=== PATIENT | female | born 1940 | race Caucasian/White ===

== ENCOUNTER → 2017-07-15 09:55 | Outpatient (CLI) | payer MEDICARE, SELFPAY ==
--- NOTE | 2017-07-15 10:00 | MM_ITS ---
MM Dig screening mamm BI w/CAD CAD Screening ORDERING PHYSICIAN : Tony Alfonso MD PATIENT AGE: 77 years GENDER: Female COMPARISON: No Previous mammograms:. Baseline study INDICATION: 77. No hormones. No new complaints. Routine screening baseline study. Noncontributory family history. TECHNIQUE: Standard CC and MLO images were obtained. R2 CAD reviewed. FINDINGS: Moderate breast density bilaterally with no suspicious dominant mass nor architectural distortion Small clusters of calcification seen bilaterally more likely benign . LEFT BREAST:There are several clustered areas of calcifications at the left breast. These are generally punctate fairly dense more likely benign. But warrant magnification views of this baseline study. Area X this most superior with slightly ill-defined calcifications Area Y contains denser crush stone appearing type calcifications. The areas seen numerous small generally dense & coarse supporting benign nature Area Z:. Cluster of calcifications of variable sizes most likely benign but benign but would benefit from additional views and follow-up as well.. The other similar clearly benign clusters groupings of calcium dictation seen elsewhere bilaterally not of concern. Vascular calcifications bilaterally but RIGHT BREAST on the right there small cluster calcifications labeled A which.. Most likely benign calcifications but would benefit from magnification spot views in when patient returns :Minimal focal density at the superior retroareolar region is most likely asymmetric glandular tissue and dissipates between the 2 MLO views. Follow-up in one year adequate at this latter area IMPRESSION: 1. Left breast 3 clusters of calcifications would benefit from magnification views at patient's convenience.. Indeterminate features but most likely benign particularly in this age patient. 2. Right breast Cluster calcification labeled A is most likely benign but would benefit from magnification views when patient returns as well 3. Would note this is a Baseline study with unfortunately no no previous for comparison in this 77-year-old 4. Not a reasonable alternative would be follow-up study in 6-9 months BI-RADS Category: 0 Need Additional Imaging Evaluation RECOMMENDED FOLLOW-UP: IMM - IMMEDIATE FOLLOW-UP RECOMMENDED (A letter has been sent to the patient regarding results of the study.)
--- NOTE | 2017-07-15 10:02 | XR_ITS ---
DEXA SCAN.-BONE DENSITY STUDY HIPS AND LUMBAR SPINE HISTORY: Postmenopausal female low calcium intake. Postmenopausal female... Takes multivitamin and thyroid medication. TECHNIQUE: DEXA scan hip and lumbar spine The most complete data summary and color graphic presentation of the today's ( and any prior ) DEXA findings are available in PACS. Definition and treatment guidelines included. COMPARISON: November 24, 2015 LUMBAR SPINE: Overall osteopenia Overall mean lumbar L1-L4 T score -2.0 with BMD0.938 g/cm sq . L2 vertebral body demonstrates the lowest T score -2.6 with [id number] g/cm sq 2016 prior DEXA the mean T score -2.5 with BMD was0.878g/cm sq Thus when comparing today's study to the prior exam there's been a 6.8% increasing mean bone density at the lumbar spine less than 2 year interval. HIPS: Osteopenia Averaging all regions yields today's Hip Mean T score -1.7 with BMD0.788 g/cm sq . = Osteopenia However Femoral neck density is best predictor of hip fracture risk Right femoral neck demonstrates the lowest T score -2.6, with BMD00.672 g/cm sq = osteoporosis . Left femoral neck T score -2.5 with BMD 0.691 with borderline osteoporosis. 2016 DEXA hip mean T score -1.7 , 8 with mean BMD0. 795 g/cm sq Thus this reflects a 0.9% % decrease in overall mean bone density at the hips in the interval. IMPRESSION 1. LUMBAR SPINE: Overall Osteopenia with overall T score -2.0. However osteoporosis is encountered at L2 vertebral body with T score is -2.6 Also note increased bone density lumbar spine since prior DEXA study 2015. 2. HIPS: Osteopenia with overall T score -1.7 -But osteoporosis is noted today at both right and left femoral neck. WHO criteria for post-menopausal, Women: Normal: T-score at or above -1 SD Osteopenia: T-score between -1 and -2.5 SD Osteoporosis: T-score at or below -2.5 SD Low calcium
== END ==
PROVIDERS: Family Provider Family Medicine; PCP Family Medicine; Visit Provider Family Medicine
DX: Z12.31 Encounter for screening mammogram for malignant neoplasm of breast (principal); M81.0 Age-related osteoporosis without current pathological fracture; Z78.0 Asymptomatic menopausal state
CPT/HCPCS: 77067; 77080

== ENCOUNTER → 2017-08-09 13:05 | Outpatient (CLI) | payer MEDICARE, SELFPAY ==
--- NOTE | 2017-08-09 13:14 | MM_ITS ---
MM Dig mamm BI DX w/CAD COMPARISON: 07/15/2015 INDICATION: Follow-up abnormal mammogram ORDERING PHYSICIAN: Vanessa Alfonso MD PATIENT AGE: 77 years TECHNIQUE: Problem solving views of both breasts including magnification views FINDINGS: Left breast: There are multiple clusters of calcifications are probably benign.. Benign-appearing nodules present as well. Right breast: Coarse cluster calcification noted in the upper inner aspect of the right breast probably benign. IMPRESSION: Probably benign calcifications bilaterally BI-RADS Category: 3 Benign Finding Short Term Follow-up RECOMMENDED FOLLOW-UP: 6M - 6 MONTH FOLLOW-UP Recommend bilateral 6 month mammographic follow-up with magnification views to confirm stability of the probably benign calcifications (A letter has been sent to the patient regarding results of the study.)
== END ==
PROVIDERS: Family Provider Family Medicine; PCP Family Medicine; Visit Provider Family Medicine
DX: R92.8 Other abnormal and inconclusive findings on diagnostic imaging of breast (principal)
CPT/HCPCS: 77066

== ENCOUNTER → 2018-02-04 13:14 | Outpatient (CLI) | payer MEDICARE, SELFPAY ==
--- NOTE | 2018-02-04 | US_ITS ---
US thyroid HISTORY: ITS.REASON: NECK SWELLING ORDERING PHYSICIAN: Nora Lee MD PATIENT AGE: 77 years Comparison: None FINDINGS: The right lobe of the thyroid gland 6.6 x 2.5 x 4.9 cm. The left lobe is 4.7 x 2.3 x 2.4 cm. The isthmus is diffusely enlarged. A 2.7 x 1.7 cm isoechoic area of nodularity is present within the isthmus. Within this there is a 5 mm mixed echogenic region. It is uncertain where the larger represents a nodule or just diffuse enlargement of the isthmus. The thyroid gland has an overall multinodular appearance. There is a 2.4 x 2 cm isoechoic nodule in the upper pole on the right. The left lobe is heterogeneous in echogenicity and enlarged. Overall, the thyroid has its multinodular appearance. IMPRESSION: 1. Enlarged thyroid gland consistent with goiter with multinodular appearance. 2. The isthmus is enlarged and does appear to contain a 2.7 cm nodule. 3. At least a 2.4 cm isoechoic nodule in the upper pole on the right.
== END ==
PROVIDERS: Family Provider Family Medicine; PCP Family Medicine; Visit Provider Emergency Medicine
DX: R22.1 Localized swelling, mass and lump, neck (principal)
CPT/HCPCS: 76536

== ENCOUNTER → 2018-02-21 08:18 | Outpatient (CLI) | payer MEDICARE, SELFPAY ==
--- NOTE | 2018-02-21 | US_ITS ---
FNA w guidance HISTORY: Thyromegaly with thyroid nodules ITS.REASON: RT THYROID NODULE ORDERING PHYSICIAN: Aaron Devine MD PATIENT AGE: 77 years COMPARISON: 02/04/2018 Prebiopsy ultrasound: Prebiopsy planning performed with ultrasound showing a 3 cm nodule at the isthmus and a 2.4 cm nodule in the right lobe. TECHNIQUE: Following obtaining informed consent, using aseptic technique and local anesthesia with buffered lidocaine, fine-needle aspiration was performed in each of the 2 nodules of interest using sonographic guidance. 3 passes were made into the isthmus nodule and 2 passes into the right lobe nodule with a 25-gauge needle. Specimen was given to cytology. The patient tolerated the procedure well without evidence of immediate complications and left the ultrasound suite in stable condition. CYTOLOGY: Isthmus nodule: Negative for malignancy, consistent with benign follicular nodule Right thyroid nodule: Negative for malignancy, consistent with benign follicular nodule IMPRESSION: Successful sonographic guided fine needle aspiration of 2 nodules of the thyroid gland both showing benign findings.
== END ==
PROVIDERS: Family Provider Family Medicine; PCP Family Medicine; Visit Provider Otolaryngology
DX: E04.1 Nontoxic single thyroid nodule (principal); E03.9 Hypothyroidism, unspecified
CPT/HCPCS: 10022; 76536; 88173; 88305

== ENCOUNTER → 2018-03-03 08:18 | Outpatient (CLI) | payer MEDICARE, SELFPAY ==
[2018-03-03 08:57] LABS: Basophils # 0.1 K/mm3 (0-0.2); Basophils % 0.5 % (0.1-2.0); Eosinophils # 0.2 K/mm3 (0.0-0.4); Eosinophils % 1.8 % (0.1-12.0); Hematocrit 41.1 % (37.0-47.0); Hemoglobin 13.7 g/dL (12.2-16.2); Lymphocytes # 3.3 K/mm3 (0.7-4.5); Lymphocytes % 30.7 K/mm3 (10-50); Mean Corpuscular HGB Conc 33.3 g/dL (31.8-35.4); Mean Corpuscular Hemoglobin 30.8 pg (27.0-31.2); Mean Corpuscular Volume 92.5 fl (81-99); Mean Platelet Volume 7.3 fl (7.4-10.4); Monocytes # 0.6 K/mm3 (0.1-1.0); Monocytes % 5.7 % (1.7-9.3); Neutrophils # 6.6 K/mm3 (1.8-7.8); Neutrophils % 61.3 % (37.0-80.0); Platelet Count 244 K/mm3 (142-424); Red Blood Count 4.45 M/mm3 (4.20-5.40); Red Cell Distribution Width 13.1 % (11.5-17.5); White Blood Count 10.7 K/mm3 (4.8-10.8)
[2018-03-03 10:26] LABS: Alanine Aminotransferase 20 U/L (12-78); Albumin Level 3.8 gm/dL (3.4-5.0); Albumin/Globulin Ratio 1.2 (1.1-1.8); Alkaline Phosphatase 74 U/L (46-116); Anion Gap 13.8 mEq/L (5-15); Aspartate Amino Transferase 9 U/L (15-37); Bilirubin,Total 0.4 mg/dL (0.2-1.0); Blood Urea Nitrogen 12 mg/dL (7-18); Calcium 9.2 mg/dL (8.5-10.1); Carbon Dioxide 26 mmol/L (21.0-32.0); Chloride 109 mmol/L (98-107); Creatinine,Serum 1.12 mg/dL (0.55-1.02); Estimated Glomerular Filt Rate 47 ml/min (>60); GFR (African American) 57 ML/MIN (>60); Globulin 3.1 gm/dl (1.3-3.2); Glucose 127 mg/dL (74-106); Potassium 4.8 mmoL/L (3.5-5.1); Sodium 144 mmol/L (136-145); Total Protein,Serum 6.9 gm/dL (6.4-8.2)
== END ==
PROVIDERS: PCP Family Medicine; Visit Provider Family Medicine
DX: Z01.818 Encounter for other preprocedural examination (principal)
CPT/HCPCS: 36415; 80053; 85025; 93005

== ENCOUNTER 2018-03-13 07:06 | Inpatient (IN) ==
--- NOTE | 2018-03-13 08:21 | Progress Note ---
[facility] Anesthesia Checklist - Structural Data Admitted From: Home Planned Operative Procedure/s: thyroidectomy Consent for Planned Operative Procedure(s) Verified: Yes Verified Documents: Surgical Consent - Airway Assessment C-Spine Mobility Assessed: Yes TMJ Mobility Assessed: Yes Dentition: Dentures-good fit - Neurological Assessment Level of Consciousness: Awake, Alert, Appropriate - Anesthesia Plan Anesthesia Risk discussed: Yes Anesthesia Plan: Verified ASA Class: II Anesthesia Type: General [facility] History I have reviewed the patient's past medical history: Yes Medical History: Reports:: Diabetes Mellitus Type 2, Hyperlipidemia, Hypertension Denies:: Cancer, Diabetes Mellitus Type 1, Internal Pacemaker, MRSA, Seizures Other Medical History: Reports: Hypothyroidism. Denies: Blood Transfusion Reaction Other Surgeries: Yes: No Previous Surgery. No: Pacemaker Amputation: No Fractures: No - *Social History Educational Level: Attended High School Smoking Status: Former smoker Alcohol Intake: never Occupational Status: disabled Housing: house Household Members: none - Psychiatric History Expresses thoughts of harming self/others: None Suicide Plan Description: No Plan *Family Hx:: No significant family history
--- NOTE | 2018-03-13 11:38 | Progress Note ---
[facility] Anesthesia Record Part I Intake, IV Amount: 1,500 Estimated blood loss (mL): 25 Urine output (mL): 0 Blood Pressure: 141/60 SaO2: 95 Pulse Rate: 81 Respiratory Rate: 12 Temperature: 97 F Patient is:: Awake, Stable Stable to PACU at:: 11:35
--- NOTE | 2018-03-13 11:39 | Progress Note ---
[facility] Anesthesia Record Part II Discharge Time: 12:05 Destination: floor PACU nurse assessment reviewed?: Yes Patient Condition:: Good Anesthesia Complications:: None
--- NOTE | 2018-03-13 15:33 | Operative Note ---
Date of procedure: 03/13/18 Pre-op Diagnosis:: 1. Large right cervical substernal thyroid neoplasm 2. Pressure dysphagia with displacement of the esophagus the left 3. 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 Total right thyroid lobectomy including substernal portion cervical approach 2. Autotransplantation of the right inferior parathyroid gland Surgeon:: Aaron Devine MD MACHINE STRAP BUCKLER:: Malachi Lennon Anesthesia: GETA Estimated blood loss (mL): 14 Operative findings:: same Operative note:: With the patient under general anesthesia maintained with a nerve monitoring endotracheal tube having been given 1 g of Ancef and 12 mg of Decadron the neck and upper chest were prepped with Betadine and draped. Because of the size of the lesion and extended thyroid incision was marked out in skin and subcutaneous tissue and platysma were incised. The strap muscles were identified as were the sternomastoid muscles on each side of the neck. The strap muscles were mobilized and divided. They were significantly attenuated by the large thyroid mass. The mass was exposed on the right side and extended deeply into the substernal region. As well as laterally with significant displacement of the common carotid artery on the right and medially with significant displacement of the trachea and esophagus to the left. The tumor extended into the prevertebral area of the neck. Dissection was commenced superiorly the superior vascular pedicle on the right side was mobilized doubly ligated and divided. The right superior parathyroid gland was identified and retained in situ. The middle thyroid vein on the right was doubly ligated and divided. The right thyroid mass was from the common carotid artery. And from the innominate artery. The mass was mobilized and brought up into the anterior neck from the prevertebral space. And then the substernal component could be brought up into the neck and the inferior thyroid veins were identified on the right and doubly ligated and divided. It was then possible to identify the right inferior thyroid artery as well as the right recurrent laryngeal nerve which was adherent to the thyroid mass. The nerve was stimulated in a positive fashion and then the right inferior thyroid artery was doubly ligated and divided. The nerve was carefully from the thyroid mass on the right and followed through to where it entered the larynx through the cricothyroid membrane. Stimulated again in a normal fashion. The right inferior parathyroid gland was found attached to the thyroid mass and accordingly it was harvested, biopsied and confirmed as parathyroid tissue. The bulk of the gland was retained in a Mai dish for later reimplantation. The gland was then from the prevertebral space and from the esophagus as well as from the trachea. The isthmus was carried with the right lobe and Ibarra's ligament was identified and divided. The right thyroid mass measured over 7 cm in diameter. The gland was then clamped on the lateral aspect of the isthmus. And the specimen was from the left lobe and submitted for frozen section analysis. All bleeding was stopped with either ligature or coagulation. The stump of the left lobe was oversewn with 2- 0 Vicryl. Surgicel snow was placed in the right prevertebral space. Surgicel snow was also placed in the superior mediastinum on the right side. The Mass that extended well beyond the sternoclavicular joint. Prior to placing the Surgicel snow the wound was thoroughly irrigated and all bleeding had been stopped. The strap muscles were then repaired using 2-0 Vicryl. The frozen section analysis came back as benign. A pocket was placed in the lower third of the right sternomastoid muscle and retracted with mosquito forceps. The previously harvested right inferior parathyroid gland was divided into 6 2 mm segments and implanted into the lower end of the right sternomastoid muscle. The muscle was repaired with 4-0 Vicryl. A 10 mm Mulugeta-Kang drain was placed in the neck and hooked to suction. The platysma and subcutaneous layers were closed with 2-0 Vicryl. Dermabond was placed on the skin incision and a dressing was applied. The patient tolerated the procedure well and was sent to recovery in good general condition. Condition: stable Disposition: PACU Complications:: none
--- NOTE | 2018-03-14 08:50 | Pharmacy Consult Notes ---
[facility] Pharmacy VTE Monitoring - Patient Demographics Admission date: 03/13/18 Report Date: 03/14/18 Time: 08:49 Allergies/Adverse Reactions: Patient Allergies No Known Allergies Allergy (Verified 03/12/18 08:42) Height: 1.57 m Weight: 68.181 kg - VTE Risk Was VTE Risk Assessment Performed: Yes VTE Score: 2 VTE Risk Level: Low Risk - Prophylaxis VTE Prophylaxis Ordered?: Yes Types of VTE Prophylaxis: IPCS Thigh High Location of Applied Device: Bilateral Lower Extremeties - VTE Diagnosis Confirmed Treatment or plan recommended: Continue Current Treatment
--- NOTE | 2018-03-14 15:14 | Progress Note ---
Internal Medicine - PN: Subj *Date: 03/14/18 *Time: 09:20 Interval history: FAMILY MEDICINE CONSULT: 77 y.o. WF s/p thyroidectomy by Dr. Devine. Patient with longstanding history of massive goiter with recent increase in symptoms, i.e. discomfort and difficulty swallowing. Recent fine needle bx negative for malignancy. The patient is Diabetic and takes Metformin 500mg bid and 4mg glimepiride. Also treated for hypertension with Lisinopril 20mg daily and 20mg of lasix every other day. Takes Simvastatin 40mg hs for hyperlipidemia. Alendronate 35mg weekly for osteoporosis. Exam Vital signs and Labs for Last 24 Hours: Temp Pulse Resp BP Pulse Ox 98.6 F 92 H 18 150/73 96 03/14/18 08:00 03/14/18 08:31 03/14/18 08:00 03/14/18 08:00 03/14/18 08:31 Laboratory Results - last 24 hr 03/14/18 07:18: Calcium 9.4 03/14/18 11:12: POC Glucose 142 H I & O for Last 24 hours: Intake & Output 03/12/18 03/13/18 03/14/18 03/15/18 11:59 11:59 11:59 11:59 Intake Total 1500 / 1500 1990 240 / 240 Output Total 2330 / 2330 300 / 300 Balance 1500 / 1500 -339 / -339 -60 / -60 Weight 155 lb 150 lb 5 oz - Constitutional no acute distress Comments: Sitting up in bed, converant - *Routine HEENT Exam Head: Present: normocephalic Eye: Present: EOMI, PERRL ENT: Present: mucous membranes moist - *Routine Neck Exam Comments: Dressing in place, dry. Bulb drain functioning, scant bloody drainage. - Routine Chest/Breast/Axilla Exam Comments: no tenderness, mild dorsal kyphosis - *Routine Respiratory Exam Present: CTA bilaterally (no wheezes or rhonchi) - *Routine Cardiovascular Exam Present: RRR, S4 Comments: No ectopics - *Routine Abdominal Exam Present: soft Comments: nontender, no masses - *Routine Extremities Exam Comments: No edema - *Routine Neurological Exam No deficits, voice quite clear post-op Assessment and Plan (1) Multinodular goiter (nontoxic) Current visit: Yes Status: Acute Category: Medical Code(s): E04.2 - Nontoxic multinodular goiter (2) Neck pain Current visit: Yes Status: Acute Category: Medical Code(s): M54.2 - Cervicalgia (3) Dysphagia Current visit: Yes Status: Acute Category: Medical Code(s): R13.10 - Dysphagia, unspecified (4) Diabetes mellitus type 2 in nonobese Current visit: Yes Status: Acute Category: Medical Code(s): E11.9 - Type 2 diabetes mellitus without complications (5) Hypothyroidism (acquired) Current visit: Yes Status: Acute Category: Medical Code(s): E03.9 - Hypothyroidism, unspecified (6) Hypertension Current visit: Yes Status: Acute Category: Medical Code(s): I10 - Essential (primary) hypertension - Assessment and plan all Dx Assessment and Plan for all problems:: Home medications are ordered. I did not order the statin (nonformulary). Follow blood sugars. THANK YOU for the consult.
== END 2018-03-14 17:30 | disposition home or self-care (01) ==
LOC: OR 07:06 → OBSVTOIN 09:08 → 2ND 09:08 → INTOOBSV 09:08
PROVIDERS: ADMIT Otolaryngology; ATTEND Otolaryngology

== ENCOUNTER → 2018-07-09 14:32 | Outpatient (CLI) | payer MEDICARE, SELFPAY ==
[2018-07-09 16:33] LABS: Free T4 (Free Thyroxine) 1.13 ng/dl (0.76-1.46); Thyroid Stimulating Hormone 0.73 uIU/ml (0.358-3.740)
== END ==
PROVIDERS: Visit Provider Otolaryngology
DX: D49.7 Neoplasm of unspecified behavior of endocrine glands and other parts of nervous system (principal); E03.9 Hypothyroidism, unspecified
CPT/HCPCS: 36415; 84439; 84443

== ENCOUNTER → 2020-03-29 15:29 | Outpatient (CLI) | payer MEDICARE, SELFPAY ==
--- NOTE | 2020-03-29 15:44 | XR_ITS ---
PROCEDURE: XR FOOT LT MIN 3V CLINICAL INDICATION: SPRAIN OF L FOOT Pain and swelling COMPARISON: No exams were available for comparison FINDINGS: No acute fracture or dislocation is evident. Degenerative changes are present at the tarsal metatarsal junction and 1st metatarsophalangeal junction. Nonspecific soft tissue calcification noted along the dorsal ankle region and at the plantar fascia. IMPRESSION: Degenerative changes, no acute finding Dictated by: Ruben Loving MD 03/29/2020 16:52 Ruben Loving MD in [place] 03/29/2020 16:52
== END ==
PROVIDERS: PCP Family Medicine; Visit Provider Family Medicine
DX: S93.602A Unspecified sprain of left foot, initial encounter (principal)
CPT/HCPCS: 73630

== ENCOUNTER → 2020-04-14 12:55 | Outpatient (CLI) | payer MEDICARE, SELFPAY ==
--- NOTE | 2020-04-14 13:19 | CT_ITS ---
PROCEDURE: CT SOFT TISSUE NECK WO CON CLINICAL HISTORY: trapezias muscle swelling- left LEFT SIDE NECK TREMORS, FROM EAR TO SHOULDER LEFT ANTERIOR NECK SWELLING, MARKED WITH BB NO PRIOR COMPARISON: US US THYROID from 04/14/2020 TECHNIQUE: Oral Contrast: None IV Contrast: None Axial images obtained with sagittal and coronal reformats. All CT scans at the facility use one or more dose reduction, viz: automated exposure control, ma/kV adjustment per patient size (including targeted exams where dose is matched to indication, i.e. head), or iterative reconstruction technique. FINDINGS: The nasopharynx, oropharynx, and hypopharynx have unremarkable unenhanced appearance. Unremarkable appearing epiglottis. The left lobe of the thyroid gland is enlarged measuring 6 cm cephalad caudad and 3.2 cm transverse. There is mild compression upon the left side of the trachea with minimal tracheal deviation toward the right by approximately 6 mm. There has been a prior right thyroidectomy. There are few scattered small nodes in the neck with no dominant adenopathy. The parotid and submandibular glands have an unremarkable appearance. Lung apices are clear. There is mild degenerative change in the cervical spine. Degenerative changes are present at the sternoclavicular joints. IMPRESSION: Enlarged left lobe of the thyroid gland/left thyroid mass with mild deviation of the trachea toward the right Dictated by: Ruben Loving MD 04/15/2020 11:18 Ruben Loving MD in [place] 04/15/2020 11:18
--- NOTE | 2020-04-14 13:22 | US_ITS ---
PROCEDURE: US THYROID CLINICAL INDICATION: hx thyroid sx pt has visable and palpable area left neck; she has history of thyroid surgery, right lobe and isthmus removed---- COMPARISON: US THY US thyroid from 02/04/2018 FINDINGS: There has been prior right thyroidectomy. The left lobe measures 4.7 x 2.9 x 3.5 cm. There is a heterogeneous 3.9 x 2.3 cm left thyroid nodule. The nodule is wider than tall with heterogeneous echogenicity. This is probably unchanged compared to 02/04/2018. IMPRESSION: Enlarged left lobe of the thyroid gland nearly completely occupied by 3.9 cm nodule overall not significantly changed. Interval stability suggests benign process. FNA may confirm if clinically warranted. Dictated by: Ruben Loving MD 04/17/2020 09:34 Ruben Loving MD in [place] 04/17/2020 09:34
[2020-04-14 15:13] LABS: Free T4 (Free Thyroxine) 1.87 ng/dl (0.78-2.19)
[2020-04-14 15:28] LABS: Thyroid Stimulating Hormone 1.02 uIU/mL (0.465-4.68)
== END ==
PROVIDERS: PCP Family Medicine; Visit Provider Otolaryngology
DX: E03.9 Hypothyroidism, unspecified (principal)
CPT/HCPCS: 36415; 70490; 76536; 84439; 84443

== ENCOUNTER → 2020-05-10 09:50 | Outpatient (CLI) | payer MEDICARE, SELFPAY ==
--- NOTE | 2020-05-10 09:50 | US_ITS ---
PROCEDURE: US FNA THYROID CLINICAL INDICATION: Thyroid nodule COMPARISON: US US THYROID from 04/14/2020 TECHNIQUE: Pre biopsy exam confirming the dominant left thyroid nodule.. Time-out procedure performed. Following obtaining informed consent, using aseptic technique and local anesthesia with buffered lidocaine, fine-needle aspiration was performed of the nodule of interest using sonographic guidance. 3 passes were made into the nodule with a 21-gauge needle. Specimen was given to cytology. The patient tolerated the procedure well without evidence of immediate complications and left the ultrasound suite in stable condition. FINDINGS: CYTOLOGY: Negative for malignancy. Consistent with benign follicular nodule IMPRESSION: Uneventful ultrasound-guided FNA of the left thyroid nodule showing benign findings. Dictated by: Ruben Loving MD 05/27/2020 13:28 Ruben Loving MD in [place] 05/27/2020 13:28
== END ==
PROVIDERS: PCP Family Medicine; Visit Provider Otolaryngology
DX: E04.1 Nontoxic single thyroid nodule (principal)
CPT/HCPCS: 10005; 76942; 88173; 88305

== ENCOUNTER → 2020-05-13 13:04 | Outpatient (CLI) | payer MEDICARE, SELFPAY ==
--- NOTE | 2020-05-13 14:16 | ECG_ITS ---
APPROVED REPORT Exam: Resting ECG HR:91 bpm ECG Measurements Heart Rate 91 AXES CA 152 P QRSd 64 QRS 21 QT 340 T 10 QTc 418 Conclusion Sinus rhythm with premature atrial complexes Nonspecific ST and T wave abnormality Abnormal ECG Electronically signed by : Noel Zafar, 05/13/2020 18:13:43
== END ==
PROVIDERS: PCP Family Medicine; Visit Provider Family Medicine
DX: Z01.810 Encounter for preprocedural cardiovascular examination (principal)
CPT/HCPCS: 93005

== ENCOUNTER 2020-07-20 21:34 | Emergency (ER) | payer MEDICARE, SELFPAY ==
--- NOTE | 2020-07-20 21:47 | ECG_ITS ---
APPROVED REPORT Exam: Resting ECG HR:93 bpm ECG Measurements Heart Rate 93 AXES NH 128 P 86 QRSd 68 QRS 66 QT 340 T 74 QTc 422 Conclusion Normal sinus rhythm Normal ECG Electronically signed by : Ammon Melendez, 07/21/2020 19:27:47
[2020-07-20 21:50] VITALS: BP 159/84; PULSE 89; RESP 18; TEMP 37.3; O2SAT 97; BMI 37.4
--- NOTE | 2020-07-20 21:58 | XR_ITS ---
PROCEDURE: XR CHEST PORTABLE CLINICAL HISTORY: soa Shortness of breath COMPARISON: CR XR CHEST 2V from 06/09/2019 FINDINGS: The cardiomediastinal silhouette and pulmonary vascularity are within normal limits. Patchy density is present left lower lobe laterally suggesting an area of infiltrate. There are mild atelectatic changes in the right lung base. There is some increased density in left paratracheal region with tracheal deviation toward the right. IMPRESSION: Left lower lobe infiltrate. Right lower lobe atelectasis. Increased density left paratracheal region suggesting thyroid enlargement or nodule. Dictated by: Ruben Loving MD 07/21/2020 05:07 Ruben Loving MD in [place] 07/21/2020 05:07
[2020-07-20 22:06] VITALS: BP 151/82; PULSE 87; RESP 17; O2SAT 97
[2020-07-20 22:11] LABS: Basophils % 0.4 % (0.1-2.0); Hematocrit 41.4 % (37.0-47.0); Hemoglobin 14.1 g/dL (12.2-16.2); Lymphocytes # 1.4 K/mm3 (0.7-4.5); Lymphocytes % 12.9 % (10-50); Mean Corpuscular HGB Conc 34.2 g/dL (31.8-35.4); Mean Corpuscular Hemoglobin 31.3 pg (27.0-31.2); Mean Corpuscular Volume 91.8 fl (81-99); Mean Platelet Volume 8.1 fl (7.4-10.4); Monocytes # 0.3 K/mm3 (0.1-1.0); Neutrophils % 83.7 % (37.0-80.0); Platelet Count 249 K/mm3 (142-424); Red Blood Count 4.51 M/mm3 (4.20-5.40); Red Cell Distribution Width 13.6 % (11.5-17.5); White Blood Count 10.8 K/mm3 (4.8-10.8)
[2020-07-20 22:18] LABS: Alanine Aminotransferase 23 U/L (12-78); Albumin Level 4.2 g/dl (3.5-5.0); Alkaline Phosphatase 110 U/L (38-126); Anion Gap 17.4 mEq/L (5-15); Aspartate Amino Transferase 26 U/L (14-36); Bilirubin,Direct 0.5 mg/dl (0.0-0.4); Bilirubin,Total 0.5 mg/dl (0.2-1.3); Blood Urea Nitrogen 36 mg/dl (7-17); Calcium 9.3 mg/dl (8.4-10.2); Carbon Dioxide 22 mmol/L (22.0-30.0); Chloride 96 mmol/L (98-107); Creatinine Clearance Estimated 54 mL/min (50-200); Estimated Glomerular Filt Rate 39 ml/min (>60); GFR (African American) 47 ML/MIN (>60); Glucose 304 mg/dl (74-100); Potassium 4.4 mmoL/L (3.5-5.1); Sodium 131 mmol/L (136-145); Total Protein,Serum 7.4 g/dl (6.3-8.2)
[2020-07-20 22:19] LABS: Lactic Acid 1.7 mmol/L (0.7-2.1)
[2020-07-20 22:30] LABS: Coronavirus 19 IgG Antibody Negative (Negative); Coronavirus 19 IgM Antibody Negative (Negative)
[2020-07-20 22:31] LABS: Troponin I < 0.01 ng/ml (0.00-0.034)
[2020-07-20 22:36] VITALS: BP 138/73; PULSE 79; RESP 15; O2SAT 96
--- NOTE | 2020-07-20 22:40 | HMH.EDSOB ---
ED Disposition Clinical Impression: COVID-19, Pneumonia due to COVID-19 virus, Renal insufficiency, Diabetes mellitus type 2 in nonobese, Hypothyroidism (acquired) Disposition: Home, Self-Care Condition on Discharge: Good Instructions: DI for COVID-19 (Suspected or Confirmed ) Additional Instructions: call pcp in am Referrals: Vanessa Alfonso MD [Primary Care Provider] - - Critical Care Critical Care Time: No Attestation: On 07/20/20, the high probability of a clinically significant, sudden or life threatening deterioration of the following system(s) required my full and direct attention, intervention and personal management. The time I documented below is in addition to time spent performing reported procedures but includes the following listed in this critical care notation. Medical Decision Making - Medical Records Medical records reviewed: Yes: I reviewed the patient's medical records. - Anam Inquiry Pt receiving controlled substance: No Vital Signs: 07/20/20 21:50 07/20/20 22:06 07/20/20 22:36 Temperature 99.1 F Temperature Source Oral Pulse Rate [Right Brachial] 89 87 79 Respiratory Rate 18 17 15 Blood Pressure [Right Arm] 159/84 H 151/82 H 138/73 Blood Pressure Mean [Right Arm] 109 105 94 Blood Pressure Source [Right Arm] Automatic Cuff Automatic Cuff Automatic Cuff Blood Pressure Position [Right Arm] Sitting Sitting 02 Sat by Pulse Oximetry 97 97 96 Oxygen Delivery Method Room Air Room Air Room Air 07/20/20 23:06 07/20/20 23:36 Temperature Temperature Source Pulse Rate [Right Brachial] 84 81 Respiratory Rate 16 19 Blood Pressure [Right Arm] 142/75 H 149/70 H Blood Pressure Mean [Right Arm] 97 96 Blood Pressure Source [Right Arm] Automatic Cuff Automatic Cuff Blood Pressure Position [Right Arm] Sitting 02 Sat by Pulse Oximetry 95 98 Oxygen Delivery Method Room Air Room Air - Lab Data Lab results reviewed: Yes: I reviewed the patient's lab results. Lab Results 07/20/20 22:00: WBC 10.8, RBC 4.51, Hgb 14.1, Hct 41.4, MCV 91.8, MCH 31.3 H, MCHC 34.2, RDW 13.6, Plt Count 249, MPV 8.1, Neut % (Auto) 83.7 H, Lymph % (Auto) 12.9, [place] % (Auto) 3.0, Eos % (Auto) 0.0 L, Baso % (Auto) 0.4, Neut # (Auto) 9.0 H, Lymph # (Auto) 1.4, [place] # (Auto) 0.3, Eos # (Auto) 0.0, Baso # (Auto) 0.0 07/20/20 22:00: Sodium 131 L, Potassium 4.4, Chloride 96 L, Carbon Dioxide 22, Anion Gap 17.4 H, BUN 36 H, Creatinine 1.30 H, Estimated Creat Clear 54, Estimated GFR 39 L, Est GFR ( Amer) 47 L, Glucose 304 H, Calcium 9.3, Total Bilirubin 0.5, Direct Bilirubin 0.5 H, Conjugated Bilirubin 0.0, Indirect Bilirubin 0.0, Unconjugated Bilirubin 0.0, AST 26, ALT 23, Alkaline Phosphatase 110, Troponin I < 0.01, Total Protein 7.4, Albumin 4.2, Procalcitonin 0.120 07/20/20 22:00: Lactate 1.7 07/20/20 22:00: SARS-CoV-2 IgG Ab (Rapid) Negative, SARS-CoV-2 IgM Ab (Rapid) Negative Result diagrams: 07/20/20 22:00 07/20/20 22:00 Orders (Tests/Meds): ED MEDICATIONS Generic Name Dose Route Start Last Admin Trade Name Freq PRN Reason Stop Dose Admin Sodium Chloride 1,000 mls @ 999 mls/hr 07/20/20 22:00 07/20/20 22:03 Sod Chlor 0.9% 1000ml Bag IV 07/20/20 23:00 999 mls/hr .Q1H1M [facility]AGO Administration Discontinued Medications Generic Name Dose Route Start Last Admin Trade Name Freq PRN Reason Stop Dose Admin Dexamethasone Sodium Phosphate 10 mg 07/20/20 22:02 07/20/20 22:04 Dexamethasone 4mg/Ml 5ml Mdv IV 07/20/20 22:03 10 mg ONCE ONE Administration ORDERS Category Date Time Status CT chest wo con Stat Cat Scan 07/20/20 23:03 Ordered XR chest portable Stat Exams 07/20/20 21:58 Taken Troponin I Q3H Lab 07/21/20 01:00 Ordered Troponin I Q3H Lab 07/21/20 04:00 Ordered Blood Culture Stat Micro 07/20/20 22:00 Received - Radiology Data #1 Image(s): Chest Image Reviewed: Yes I reviewed the patient's radiology image Preliminary Findings: Abnormal (bilat changes )
--- NOTE | 2020-07-20 23:03 | CT_ITS ---
PROCEDURE: CT CHEST WO CON CLINICAL INDICATION: SOA Shortness of breath, Covid19 COMPARISON: CT CT ABDOMEN PELVIS W CON from 06/09/2019 CR XR CHEST PORTABLE from 07/20/2020 TECHNIQUE: Axial images obtained with sagittal and coronal reformats. All CT scans at the facility use one or more dose reduction, viz: automated exposure control, ma/kV adjustment per patient size (including targeted exams where dose is matched to indication, i.e. head), or iterative reconstruction technique. FINDINGS: There is enlargement of the left lobe of the thyroid gland consistent with goiter. This is causing some impingement upon the trachea and mild tracheal shift to the right by approximately 1 cm. There are few scattered small mediastinal lymph nodes. Normal heart size. Multifocal small patchy areas of ground-glass infiltrate are present in the right upper lobe posteriorly, right lower lobe posteriorly, lingula, left upper lobe and the superior aspect of the left lower lobe consistent with Covid19 pneumonia. No effusions. There are degenerative changes of the thoracic spine. IMPRESSION: Multifocal patchy areas of ground-glass infiltrate consistent with Covid19 pneumonia. Dictated by: Ruben Loving MD 07/21/2020 05:46 Ruben Loving MD in [place] 07/21/2020 05:46
[2020-07-20 23:06] VITALS: BP 142/75; PULSE 84; RESP 16; O2SAT 95
[2020-07-20 23:36] VITALS: BP 149/70; PULSE 81; RESP 19; O2SAT 98
[2020-07-21 00:36] VITALS: BP 145/75; PULSE 85; RESP 16; TEMP 36.8; O2SAT 98
== END 2020-07-21 00:40 | disposition home or self-care (01) ==
PROVIDERS: Emergency Provider Emergency Medicine; PCP Family Medicine
DX: Z20.822 Contact with and (suspected) exposure to COVID-19 (principal); R06.02 Shortness of breath; N28.9 Disorder of kidney and ureter, unspecified; E11.9 Type 2 diabetes mellitus without complications; E03.9 Hypothyroidism, unspecified; E78.5 Hyperlipidemia, unspecified; Z01.84 Encounter for antibody response examination; I10 Essential (primary) hypertension; Z88.0 Allergy status to penicillin; Z79.899 Other long term (current) drug therapy
CPT/HCPCS: 71045; 71250; 80048; 80076; 83605; 84145; 84484; 85025; 86328; 87040; 93005; 96365; 96375; 99284

== ENCOUNTER 2020-07-27 10:14 | Inpatient (IN) | payer MEDICARE, SELFPAY ==
[2020-07-27] VITALS (11 sets, daily range): BP systolic 109–144; BP diastolic 55–91; PULSE 85–103; RESP 19–26; TEMP 36.6–37.4; O2SAT 82–97; BMI 24.7; BMI 25.7
--- NOTE | 2020-07-27 10:47 | HMH.EDGENADL ---
ED Disposition Clinical Impression: Pneumonia due to COVID-19 virus Respiratory failure with hypoxia Qualifiers: Chronicity: acute Qualified Code(s): J96.01 - Acute respiratory failure with hypoxia Disposition: Admitted As Inpatient Condition on Discharge: Serious Referrals: Vanessa Alfonso MD [Primary Care Provider] - - Critical Care Critical Care Time: Yes Attestation: On 07/27/20, the high probability of a clinically significant, sudden or life threatening deterioration of the following system(s) required my full and direct attention, intervention and personal management. The time I documented below is in addition to time spent performing reported procedures but includes the following listed in this critical care notation. Total Critical Care Time: 20 Vital system(s) involved:: Respiratory Failure My critical care processes included: Assessment & monitoring of V/S, Initial and Re-exams, Data Review/Interpretation, Coordinating Care, Medication Orders and management, Documentation Medical Decision Making - Anam Inquiry Pt receiving controlled substance: No Vital Signs: 07/27/20 10:15 07/27/20 10:55 07/27/20 11:36 Temperature 98.4 F Temperature Source Oral Pulse Rate [Right Radial] 99 H 91 H 90 Respiratory Rate 26 H Blood Pressure [Right Arm] 109/62 L 112/62 109/57 L Blood Pressure Mean [Right Arm] 77 78 74 Blood Pressure Source [Right Arm] Automatic Cuff Automatic Cuff Automatic Cuff Blood Pressure Position [Right Arm] Sitting Sitting Sitting 02 Sat by Pulse Oximetry 82 L 93 L 92 L Oxygen Delivery Method Room Air Nasal Cannula Nasal Cannula Oxygen Flow Rate (LPM) 3 3 - Lab Data Lab Results 07/27/20 10:35: WBC 12.5 H, RBC 4.66, Hgb 14.8, Hct 44.1, MCV 94.6, MCH 31.7 H, MCHC 33.5, RDW 13.8, Plt Count 301, MPV 8.4, Neut % (Auto) 86.8 H, Lymph % (Auto) 10.3, [place] % (Auto) 2.0, Eos % (Auto) 0.6, Baso % (Auto) 0.3, Neut # (Auto) 10.9 H, Lymph # (Auto) 1.3, [place] # (Auto) 0.3, Eos # (Auto) 0.1, Baso # (Auto) 0.0 07/27/20 10:35: Sodium 137, Potassium 4.0, Chloride 103, Carbon Dioxide 27, Anion Gap 11.0, BUN 19 H, Creatinine 1.20 H, Estimated Creat Clear 36, Estimated GFR 43 L, Est GFR ( Amer) 52 L, Glucose 224 H, Calcium 8.9, Total Bilirubin 0.5, AST 24, ALT 15, Alkaline Phosphatase 106, Total Protein 6.7, Albumin 3.5, Globulin 3.2, Albumin/Globulin Ratio 1.1 07/27/20 10:35: Lactate 1.4 Result diagrams: 07/27/20 10:35 07/27/20 10:35 Orders (Tests/Meds): ED MEDICATIONS Discontinued Medications Generic Name Dose Route Start Last Admin Trade Name Freq PRN Reason Stop Dose Admin Ceftriaxone Sodium 1 gm/ 50 mls @ 100 mls/hr 07/27/20 12:00 Sodium Chloride IV 08/10/20 11:59 Q24H CHAGO Protocol Azithromycin 500 mg/ Sodium 250 mls @ 250 mls/hr 07/27/20 12:00 Chloride IV 08/10/20 11:59 Q24H CHAGO Protocol ORDERS Category Date Time Status Complete Blood Count Auto Diff Stat Lab 07/27/20 10:35 Results Covid-19 IgG/IgM ([facility]) Stat Lab 07/27/20 10:35 Received Full Resp Panel w/COVID ([facility]) Routine Lab 07/27/20 11:44 Ordered Blood Culture Stat Micro 07/27/20 10:35 Received - Radiology Data #1 Image(s): Chest Image Reviewed: Yes I reviewed the patient's radiology image, Yes I have reviewed radiologist's interpretation PROCEDURE: XR CHEST PORTABLE CLINICAL HISTORY: cough, low SaO2 Covid19 pneumonia with cough COMPARISON: CR XR CHEST 2V from 06/09/[address] CHEST WO CON from 07/20/2020 CR XR CHEST PORTABLE from 07/20/2020 FINDINGS: The cardiomediastinal silhouette and pulmonary vascularity are within normal limits. Patchy ground-glass attenuation in both upper lower lobes consistent with bilateral pneumonia which is worse compared to previous exam. No acute bony abnormalities. IMPRESSION: Bilateral pneumonia which is worse compared to the previous exam Dictated by: Ruben Loving MD 07/27/2020 11:29 Ruben Loving
--- NOTE | 2020-07-27 10:55 | XR_ITS ---
PROCEDURE: XR CHEST PORTABLE CLINICAL HISTORY: cough, low SaO2 Covid19 pneumonia with cough COMPARISON: CR XR CHEST 2V from 06/09/[address] CHEST WO CON from 07/20/2020 CR XR CHEST PORTABLE from 07/20/2020 FINDINGS: The cardiomediastinal silhouette and pulmonary vascularity are within normal limits. Patchy ground-glass attenuation in both upper lower lobes consistent with bilateral pneumonia which is worse compared to previous exam. No acute bony abnormalities. IMPRESSION: Bilateral pneumonia which is worse compared to the previous exam Dictated by: Ruben Loving MD 07/27/2020 11:29 Ruben Loving MD in [place] 07/27/2020 11:29
[2020-07-27 11:03] LABS: Chloride 103 mmol/L (98-107)
[2020-07-27 11:04] LABS: Sodium 137 mmol/L (136-145)
[2020-07-27 11:06] LABS: Alanine Aminotransferase 15 U/L (12-78); Alkaline Phosphatase 106 U/L (38-126); Aspartate Amino Transferase 24 U/L (14-36); Bilirubin,Total 0.5 mg/dl (0.2-1.3); Blood Urea Nitrogen 19 mg/dl (7-17); Creatinine Clearance Estimated 36 mL/min (50-200); Estimated Glomerular Filt Rate 43 ml/min (>60); GFR (African American) 52 ML/MIN (>60)
[2020-07-27 11:07] LABS: Albumin Level 3.5 g/dl (3.5-5.0); Albumin/Globulin Ratio 1.1 (1.1-1.8); Calcium 8.9 mg/dl (8.4-10.2); Carbon Dioxide 27 mmol/L (22.0-30.0); Globulin 3.2 g/dL (1.3-3.2); Glucose 224 mg/dl (74-100); Total Protein,Serum 6.7 g/dl (6.3-8.2)
[2020-07-27 11:08] LABS: Basophils % 0.3 % (0.1-2.0); Eosinophils # 0.1 K/mm3 (0.0-0.4); Eosinophils % 0.6 % (0.1-12.0); Hematocrit 44.1 % (37.0-47.0); Hemoglobin 14.8 g/dL (12.2-16.2); Lymphocytes # 1.3 K/mm3 (0.7-4.5); Lymphocytes % 10.3 % (10-50); Mean Corpuscular HGB Conc 33.5 g/dL (31.8-35.4); Mean Corpuscular Hemoglobin 31.7 pg (27.0-31.2); Mean Corpuscular Volume 94.6 fl (81-99); Mean Platelet Volume 8.4 fl (7.4-10.4); Monocytes # 0.3 K/mm3 (0.1-1.0); Neutrophils # 10.9 K/mm3 (1.8-7.8); Neutrophils % 86.8 % (37.0-80.0); Platelet Count 301 K/mm3 (142-424); Red Blood Count 4.66 M/mm3 (4.20-5.40); Red Cell Distribution Width 13.8 % (11.5-17.5); White Blood Count 12.5 K/mm3 (4.8-10.8)
[2020-07-27 11:12] LABS: MANUAL DIFFERENTIAL MANUAL DIFFERENTIAL (MANUAL DIFF)
[2020-07-27 11:23] LABS: Lactic Acid 1.4 mmol/L (0.7-2.1)
--- NOTE | 2020-07-27 11:41 | PC.NURSE ---
calling for dr acosta at this time.
--- NOTE | 2020-07-27 11:44 | PC.NURSE ---
Dr Uriostegui speaking with Dr Alfonso.
[2020-07-27 11:50] LABS: Adenovirus,PCR Not Detected (NotDetected); Bordetella Pertussis Not Detected (NotDetected); Chlamydophila Pneumoniae, PCR Not Detected (NotDetected); Coronavirus 229E Not Detected (NotDetected); Coronavirus NL63 Not Detected (NotDetected); Coronavirus OC43 Not Detected (NotDetected); Coronovirus HKU1,PCR Not Detected (NotDetected); Human Metapneumovirus Not Detected (NotDetected); Influenza A, PCR Not Detected (NotDetected); Influenza AH1, 2009 Not Detected (NotDetected); Influenza AH1, PCR Not Detected (NotDetected); Influenza AH3,PCR Not Detected (NotDetected); Influenza B, PCR Not Detected (NotDetected); Mycoplasma Pneumoniae, PCR Not Detected (NotDetected); Parainfluenza 1, PCR Not Detected (NotDetected); Parainfluenza 2, PCR Not Detected (NotDetected); Parainfluenza 3, PCR Not Detected (NotDetected); Parainfluenza 4, PCR Not Detected (NotDetected); Respiratory Syncytial Virus Not Detected (NotDetected); Rhinovirus/Enterovirus Not Detected (NotDetected)
[2020-07-27 11:50] LABS: Lymphocytes % 12 % (10-50); Monocytes % 7 % (2-9); Neutrophils % 81 % (42-76); Platelet Estimate Normal; RBC Morphology Normal; Total Cells Counted 100
--- NOTE | 2020-07-27 12:00 | PC.NURSE ---
Med rec completed to best of patient ability to remember at this time. Called [facility] to verify meds and they advised they have not filled nay prescriptions since May. Pt advises she gets her meds delivered to her home from [facility].
[2020-07-27 12:10] LABS: Coronavirus 19 IgG Antibody Positive (Negative); Coronavirus 19 IgM Antibody Positive (Negative)
[2020-07-27 13:23] LABS: Coronavirus 19, PCR Detected (NotDetected)
--- NOTE | 2020-07-27 13:29 | PC.NURSE ---
notified care management of admission
--- NOTE | 2020-07-27 13:50 | PC.NURSE ---
notified second floor pt is ready for admission
--- NOTE | 2020-07-27 14:23 | PC.NURSE ---
report given to SanfordRN
--- NOTE | 2020-07-27 14:40 | PC.NURSE ---
patient arrived to floor by wheelchair
--- NOTE | 2020-07-27 15:26 | HMH.PHAINT ---
MEDICATION RECONCILIATION COMPLETED ON PATIENT USING EXTERNAL FILL HISTORY FROM PHARMACY AND LIST FROM [facility] OFFICE. -TRACI DUMONTD
--- NOTE | 2020-07-27 15:28 | P.CONPHA_ITS ---
[facility] Pharmacy VTE Monitoring - Patient Demographics Admission date: 07/27/20 Report Date: 07/27/20 Time: 15:28 Allergies/Adverse Reactions: Patient Allergies Penicillins Allergy (Unknown, Verified 05/17/20 13:04) Height: 1.6 m Weight: 65.828 kg Patient Problems: Current Active Problems Pneumonia due to COVID-19 virus (Acute) Respiratory failure with hypoxia (Acute) - VTE Risk Labs: VTE Related Lab Results Hgb 14.8 g/dL (12.2-16.2) 07/27/20 10:35 Hct 44.1 % (37.0-47.0) 07/27/20 10:35 Plt Count 301 K/mm3 (142-424) 07/27/20 10:35 BUN 19 mg/dl (7-17) H 07/27/20 10:35 Creatinine 1.20 mg/dl (0.52-1.04) H 07/27/20 10:35 Estimated Creat Clear 36 mL/min (50-200) 07/27/20 10:35 - Prophylaxis VTE Prophylaxis Ordered?: Yes Types of VTE Prophylaxis: TEDS Knee High, Pharmacological Location of Applied Device: Bilateral Lower Extremeties Pharmacologic Type: Enoxaparin
[2020-07-27 16:32] LABS: Chloride 104 mmol/L (98-107); Potassium 4.9 mmoL/L (3.5-5.1); Sodium 135 mmol/L (136-145)
[2020-07-27 16:35] LABS: Alanine Aminotransferase 14 U/L (12-78); Albumin Level 3.4 g/dl (3.5-5.0); Albumin/Globulin Ratio 1.1 (1.1-1.8); Alkaline Phosphatase 73 U/L (38-126); Anion Gap 9.9 mEq/L (5-15); Aspartate Amino Transferase 44 U/L (14-36); Bilirubin,Total 0.7 mg/dl (0.2-1.3); Blood Urea Nitrogen 20 mg/dl (7-17); Carbon Dioxide 26 mmol/L (22.0-30.0); Creatinine Clearance Estimated 45 mL/min (50-200); Estimated Glomerular Filt Rate 53 ml/min (>60); GFR (African American) 64 ML/MIN (>60); Globulin 3.2 g/dL (1.3-3.2); Total Protein,Serum 6.6 g/dl (6.3-8.2)
[2020-07-27 16:36] LABS: Calcium 8.6 mg/dl (8.4-10.2); Glucose 141 mg/dl (74-100)
[2020-07-27 17:00] LABS: POC Glucose,Bedside 132 (70-110)
--- NOTE | 2020-07-27 17:28 | HMH.HP ---
*Admission Date: 07/27/20 *Chief complaint: Frequent cough *History of present illness: Ms. Zafar is an-year-old female with a history of type 2 diabetes mellitus, hypertension, hyperlipidemia, and hypothyroidism who presented to [facility] emergency room with progressive cough. She was noted to have a telehealth visit with [facility] on 07/19/2020 for testing positive for the COVID-19. At that time she was just coughing some and was taking cough syrup with adequate relief. Also had some rhinorrhea and a headache with body aches. Temperature during the visit was 97.6. She was started on dexamethasone and Zithromax as well as benzonatate for her cough and Zofran for nausea and With evaluation in the emergency room patient was noted to be positive with COVID-19 virus infection, symptomatic since 07/13/2020. She stated she was tested on 07/15/2020 and diagnosed with pneumonia due to COVID-19 on 07/20/2020 in this emergency department. She had a chest x-ray and CT scan done at that time. She now presents with worsening cough, dyspnea on exertion. She has clear sputum, says she is coughing up a lot of clear phlegm. Denies fever. She has been treated as an outpatient with dexamethasone. Vital Signs in the emergency room: 07/27/20 10:15 07/27/20 10:55 07/27/20 11:36 Temperature 98.4 F Temperature Source Oral Pulse Rate [Right Radial] 99 H 91 H 90 Respiratory Rate 26 H Blood Pressure [Right Arm] 109/62 L 112/62 109/57 L Blood Pressure Mean [Right Arm] 77 78 74 Blood Pressure Source [Right Arm] Automatic Cuff Automatic Cuff Automatic Cuff Blood Pressure Position [Right Arm] Sitting Sitting Sitting 02 Sat by Pulse Oximetry 82 L 93 L 92 L Oxygen Delivery Method Room Air Nasal Cannula Nasal Cannula Oxygen Flow Rate (LPM) 3 3 - Lab Data Lab Results 07/27/20 10:35: WBC 12.5 H, RBC 4.66, Hgb 14.8, Hct 44.1, MCV 94.6, MCH 31.7 H, MCHC 33.5, RDW 13.8, Plt Count 301, MPV 8.4, Neut % (Auto) 86.8 H, Lymph % (Auto) 10.3, [place] % (Auto) 2.0, Eos % (Auto) 0.6, Baso % (Auto) 0.3, Neut # (Auto) 10.9 H, Lymph # (Auto) 1.3, [place] # (Auto) 0.3, Eos # (Auto) 0.1, Baso # (Auto) 0.0 07/27/20 10:35: Sodium 137, Potassium 4.0, Chloride 103, Carbon Dioxide 27, Anion Gap 11.0, BUN 19 H, Creatinine 1.20 H, Estimated Creat Clear 36, Estimated GFR 43 L, Est GFR ( Amer) 52 L, Glucose 224 H, Calcium 8.9, Total Bilirubin 0.5, AST 24, ALT 15, Alkaline Phosphatase 106, Total Protein 6.7, Albumin 3.5, Globulin 3.2, Albumin/Globulin Ratio 1.1 07/27/20 10:35: Lactate 1.4 CXR IMPRESSION: Bilateral pneumonia which is worse compared to the previous exam. Patient was started on Levaquin in the emergency room. She was then admitted with Covid 19 pneumonia and started on routine Covid protocol. Patient now continues with a frequent nonproductive cough. She currently has no chest pain and denies shortness of breath. Her main concern is the cough and wanting to get cleaned up before Dr. Alfonso comes to see her. She states she has lost her appetite and her sense of smell. She is drinking fluids without difficulty. She voids without problems. She denies nausea at this time. O2 sats are stable on 3 L/min of oxygen. [facility] History Medical History: Reports:: Diabetes Mellitus Type 2, Hyperlipidemia, Hypertension Denies:: Cancer, Diabetes Mellitus Type 1, Internal Pacemaker, MRSA, Seizures *Have you ever received a pneumonia vaccine?: Yes *Have you received a flu vaccine this season?: Yes Other Medical History: Reports: Hypothyroidism, Sinus Problems. Denies: Blood Transfusion Reaction Comment:: Bladder; hypothyroidism with multinodular goiter. Laterality Cases: Bilateral: Other Other Surgeries: Yes: No Previous Surgery, Appendectomy, Thyroidectomy, Other. No: Pacemaker Amputation: No Fractures: No - *Social History Last grade of school completed: 11th or 12th Smoking Status: Former smoker Alcohol Intake: never Alcohol Intake Frequency::
--- NOTE | 2020-07-27 18:57 | CT_ITS ---
PROCEDURE: CT SOFT TISSUE NECK WO CON CLINICAL HISTORY: Fullness left neck with hx surgery for goiter COMPARISON: CT CT SOFT TISSUE NECK WO CON from 04/14/2020 US US THYROID from 04/14/2020 TECHNIQUE: Oral Contrast: None IV Contrast: None Axial images obtained with sagittal and coronal reformats. All CT scans at the facility use one or more dose reduction, viz: automated exposure control, ma/kV adjustment per patient size (including targeted exams where dose is matched to indication, i.e. head), or iterative reconstruction technique. FINDINGS: Prior right thyroidectomy. The left lobe of the thyroid gland is enlarged as before measuring 6.5 cm cephalad caudad and 2.8 cm transverse. There is a 5 by 2.3 cm nodule within the left lobe of the thyroid gland. Not well evaluated without contrast. The there is tracheal shift toward the right by approximately 1 cm.. No adenopathy. Unremarkable nasopharyngeal and oral pharyngeal region. There is some scarring in the lung apices. There is increased density in the upper lobes posteriorly which may be due to developing atelectasis or pneumonia. Chest CT may provide further evaluation. IMPRESSION: Enlarged left lobe of the thyroid gland with tracheal shift toward the right overall not significantly changed. Patchy peripheral atelectasis or infiltrate in the upper lobes bilaterally incompletely evaluated. Dictated by: Ruben Loving MD 07/28/2020 07:13 Ruben Loving MD in [place] 07/28/2020 07:13
[2020-07-27 21:00] LABS: POC Glucose,Bedside 273 (70-110)
--- NOTE | 2020-07-27 22:43 | PC.NURSE ---
[address] PATIENT AWAKE AND VOICED NO NEEDS AT THIS TIME. TRASH EMPTIED AND GLOVES REFILLED.
--- NOTE | 2020-07-27 22:55 | PC.NURSE ---
[address] PATIENT AWAKE. ASSISTED PATIENT TO THE BATHROOM AND BACK TO THE BED . TRASH EMPTIED AND GLOVES REFILLED
[2020-07-28] VITALS (7 sets, daily range): BP systolic 124–140; BP diastolic 63–88; PULSE 79–105; RESP 16–20; TEMP 36.7–36.9; O2SAT 90–95; BMI 25.7
--- NOTE | 2020-07-28 05:08 | PC.NURSE ---
pt alert and oriented. ambulates with standby assist. remains stable on 2LNC. no complaints of SOA. reports cough and a sore throat and prn cough medication was given. iv patent and infusing per order. remains in airborne, contact, droplet isolation. vss. call light in reach. will continue to monitor.
--- NOTE | 2020-07-28 06:58 | PC.NURSE ---
[address] TRASH EMPTIED AND WATER REFILLED
[2020-07-28 07:31] LABS: Alanine Aminotransferase 17 U/L (12-78); Albumin Level 3.2 g/dl (3.5-5.0); Alkaline Phosphatase 90 U/L (38-126); Anion Gap 12.2 mEq/L (5-15); Aspartate Amino Transferase 27 U/L (14-36); Bilirubin,Total 0.3 mg/dl (0.2-1.3); Blood Urea Nitrogen 18 mg/dl (7-17); Calcium 8.5 mg/dl (8.4-10.2); Carbon Dioxide 25 mmol/L (22.0-30.0); Chloride 105 mmol/L (98-107); Creatinine Clearance Estimated 45 mL/min (50-200); Estimated Glomerular Filt Rate 60 ml/min (>60); GFR (African American) 73 ML/MIN (>60); Globulin 3.1 g/dL (1.3-3.2); Glucose 131 mg/dl (74-100); Potassium 4.2 mmoL/L (3.5-5.1); Sodium 138 mmol/L (136-145); Total Protein,Serum 6.3 g/dl (6.3-8.2)
--- NOTE | 2020-07-28 08:26 | HMH.ACPN2 ---
Internal Medicine - PN: Subj *Date: 07/28/20 *Time: 08:26 Interval history: Patient states she feels a little bit better today. She still has a cough with clear sputum. She denies any chest pain and does not feel short of breath while lying in the bed. She was able to eat breakfast this morning and states she finally slept well last night. Exam Vital signs and Labs for Last 24 Hours: Temp Pulse Resp BP Pulse Ox 98.5 F 80 20 127/75 92 L 07/28/20 07:58 07/28/20 07:58 07/28/20 07:58 07/28/20 07:58 07/28/20 07:58 Laboratory Results - last 24 hr 07/27/20 10:35: WBC 12.5 H, RBC 4.66, Hgb 14.8, Hct 44.1, MCV 94.6, MCH 31.7 H, MCHC 33.5, RDW 13.8, Plt Count 301, MPV 8.4, Neut % (Auto) 86.8 H, Lymph % (Auto) 10.3, [place] % (Auto) 2.0, Eos % (Auto) 0.6, Baso % (Auto) 0.3, Neut # (Auto) 10.9 H, Lymph # (Auto) 1.3, [place] # (Auto) 0.3, Eos # (Auto) 0.1, Baso # (Auto) 0.0, Total Counted 100, Neutrophils % (Manual) 81 H, Lymphocytes % (Manual) 12, Monocytes % (Manual) 7, Platelet Estimate Normal, RBC Morphology Normal 07/27/20 10:35: Sodium 137, Potassium 4.0, Chloride 103, Carbon Dioxide 27, Anion Gap 11.0, BUN 19 H, Creatinine 1.20 H, Estimated Creat Clear 36, Estimated GFR 43 L, Est GFR ( Amer) 52 L, Glucose 224 H, Calcium 8.9, Total Bilirubin 0.5, AST 24, ALT 15, Alkaline Phosphatase 106, Total Protein 6.7, Albumin 3.5, Globulin 3.2, Albumin/Globulin Ratio 1.1 07/27/20 10:35: Lactate 1.4 07/27/20 10:35: SARS-CoV-2 IgG Ab (Rapid) Positive A, SARS-CoV-2 IgM Ab (Rapid) Positive A 07/27/20 10:35: Procalcitonin 0.260 07/27/20 11:45: Chlamy pneumoniae PCR Not detected, Adenovirus (PCR) Not detected, B. pertussis DNA (PCR) Not detected, Coronavirus OC43 (PCR) Not detected, Coronavirus HKU1 (PCR) Not detected, Coronavirus 229E (PCR) Not detected, SARS-CoV-2 (PCR) Detected A, Coronavirus NL63 (PCR) Not detected, Human Metapneumovir PCR Not detected, Influenza A (H1) PCR Not detected, Influ A (H1N1/09) PCR Not detected, Influenza A (H3) PCR Not detected, Influenza Type A (PCR) Not detected, Influenza Type B (PCR) Not detected, M. pneumoniae (PCR) Not detected, Parainfluenza 1 (PCR) Not detected, Parainfluenza 2 (PCR) Not detected, Parainfluenza 3 (PCR) Not detected, Parainfluenza 4 (PCR) Not detected, RSV (PCR) Not detected, Entero/Rhino (PCR) Not detected 07/27/20 16:12: Sodium 135 L, Potassium 4.9 D, Chloride 104, Carbon Dioxide 26, Anion Gap 9.9, BUN 20 H, Creatinine 1.00, Estimated Creat Clear 45, Estimated GFR 53 L, Est GFR ( Amer) 64 D, Glucose 141 H D, Calcium 8.6, Total Bilirubin 0.7, AST 44 H D, ALT 14, Alkaline Phosphatase 73, Total Protein 6.6, Albumin 3.4 L, Globulin 3.2, Albumin/Globulin Ratio 1.1 07/27/20 16:53: POC Glucose 132 H 07/27/20 20:44: POC Glucose 273 H 07/28/20 07:00: Sodium 138, Potassium 4.2, Chloride 105, Carbon Dioxide 25, Anion Gap 12.2, BUN 18 H, Creatinine 0.90, Estimated Creat Clear 45, Estimated GFR 60, Est GFR ( Amer) 73, Glucose 131 H, Calcium 8.5, Total Bilirubin 0.3, AST 27 D, ALT 17, Alkaline Phosphatase 90, Total Protein 6.3, Albumin 3.2 L, Globulin 3.1, Albumin/Globulin Ratio 1.0 L I & O for Last 24 hours: Intake & Output 07/25/20 07/26/20 07/27/2007/28/21 11:59 11:59 11:59 11:59 Intake Total 1849 Balance 1849 Weight 140 lb 145 lb 2.014 oz Radiology Reports for the Last 24 Hours: Soft tissue CT of the neck Enlarged left lobe of the thyroid gland with tracheal shift toward the right overall not significantly changed. Patchy peripheral atelectasis or infiltrate in the upper lobes bilaterally incompletely evaluated. - Constitutional no acute distress - *Routine Respiratory Exam Present: rales (bibasilar). Absent: wheezes - *Routine Cardiovascular Exam Present: RRR - *Routine Abdominal Exam Present: soft, normoactive bowel sounds. Absent: tenderness - *Routine Extremities Exam Absent: cyanosis, clubbing, edema - *Routine Skin Exam Present
--- NOTE | 2020-07-28 08:50 | HMH.PULMCON ---
*Admission Date: 07/27/20 *Reason for consult:: COVID-19 pneumonia *History of present illness: Ms. Zafar is a 80-year-old female with history of type 2 diabetes, hypertension, dyslipidemia, hypothyroidism who is having symptoms of worsening respiratory status and cough since 07/13/2020, eventually tested positive for COVID-19 on 07/20/2020, treated as an outpatient erythromycin dexamethasone presented to the ED with worsening respiratory status. Patient on presentation needing nasal cannula supplementation to maintain adequate oxygen saturations and was eventually admitted to isolation unit and pulmonary was called for further management [facility] History Medical History: Reports:: Diabetes Mellitus Type 2, Hyperlipidemia, Hypertension Denies:: Cancer, Diabetes Mellitus Type 1, Internal Pacemaker, MRSA, Seizures *Have you ever received a pneumonia vaccine?: Yes *Have you received a flu vaccine this season?: Yes Other Medical History: Reports: Hypothyroidism, Sinus Problems. Denies: Blood Transfusion Reaction Laterality Cases: Bilateral: Other Other Surgeries: Yes: No Previous Surgery, Appendectomy, Thyroidectomy, Other. No: Pacemaker Amputation: No Fractures: No - *Social History Last grade of school completed: 11th or 12th Smoking Status: Former smoker Alcohol Intake: never Alcohol Intake Frequency:: holidays/special occasions only Substance Use Type: denies use *Occupational Status:: retired Housing: house Household Members: none *Travel in the last 8 weeks: None Family Hx:: Stroke ROS - Cons Reports anorexia - Card Reports shortness of breath, Reports shortness of breath with activity - Resp Respiratory: Reports chest congestion, Reports cough, Reports non-productive cough, Reports dyspnea, Reports dyspnea on exertion - GI Gastrointestingal: Reports: system reviewed and no additional complaints, except as docu - [place] Musculoskeletal: Reports system reviewed and no additional complaints, except as docu Meds Home Medications Medication Instructions Recorded Confirmed Type glimepiride 4 mg tablet 4 mg PO DAILY 02/13/18 07/27/20 History lisinopril 40 mg tablet 20 mg PO DAILY 02/13/18 07/27/20 History metformin 500 mg tablet 500 mg PO BIDWM 02/13/18 07/27/20 History simvastatin 40 mg tablet 40 mg PO HS 02/13/18 07/27/20 History alendronate 35 mg tablet 35 mg PO WEEKLY 02/27/18 07/27/20 History Amlodipine Besylate [Norvasc 5mg 5 mg PO HS 03/13/18 07/27/20 History tablet] Furosemide [Furosemide 40MG tAB*] 20 mg PO Q48H 03/13/18 07/27/20 History levothyroxine 75 mcg tablet 75 mcg PO DAILY #0 tab 06/10/19 07/27/20 History allopurinol 100 mg tablet 100 mg PO DAILY tab 05/17/20 07/27/20 History Benzonatate [Benzonatate 200mg Cap] 200 mg PO TIDP PRN 07/27/20 07/27/20 History Fexofenadine HCl 180 mg PO DAILY 07/27/20 07/27/20 History Fluticasone Propionate [Flonase 1 spray NS DAILY 07/27/20 07/27/20 History Allergy Relief NS] Multivit-Min/FA/Lycopen/Lutein 1 each PO DAILY 07/27/20 07/27/20 History [Centrum Silver Tablet] Allergies Allergy/AdvReac Type Severity Reaction Status Date / Time Penicillins Allergy Unknown Verified 05/17/20 13:04 Exam - Constitutional Constitutional:: no acute distress, comfortable, healthy appearing - HENMT Exam HENMT: normocephalic, atraumatic - Eye Exam Eyes:: eyelids normal, normal conjunctiva - Neck Exam Neck:: normal visual inspection, thyroid normal - Respiratory Exam Respiratory:: able to speak in complete sentences, crackles - Cardiovascular Exam Cardiac:: S1, S2 - Skin Exam Skin: warm, no rash, dry - Neurological Exam Neurological: alert, awake, normal cognition - Extremities Exam Extremities: no cyanosis, no clubbing, no edema - Psychiatric Exam Psychiatric: anxious Internal Medicine - CN: Reslt - Labs CBC & Chem 7: 07/27/20 10:35 07/28/20 07:00 Labs: Short CBC 07/27/20 Range/Units 10:35 WBC 12.5 H (4.8-10.8) K/mm3
--- NOTE | 2020-07-28 11:04 | PC.NURSE ---
pt produced sputum sample and it was labed and sent to lab at his time.
[2020-07-28 11:45] LABS: POC Glucose,Bedside 139 (70-110)
[2020-07-28 11:45] LABS: POC Glucose,Bedside 132 (70-110)
[2020-07-28 12:28] LABS: D-Dimer 2.46 ug/mL (0.0-0.5)
--- NOTE | 2020-07-28 19:55 | PC.NURSE ---
PATIENT SHOWED INTERMITTENT EPISODES OF CONFUSION DURING THIS RN SHIFT. PATIENT AMBULATED TO RESTROOM 3X FOR THIS RN, PATIENT SWAYS WHEN AMBULATING. PATIENT IS ABLE TO ANSWER QUESTIONS OF ORIENTATION, LUNGS ARE DIMINISHED AND PULSES ARE EQUAL. NO OTHER CONCERNS AT THIS TIME.
[2020-07-28 22:19] LABS: POC Glucose,Bedside 309 (70-110)
[2020-07-29] VITALS (8 sets, daily range): BP systolic 118–136; BP diastolic 51–72; PULSE 79–99; RESP 18–20; TEMP 36.6–37.1; O2SAT 86–93; BMI 26.7; BMI 26.5
--- NOTE | 2020-07-29 00:06 | PC.NURSE ---
[address] COURT[address]OUND PT REQUESTED A SNACK. TRASH AND LINENS EMPTIED
[2020-07-29 06:22] LABS: POC Glucose,Bedside 135 (70-110)
--- NOTE | 2020-07-29 06:55 | PC.NURSE ---
Pt required increasing O2 to 3LNC due to desat when ambulating to BR and not recovering well after. O2 sat at 0651 or 92% om 3L. No othr complaints reported to staff. No issues voiding reported. No BM this shift. Pt educated on IS and pt demonstrated understanding, best of 500.
--- NOTE | 2020-07-29 08:23 | HMH.ACPN2 ---
<Renata Mcfarlane - Last Filed: 07/29/20 08:23> Internal Medicine - PN: Subj *Date: 07/29/20 *Time: 08:23 Interval history: Patient states she feels about the same today. She still has a cough, but it is not productive. She denies any shortness of breath or chest pain. She states her chest does feel tight when she coughs. She slept well last night and ate a good breakfast. Exam Vital signs and Labs for Last 24 Hours: Temp Pulse Resp BP Pulse Ox 97.9 F 83 20 126/71 92 L 07/29/20 03:43 07/29/20 03:43 07/29/20 03:43 07/29/20 03:43 07/29/20 06:51 Laboratory Results - last 24 hr 07/28/20 06:44: POC Glucose 132 H 07/28/20 11:19: POC Glucose 139 H 07/28/20 11:21: D-Dimer 2.46 H 07/28/20 21:52: POC Glucose 309 H* 07/29/20 05:58: POC Glucose 135 H I & O for Last 24 hours: Intake & Output 07/26/20 07/27/20 07/28/20 07/29/20 11:59 11:59 11:59 11:59 Intake Total 1850 / 1850 929 / 929 Balance 1850 / 1850 929 / 929 Weight 140 lb 145 lb 2.014 oz 151 lb Microbiology Reports for the Last 24 Hours: Microbiology 07/28/20 10:45 Sputum - Expectorated Sputum Gram Stain - Final 07/28/20 10:45 Sputum - Expectorated Sputum Sputum Culture - Preliminary - Constitutional no acute distress - *Routine Respiratory Exam Present: rales (bilaterally in the bases) - *Routine Cardiovascular Exam Present: RRR - *Routine Abdominal Exam Present: soft, normoactive bowel sounds. Absent: tenderness - *Routine Extremities Exam Absent: cyanosis, clubbing, edema - *Routine Skin Exam Present: warm. Absent: rash - *Routine Neurological Exam Present: alert, oriented X3 Assessment and Plan (1) Pneumonia due to COVID-19 virus Status: Acute Category: Medical Code(s): U07.1 - COVID-19; J12.82 - Pneumonia due to coronavirus disease 2019 (2) Respiratory failure with hypoxia Status: Acute Qualifiers: Chronicity: acute Qualified Code(s): J96.01 - Acute respiratory failure with hypoxia Category: Medical Code(s): J96.91 - Respiratory failure, unspecified with hypoxia (3) Hypothyroidism Status: Chronic Category: Medical Code(s): E03.9 - Hypothyroidism, unspecified (4) COVID-19 Status: Acute Category: Medical Code(s): U07.1 - COVID-19 (5) Dehydration Status: Acute Category: Medical Code(s): E86.0 - Dehydration (6) Diabetes mellitus type 2 in nonobese Status: Chronic Category: Medical Code(s): E11.9 - Type 2 diabetes mellitus without complications (7) Hypertension Status: Chronic Category: Medical Code(s): I10 - Essential (primary) hypertension (8) Renal insufficiency Status: Acute Category: Medical Code(s): N28.9 - Disorder of kidney and ureter, unspecified (9) Enlarged thyroid Status: Acute Category: Medical Code(s): E04.9 - Nontoxic goiter, unspecified - Assessment and plan all Dx Assessment and Plan for all problems:: Will continue covid protocol. <Osman Gonzales - Last Filed: 07/29/20 08:46> Internal Medicine - PN: Subj *Date: 07/29/20 *Time: 08:45 Exam Vital signs and Labs for Last 24 Hours: Temp Pulse Resp BP Pulse Ox 98.3 F 99 H 20 136/71 91 L 07/29/20 08:00 07/29/20 08:00 07/29/20 08:00 07/29/20 08:00 07/29/20 08:00 Laboratory Results - last 24 hr 07/28/20 06:44: POC Glucose 132 H 07/28/20 11:19: POC Glucose 139 H 07/28/20 11:21: D-Dimer 2.46 H 07/28/20 21:52: POC Glucose 309 H* 07/29/20 05:58: POC Glucose 135 H 07/29/20 06:11: Sodium 139, Potassium 4.0, Chloride 108 H, Carbon Dioxide 26, Anion Gap 9.0, BUN 22 H, Creatinine 0.80, Estimated Creat Clear 47, Estimated GFR 69, Est GFR ( Amer) 83, Glucose 125 H, Calcium 8.3 L, Total Bilirubin 0.2, AST 21, ALT 13, Alkaline Phosphatase 75, Total Protein 5.9 L, Albumin 2.9 L, Globulin 3.0, Albumin/Globulin Ratio 1.0 L I & O for Last 24 hours: Intake & Output 07/26/20 07/27/20 07/28/20 07/29/20 23:59 23:59 23:59 23:59
[2020-07-29 08:30] LABS: Alanine Aminotransferase 13 U/L (12-78); Albumin Level 2.9 g/dl (3.5-5.0); Alkaline Phosphatase 75 U/L (38-126); Aspartate Amino Transferase 21 U/L (14-36); Bilirubin,Total 0.2 mg/dl (0.2-1.3); Blood Urea Nitrogen 22 mg/dl (7-17); Calcium 8.3 mg/dl (8.4-10.2); Carbon Dioxide 26 mmol/L (22.0-30.0); Chloride 108 mmol/L (98-107); Creatinine Clearance Estimated 47 mL/min (50-200); Estimated Glomerular Filt Rate 69 ml/min (>60); GFR (African American) 83 ML/MIN (>60); Glucose 125 mg/dl (74-100); Sodium 139 mmol/L (136-145); Total Protein,Serum 5.9 g/dl (6.3-8.2)
--- NOTE | 2020-07-29 09:16 | XR_ITS ---
PROCEDURE: XR CHEST PORTABLE CLINICAL HISTORY: PNM Follow-up pneumonia COMPARISON: CR XR CHEST 2V from 06/09/[address] CHEST WO CON from 07/20/2020 CR XR CHEST PORTABLE from 07/20/2020 CR XR CHEST PORTABLE from 07/27/2020 FINDINGS: The cardiomediastinal silhouette and pulmonary vascularity are within normal limits. Bilateral pneumonia noted in both upper and lower lobes which appears slightly worse in the right upper lobe. No effusions. No pneumothorax. No acute bony abnormalities. IMPRESSION: Bilateral pneumonia slightly worse in the right upper lobe Dictated by: Ruben Loving MD 07/29/2020 10:22 Ruben Loving MD in [facility] 07/29/2020 10:22
[2020-07-29 11:04] LABS: POC Glucose,Bedside 176 (70-110)
--- NOTE | 2020-07-29 13:21 | HMH.PULMPN ---
Internal Medicine - PN: Subj *Date: 07/29/20 *Time: 13:21 Interval history: Patient respiratory status relatively remained stable from yesterday. No acute events overnight. Patient stated she is breathing more heavily than yesterday Exam - Constitutional Constitutional:: Present: no acute distress, comfortable - HENMT Exam HENMT: Present: normocephalic, atraumatic - Eye Exam Eyes:: Present: normal appearance both eyes and related structures - Respiratory Exam Respiratory:: Present: able to speak in complete sentences, no respiratory distress, normal respiratory effort, crackles - Cardiovascular Exam Cardiac:: Present: S1, S2 - GI Exam GI:: Present: soft - Skin Exam Skin: Present: warm, no rash - Neurological Exam Neurological: Present: alert, awake, normal cognition - Extremities Exam Extremities: Present: no cyanosis, no clubbing, no edema Assessment and Plan (1) Pneumonia due to COVID-19 virus Status: Acute Category: Medical Code(s): U07.1 - COVID-19; J12.82 - Pneumonia due to coronavirus disease 2019 (2) Respiratory failure with hypoxia Status: Acute Qualifiers: Chronicity: acute Qualified Code(s): J96.01 - Acute respiratory failure with hypoxia Category: Medical Code(s): J96.91 - Respiratory failure, unspecified with hypoxia (3) Hypothyroidism Status: Chronic Category: Medical Code(s): E03.9 - Hypothyroidism, unspecified (4) COVID-19 Status: Acute Category: Medical Code(s): U07.1 - COVID-19 (5) Dehydration Status: Acute Category: Medical Code(s): E86.0 - Dehydration (6) Diabetes mellitus type 2 in nonobese Status: Chronic Category: Medical Code(s): E11.9 - Type 2 diabetes mellitus without complications (7) Hypertension Status: Chronic Category: Medical Code(s): I10 - Essential (primary) hypertension (8) Renal insufficiency Status: Acute Category: Medical Code(s): N28.9 - Disorder of kidney and ureter, unspecified (9) Enlarged thyroid Status: Acute Category: Medical Code(s): E04.9 - Nontoxic goiter, unspecified - Assessment and plan all Dx Assessment and Plan for all problems:: #COVID-19 pneumonia: #Acute hypoxic respiratory failure: 80-year-old female never smoker, no prior respiratory complaints, medical history of hypertension, diabetes and hypothyroidism recently diagnosed with COVID-19 on 20 July present with worsening respiratory failure. Patient has been treated as an outpatient basis with azithromycin and dexamethasone. CT from 20 July showed very minimal peripheral groundglass opacities. Chest x-ray relatively unchanged from to this admission. She has been afebrile. Hemodynamically stable. Renal function stable creatinine 0.90. D-dimer on this admission elevated at 2.14. Blood cultures pending. Prelim Gram stain moderate gram-positive cocci in chains and pains along with few budding yeast and hyphae. Patient respiratory status slightly worsened from yesterday, she admits more heavy breathing today. Nasal cannula supplementation increased from 2L-3L. We will closely monitor her respiratory status and follow with a CT PE study Plan: - CT-PE study - F/U Nasal MRSA screen - Continue levofloxacin along with remdesivir and dexamethasone (patient allergy to penicillins) - DuoNebs every 6 hours as needed #Thank you for involving pulmonary in this patient care. We will continue to follow.
--- NOTE | 2020-07-29 13:23 | CT_ITS ---
PROCEDURE: CT ANGIO CHEST CLINCIAL INDICATION: Hypoxia shortness of air, Covid19 positive COMPARISON: CT CT CHEST WO SHAQ from 07/20/2020 TECHNIQUE: IV Contrast: 70ML Isovue 370 Axial images obtained with sagittal and coronal reformats. All CT scans at the facility use one or more dose reduction, viz: automated exposure control, ma/kV adjustment per patient size (including targeted exams where dose is matched to indication, i.e. head), or iterative reconstruction technique. FINDINGS: HEART AND MEDIASTINAL STRUCTURES: No evidence of pulmonary embolus, aortic aneurysm, or aortic dissection. There are atheromatous changes of the thoracic aorta with some irregular plaque in the aortic apex of the arch. There is mild mediastinal adenopathy the left vertebral artery originates from aorta has a normal variant. Increased soft tissue density is present in the left paratracheal region consistent with goiter with tracheal shift to the right of approximately 1 cm not significantly changed. LUNGS AND PLEURAL SPACES: There is diffuse multifocal ground-glass infiltrates in the upper lobes with consolidation in the right lower lobe along with fibrotic bands in the lung bases consistent with late stage Covid19 pneumonia. No effusions. No cavitation. The alveolar opacification has worsened compared to the previous exam. Interlobular septal thickening noted. BONY STRUCTURES: No acute bony abnormalities apparent. UPPER ABDOMEN: Small hiatal hernia. Cholelithiasis ADDITIONAL FINDINGS: No other significant abnormalities. IMPRESSION: 1. No evidence of pulmonary embolus. 2. Findings compatible with late stage Covid19 pneumonia which has progressed since the previous exam 3. Cholelithiasis and other nonacute findings as described above Dictated by: Ruben Loving MD 07/29/2020 18:54 Ruben Loving MD in [facility] 07/29/2020 18:54
[2020-07-29 17:05] LABS: POC Glucose,Bedside 257 (70-110)
--- NOTE | 2020-07-29 18:43 | PC.NURSE ---
A&OX4. PT HAS TOLERATED 3L NC WELL THROUGHOUT SHIFT. RESPIRATIONS REGULAR AND UNLABORED. LUNG SOUNDS DIMINISHED THROUGHOUT. OCCASIONAL NONPRODUCTIVE COUGH NOTED. ACTIVE BOWEL SOUNDS HEARD IN ALL 4 QUADRANTS. SOFT AND NONTENDER ABDOMEN. NO BM NOTED THIS SHIFT. PT VOIDS PER BATHROOM W 1 PERSON ASSIST. CLEAR YELLOW URINE NOTED. HAND LUBRICATION SUPERVISOR EQUAL. +2 PULSES NOTED THROUGHOUT. NO EDEMA NOTED. NO REPORTS OF PAIN, SOB, OR NAUSEA THROUGHOUT SHIFT. PT HAS REMAINED AFEBRILE. BED IN LOWEST POSITION. VSS. CALL LIGHT WITHIN REACH. WILL CONTINUE TO MONITOR.
--- NOTE | 2020-07-29 20:18 | PC.NURSE ---
Pt's room air sat at rest = 89%.
[2020-07-29 23:00] LABS: POC Glucose,Bedside 142 (70-110)
[2020-07-30] VITALS (7 sets, daily range): BP systolic 109–145; BP diastolic 55–75; PULSE 64–87; RESP 17–20; TEMP 36.4–37.4; O2SAT 87–95; BMI 25.7
[2020-07-30 06:24] LABS: POC Glucose,Bedside 124 (70-110)
[2020-07-30 06:50] LABS: Alanine Aminotransferase 16 U/L (12-78); Albumin Level 2.9 g/dl (3.5-5.0); Alkaline Phosphatase 77 U/L (38-126); Anion Gap 7.8 mEq/L (5-15); Aspartate Amino Transferase 25 U/L (14-36); Bilirubin,Total 0.3 mg/dl (0.2-1.3); Blood Urea Nitrogen 14 mg/dl (7-17); Calcium 8.3 mg/dl (8.4-10.2); Carbon Dioxide 27 mmol/L (22.0-30.0); Chloride 107 mmol/L (98-107); Creatinine Clearance Estimated 45 mL/min (50-200); Estimated Glomerular Filt Rate 80 ml/min (>60); GFR (African American) 97 ML/MIN (>60); Glucose 108 mg/dl (74-100); Potassium 3.8 mmoL/L (3.5-5.1); Sodium 138 mmol/L (136-145); Total Protein,Serum 5.9 g/dl (6.3-8.2)
--- NOTE | 2020-07-30 06:50 | PC.NURSE ---
No acute changes noted. Pt remains on 3L O2 NC. Pt displays some anxiety about her condition. Pt asks frequently, Am I OK? Am I breathing OK? . Why do I keep coughing? Pt educated and reassured that staff is monitoring her. VSS. Pt has ambulated to BR with assist x1. No other concerns at this time. Medications administered per mar. Will continue to monitor.
--- NOTE | 2020-07-30 08:36 | HMH.ACPN2 ---
Internal Medicine - PN: Subj *Date: 07/30/20 *Time: 08:36 Interval history: Patient with no new complaints today. Exam Vital signs and Labs for Last 24 Hours: Temp Pulse Resp BP Pulse Ox 99.4 F 81 18 135/55 L 93 L 07/30/20 04:00 07/30/20 04:00 07/30/20 04:00 07/30/20 04:00 07/30/20 06:23 Laboratory Results - last 24 hr 07/29/20 10:56: POC Glucose 176 H 07/29/20 16:51: POC Glucose 257 H 07/29/20 20:55: POC Glucose 142 H 07/30/20 06:05: POC Glucose 124 H 07/30/20 06:20: Sodium 138, Potassium 3.8, Chloride 107, Carbon Dioxide 27, Anion Gap 7.8, BUN 14 D, Creatinine 0.70, Estimated Creat Clear 45, Estimated GFR 80, Est GFR ( Amer) 97, Glucose 108 H, Calcium 8.3 L, Total Bilirubin 0.3, AST 25, ALT 16, Alkaline Phosphatase 77, Total Protein 5.9 L, Albumin 2.9 L, Globulin 3.0, Albumin/Globulin Ratio 1.0 L Vital Signs - 24 hr 07/29/20 12:00 07/29/20 20:00 07/29/20 20:19 Temperature 98.3 F 98.8 F Pulse Rate [Apical] 90 Pulse Rate [Right Radial] 85 Respiratory Rate 20 20 Blood Pressure [Right Arm] 118/51 L 123/63 02 Sat by Pulse Oximetry 93 L 93 L 92 L 07/30/20 00:00 07/30/20 04:00 07/30/20 06:23 Temperature 97.5 F L 99.4 F Pulse Rate [Apical] Pulse Rate [Right Radial] 87 81 Respiratory Rate 20 18 Blood Pressure [Right Arm] 140/75 135/55 L 02 Sat by Pulse Oximetry 95 94 L 93 L I & O for Last 24 hours: Intake & Output 07/27/20 07/28/20 07/29/20 07/30/20 23:59 23:59 23:59 23:59 Intake Total 930 / 930 1160 / 1160 1409 / 1409 Balance 930 / 930 1160 / 1160 1409 / 1409 Weight 145 lb 2 oz 145 lb 2.014 oz 149 lb 14.629 oz 145 lb 7 oz Microbiology Reports for the Last 24 Hours: Microbiology 07/28/20 10:45 Sputum - Expectorated Sputum Gram Stain - Final 07/28/20 10:45 Sputum - Expectorated Sputum Sputum Culture - Preliminary 07/27/20 10:35 Blood Blood Culture - Preliminary NO GROWTH AFTER 48 HOURS 07/27/20 10:35 Blood Blood Culture - Preliminary NO GROWTH AFTER 48 HOURS - Constitutional no acute distress - *Routine HEENT Exam Head: Present: normocephalic Eye: Present: EOMI ENT: Present: mucous membranes moist - *Routine Neck Exam Present: supple. Absent: lymphadenopathy - *Routine Respiratory Exam Present: crackles (few bibasilar) - *Routine Cardiovascular Exam Present: RRR - *Routine Abdominal Exam Present: soft, normoactive bowel sounds. Absent: tenderness - *Routine Extremities Exam Absent: cyanosis, clubbing, edema - *Routine Skin Exam Present: warm. Absent: rash - *Routine Neurological Exam Present: alert Assessment and Plan (1) Pneumonia due to COVID-19 virus Status: Acute Category: Medical Code(s): U07.1 - COVID-19; J12.82 - Pneumonia due to coronavirus disease 2019 (2) Respiratory failure with hypoxia Status: Acute Qualifiers: Chronicity: acute Qualified Code(s): J96.01 - Acute respiratory failure with hypoxia Category: Medical Code(s): J96.91 - Respiratory failure, unspecified with hypoxia (3) Hypothyroidism Status: Chronic Category: Medical Code(s): E03.9 - Hypothyroidism, unspecified (4) COVID-19 Status: Acute Category: Medical Code(s): U07.1 - COVID-19 (5) Dehydration Status: Acute Category: Medical Code(s): E86.0 - Dehydration (6) Diabetes mellitus type 2 in nonobese Status: Chronic Category: Medical Code(s): E11.9 - Type 2 diabetes mellitus without complications (7) Hypertension Status: Chronic Category: Medical Code(s): I10 - Essential (primary) hypertension (8) Renal insufficiency Status: Acute Category: Medical Code(s): N28.9 - Disorder of kidney and ureter, unspecified (9) Enlarged thyroid Status: Acute Category: Medical Code(s): E04.9 - Nontoxic goiter, unspecified - Assessment and plan all Dx Assessment and Plan for all problems:: Slowly improving, continue c
[2020-07-30 11:30] LABS: POC Glucose,Bedside 249 (70-110)
[2020-07-30 17:01] LABS: POC Glucose,Bedside 354 (70-110)
--- NOTE | 2020-07-30 18:08 | PC.NURSE ---
Pt has been pleasant and cooperative this shift. A&O X4. Pt is noticeably anxious and requires frequent reassurance that she is going to be okay . No complaints of pain. Pt reports SOA with exertion and has frequent complaints of a dry cough. Pt has received Benzonatate and Robitussin DM with favorable results. Pt's O2 was titrated from 3 LPM to 2 LPM via NC. Saturations have remained >90%. Lung sounds are diminished and room air saturation is 87%. No edema noted. Skin is C/D/I. Pt ambulates with stand-by assistance to/from the bathroom and throughout the room. Pt voids clear, yellow urine without issue. Pt reports 2 episodes of diarrhea this shift. FSBS results have been 249 and 354 this shift, both of which have required insulin coverage per sliding scale. 20 G peripheral IV in the LT forearm is patent and SL. 20 G peripheral IV in the LT AC is patent and infusing NS @ 100 ML/HR. VSS. Call light within reach. Will continue to monitor.
[2020-07-30 20:49] LABS: POC Glucose,Bedside 105 (70-110)
[2020-07-31] VITALS: BP 124/66; PULSE 67; RESP 22; TEMP 36.9; O2SAT 93
--- NOTE | 2020-07-31 02:37 | PC.NURSE ---
No acute changes. Pt is currently on 2L O2 NC. Sats in lower 90s. Crackles noted to bilateral bases. Pt has not c/o any soa thus far. She has ambulated to BR without difficulty. Medication administered per sep. VSS. Will continue to monitor.
[2020-07-31 04:00] VITALS: BP 156/79; PULSE 78; RESP 24; TEMP 36.7; O2SAT 92
[2020-07-31 04:53] VITALS: BMI 26.8
[2020-07-31 05:11] LABS: POC Glucose,Bedside 129 (70-110)
[2020-07-31 06:29] LABS: Chloride 107 mmol/L (98-107); Potassium 3.8 mmoL/L (3.5-5.1); Sodium 137 mmol/L (136-145)
[2020-07-31 06:31] LABS: Blood Urea Nitrogen 13 mg/dl (7-17); Creatinine Clearance Estimated 47 mL/min (50-200); Estimated Glomerular Filt Rate 80 ml/min (>60); GFR (African American) 97 ML/MIN (>60)
[2020-07-31 06:32] LABS: Alanine Aminotransferase 16 U/L (12-78); Albumin Level 2.8 g/dl (3.5-5.0); Alkaline Phosphatase 72 U/L (38-126); Anion Gap 7.8 mEq/L (5-15); Aspartate Amino Transferase 24 U/L (14-36); Bilirubin,Total 0.4 mg/dl (0.2-1.3); Calcium 8.2 mg/dl (8.4-10.2); Carbon Dioxide 26 mmol/L (22.0-30.0); Globulin 2.7 g/dL (1.3-3.2); Glucose 126 mg/dl (74-100); Total Protein,Serum 5.5 g/dl (6.3-8.2)
[2020-07-31 08:00] VITALS: BP 130/81; PULSE 93; RESP 22; TEMP 36.3; O2SAT 90
[2020-07-31 12:00] VITALS: BP 120/61; PULSE 98; RESP 19; TEMP 36.7; O2SAT 95
[2020-07-31 12:36] LABS: POC Glucose,Bedside 228 (70-110)
--- NOTE | 2020-07-31 12:56 | HMH.ACPN2 ---
Internal Medicine - PN: Subj *Date: 07/31/20 *Time: 12:56 Interval history: The patient remains clinically stable. She is currently on 2 L of nasal O2 and is comfortable. She is able to eat. Chest x-rays and CTA reviewed. Pulmonary notes reviewed. Exam Vital signs and Labs for Last 24 Hours: Temp Pulse Resp BP Pulse Ox 97.3 F L 93 H 22 130/81 90 L 07/31/20 08:00 07/31/20 08:00 07/31/20 08:00 07/31/20 08:00 07/31/20 08:00 Laboratory Results - last 24 hr 07/30/20 16:48: POC Glucose 354 H* 07/30/20 20:40: POC Glucose 105 07/31/20 05:02: POC Glucose 129 H 07/31/20 05:20: Sodium 137, Potassium 3.8, Chloride 107, Carbon Dioxide 26, Anion Gap 7.8, BUN 13, Creatinine 0.70, Estimated Creat Clear 47, Estimated GFR 80, Est GFR ( Amer) 97, Glucose 126 H, Calcium 8.2 L, Total Bilirubin 0.4, AST 24, ALT 16, Alkaline Phosphatase 72, Total Protein 5.5 L, Albumin 2.8 L, Globulin 2.7, Albumin/Globulin Ratio 1.0 L 07/31/20 12:05: POC Glucose 228 H I & O for Last 24 hours: Intake & Output 07/29/20 07/30/20 07/31/20 08/01/20 11:59 11:59 11:59 11:59 Intake Total 1169 / 1169 720 / 720 3405 / 3405 Balance 1169 / 1169 720 / 720 3405 / 3405 Weight 149 lb 14.629 oz 145 lb 7 oz 151 lb 3 oz Microbiology Reports for the Last 24 Hours: Microbiology 07/28/20 10:45 Sputum - Expectorated Sputum Gram Stain - Final 07/28/20 10:45 Sputum - Expectorated Sputum Sputum Culture - Preliminary 07/29/20 03:28 Nose - Nasal MRSA Culture - Final Negative - Constitutional no acute distress - *Routine HEENT Exam Head: Present: normocephalic Eye: Present: PERRL ENT: Present: mucous membranes moist - *Routine Respiratory Exam Present: rales (Bibasilar fibrotic rales. Moving air bilaterally.) - *Routine Cardiovascular Exam Present: RRR - *Routine Abdominal Exam Present: soft. Absent: tenderness - *Routine Extremities Exam Absent: edema - *Routine Neurological Exam Present: alert, oriented X3 Assessment and Plan (1) Pneumonia due to COVID-19 virus Status: Acute Category: Medical Code(s): U07.1 - COVID-19; J12.82 - Pneumonia due to coronavirus disease 2019 (2) Respiratory failure with hypoxia Status: Acute Qualifiers: Chronicity: acute Qualified Code(s): J96.01 - Acute respiratory failure with hypoxia Category: Medical Code(s): J96.91 - Respiratory failure, unspecified with hypoxia (3) Hypothyroidism Status: Chronic Category: Medical Code(s): E03.9 - Hypothyroidism, unspecified (4) COVID-19 Status: Acute Category: Medical Code(s): U07.1 - COVID-19 (5) Dehydration Status: Acute Category: Medical Code(s): E86.0 - Dehydration (6) Diabetes mellitus type 2 in nonobese Status: Chronic Category: Medical Code(s): E11.9 - Type 2 diabetes mellitus without complications (7) Hypertension Status: Chronic Category: Medical Code(s): I10 - Essential (primary) hypertension (8) Renal insufficiency Status: Acute Category: Medical Code(s): N28.9 - Disorder of kidney and ureter, unspecified (9) Enlarged thyroid Status: Acute Category: Medical Code(s): E04.9 - Nontoxic goiter, unspecified - Assessment and plan all Dx Assessment and Plan for all problems:: Continue present treatment. Will explore disposition tomorrow with care management.
[2020-07-31 14:27] LABS: Basophils % 0.2 % (0.1-2.0); Eosinophils % 0.1 % (0.1-12.0); Hemoglobin 12.6 g/dL (12.2-16.2); Lymphocytes # 0.8 K/mm3 (0.7-4.5); Lymphocytes % 5.4 % (10-50); Mean Corpuscular HGB Conc 33.2 g/dL (31.8-35.4); Mean Corpuscular Hemoglobin 31.4 pg (27.0-31.2); Mean Corpuscular Volume 94.5 fl (81-99); Mean Platelet Volume 7.8 fl (7.4-10.4); Monocytes # 0.2 K/mm3 (0.1-1.0); Monocytes % 1.4 % (1.7-9.3); Neutrophils # 13.8 K/mm3 (1.8-7.8); Platelet Count 319 K/mm3 (142-424); Red Blood Count 4.02 M/mm3 (4.20-5.40); Red Cell Distribution Width 14.3 % (11.5-17.5); White Blood Count 14.8 K/mm3 (4.8-10.8)
[2020-07-31 14:29] LABS: Chloride 106 mmol/L (98-107); MANUAL DIFFERENTIAL MANUAL DIFFERENTIAL (MANUAL DIFF); Potassium 4.3 mmoL/L (3.5-5.1); Sodium 137 mmol/L (136-145)
[2020-07-31 14:32] LABS: Anion Gap 10.3 mEq/L (5-15); Blood Urea Nitrogen 14 mg/dl (7-17); Calcium 8.4 mg/dl (8.4-10.2); Carbon Dioxide 25 mmol/L (22.0-30.0); Creatinine Clearance Estimated 47 mL/min (50-200); Estimated Glomerular Filt Rate 69 ml/min (>60); GFR (African American) 83 ML/MIN (>60); Glucose 282 mg/dl (74-100)
[2020-07-31 15:11] LABS: Lymphocytes % 6 % (10-50); Monocytes % 2 % (2-9); Neutrophils % 91 % (42-76); Platelet Estimate Normal; RBC Morphology Normal; Total Cells Counted 100
[2020-07-31 16:00] VITALS: BP 125/68; PULSE 96; RESP 16; TEMP 37.1; O2SAT 92
[2020-07-31 16:55] LABS: POC Glucose,Bedside 290 (70-110)
--- NOTE | 2020-07-31 18:08 | PC.NURSE ---
Pt has been pleasant and cooperative this shift. A&O X4. No complaints of pain. Pt reports minor SOA with exertion and requested cough medication once today. Pt received Benzonatate and Robitussin DM X1 with favorable results. Pt's room air saturation at 1600 noted to be 92%. O2 was removed at this time. Saturations have remained >90% since. Lung sounds are diminished with fine crackles. No edema noted. Skin is C/D/I. Pt ambulates with stand-by assistance to/from the bathroom and throughout the room. Pt sat up in the recliner for several hours today. Pt voids clear, yellow urine without issue. 1 small, brown, soft-formed BM this shift. FSBS results have been 228 and 290 this shift, both of which have required insulin coverage per sliding scale. 20 G peripheral IV in the RT forearm is patent and infusing NS @ 100 ML/HR. VSS. Call light within reach. Will continue to monitor.
[2020-07-31 20:00] VITALS: BP 136/80; PULSE 99; RESP 22; TEMP 37; O2SAT 93
[2020-07-31 22:45] LABS: POC Glucose,Bedside 234 (70-110)
[2020-08-01] VITALS: BP 126/85; PULSE 89; RESP 20; TEMP 36.6; O2SAT 92
[2020-08-01 04:00] VITALS: BP 133/73; PULSE 84; RESP 18; TEMP 36.8; O2SAT 92
[2020-08-01 05:00] VITALS: BMI 26.4
--- NOTE | 2020-08-01 06:25 | PC.NURSE ---
pt is AxOx4, remains on room air with sats 92-93%, lung sounds diminished, resp 18-22, has been anxious this shift, came to the hallway one time, new IV started this shift 20 R wrist, no complaints of SOA or chest pain, only complaint is a cough
[2020-08-01 06:49] VITALS: O2SAT 94
--- NOTE | 2020-08-01 07:00 | XR_ITS ---
PROCEDURE: XR CHEST PORTABLE CLINICAL HISTORY: COVID-19 positive test (U07.1, COVID-19) with Ac Covid19 pneumonia COMPARISON: CR XR CHEST PORTABLE from 07/20/2020 CR XR CHEST PORTABLE from 07/27/2020 CR XR CHEST PORTABLE from 07/29/[address] ANGIO CHEST from 07/29/2020 FINDINGS: The cardiomediastinal silhouette and pulmonary vascularity are within normal limits. Bilateral patchy areas of opacification are present in the mid and lower lung zones slightly worse. Lung apices are clear. No acute bony abnormalities. IMPRESSION: Slight worsening bilateral pneumonia Dictated by: Ruben Loving MD 08/01/2020 08:07 Ruben Loving MD in [facility] 08/01/2020 08:07
[2020-08-01 07:04] LABS: POC Glucose,Bedside 118 (70-110)
[2020-08-01 08:00] VITALS: BP 143/71; PULSE 97; RESP 18; TEMP 36.8; O2SAT 90
--- NOTE | 2020-08-01 08:44 | HMH.ACPN2 ---
Internal Medicine - PN: Subj *Date: 08/01/20 *Time: 08:44 Interval history: The patient is anxious to return home. She is stable and in no acute distress on room air when she is not exerting herself. When she uses nasal O2 it is set at 2 to 3 L. Clinically she looks very stable. This despite a chest x-ray read as worsening. The chest x-ray is reviewed. It does appear worse. Exam Vital signs and Labs for Last 24 Hours: Temp Pulse Resp BP Pulse Ox 98.2 F 84 18 133/73 94 L 08/01/20 04:00 08/01/20 04:00 08/01/20 04:00 08/01/20 04:00 08/01/20 06:49 Laboratory Results - last 24 hr 07/31/20 12:05: POC Glucose 228 H 07/31/20 14:00: WBC 14.8 H, RBC 4.02 L, Hgb 12.6, Hct 38.0, MCV 94.5, MCH 31.4 H, MCHC 33.2, RDW 14.3, Plt Count 319, MPV 7.8, Neut % (Auto) 93.0 H, Lymph % (Auto) 5.4 L, Addison % (Auto) 1.4 L, Eos % (Auto) 0.1, Baso % (Auto) 0.2, Neut # (Auto) 13.8 H, Lymph # (Auto) 0.8, Addison # (Auto) 0.2, Eos # (Auto) 0.0, Baso # (Auto) 0.0, Total Counted 100, Neutrophils % (Manual) 91 H, Lymphocytes % (Manual) 6 L, Monocytes % (Manual) 2, Basophils % (Manual) 1.0, Platelet Estimate Normal, RBC Morphology Normal 07/31/20 14:00: Sodium 137, Potassium 4.3, Chloride 106, Carbon Dioxide 25, Anion Gap 10.3, BUN 14, Creatinine 0.80, Estimated Creat Clear 47, Estimated GFR 69, Est GFR ( Amer) 83, Glucose 282 H D, Calcium 8.4 07/31/20 16:32: POC Glucose 290 H 07/31/20 22:03: POC Glucose 234 H 08/01/20 06:49: POC Glucose 118 H I & O for Last 24 hours: Intake & Output 07/29/20 07/30/20 07/31/20 08/01/20 11:59 11:59 11:59 11:59 Intake Total 1169 / 1169 720 / 720 3405 / 3405 1341 / 1341 Balance 1169 / 1169 720 / 720 3405 / 3405 1341 / 1341 Weight 149 lb 14.629 oz 145 lb 7 oz 151 lb 3 oz 149 lb Microbiology Reports for the Last 24 Hours: Microbiology 07/28/20 10:45 Sputum - Expectorated Sputum Gram Stain - Final 07/28/20 10:45 Sputum - Expectorated Sputum Sputum Culture - Preliminary 07/29/20 03:28 Nose - Nasal MRSA Culture - Final Negative - Constitutional no acute distress - *Routine HEENT Exam Head: Present: normocephalic Eye: Present: PERRL ENT: Present: mucous membranes moist - Routine Chest/Breast/Axilla Exam Chest wall: Absent: tenderness - *Routine Respiratory Exam Present: rales (Bibasilar, fibrotic) - *Routine Cardiovascular Exam Present: RRR - *Routine Abdominal Exam Present: soft. Absent: tenderness - *Routine Extremities Exam Absent: edema - *Routine Neurological Exam Present: alert, oriented X3. Absent: altered mental status Assessment and Plan (1) Pneumonia due to COVID-19 virus Status: Acute Category: Medical Code(s): U07.1 - COVID-19; J12.82 - Pneumonia due to coronavirus disease 2019 (2) Respiratory failure with hypoxia Status: Acute Qualifiers: Chronicity: acute Qualified Code(s): J96.01 - Acute respiratory failure with hypoxia Category: Medical Code(s): J96.91 - Respiratory failure, unspecified with hypoxia (3) Hypothyroidism Status: Chronic Category: Medical Code(s): E03.9 - Hypothyroidism, unspecified (4) COVID-19 Status: Acute Category: Medical Code(s): U07.1 - COVID-19 (5) Dehydration Status: Acute Category: Medical Code(s): E86.0 - Dehydration (6) Diabetes mellitus type 2 in nonobese Status: Chronic Category: Medical Code(s): E11.9 - Type 2 diabetes mellitus without complications (7) Hypertension Status: Chronic Category: Medical Code(s): I10 - Essential (primary) hypertension (8) Renal insufficiency Status: Acute Category: Medical Code(s): N28.9 - Disorder of kidney and ureter, unspecified (9) Enlarged thyroid Status: Acute Category: Medical Code(s): E04.9 - Nontoxic goiter, unspecified - Assessment and plan all Dx Assessment and Plan for all problems:: We will discharge. Steroids will be continued. Home health visits will be
--- NOTE | 2020-08-01 09:54 | SW/DCPLANNER ---
This patient will discharge home today. Patient information and order has been faxed to [facility] for home O2 and portable. Misa Weinberg has reviewed patient information and stated that portable will be delivered to patients room today. Patient information and order will also be faxed to [facility] for: fdc/PT/OT. I will follow up with Shirley with [facility] once patient information/order is reviewed. Patient will discharge home later today.
--- NOTE | 2020-08-01 13:07 | HMH.PULMPN ---
Internal Medicine - PN: Subj *Date: 08/01/20 *Time: 13:07 Interval history: No acute respirations over the weekend. Patient respiratory significantly improved, now on room air saturating 96 to 97%. Exam - Constitutional Constitutional:: Present: no acute distress, cooperative - HENMT Exam HENMT: Present: normocephalic, atraumatic - Eye Exam Eyes:: Present: normal appearance both eyes and related structures - Neck Exam Neck:: Present: normal visual inspection - Respiratory Exam Respiratory:: Present: able to speak in complete sentences, lungs clear - Cardiovascular Exam Cardiac:: Present: regular rhythm, S1, S2 - GI Exam GI:: Present: soft - Skin Exam Skin: Present: warm, no rash - Neurological Exam Neurological: Present: alert, awake, normal cognition - Extremities Exam Extremities: Present: no cyanosis, no clubbing, no edema Assessment and Plan (1) Pneumonia due to COVID-19 virus Status: Acute Category: Medical Code(s): U07.1 - COVID-19; J12.82 - Pneumonia due to coronavirus disease 2019 (2) Respiratory failure with hypoxia Status: Acute Qualifiers: Chronicity: acute Qualified Code(s): J96.01 - Acute respiratory failure with hypoxia Category: Medical Code(s): J96.91 - Respiratory failure, unspecified with hypoxia (3) Hypothyroidism Status: Chronic Category: Medical Code(s): E03.9 - Hypothyroidism, unspecified (4) COVID-19 Status: Acute Category: Medical Code(s): U07.1 - COVID-19 (5) Dehydration Status: Acute Category: Medical Code(s): E86.0 - Dehydration (6) Diabetes mellitus type 2 in nonobese Status: Chronic Category: Medical Code(s): E11.9 - Type 2 diabetes mellitus without complications (7) Hypertension Status: Chronic Category: Medical Code(s): I10 - Essential (primary) hypertension (8) Renal insufficiency Status: Acute Category: Medical Code(s): N28.9 - Disorder of kidney and ureter, unspecified (9) Enlarged thyroid Status: Acute Category: Medical Code(s): E04.9 - Nontoxic goiter, unspecified - Assessment and plan all Dx Assessment and Plan for all problems:: #COVID-19 pneumonia: #Acute hypoxic respiratory failure: 80-year-old female never smoker, no prior respiratory complaints, medical history of hypertension, diabetes and hypothyroidism recently diagnosed with COVID-19 on 20 July present with worsening respiratory failure. Patient has been treated as an outpatient basis with azithromycin and dexamethasone. CT from 20 July showed very minimal peripheral groundglass opacities. Chest x-ray relatively unchanged from to this admission. She has been afebrile. Hemodynamically stable. Renal function stable creatinine 0.90. D-dimer on this admission elevated at 2.14, CT PE negative for any pulmonary embolism, showed bilateral diffuse groundglass opacities worsened from prior CT Patient was initiated on levofloxacin along with remdesivir and dexamethasone for COVID-19 pneumonia, respiratory status gradually improved throughout the hospital course, eventually on room air saturating 96 to 97% today. Chest clear to auscultate. Nasal MRSA screen negative. Sputum Gram stain showed normal respiratory jacky. Blood cultures no growth after 5 days. Plan: - Continue levofloxacin to complete a total of 5-day course (patient allergy to penicillins) - Continue remdesivir and dexamethasone until discharge - DuoNebs every 6 hours as needed #Thank you for involving pulmonary in this patient care. We will follow the patient in pulmonary clinic in 4 to 6 weeks with full PFTs and 6-minute walk testing
--- NOTE | 2020-08-02 14:52 | HMH.DCSUM ---
General - General Admission date:: 07/27/20 Discharge date: 08/01/20 HPI HPI: Ms. Zafar is an-year-old female with a history of type 2 diabetes mellitus, hypertension, hyperlipidemia, and hypothyroidism who presented to [facility] emergency room with progressive cough. She was noted to have a telehealth visit with [facility] on 07/19/2020 for testing positive for the COVID-19. At that time she was just coughing some and was taking cough syrup with adequate relief. Also had some rhinorrhea and a headache with body aches. Temperature during the visit was 97.6. She was started on dexamethasone and Zithromax as well as benzonatate for her cough and Zofran for nausea and With evaluation in the emergency room patient was noted to be positive with COVID-19 virus infection, symptomatic since 07/13/2020. She stated she was tested on 07/15/2020 and diagnosed with pneumonia due to COVID-19 on 07/20/2020 in this emergency department. She had a chest x-ray and CT scan done at that time. She now presents with worsening cough, dyspnea on exertion. She has clear sputum, says she is coughing up a lot of clear phlegm. Denies fever. She has been treated as an outpatient with dexamethasone. CXR IMPRESSION: Bilateral pneumonia which is worse compared to the previous exam. Patient was started on Levaquin in the emergency room. She was then admitted with Covid 19 pneumonia and started on routine Covid protocol. Patient now continues with a frequent nonproductive cough. She currently has no chest pain and denies shortness of breath. Her main concern is the cough and wanting to get cleaned up before Dr. Alfonso comes to see her. She states she has lost her appetite and her sense of smell. She is drinking fluids without difficulty. She voids without problems. She denies nausea at this time. O2 sats are stable on 3 L/min of oxygen. Hospital Course Hospital Course: The patient was started on Covid protocol and pulmonology was consulted. CT soft tissue neck was ordered due to fullness of the neck on the left side with a history of goiter and surgery. She was started on IV fluids as well as IV Levaquin for her pneumonia and sliding scale insulin. Duo nebs were also added. The soft tissue neck CT showed an enlarged left lobe of the thyroid with tracheal shift toward the right. The patient appeared quite stable but her sats would drop to the low 80s on room air. She denied any chest pain and was able to eat. She was seen in consultation by pulmonology who recommended continuing her Covid protocol. She did begin feeling better. Cough medication was added. She had a repeat chest x-ray on 07/29/2020 showing bilateral pneumonia slightly worse in the right upper lobe. Her respiratory status did slightly worsen and she began having more heavy breathing. Nasal cannula supplementation had to be increased from 2 L to [address] PE protocol was ordered. It showed no evidence of PE but findings compatible with late stage COVID-19 pneumonia which had progressed since the previous exam. The patient's blood cultures returned showing no growth. She was able to be weaned back down to 2 L of nasal oxygen and was comfortable. She had another chest x-ray on 08/01/2020 showing slightly worsening bilateral pneumonia. The patient was stable and in no distress on room air when she was sitting, however when she used nasal oxygen, it was set at 2 to 3 L/min. The chest x-ray did appear worse but the patient had improved. She was anxious to go home. She was stable to be discharged on continued steroids and home oxygen. Home health visits will be arranged. Her sputum showed normal respiratory jacky and her MRSA culture was negative. Objective Vital signs: Temp Pulse Resp BP Pulse Ox 98.3 F 97 H 18 143/71 H 90 L 08/01/20 08:00 08/01/20 08:00 08/01/20 08:00 08/01/20 08:00 08/01/20 08:00 Narrative: - Constitutional n
== END 2020-08-01 12:30 | disposition home health service (06) | DRG 177 ==
LOC: ER 11:50 → 2ND 14:36
PROVIDERS: Internal Medicine Pulmonary Disease; Admitting Provider Family Medicine; Emergency Provider Emergency Medicine; PCP Family Medicine; Visit Provider Family Medicine
DX: U07.1 COVID-19 (principal); J96.01 Acute respiratory failure with hypoxia; J12.82 Pneumonia due to coronavirus disease 2019; E11.9 Type 2 diabetes mellitus without complications; I10 Essential (primary) hypertension; E03.9 Hypothyroidism, unspecified; E86.0 Dehydration; N28.9 Disorder of kidney and ureter, unspecified; Z88.0 Allergy status to penicillin; Z79.84 Long term (current) use of oral hypoglycemic drugs; Z79.899 Other long term (current) drug therapy
CPT/HCPCS: 70490; 71045; 71275; 80048; 80053; 82962; 83605; 84145; 85007; 85025; 85378; 86328; 87040; 87070; 87081; 87205; 87581; 87633; 87798; 94640; 94761; 96365; 99285; J1956; Q9967; U0003

== ENCOUNTER → 2020-08-15 11:29 | Outpatient (CLI) | payer MEDICARE, SELFPAY ==
[2020-08-15 13:10] VITALS: PULSE 92; PULSE 95
== END ==
PROVIDERS: PCP Family Medicine; Visit Provider Internal Medicine Pulmonary Disease
DX: U07.1 COVID-19 (principal); J12.82 Pneumonia due to coronavirus disease 2019; J96.91 Respiratory failure, unspecified with hypoxia
CPT/HCPCS: 94060; 94618; 94640; 94727; 94729

== ENCOUNTER 2020-08-29 16:54 | Observation (INO) | payer MEDICARE, SELFPAY ==
--- NOTE | 2020-08-29 17:06 | HMH.HP ---
*Admission Date: 08/29/20 *Chief complaint: Leg pain *History of present illness: Ms. Zafar is an 80-year-old female with a history of type 2 diabetes mellitus, hypertension, hyperlipidemia, hypothyroidism, and Covid diagnosed July 2020(see previous admission) who presented to the office of [facility] complaining of left foot pain. She states both her feet are tingling and numb. She has been having some swelling as well. She describes her heart palpating. At this point she denies shortness of breath, dizziness and chest pain. With evaluation in the office her white blood cell count was found to be 14,600 with H&H of 13.9/41. She did have a temperature of 101.5. She did admit to a slight nonproductive cough. Thus she was admitted directly for further evaluation and treatment. [facility] History Medical History: Reports:: Diabetes Mellitus Type 2, Hyperlipidemia, Hypertension Denies:: Cancer, Diabetes Mellitus Type 1, Internal Pacemaker, MRSA, Seizures *Have you ever received a pneumonia vaccine?: No (contraindicated d/t covid) *Have you received a flu vaccine this season?: No (contraindicated d/t covid) Other Medical History: Reports: Hypothyroidism, Sinus Problems. Denies: Blood Transfusion Reaction Laterality Cases: Bilateral: Other Other Surgeries: Yes: No Previous Surgery, Appendectomy, Thyroidectomy, Other. No: Pacemaker Amputation: No Fractures: No - *Social History Smoking Status: Former smoker Alcohol Intake: never Alcohol Intake Frequency:: holidays/special occasions only Substance Use Type: denies use *Occupational Status:: retired Housing: house Household Members: none *Travel in the last 8 weeks: None Family Hx:: Stroke Review of Systems - Constitutional Reports fever(s) - Eyes Reports change in vision (Seems to be not as good.) - ENT Reports post nasal drip, Denies ear pain, Denies sore throat - *Cardiovascular Reports irregular heart rhythm, Reports leg swelling, Denies chest pain, Denies shortness of breath (She watches her O2 sats at home and they have been greater than 90. ) Comments: She wears oxygen as needed - *Respiratory Reports cough (Nonproductive), Reports shortness of breath, Denies chest congestion, Denies coughing up blood - *Gastrointestinal Denies abdominal pain, Denies constipation, Denies heartburn, Denies black, tarry stools, Denies nausea, Denies vomiting - *Genitourinary Denies difficulty urinating - *Musculoskeletal Reports abnormal walking (She has had difficulty with walking today: Had problems going to the bathro), Reports joint pain (Left ankle), Reports muscle weakness - *Neurologic Reports abnormal walking, Reports tingling/numbness/burning sensations (Bilateral lower legs worse on the left) Meds Home Medications Medication Instructions Recorded Confirmed Type glimepiride 4 mg tablet 4 mg PO DAILY 02/13/18 07/27/20 History lisinopril 40 mg tablet 20 mg PO DAILY 02/13/18 07/27/20 History metformin 500 mg tablet 500 mg PO BIDWM 02/13/18 07/27/20 History simvastatin 40 mg tablet 40 mg PO HS 02/13/18 07/27/20 History alendronate 35 mg tablet 35 mg PO WEEKLY 02/27/18 07/27/20 History Amlodipine Besylate [Norvasc 5mg 5 mg PO HS 03/13/18 07/27/20 History tablet] Furosemide [Furosemide 40MG tAB*] 20 mg PO Q48H 03/13/18 07/27/20 History levothyroxine 75 mcg tablet 75 mcg PO DAILY #0 tab 06/10/19 07/27/20 History allopurinol 100 mg tablet 100 mg PO DAILY tab 05/17/20 07/27/20 History Benzonatate [Benzonatate 200mg Cap] 200 mg PO TIDP PRN 07/27/20 07/27/20 History Fexofenadine HCl 180 mg PO DAILY 07/27/20 07/27/20 History Fluticasone Propionate [Flonase 1 spray NS DAILY 07/27/20 07/27/20 History Allergy Relief NS] Multivit-Min/FA/Lycopen/Lutein 1 each PO DAILY 07/27/20 07/27/20 History [Centrum Silver Tablet] Albuterol Sulfate [Proventil-HFA 2 puffs IH QIDRT #1 puff 08/01/20 Rx 90mcg/puff Inh] Aspirin [Aspirin 81mg EC Tab] 81 mg PO RAMESH
--- NOTE | 2020-08-29 17:21 | XR_ITS ---
PROCEDURE: XR CHEST 2V CLINICAL HISTORY: fever Cough and fever and shortness of breath COMPARISON: CR XR CHEST PORTABLE from 07/27/2020 CR XR CHEST PORTABLE from 07/29/[address] ANGIO CHEST from 07/29/2020 CR XR CHEST PORTABLE from 08/01/[address] ANGIO CHEST from 08/29/2020 FINDINGS: Normal heart size. Increased soft tissue density in the left paratracheal region consistent with underlying enlarged thyroid or mass. COPD changes with mild prominence of the interstitial markings. There is mild patchy atelectasis or infiltrate in the right midlung, and left midlung and left lower lobe. These findings have improved since 08/01/2020. No evidence of pneumothorax. No acute bony findings IMPRESSION: Persistent but improving bilateral subsegmental atelectasis and/or infiltrate with COPD Left paratracheal mass/enlarged thyroid Dictated by: Ruben Loving MD 08/30/2020 06:54 Ruben Loving MD in [facility] 08/30/2020 06:54
[2020-08-29 17:27] VITALS: BP 123/76; PULSE 105; RESP 20; TEMP 37.4; O2SAT 94; BMI 23.1
--- NOTE | 2020-08-29 17:54 | PC.NURSE ---
Pt arrived to the floor via wheelchair accompanied by KEVIN Boss. As soon as she came to the floor radiology came to take her for xrays. Pt off floor with Robert from xray.
--- NOTE | 2020-08-29 18:12 | CT_ITS ---
PROCEDURE: CT ANGIO CHEST CLINCIAL INDICATION: Cough, SOA, hx COVID COMPARISON: CT CT ANGIO CHEST from 07/29/2020 TECHNIQUE: IV Contrast: 70ML Isovue 370 Axial images obtained with sagittal and coronal reformats. All CT scans at the facility use one or more dose reduction, viz: automated exposure control, ma/kV adjustment per patient size (including targeted exams where dose is matched to indication, i.e. head), or iterative reconstruction technique. FINDINGS: Thyroid gland is enlarged at 3 x 3 cm causing mild tracheal shift toward the right. There is heterogeneous density of the thyroid gland. Atheromatous changes involve the thoracic aorta with some irregular soft plaque. No evidence of aortic aneurysm or dissection. Acute pulmonary emboli are present within the distal right pulmonary artery extending into the right upper and lower branches with scattered small emboli in the lung bases. There is some flattening of the interventricular septum. The RV/LV ratio is less than 1. COPD changes with scattered areas of scarring. Atelectatic changes are present in the lower lobes with some scattered subsegmental ground-glass infiltrates. The infiltrates have improved since the previous exam. There is mild nonspecific thickening of the distal esophagus and the stomach which could be due to nondistention. Fatty liver IMPRESSION: 1. Acute bilateral pulmonary emboli. There is some flattening of the interventricular septum but the RV/LV ratio is less than 1. 2. Multifocal ground-glass infiltrates with atelectasis consistent with Covid19 pneumonitis which is improved. 3. Enlarged left lobe of the thyroid gland Dictated by: Ruben Loving MD 08/30/2020 08:30 Ruben Loving MD in [facility] 08/30/2020 08:30
--- NOTE | 2020-08-29 18:13 | PC.NURSE ---
Pt back to floor from radiology
[2020-08-29 19:47] VITALS: BP 142/61; PULSE 111; RESP 18; TEMP 36.8; O2SAT 93
[2020-08-29 19:51] VITALS: PULSE 110; PULSE 114; O2SAT 93
[2020-08-29 21:10] LABS: Basophils # 0.1 K/mm3 (0-0.2); Basophils % 0.3 % (0.1-2.0); Eosinophils % 0.2 % (0.1-12.0); Hematocrit 35.7 % (37.0-47.0); Hemoglobin 11.8 g/dL (12.2-16.2); Lymphocytes # 2.7 K/mm3 (0.7-4.5); Lymphocytes % 17.4 % (10-50); Mean Corpuscular Hemoglobin 31.6 pg (27.0-31.2); Mean Corpuscular Volume 95.6 fl (81-99); Monocytes % 6.3 % (1.7-9.3); Neutrophils # 11.7 K/mm3 (1.8-7.8); Neutrophils % 75.8 % (37.0-80.0); Platelet Count 260 K/mm3 (142-424); Red Blood Count 3.73 M/mm3 (4.20-5.40); Red Cell Distribution Width 14.4 % (11.5-17.5); White Blood Count 15.4 K/mm3 (4.8-10.8)
[2020-08-29 21:16] LABS: Chloride 104 mmol/L (98-107); Potassium 3.6 mmoL/L (3.5-5.1); Sodium 136 mmol/L (136-145)
[2020-08-29 21:18] LABS: Alanine Aminotransferase 13 U/L (12-78); Aspartate Amino Transferase 15 U/L (14-36); Blood Urea Nitrogen 18 mg/dl (7-17); Creatinine Clearance Estimated 40 mL/min (50-200); Estimated Glomerular Filt Rate 60 ml/min (>60); GFR (African American) 73 ML/MIN (>60)
[2020-08-29 21:19] LABS: Albumin Level 3.4 g/dl (3.5-5.0); Albumin/Globulin Ratio 1.2 (1.1-1.8); Alkaline Phosphatase 85 U/L (38-126); Anion Gap 6.6 mEq/L (5-15); Bilirubin,Total 0.5 mg/dl (0.2-1.3); Calcium 8.7 mg/dl (8.4-10.2); Carbon Dioxide 29 mmol/L (22.0-30.0); Globulin 2.9 g/dL (1.3-3.2); Glucose 224 mg/dl (74-100); Total Protein,Serum 6.3 g/dl (6.3-8.2)
[2020-08-29 21:24] LABS: MANUAL DIFFERENTIAL MANUAL DIFFERENTIAL (MANUAL DIFF)
[2020-08-29 21:33] LABS: D-Dimer 2.06 ug/mL (0.0-0.5)
[2020-08-29 21:39] LABS: POC Glucose,Bedside 213 (70-110)
[2020-08-29 22:01] LABS: Thyroid Stimulating Hormone 0.55 uIU/mL (0.465-4.68)
[2020-08-29 22:43] LABS: Lymphocytes % 21 % (10-50); Monocytes % 2 % (2-9); Neutrophils % 77 % (42-76); Total Cells Counted 100
[2020-08-29 22:44] LABS: Platelet Estimate Normal; Stomatocytes 1+
[2020-08-30] VITALS (9 sets, daily range): BP systolic 119–143; BP diastolic 54–71; PULSE 68–115; RESP 18–20; TEMP 36.4–38; O2SAT 92–95
[2020-08-30 01:05] LABS: Microscopic, Urine URINE MICROSCOPIC (MICROSCOPIC)
[2020-08-30 01:11] LABS: Appearance,Urine CLEAR (Clear); Bilirubin,Urine Negative (Negative); Blood, Urine Negative (Negative); Color,Urine YELLOW (Yellow); Glucose,Urine (UA) Negative (Negative); Ketones,Urine Negative (Negative); Leukocyte Esterase,Urine Negative (Negative); Nitrate,Urine POSITIVE (Negative); Protein,Urine Negative (Negative)
[2020-08-30 01:27] LABS: Bacteria,Urine 2+ /lpf; Mucus,Urine 1+ /lpf; WBC,Urine 20-50 #/hpf (0-3)
--- NOTE | 2020-08-30 03:02 | PC.NURSE ---
0245 WAS NOTIFIED BY LAB THAT THIS PT IS POSITIVE FOR COVID PER SWAB. LACEY HEIN WAS NOTIFIED OF THIS RESULT
[2020-08-30 06:41] LABS: POC Glucose,Bedside 136 (70-110)
--- NOTE | 2020-08-30 06:55 | PC.NURSE ---
UNABLE TO OBTAIN ACCURATE WEIGHT . PT UNABLE TO STAND WITHOUT HOLDING ON . PT WEIGHED 121.O THIS MORNING BUT WEIGHED 130 AT ADMISSION. REPORTED TO RN AND SHE IS AWARE .
--- NOTE | 2020-08-30 07:34 | PC.NURSE ---
pt was febrile once this shift. pt refused to changed into gown and refused to have blankets removed. prn tylenol given and fever did come down. pt states she will change today at some point. vss. iv patent and infusing per order. call light in reach. pt has had minimal output. will continue to monitor.
--- NOTE | 2020-08-30 08:00 | CA_ITS ---
APPROVED REPORT Left Lower Extremity Venous Study for DVT. Commercial Maintenance Technician: Virginia Mehta RVT Indications Lower Extremity Pain: Lower Extremity Edema: Left left ankle edema, tenderness, Hx COVID Vein Imaging CFV (L): compressive, spontaneous, phasic, augmentation SFJ (L): compressive, spontaneous, phasic, augmentation FEM (L): compressive, spontaneous, phasic, augmentation POP (L): Compressible PTV (L): Thrombus GSV (L): Compressible Peroneals (L):Compressible GAS (L): Compressible Findings Study suggests a thrombus in the left posterior tibial vein, other deep veins of the left lower extremity are normal. No evidence of SVT of the left lower extremity. 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 Conclusion Study suggests a thrombus in the left posterior tibial vein, other deep veins of the left lower extremity are normal. No evidence of SVT of the left lower extremity. 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 Critical Notification Critical Value: Yes Physician Notified Date: 08/30/2020 Time: 08:12 Physician Name: Ghada PERRIN Electronically signed by : Ruben Loving MD 08/30/2020 17:37:07
--- NOTE | 2020-08-30 09:16 | HMH.ACPN2 ---
Internal Medicine - PN: Subj *Date: 08/30/20 *Time: 09:16 Interval history: She is resting fairly comfortably. Reportedly the venous duplex shows a DVT. The CTA shows evidence of pulmonary emboli. As per the following: . Acute bilateral pulmonary emboli. There is some flattening of the interventricular septum but the RV/LV ratio is less than 1. 2. Multifocal ground-glass infiltrates with atelectasis consistent with Covid19 pneumonitis which is improved. 3. Enlarged left lobe of the thyroid gland A Covid PCR was ordered per hospital protocol. It is positive. It is unlikely she is shedding replicative virus at this point in time, however. I will check IgG and IgM to see where she falls with regard to those tests and where she follows with regard to the overall curve of Covid infective course. Exam Vital signs and Labs for Last 24 Hours: Temp Pulse Resp BP Pulse Ox 97.6 F 100 H 18 137/71 95 08/30/20 08:00 08/30/20 08:00 08/30/20 08:00 08/30/20 08:00 08/30/20 08:00 Laboratory Results - last 24 hr 08/29/20 20:54: WBC 15.4 H, RBC 3.73 L, Hgb 11.8 L, Hct 35.7 L, MCV 95.6, MCH 31.6 H, MCHC 33.0, RDW 14.4, Plt Count 260, MPV 8.0, Neut % (Auto) 75.8, Lymph % (Auto) 17.4, [place] % (Auto) 6.3, Eos % (Auto) 0.2, Baso % (Auto) 0.3, Neut # (Auto) 11.7 H, Lymph # (Auto) 2.7, [place] # (Auto) 1.0, Eos # (Auto) 0.0, Baso # (Auto) 0.1, Total Counted 100, Neutrophils % (Manual) 77 H, Lymphocytes % (Manual) 21, Monocytes % (Manual) 2, Platelet Estimate Normal, Stomatocytes 1+ 08/29/20 20:54: Sodium 136, Potassium 3.6, Chloride 104, Carbon Dioxide 29, Anion Gap 6.6, BUN 18 H, Creatinine 0.90, Estimated Creat Clear 40, Estimated GFR 60, Est GFR ( Amer) 73, Glucose 224 H, Calcium 8.7, Total Bilirubin 0.5, AST 15, ALT 13, Alkaline Phosphatase 85, Total Protein 6.3, Albumin 3.4 L, Globulin 2.9, Albumin/Globulin Ratio 1.2, TSH 0.55 08/29/20 20:54: D-Dimer 2.06 H 08/29/20 21:26: POC Glucose 213 H 08/30/20 00:30: Urine Color Yellow, Urine Appearance Clear, Urine pH 6.0, Ur Specific [place] 1.010, Urine Protein Negative, Urine Glucose (UA) Negative, Urine Ketones Negative, Urine Blood Negative, Urine Nitrate Positive, Urine Bilirubin Negative, Urine Urobilinogen 1.0, Ur Leukocyte Esterase Negative, Urine WBC 20-50, Ur Squamous Epith Cells 10-20, Urine Bacteria 2+, Urine Mucus 1+ 08/30/20 06:26: POC Glucose 136 H I & O for Last 24 hours: Intake & Output 08/27/20 08/28/20 08/29/20 08/30/20 11:59 11:59 11:59 11:59 Intake Total 1809 / 1809 Output Total 150 / 150 Balance 1659 / 1659 Weight 130 lb 4 oz Microbiology Reports for the Last 24 Hours: Microbiology 08/29/20 17:20 Nasopharyngeal Coronavirus COVID-19 PCR - Final - Constitutional no acute distress - *Routine HEENT Exam Head: Present: normocephalic Eye: Present: PERRL ENT: Present: mucous membranes moist - *Routine Respiratory Exam Present: CTA bilaterally - *Routine Cardiovascular Exam Present: RRR - *Routine Abdominal Exam Present: soft. Absent: tenderness - *Routine Extremities Exam Absent: cyanosis, edema - *Routine Neurological Exam Present: alert, oriented X3 Assessment and Plan (1) Pulmonary emboli Status: Acute Category: Medical Code(s): I26.99 - Other pulmonary embolism without acute cor pulmonale (2) Deep vein thrombosis (DVT) of left lower extremity Status: Acute Category: Medical Code(s): I82.402 - Acute embolism and thrombosis of unspecified deep veins of left lower extremity (3) History of COVID-19 Status: Acute Category: Medical Code(s): Z86.16 - Personal history of COVID-19 (4) Leukocytosis Status: Acute Category: Medical Code(s): D72.829 - Elevated white blood cell count, unspecified (5) Irregular heart beat Status: Acute Category: Medical Code(s): I49.9 - Cardiac arrhythmia, unspecified (6) Fever Status: Acute Category: Medical Code(s): R50.9 - Fever, unspecified
[2020-08-30 09:59] LABS: Coronavirus 19 IgG Antibody Positive (Negative)
[2020-08-30 10:00] LABS: Coronavirus 19 IgM Antibody Positive (Negative)
[2020-08-30 10:05] LABS: NT Pro Brain Natriuretic Pep. 415 pg/mL (0-450)
--- NOTE | 2020-08-30 10:10 | P.CONPHA_ITS ---
[facility] Pharmacy VTE Monitoring - Patient Demographics Admission date: 08/30/20 Report Date: 08/30/20 Time: 10:11 Allergies/Adverse Reactions: Patient Allergies Penicillins Allergy (Unknown, Verified 05/17/20 13:04) Height: 1.6 m Weight: 59.08 kg Patient Problems: Current Active Problems Hypothyroidism (acquired) (Acute) Dehydration (Acute) Leukocytosis (Acute) Irregular heart beat (Acute) Fever (Acute) Pulmonary emboli (Acute) Deep vein thrombosis (DVT) of left lower extremity (Acute) History of COVID-19 (Acute) Thyromegaly (Acute) - VTE Risk Labs: VTE Related Lab Results Hgb 11.8 g/dL (12.2-16.2) L 08/29/20 20:54 Hct 35.7 % (37.0-47.0) L 08/29/20 20:54 Plt Count 260 K/mm3 (142-424) 08/29/20 20:54 BUN 18 mg/dl (7-17) H 08/29/20 20:54 Creatinine 0.90 mg/dl (0.52-1.04) 08/29/20 20:54 Estimated Creat Clear 40 mL/min (50-200) 08/29/20 20:54 Was VTE Risk Assessment Performed: Yes VTE Score: 4 VTE Risk Level: Low Risk Clinical Trial Participant: No - Prophylaxis VTE Prophylaxis Ordered?: Yes Types of VTE Prophylaxis: TEDS Knee High, Pharmacological Pharmacologic Type: Enoxaparin
[2020-08-30 10:11] LABS: Troponin I < 0.01 ng/ml (0.00-0.034)
--- NOTE | 2020-08-30 10:20 | HMH.PULMCON ---
*Admission Date: 08/30/20 *Reason for consult:: Pulmonary embolism *History of present illness: Ms. Zafar is a 80-year-old female never smoker, no prior respiratory complaints, recently had a diagnosis of COVID-19 pneumonia completed treatment with levofloxacin prednisone dexamethasone and discharged home presented to the hospital again with lower extremity pain and found to have lower extremity DVT and pulmonary embolism and pulmonary was called for further management. [facility] History Medical History: Reports:: Diabetes Mellitus Type 2, Hyperlipidemia, Hypertension Denies:: Cancer, Diabetes Mellitus Type 1, Internal Pacemaker, MRSA, Seizures *Have you ever received a pneumonia vaccine?: Yes *Have you received a flu vaccine this season?: Yes Other Medical History: Reports: Hypothyroidism, Sinus Problems. Denies: Blood Transfusion Reaction Laterality Cases: Bilateral: Other Other Surgeries: Yes: No Previous Surgery, Appendectomy, Thyroidectomy, Other. No: Pacemaker Amputation: No Fractures: No - *Social History Last grade of school completed: 11th or 12th Smoking Status: Former smoker Alcohol Intake: never Alcohol Intake Frequency:: holidays/special occasions only Substance Use Type: denies use *Occupational Status:: retired Housing: house Household Members: none *Travel in the last 8 weeks: None Family Hx:: Stroke ROS - Cons Denies anorexia, Denies body ache(s) - Eyes Reports blurry vision - ENT Denies abnormal hearing, Denies bleeding gums, Denies poor balance - Card Reports shortness of breath with activity - Resp Respiratory: Reports shortness of breath, Reports non-productive cough, Reports pain with cough, Denies cough with sputum production, Denies pain with breathing - GI Gastrointestingal: Denies: abdominal pain, belching, bloating - Psych Reports abnormal sleep pattern Meds Home Medications Medication Instructions Recorded Confirmed Type glimepiride 4 mg tablet 4 mg PO DAILY 02/13/18 08/29/20 History metformin 500 mg tablet 500 mg PO BIDWM 02/13/18 08/29/20 History simvastatin 40 mg tablet 40 mg PO HS 02/13/18 08/29/20 History alendronate 35 mg tablet 35 mg PO WEEKLY 02/27/18 08/29/20 History Amlodipine Besylate [Norvasc 5mg 5 mg PO HS 03/13/18 08/29/20 History tablet] Furosemide [Furosemide 40MG tAB*] 20 mg PO DAILY 03/13/18 08/29/20 History levothyroxine 75 mcg tablet 75 mcg PO DAILY #0 tab 06/10/19 08/29/20 History allopurinol 100 mg tablet 100 mg PO DAILY tab 05/17/20 08/29/20 History Benzonatate [Benzonatate 200mg Cap] 200 mg PO TIDP PRN 07/27/20 08/29/20 History Fluticasone Propionate [Flonase 1 spray NS DAILY 07/27/20 08/29/20 History Allergy Relief NS] Multivit-Min/FA/Lycopen/Lutein 1 each PO DAILY 07/27/20 08/29/20 History [Centrum Silver Tablet] Guaifenesin/Dextromethorphan 5 ml PO Q4HP PRN #250 ml 08/01/20 08/29/20 Rx [Robitussin DM 200mg/20mg 10mL Udc] Albuterol Sulfate [Proventil-HFA 2 puffs IH QIDRT 08/29/20 08/29/20 History 90mcg/puff Inh] Aspirin [Aspirin 81mg EC Tab] 81 mg PO DAILY 08/29/20 08/29/20 History Cholecalciferol (Vitamin D3) 50 mcg PO DAILY 08/29/20 08/29/20 History [Vitamin D3] Sucralfate [Carafate 1gm Tab] 1 gm PO ACHS 08/29/20 08/29/20 History Tiotropium [place] [Spiriva 1 cap IH DAILY 08/29/20 08/29/20 History 18mcg/puff inhaler] Allergies Allergy/AdvReac Type Severity Reaction Status Date / Time Penicillins Allergy Unknown Verified 05/17/20 13:04 Exam - Constitutional Constitutional:: Present: no acute distress, comfortable - HENMT Exam HENMT: Present: normocephalic, atraumatic - Eye Exam Eyes:: Present: eyelids normal, normal conjunctiva - Neck Exam Neck:: Present: normal visual inspection, thyroid normal - Respiratory Exam Respiratory:: Present: able to speak in complete sentences, bibailar crackels heard, no respiratory distress, normal respiratory effort - Cardiovascular Exam Cardiac:: Present:
[2020-08-30 11:11] LABS: POC Glucose,Bedside 241 (70-110)
[2020-08-30 17:04] LABS: POC Glucose,Bedside 113 (70-110)
--- NOTE | 2020-08-30 18:46 | PC.NURSE ---
Pt alert and oriented x4. She is able to verbalize needs. She is utilizing a bedside commode with assist x1. Lungs are clear. Left foot swollen and tender to palpation. Pt unable to put much weight on that foot. No change from morning assessment. Will continue to monitor.
--- NOTE | 2020-08-30 19:24 | PC.NURSE ---
Notified specialty clinic ([facility]) at 0918 of consult on patient. Isak was on the floor and notified me that Dr. Devine would come to the floor to see the patient. 939 Araceli called to say that Dr. Devine would need the pt to come to the office to so he could use his instruments, appt time 1330. at 0943 Araceli called back regarding pts positive COVID results, I let her know that Andreina Mclaughlin RN had just called and removed patient from precations. Araceli stated she would speak with Dr. Devine about how they would consult on patient.. Araceli called back at 1315 phone call transferred to primary RN Ghada.
[2020-08-30 22:32] LABS: POC Glucose,Bedside 152 (70-110)
[2020-08-31] VITALS (10 sets, daily range): BP systolic 111–134; BP diastolic 49–86; PULSE 60–103; RESP 16–20; TEMP 36.8–37.2; O2SAT 89–96; BMI 23.0
[2020-08-31 06:52] LABS: POC Glucose,Bedside 93 (70-110)
[2020-08-31 07:57] LABS: Basophils # 0.1 K/mm3 (0-0.2); Basophils % 0.4 % (0.1-2.0); Eosinophils % 0.4 % (0.1-12.0); Hematocrit 35.1 % (37.0-47.0); Hemoglobin 11.2 g/dL (12.2-16.2); Lymphocytes # 3.3 K/mm3 (0.7-4.5); Lymphocytes % 28.1 % (10-50); Mean Corpuscular HGB Conc 32.1 g/dL (31.8-35.4); Mean Corpuscular Volume 99.8 fl (81-99); Mean Platelet Volume 7.5 fl (7.4-10.4); Monocytes # 0.7 K/mm3 (0.1-1.0); Monocytes % 5.6 % (1.7-9.3); Neutrophils # 7.7 K/mm3 (1.8-7.8); Neutrophils % 65.4 % (37.0-80.0); Platelet Count 225 K/mm3 (142-424); Red Blood Count 3.51 M/mm3 (4.20-5.40); Red Cell Distribution Width 14.6 % (11.5-17.5); White Blood Count 11.7 K/mm3 (4.8-10.8)
[2020-08-31 08:18] LABS: Chloride 110 mmol/L (98-107)
[2020-08-31 08:19] LABS: Potassium 3.5 mmoL/L (3.5-5.1); Sodium 140 mmol/L (136-145)
[2020-08-31 08:21] LABS: Blood Urea Nitrogen 11 mg/dl (7-17); Creatinine Clearance Estimated 40 mL/min (50-200); Estimated Glomerular Filt Rate 80 ml/min (>60); GFR (African American) 97 ML/MIN (>60)
[2020-08-31 08:22] LABS: Anion Gap 4.5 mEq/L (5-15); Calcium 7.9 mg/dl (8.4-10.2); Carbon Dioxide 29 mmol/L (22.0-30.0); Glucose 105 mg/dl (74-100)
--- NOTE | 2020-08-31 08:41 | HMH.ACPN2 ---
Internal Medicine - PN: Subj *Date: 08/31/20 *Time: 08:52 Interval history: Patient states she does not feel very well. Her left leg still hurts. She has been up to the bedside commode. She is eating poorly. She wonders why she has to wear oxygen. She does have some shortness of breath. She does have some periodic discomfort at the left breast. White blood cell count is decreased to 11,700. Blood chemistries show a sodium of 140 potassium of 3.5 with a BUN of 11 and creatinine 0.7. Exam Vital signs and Labs for Last 24 Hours: Temp Pulse Resp BP Pulse Ox 99.0 F 98 H 20 111/49 L 89 L 08/31/20 04:00 08/31/20 06:06 08/31/20 04:00 08/31/20 04:00 08/31/20 06:06 Laboratory Results - last 24 hr 08/30/20 09:20: SARS-CoV-2 IgG Ab (Rapid) Positive A, SARS-CoV-2 IgM Ab (Rapid) Positive A 08/30/20 09:20: Troponin I < 0.01, NT-Pro-B Natriuret Pep 415 08/30/20 10:55: POC Glucose 241 H 08/30/20 16:57: POC Glucose 113 H 08/30/20 22:09: POC Glucose 152 H 08/31/20 06:43: POC Glucose 93 08/31/20 06:54: WBC 11.7 H, RBC 3.51 L, Hgb 11.2 L, Hct 35.1 L, MCV 99.8 H, MCH 32.0 H, MCHC 32.1, RDW 14.6, Plt Count 225, MPV 7.5, Neut % (Auto) 65.4, Lymph % (Auto) 28.1, [place] % (Auto) 5.6, Eos % (Auto) 0.4, Baso % (Auto) 0.4, Neut # (Auto) 7.7, Lymph # (Auto) 3.3, [place] # (Auto) 0.7, Eos # (Auto) 0.0, Baso # (Auto) 0.1 08/31/20 06:54: Sodium 140, Potassium 3.5, Chloride 110 H, Carbon Dioxide 29, Anion Gap 4.5 L, BUN 11 D, Creatinine 0.70 D, Estimated Creat Clear 40, Estimated GFR 80, Est GFR ( Amer) 97 D, Glucose 105 H, Calcium 7.9 L I & O for Last 24 hours: Intake & Output 08/28/20 08/29/20 08/30/20 08/31/20 11:59 11:59 11:59 11:59 Intake Total 1809 / 1809 1503 / 1503 Output Total 150 / 150 450 / 450 Balance 1659 / 1659 1053 / 1053 Weight 130 lb 4 oz Microbiology Reports for the Last 24 Hours: Microbiology 08/30/20 00:30 Urine,Clean Catch Urine Culture - Preliminary NO GROWTH AFTER 24 HOURS - Constitutional no acute distress Comments: Appears comfortable in the bed. - *Routine Respiratory Exam Present: crackles (Bibasilar) - *Routine Cardiovascular Exam Present: RRR - *Routine Abdominal Exam Present: soft, normoactive bowel sounds. Absent: tenderness - *Routine Extremities Exam Present: edema (Left leg is larger than the right. No palpable cords or knots.) - *Routine Neurological Exam Present: alert (Seems oriented) Assessment and Plan (1) Pulmonary emboli Status: Acute Category: Medical Code(s): I26.99 - Other pulmonary embolism without acute cor pulmonale (2) Deep vein thrombosis (DVT) of left lower extremity Status: Acute Category: Medical Code(s): I82.402 - Acute embolism and thrombosis of unspecified deep veins of left lower extremity (3) History of COVID-19 Status: Acute Category: Medical Code(s): Z86.16 - Personal history of COVID-19 (4) Leukocytosis Status: Acute Category: Medical Code(s): D72.829 - Elevated white blood cell count, unspecified (5) Irregular heart beat Status: Acute Category: Medical Code(s): I49.9 - Cardiac arrhythmia, unspecified (6) Fever Status: Acute Category: Medical Code(s): R50.9 - Fever, unspecified (7) Dehydration Status: Acute Category: Medical Code(s): E86.0 - Dehydration (8) Hypothyroidism (acquired) Status: Acute Category: Medical Code(s): E03.9 - Hypothyroidism, unspecified (9) Thyromegaly Status: Acute Category: Medical Code(s): E01.0 - Iodine-deficiency related diffuse (endemic) goiter - Assessment and plan all Dx Assessment and Plan for all problems:: She has an ENT consult. Cardiology is also following. Otherwise we will continue current treatment.
--- NOTE | 2020-08-31 09:43 | HMH.PTEV ---
Physical Therapy Evaluation Rehab PT IP Evaluation Start: 08/31/20 09:07 Freq: ONCE Status: Active Protocol: Document 08/31/20 09:39 PHORNE (Rec: 08/31/20 09:43 PHORNE [id number]) Subjective/History History History 80 yowf adm to [facility] with generalized weakness and L LE pain. She now has verified L LE DVT. She reports she lives alone, but has family with her throughout the day and she is independent with all mobility at baseline. Subjective Subjective Pt c/o pain in L LE 3/10 at this time. Rehab PT IP Eval Objective Appearance Patient Behavior Appropriate Patient Orientation Person,Place,Time Difficulty following instructions none Speech Pattern Clear Ambulation Patient Able to Ambulate Yes Ambulation Observation IP General Gait Pattern Observation Antalgic Gait,Decrease Stride Lngth (R),Decrease Stride Lngth (L) Ambulation Distance (feet) 20 Ambulation Assistive Device Rolling Walker Ambulation Ability Contact Guard/Hand Hold Balance Ability to Arise Able, uses arms to help Sitting Balance Steady, safe Standing Balance Steady, wide stance Dynamic Sitting Balance Ability Good Dynamic Standing Balance Ability Good Transfers Bed Transfer Ability Supervision/Stand by Chair Transfer Ability Contact Guard/Hand Hold Sit to Stand Bed Transfer Ability Contact Guard/Hand Hold Sit to Stand Chair Transfer Ability Contact Guard/Hand Hold ROM All Extremities PT ROM Status WFL MMT All Extremities PT MMT WFL Rehab PT IP prob,goals,plan Problems Date of Evaluation: 08/31/20 PT IP Problems Bed Mobility,Transfers,Gait Rehab Potential Rehab Potential Good Plan PT Intervention Plan Bed Mobility,Transfers,Gait, Therapeutic Exercise PT Plan Frequency BID Duration LOS Discharge Goals Bed Transfer Ability Supervision/Stand by Sit to Stand Chair Transfer Ability Supervision/Stand by Ambulation Assistive Device Rolling Walker Ambulation Distance (feet) 40 Discharge Plan PT Discharge Plan Pt is appropriate to return home once medically stable. recommend Home Health therapy. G -code Required No Eval Complexity Eval Charge Codes 87629 - Moderate Complexity
--- NOTE | 2020-08-31 10:47 | P.PN_ITS ---
Internal Medicine - PN: Subj *Date: 08/31/20 *Time: 10:47 Interval history: No acute respiratory vents overnight. Patient continued remained on room air with no respiratory distress. Exam - Constitutional Constitutional:: Present: no acute distress, comfortable - HENMT Exam HENMT: Present: normocephalic, atraumatic - Eye Exam Eyes:: Present: eyelids normal - Neck Exam Neck:: Present: thyroid normal - Respiratory Exam Respiratory:: Present: able to speak in complete sentences, lungs clear, no respiratory distress, normal respiratory effort - Cardiovascular Exam Cardiac:: Present: S1, S2 - GI Exam GI:: Present: soft, no hepatosplenomegaly - Skin Exam Skin: Present: warm, no rash - Neurological Exam Neurological: Present: alert, normal cognition - Extremities Exam Extremities: Present: no cyanosis, no clubbing, no edema - Psychiatric Exam Psychiatric: Present: normal affect Assessment and Plan (1) Pulmonary emboli Status: Acute Category: Medical Code(s): I26.99 - Other pulmonary embolism without acute cor pulmonale (2) Deep vein thrombosis (DVT) of left lower extremity Status: Acute Category: Medical Code(s): I82.402 - Acute embolism and thrombosis of unspecified deep veins of left lower extremity (3) History of COVID-19 Status: Acute Category: Medical Code(s): Z86.16 - Personal history of COVID- 19 (4) Leukocytosis Status: Acute Category: Medical Code(s): D72.829 - Elevated white blood cell count, unspecified (5) Irregular heart beat Status: Acute Category: Medical Code(s): I49.9 - Cardiac arrhythmia, unspecified (6) Fever Status: Acute Category: Medical Code(s): R50.9 - Fever, unspecified (7) Dehydration Status: Acute Category: Medical Code(s): E86.0 - Dehydration (8) Hypothyroidism (acquired) Status: Acute Category: Medical Code(s): E03.9 - Hypothyroidism, unspecified (9) Thyromegaly Status: Acute Category: Medical Code(s): E01.0 - Iodine-deficiency related diffuse (endemic) goiter - Assessment and plan all Dx Assessment and Plan for all problems:: # History of COVID-19 pneumonia: # Pulmonary embolism: #Left Lower extremity DVT 80-year-old never smoker no prior respiratory complaints recently admitted to the hospital on 07/29/2020 for COVID-19 pneumonia during which her CTA is negative for any pulmonary embolism presented with lower extremity pain and worsening breathing and found to have lower extremity DVT and right-sided pulmonary embolism along with dilated RV. CT showed significant improvement in her bilateral pulmonary infiltrates from prior. DVT in her left proximal tibial wean. Patient does not appear to be any respiratory distress, on room air saturating 95-97%%. Hemodynamically stable. D-dimer 2.06 on this admission, slightly decreased on 2.46 from recent admission. Troponins and D-dimer within normal limits. PE likely submassive given evidence on RV strain found on the CT scan. Patient initiated on Lovenox and then switched to Xarelto today Plan: -Continue full dose anticoagulation with Xeralto, We will continue for at least 3 months and see the patient in the clinic -Fall precautions #Thank you for involving pulmonary in this patient care. Pulmonary will sign off at this point of time. We will follow patient in 4 to 6 weeks in the clinic
--- NOTE | 2020-08-31 13:42 | HMH.PHAINT ---
MEDICATION RECONCILIATION COMPLETED ON PATIENT USING EXTERNAL FILL HISTORY FROM PHARMACY AND LIST FROM [facility] OFFICE. -TRACI DUMONTD
--- NOTE | 2020-08-31 16:27 | PC.NURSE ---
Addendum entered by Citlalli Conner RN 08/31/20 19:12: CARRIE BANDAGE APPLIED TO LEFT ANKLE. ANKLE IS REDDISH IN COLOR, AND WARM. PULSE IS PRESENT. Original Note: PT HAS HAD A GOOD DAY. NO COMPLAINTS VOICED. NEW IV PLACED IN THE RIGHT WRIST. PT PLANS ON RECEIVING A BATH THIS SHIFT. PT IS AN ASSIT X1 TO BSC. PT HAS HAD 2 BM'S THIS SHIFT. VSS. WILL CONT. TO MONITOR.
[2020-08-31 16:54] LABS: POC Glucose,Bedside 196 (70-110)
--- NOTE | 2020-08-31 19:00 | P.PN_ITS ---
Internal Medicine - PN: Subj *Date: 08/31/20 *Time: 19:00 Interval history: Dr. Devine contacted me today. He will see the patient tomorrow morning. Exam Vital signs and Labs for Last 24 Hours: Temp Pulse Resp BP Pulse Ox 98.7 F 99 H 18 134/62 94 L 08/31/20 16:00 08/31/20 16:00 08/31/20 16:00 08/31/20 16:00 08/31/20 16:00 Laboratory Results - last 24 hr 08/30/20 22:09: POC Glucose 152 H 08/31/20 06:43: POC Glucose 93 08/31/20 06:54: WBC 11.7 H, RBC 3.51 L, Hgb 11.2 L, Hct 35.1 L, MCV 99.8 H, MCH 32.0 H, MCHC 32.1, RDW 14.6, Plt Count 225, MPV 7.5, Neut % (Auto) 65.4, Lymph % (Auto) 28.1, [place] % (Auto) 5.6, Eos % (Auto) 0.4, Baso % (Auto) 0.4, Neut # (Auto) 7.7, Lymph # (Auto) 3.3, [place] # (Auto) 0.7, Eos # (Auto) 0.0, Baso # (Auto) 0.1 08/31/20 06:54: Sodium 140, Potassium 3.5, Chloride 110 H, Carbon Dioxide 29, Anion Gap 4.5 L, BUN 11 D, Creatinine 0.70 D, Estimated Creat Clear 40, Estimated GFR 80, Est GFR ( Amer) 97 D, Glucose 105 H, Calcium 7.9 L 08/31/20 16:30: POC Glucose 196 H I & O for Last 24 hours: Intake & Output 08/29/20 08/30/20 08/31/20 09/01/20 11:59 11:59 11:59 11:59 Intake Total 1809 / 1809 1863 / 1863 960 / 960 Output Total 150 / 150 450 / 450 Balance 1659 / 1659 1413 / 1413 960 / 960 Weight 130 lb 4 oz 130 lb 1.164 oz Microbiology Reports for the Last 24 Hours: Microbiology 08/30/20 00:30 Urine,Clean Catch Urine Culture - Preliminary NO GROWTH AFTER 24 HOURS Assessment and Plan (1) Pulmonary emboli Status: Acute Category: Medical Code(s): I26.99 - Other pulmonary embolism without acute cor pulmonale (2) Deep vein thrombosis (DVT) of left lower extremity Status: Acute Category: Medical Code(s): I82.402 - Acute embolism and throm bosis of unspecified deep veins of left lower extremity (3) History of COVID-19 Status: Acute Category: Medical Code(s): Z86.16 - Personal history of COVID- 19 (4) Leukocytosis Status: Acute Category: Medical Code(s): D72.829 - Elevated white blood cell count, unspecified (5) Irregular heart beat Status: Acute Category: Medical Code(s): I49.9 - Cardiac arrhythmia, unspecified (6) Fever Status: Acute Category: Medical Code(s): R50.9 - Fever, unspecified (7) Dehydration Status: Acute Category: Medical Code(s): E86.0 - Dehydration (8) Hypothyroidism (acquired) Status: Acute Category: Medical Code(s): E03.9 - Hypothyroidism, unspecified (9) Thyromegaly Status: Acute Category: Medical Code(s): E01.0 - Iodine-deficiency related diffuse (endemic) goiter
[2020-08-31 20:20] LABS: POC Glucose,Bedside 186 (70-110)
[2020-09-01 03:39] VITALS: BP 127/62; PULSE 87; RESP 18; TEMP 36.8; O2SAT 95
--- NOTE | 2020-09-01 03:54 | PC.NURSE ---
pt has had no acute changes. vss. pt uses bsc independently. pt had c/o of cough and prn med given with relief. no c/o of pain. bm this shift. iv patent and infusing per order. call light in reach. will continue to monitor pt condition
[2020-09-01 05:00] VITALS: BMI 24.3
[2020-09-01 06:20] VITALS: PULSE 92; O2SAT 95
[2020-09-01 06:37] LABS: POC Glucose,Bedside 78 (70-110)
--- NOTE | 2020-09-01 07:21 | PC.NURSE ---
Dr. Devine on the floor at this time for patients consult.
--- NOTE | 2020-09-01 07:26 | CT_ITS ---
PROCEDURE: CT SOFT TISSUE NECK WO CON CLINICAL HISTORY: LUMP Left-sided neck lump COMPARISON: CT CT SOFT TISSUE NECK WO CON from 07/27/2020 TECHNIQUE: Oral Contrast: None IV Contrast: None Axial images obtained with sagittal and coronal reformats. All CT scans at the facility use one or more dose reduction, viz: automated exposure control, ma/kV adjustment per patient size (including targeted exams where dose is matched to indication, i.e. head), or iterative reconstruction technique. FINDINGS: The nasopharynx, oropharynx, hypopharynx, epiglottis, and glottic region have an unremarkable appearance. Mild calcification noted of the carotid arteries. Enlarged left thyroid gland once again noted. The left lobe measures 6 x 3 x 3 cm mostly encompassed by large nodule overall not significantly changed compared to the previous exam. There is mild tracheal shift to the right by approximately 4 mm previously approximately 8 mm. There is some scarring in the lung apices. There are degenerative changes in the cervical spine. IMPRESSION: 1. Enlarged left lobe of the thyroid gland with left thyroid mass. The thyroid gland overall appears slightly smaller compared to the previous exam. The tracheal shift to the right is approximately 4 mm slightly decreased compared to the previous study. 2. Otherwise negative unenhanced CT of the neck Dictated by: Ruben Loving MD 09/01/2020 09:06 Ruben Loving MD in [place] 09/01/2020 09:06
[2020-09-01 08:00] VITALS: BP 133/66; PULSE 109; RESP 18; TEMP 36.9; O2SAT 93
--- NOTE | 2020-09-01 09:00 | P.PN_ITS ---
Internal Medicine - PN: Subj *Date: 09/01/20 *Time: 09:00 Interval history: Patient is sitting up in the chair this morning and states she feels well. She does have a little bit of a cough and some mild shortness of breath. She states Dr. Devine saw her this morning and wanted to order an ultrasound. Her soft tissue neck CT report is still pending. She denies any pain and states she rested well and was able to eat this morning. Exam Vital signs and Labs for Last 24 Hours: Temp Pulse Resp BP Pulse Ox 98.4 F 109 H 18 133/66 93 L 09/01/20 08:00 09/01/20 08:00 09/01/20 08:00 09/01/20 08:00 09/01/20 08:00 Laboratory Results - last 24 hr 08/31/20 16:30: POC Glucose 196 H 08/31/20 20:13: POC Glucose 186 H 09/01/20 06:20: POC Glucose 78 I & O for Last 24 hours: Intake & Output 08/29/20 08/30/20 08/31/20 09/01/20 11:59 11:59 11:59 11:59 Intake Total 1809 / 1809 1863 / 1863 1320 / 1320 Output Total 150 / 150 450 / 450 500 / 500 Balance 1659 / 1659 1413 / 1413 820 / 820 Weight 130 lb 4 oz 137 lb 2 oz Microbiology Reports for the Last 24 Hours: Microbiology 08/30/20 00:30 Urine,Clean Catch Urine Culture - Final NO GROWTH AFTER 48 HOURS 08/29/20 20:54 Blood Blood Culture - Preliminary NO GROWTH AFTER 48 HOURS 08/29/20 20:54 Blood Blood Culture - Preliminary NO GROWTH AFTER 48 HOURS - Constitutional no acute distress - *Routine Respiratory Exam Present: CTA bilaterally - *Routine Cardiovascular Exam Present: RRR - *Routine Abdominal Exam Present: soft, normoactive bowel sounds. Absent: tenderness - *Routine Extremities Exam Absent: cyanosis, clubbing, edema - *Routine Skin Exam Present: warm. Absent: rash - *Routine Neurological Exam Present: alert, oriented X3 Assessment and Plan (1) Pulmonary emboli Status: Acute Category: Medical Code(s): I26.99 - Other pulmonary embolism without acute cor pulmonale (2) Deep vein thrombosis (DVT) of left lower extremity Status: Acute Category: Medical Code(s): I82.402 - Acute embolism and thrombosis of unspecified deep veins of left lower extremity (3) History of COVID-19 Status: Acute Category: Medical Code(s): Z86.16 - Personal history of COVID- 19 (4) Leukocytosis Status: Acute Category: Medical Code(s): D72.829 - Elevated white blood cell count, unspecified (5) Irregular heart beat Status: Acute Category: Medical Code(s): I49.9 - Cardiac arrhythmia, unspecified (6) Fever Status: Acute Category: Medical Code(s): R50.9 - Fever, unspecified (7) Dehydration Status: Acute Category: Medical Code(s): E86.0 - Dehydration (8) Hypothyroidism (acquired) Status: Acute Category: Medical Code(s): E03.9 - Hypothyroidism, unspecified (9) Thyromegaly Status: Acute Category: Medical Code(s): E01.0 - Iodine-deficiency related diffuse (endemic) goiter - Assessment and plan all Dx Assessment and Plan for all problems:: Cardiology, pulmonology, and ENT are following patient. Will discuss further care with Dr. Alfonso and await Dr. Devine's consult note and her soft tissue neck CT.
--- NOTE | 2020-09-01 09:23 | HMH.CONS ---
*Admission Date: 08/30/20 *Reason for consult:: Left neck mass *History of present illness: Ms. Zafar is a 80-year-old female never smoker, no prior respiratory complaints, recently had a diagnosis of COVID-19 pneumonia completed treatment with levofloxacin prednisone dexamethasone and discharged home presented to the hospital again with lower extremity pain and found to have lower extremity DVT and pulmonary embolism and pulmonary was called for further management. [facility] History Medical History: Reports:: Diabetes Mellitus Type 2, Hyperlipidemia, Hypertension Denies:: Cancer, Diabetes Mellitus Type 1, Internal Pacemaker, MRSA, Seizures *Have you ever received a pneumonia vaccine?: Yes *Have you received a flu vaccine this season?: Yes Other Medical History: Reports: Hypothyroidism, Sinus Problems. Denies: Blood Transfusion Reaction Laterality Cases: Bilateral: Other Other Surgeries: Yes: No Previous Surgery, Appendectomy, Thyroidectomy, Other. No: Pacemaker Amputation: No Fractures: No - *Social History Last grade of school completed: 11th or 12th Smoking Status: Former smoker Alcohol Intake: never Alcohol Intake Frequency:: holidays/special occasions only Substance Use Type: denies use *Occupational Status:: retired Housing: house Household Members: none *Travel in the last 8 weeks: None Family Hx:: Stroke Review of Systems - *Neurologic Reports abnormal walking, Reports tingling/numbness/burning sensations (Bilateral lower legs worse on the left), Denies abnormal hearing, Denies unsteadiness Meds Home Medications Medication Instructions Recorded Confirmed Type glimepiride 4 mg tablet 4 mg PO DAILY 02/13/18 08/29/20 History metformin 500 mg tablet 500 mg PO BIDWM 02/13/18 08/29/20 History simvastatin 40 mg tablet 40 mg PO HS 02/13/18 08/29/20 History alendronate 35 mg tablet 35 mg PO WEEKLY 02/27/18 08/29/20 History Amlodipine Besylate [Norvasc 5mg 5 mg PO HS 03/13/18 08/29/20 History tablet] Furosemide [Furosemide 40MG tAB*] 20 mg PO DAILY 03/13/18 08/29/20 History levothyroxine 75 mcg tablet 75 mcg PO DAILYDM #0 tab 06/10/19 08/31/20 History allopurinol 100 mg tablet 100 mg PO DAILY tab 05/17/20 08/29/20 History Benzonatate [Benzonatate 200mg Cap] 200 mg PO TIDP PRN 07/27/20 08/29/20 History Fluticasone Propionate [Flonase 1 spray NS DAILY 07/27/20 08/29/20 History Allergy Relief NS] Multivit-Min/FA/Lycopen/Lutein 1 each PO DAILY 07/27/20 08/29/20 History [Centrum Silver Tablet] Guaifenesin/Dextromethorphan 5 ml PO Q4HP PRN #250 ml 08/01/20 08/29/20 Rx [Robitussin DM 200mg/20mg 10mL Udc] Albuterol Sulfate [Proventil-HFA 2 puffs IH QIDRT 08/29/20 08/29/20 History 90mcg/puff Inh] Aspirin [Aspirin 81mg EC Tab] 81 mg PO DAILY 08/29/20 08/29/20 History Cholecalciferol (Vitamin D3) 50 mcg PO DAILY 08/29/20 08/29/20 History [Vitamin D3] Sucralfate [Carafate 1gm Tab] 1 gm PO ACHS 08/29/20 08/29/20 History Tiotropium [place] [Spiriva 1 cap IH DAILY 08/29/20 08/29/20 History 18mcg/puff inhaler] Allergies Allergy/AdvReac Type Severity Reaction Status Date / Time Penicillins Allergy Unknown Verified 05/17/20 13:04 Exam Vital signs and Labs for Last 24 Hours: Temp Pulse Resp BP Pulse Ox 98.4 F 109 H 18 133/66 93 L 09/01/20 08:00 09/01/20 08:00 09/01/20 08:00 09/01/20 08:00 09/01/20 08:00 Laboratory Results - last 24 hr 08/31/20 16:30: POC Glucose 196 H 08/31/20 20:13: POC Glucose 186 H 09/01/20 06:20: POC Glucose 78 I & O for Last 24 hours: Intake & Output 08/29/20 08/30/20 08/31/20 09/01/20 23:59 23:59 23:59 23:59 Intake Total 60 / 600 3252 / 3252 1320 / 1320 360 / 360 Output Total 300 / 450 350 / 350 450 / 450 Balance 60 / 600 2952 / 2802 970 / 970 -90 / -90 Weight 130 lb 4 oz 130 lb 1.164 oz 137 lb 2 oz Microbiology Reports for the Last 24 Hours: Microbiology 08/30/20 00:30 Urine,Clean Catch Urine Culture - Final
--- NOTE | 2020-09-01 11:24 | P.PN_ITS ---
Internal Medicine - PN: Subj *Date: 09/01/20 *Time: 11:24 Interval history: No acute respiratory vents overnight. Exam - Constitutional Constitutional:: Present: no acute distress, comfortable - HENMT Exam HENMT: Present: atraumatic - Eye Exam Eyes:: Present: eyelids normal - Respiratory Exam Respiratory:: Present: able to speak in complete sentences, normal breath sounds, no respiratory distress, normal respiratory effort - Cardiovascular Exam Cardiac:: Present: S1, S2 - GI Exam GI:: Present: soft, no hepatosplenomegaly - Skin Exam Skin: Present: warm, no rash - Neurological Exam Neurological: Present: alert, awake, normal cognition - Extremities Exam Extremities: Present: no cyanosis, no clubbing Comments: Left lower extremity edema noted Assessment and Plan (1) Pulmonary emboli Status: Acute Category: Medical Code(s): I26.99 - Other pulmonary embolism without acute cor pulmonale (2) Deep vein thrombosis (DVT) of left lower extremity Status: Acute Category: Medical Code(s): I82.402 - Acute embolism and thrombosis of unspecified deep veins of left lower extremity (3) History of COVID-19 Status: Acute Category: Medical Code(s): Z86.16 - Personal history of COVID- 19 (4) Leukocytosis Status: Acute Category: Medical Code(s): D72.829 - Elevated white blood cell count, unspecified (5) Irregular heart beat Status: Acute Category: Medical Code(s): I49.9 - Cardiac arrhythmia, unspecified (6) Fever Status: Acute Category: Medical Code(s): R50.9 - Fever, unspecified (7) Dehydration Status: Acute Category: Medical Code(s): E86.0 - Dehydration (8) Hypothyroidism (acquired) Status: Acute Category: Medical Code(s): E03.9 - Hypothyroidism, unspecified (9) Thyromegaly Status: Acute Category: Medical Code(s): E01.0 - Iodine-deficiency related diffuse (endemic) goiter - Assessment and plan all Dx Assessment and Plan for all problems:: # History of COVID-19 pneumonia: # Pulmonary embolism: #Left Lower extremity DVT 80-year-old never smoker no prior respiratory complaints recently admitted to the hospital on 07/29/2020 for COVID-19 pneumonia during which her CTA is negative for any pulmonary embolism presented with lower extremity pain and worsening breathing and found to have lower extremity DVT and right-sided pulmonary embolism along with dilated RV. CT showed significant improvement in her bilateral pulmonary infiltrates from prior. CT also found to have a thyroid nodule with tracheal deviation followed by ENT DVT in her left proximal tibial wean. Patient does not appear to be any respiratory distress, on room air saturating 95-97%%. Hemodynamically stable. D-dimer 2.06 on this admission, slightly decreased on 2.46 from recent admission. Troponins and D-dimer within normal limits. PE likely submassive given evidence on RV strain found on the CT scan. Patient initiated on Lovenox and then switched to Xarelto today Plan: -Continue full dose anticoagulation with Xeralto, We will continue for at least 3 months and see the patient in the clinic -Complete 5-day course of levofloxacin for possible pneumonia -Fall precautions #Thank you for involving pulmonary in this patient care. We will follow patient in 4 to 6 weeks in the clinic
--- NOTE | 2020-09-02 10:18 | HMH.DCSUM ---
General - General Admission date:: 08/29/20 Discharge date: 09/01/20 HPI HPI: Ms. Zafar is an 80-year-old female with a history of type 2 diabetes mellitus, hypertension, hyperlipidemia, hypothyroidism, and Covid diagnosed July 2020(see previous admission) who presented to the office of [facility] complaining of left foot pain. She states both her feet are tingling and numb. She has been having some swelling as well. She describes her heart palpating. At this point she denies shortness of breath, dizziness and chest pain. With evaluation in the office her white blood cell count was found to be 14,600 with H&H of 13.9/41. She did have a temperature of 101.5. She did admit to a slight nonproductive cough. Thus she was admitted directly for further evaluation and treatment. Hospital Course Hospital Course: The patient was admitted and a chest x-ray and UA were ordered. She was started on IV fluids and Rocephin empirically. Labs were ordered as well. Her chest x-ray showed a persistent but improving bilateral atelectasis versus infiltrate with COPD. There was also a left paratracheal mass/enlarged thyroid. She had a chest CTA showing acute bilateral pulmonary emboli and multifocal groundglass infiltrates consistent with COVID-19 pneumonitis. The left lobe of the thyroid gland was also enlarged. She had venous Dopplers showing a thrombus in the left posterior tibial vein. A covid PCR nasal swab was ordered and was positive. It is unlikely she is shedding replicative virus at this point in time. An IgM and IgG were both checked and were positive as well. Pulmonology was consulted as was ENT. The patient was started on Lovenox. Pulmonology saw the patient and felt her bilateral pulmonary infiltrates had improved significantly. He recommended continuing full dose anticoagulation. The patient did begin feeling better. She complained of some leg pain but was able to get up to the bedside commode and walk around her room. The patient had a soft tissue CT of her neck showing an enlarged left lobe of the thyroid with a left thyroid mass. There was a tracheal shift to the right at approximately 4 mm. The patient was seen in consultation by Dr. Devine he felt she was stable for discharge and could follow-up in his clinic in 2 months time. By 09/01/2020 the patient was feeling well. Her blood and urine cultures showed no growth. She was felt to be stable to discharge home and will follow up with ENT, pulmonology, and Dr. Alfonso. She will be discharged on Xarelto 15 mg twice daily for 3 weeks. Objective Vital signs: Temp Pulse Resp BP Pulse Ox 98.4 F 109 H 18 133/66 93 L 09/01/20 08:00 09/01/20 08:00 09/01/20 08:00 09/01/20 08:00 09/01/20 08:00 Narrative: - Constitutional no acute distress - *Routine HEENT Exam Head: Present: normocephalic, atraumatic Eye: Present: PERRL. Absent: conjunctival icterus, scleral injection ENT: Present: mucous membranes moist, oropharynx clear - *Routine Neck Exam Present: supple. Absent: carotid bruit, lymphadenopathy, thyromegaly - *Routine Respiratory Exam Present: CTA bilaterally (A&P; ), diminished air movement (posteriorly) - *Routine Cardiovascular Exam Present: irregular rhythm - *Routine Abdominal Exam Present: soft, normoactive bowel sounds. Absent: tenderness, distended - *Routine Extremities Exam Present: edema (bilateral lower legs). Absent: calf tenderness Comments: decreased ROM of the left ankle due to pain - *Routine Neurological Exam Present: alert, oriented X3 Results Labs on day of discharge: Preliminary micro results at discharge 08/29/20 20:54 Blood Culture - Preliminary Blood NO GROWTH AFTER 48 HOURS 08/29/20 20:54 Blood Culture - Preliminary Blood NO GROWTH AFTER 48 HOURS DS: Diagnosis - Discharge Diagnosis (1) Pulmonary emboli Status: Acute (2) Deep vein thrombosis (DVT) of le
== END 2020-09-01 12:33 | disposition home or self-care (01) ==
PROVIDERS: Internal Medicine Pulmonary Disease; Nurse Practitioner Family; Admitting Provider Family Medicine; PCP Family Medicine; Visit Provider Family Medicine
DX: I82.442 Acute embolism and thrombosis of left tibial vein; Z86.16 Personal history of COVID-19; E86.0 Dehydration; I26.99 Other pulmonary embolism without acute cor pulmonale; E01.0 Iodine-deficiency related diffuse (endemic) goiter; E11.9 Type 2 diabetes mellitus without complications; Z79.4 Long term (current) use of insulin; Z79.899 Other long term (current) drug therapy; Z88.0 Allergy status to penicillin; R06.9 Unspecified abnormalities of breathing
CPT/HCPCS: G0379; 36415; 70490; 71046; 71275; 80048; 80053; 81001; 82962; 83880; 84443; 84484; 85007; 85025; 85378; 86328; 87040; 87086; 93971; 94640; 94761; 97116; 97162; 97530; G0378; J0456; Q9967; U0003

== ENCOUNTER 2020-09-03 17:09 | Observation (INO) | payer MEDICARE, SELFPAY ==
[2020-09-03 17:23] VITALS: BP 142/83; PULSE 118; RESP 18; TEMP 39.3; O2SAT 94; BMI 25.7
--- NOTE | 2020-09-03 17:32 | XR_ITS ---
PROCEDURE: XR ELBOW RT MIN 3V CLINICAL INDICATION: PAIN SWELLING Pain, swelling and bruising COMPARISON: CT CT ELBOW RT WO CON from 09/03/2020 FINDINGS: Osteoarthritic changes are present. There is prominence of the radial head which may reflect osteoarthritic change. No definite acute fracture There is fragmentation of the lateral epicondyle which appears chronic. There is displacement of the anterior and posterior fat pad consistent with joint effusion. Other findings:None. IMPRESSION: Chronic degenerative changes with elbow joint effusion or hemarthrosis. Dictated by: Ruben Loving MD 09/04/2020 07:23 Ruben Loving MD in [facility] 09/04/2020 07:23
--- NOTE | 2020-09-03 17:33 | XR_ITS ---
PROCEDURE: XR HAND RT MIN 3V CLINICAL INDICATION: PAIN COMPARISON: No exams were available for comparison FINDINGS: No fracture or dislocation. No lytic or blastic change. There is normal mineralization. Mild generalized osteoarthritic changes. Chondrocalcinosis is present at the wrist involving the triangular fibrocartilage and at the 3rd metacarpophalangeal joint. There is some soft tissue calcification also noted in the 1st metacarpal interspace and along the lateral aspect of the proximal phalanx of the thumb Other findings:None. IMPRESSION: Osteoarthritis with chondrocalcinosis, no acute fracture Dictated by: Ruben Loving MD 09/04/2020 07:18 Ruben Loving MD in [facility] 09/04/2020 07:18
[2020-09-03 17:48] LABS: Basophils # 0.1 K/mm3 (0-0.2); Basophils % 0.3 % (0.1-2.0); Eosinophils % 0.2 % (0.1-12.0); Hematocrit 31.5 % (37.0-47.0); Hemoglobin 10.4 g/dL (12.2-16.2); Lymphocytes # 2.3 K/mm3 (0.7-4.5); Lymphocytes % 15.8 % (10-50); Mean Corpuscular HGB Conc 32.9 g/dL (31.8-35.4); Mean Corpuscular Hemoglobin 31.3 pg (27.0-31.2); Monocytes # 0.7 K/mm3 (0.1-1.0); Monocytes % 4.7 % (1.7-9.3); Neutrophils # 11.7 K/mm3 (1.8-7.8); Platelet Count 349 K/mm3 (142-424); Red Blood Count 3.31 M/mm3 (4.20-5.40); Red Cell Distribution Width 14.2 % (11.5-17.5); White Blood Count 14.8 K/mm3 (4.8-10.8)
[2020-09-03 17:52] LABS: Alanine Aminotransferase 27 U/L (12-78); Albumin Level 3.2 g/dl (3.5-5.0); Alkaline Phosphatase 97 U/L (38-126); Aspartate Amino Transferase 35 U/L (14-36); Bilirubin,Total 0.5 mg/dl (0.2-1.3); Blood Urea Nitrogen 14 mg/dl (7-17); Calcium 8.2 mg/dl (8.4-10.2); Carbon Dioxide 32 mmol/L (22.0-30.0); Chloride 99 mmol/L (98-107); Creatinine Clearance Estimated 47 mL/min (50-200); Estimated Glomerular Filt Rate 80 ml/min (>60); GFR (African American) 97 ML/MIN (>60); Globulin 3.3 g/dL (1.3-3.2); Glucose 161 mg/dl (74-100); Potassium 3.3 mmoL/L (3.5-5.1); Total Protein,Serum 6.5 g/dl (6.3-8.2)
[2020-09-03 17:53] LABS: Lactic Acid 1.5 mmol/L (0.7-2.1)
[2020-09-03 17:57] LABS: C-Reactive Protein 242.6 mg/L (0-4)
--- NOTE | 2020-09-03 18:02 | HMH.EDFEV ---
ED Disposition Clinical Impression: Acute febrile illness, Acute arthritis, History of COVID-19, Diabetes mellitus type 2 in nonobese Pulmonary emboli Qualifiers: Pulmonary embolism type: unspecified Chronicity: acute Acute cor pulmonale presence: without acute cor pulmonale Qualified Code(s): I26.99 - Other pulmonary embolism without acute cor pulmonale DVT (deep venous thrombosis) Qualifiers: DVT location: lower extremity Affected thrombotic vein of extremity: unspecified vein of extremity Chronicity: acute Laterality: left Qualified Code(s): I82.402 - Acute embolism and thrombosis of unspecified deep veins of left lower extremity Snowden's cyst of knee Qualifiers: Laterality: left Qualified Code(s): M71.22 - Synovial cyst of popliteal space [Snowden], left knee Hypothyroidism Qualifiers: Hypothyroidism type: acquired Qualified Code(s): E03.9 - Hypothyroidism, unspecified Hypertension Qualifiers: Hypertension type: essential hypertension Qualified Code(s): I10 - Essential (primary) hypertension Disposition: Admitted as Observation Condition on Discharge: Good Referrals: Vanessa Alfonso MD [Primary Care Provider] - - Critical Care Critical Care Time: No Attestation: On 09/03/20, the high probability of a clinically significant, sudden or life threatening deterioration of the following system(s) required my full and direct attention, intervention and personal management. The time I documented below is in addition to time spent performing reported procedures but includes the following listed in this critical care notation. Medical Decision Making - Medical Records Medical records reviewed: Yes: I reviewed the patient's medical records. - Anam Inquiry Pt receiving controlled substance: No Vital Signs: 09/03/20 17:23 09/03/20 18:40 Temperature 102.8 F H 99.3 F Temperature Source Oral Oral Pulse Rate [Radial] 118 H 100 H Respiratory Rate 18 18 Blood Pressure [Right Arm] 142/83 H 117/66 Blood Pressure Mean [Right Arm] 102 83 Blood Pressure Position [Right Arm] Sitting 02 Sat by Pulse Oximetry 94 L 96 Oxygen Delivery Method Room Air Room Air - Lab Data Lab results reviewed: Yes: I reviewed the patient's lab results. Lab Results 09/03/20 17:30: WBC 14.8 H, RBC 3.31 L, Hgb 10.4 L, Hct 31.5 L, MCV 95.0, MCH 31.3 H, MCHC 32.9, RDW 14.2, Plt Count 349 D, MPV 8.0, Neut % (Auto) 79.0, Lymph % (Auto) 15.8, Simpson % (Auto) 4.7, Eos % (Auto) 0.2, Baso % (Auto) 0.3, Neut # (Auto) 11.7 H, Lymph # (Auto) 2.3, Simpson # (Auto) 0.7, Eos # (Auto) 0.0, Baso # (Auto) 0.1 09/03/20 17:30: Sodium 136, Potassium 3.3 L, Chloride 99, Carbon Dioxide 32 H, Anion Gap 8.3, BUN 14, Creatinine 0.70, Estimated Creat Clear 47, Estimated GFR 80, Est GFR ( Amer) 97, Glucose 161 H, Calcium 8.2 L, Total Bilirubin 0.5, AST 35, ALT 27, Alkaline Phosphatase 97, Total Protein 6.5, Albumin 3.2 L, Globulin 3.3 H, Albumin/Globulin Ratio 1.0 L 09/03/20 17:30: Lactate 1.5 09/03/20 17:30: C-Reactive Protein 242.6 H, Procalcitonin 0.566 09/03/20 17:30: ESR 115 H Result diagrams: 09/03/20 17:30 09/03/20 17:30 Orders (Tests/Meds): ED MEDICATIONS Discontinued Medications Generic Name Dose Route Start Last Admin Trade Name Freq PRN Reason Stop Dose Admin Acetaminophen 650 mg 09/03/20 17:33 09/03/20 17:37 Acetaminophen 325mg Tab PO 09/03/20 17:34 650 mg ONCE ONE Administration Ketorolac Tromethamine 15 mg 09/03/20 18:05 09/03/20 18:09 Ketorolac 30mg/Ml Vial IV 09/03/20 18:06 15 mg ONCE ONE Administration Methylprednisolone Sodium Succinate 125 mg 09/03/20 18:05 09/03/20 18:09 Methylprednisolone Sod Succ 125mg Vial IV 09/03/20 18:06 125 mg ONCE ONE Administration ORDERS Category Date Time Status CT elbow RT wo con Stat Cat Scan 09/03/20 18:09 Taken Elbow XR right minimum 3 views [XR elbow RT min 3V] Exams 09/03/20 17:32 Taken Stat Hand XR right minimum 3 views [XR hand RT min 3V] S
--- NOTE | 2020-09-03 18:09 | CT_ITS ---
PROCEDURE: CT ELBOW RT WO CON CLINICAL HISTORY: SWOLLEN ELBOW W/FEVER NO INJURY COMPARISON: No exams were available for comparison TECHNIQUE: Axial images obtained with sagittal and coronal reformats. All CT scans at the facility use one or more dose reduction, viz: automated exposure control, ma/kV adjustment per patient size (including targeted exams where dose is matched to indication, i.e. head), or iterative reconstruction technique. FINDINGS: No fracture or dislocation. No lytic or blastic change. Osteoarthritic changes are present. There is fragmentation of the lateral epicondyle. Most of these fragments are well corticated of the several smaller fragments appear amorphous and linear. Hypertrophic changes with osteophytes are present at the radial head. There is a elbow joint effusion and there is mild skin thickening involving the olecranon region. There is insertional calcification of the bicipital tendon on the radial neck. IMPRESSION: 1. Osteoarthritic change 2. Fragmentation of the lateral epicondyle. Most of these appear well corticated consistent with old fractures and or soft tissue mineralization. some are linear and amorphous which could be due to acute avulsion. Please correlate with clinical findings. 3. Moderate-sized joint effusion with soft tissue thickening at the olecranon region suggesting olecranon bursitis. 4. Insertional calcific tendinopathy of the distal biceps tendon Dictated by: Ruben Loving MD 09/04/2020 08:58 Ruben Loving MD in [facility] 09/04/2020 08:58
[2020-09-03 18:10] LABS: Procalcitonin 0.566 ng/mL (0.0-2.0)
[2020-09-03 18:17] LABS: Anion Gap 8.3 mEq/L (5-15); Sodium 136 mmol/L (136-145)
[2020-09-03 18:19] LABS: Erythrocyte Sedimentation Rate 115 mm/hr (0-30)
[2020-09-03 18:40] VITALS: BP 117/66; PULSE 100; RESP 18; TEMP 37.4; O2SAT 96
[2020-09-03 19:32] LABS: Uric Acid 5.1 mg/dl (2.5-6.2)
[2020-09-03 19:43] LABS: Microscopic, Urine URINE MICROSCOPIC (MICROSCOPIC)
[2020-09-03 19:49] LABS: Erythrocyte Sedimentation Rate 110 mm/hr (0-30)
[2020-09-03 19:50] LABS: Procalcitonin 0.563 ng/mL (0.0-2.0)
[2020-09-03 20:08] LABS: Appearance,Urine CLOUDY (Clear); Blood, Urine Negative (Negative); Color,Urine YELLOW (Yellow); Glucose,Urine (UA) Negative (Negative); Ketones,Urine TRACE (Negative); Leukocyte Esterase,Urine Negative (Negative); Nitrate,Urine Negative (Negative); Protein,Urine 1+ (Negative); Specific Gravity, Urine 1.025 (1.005-1.030); Urobilinogen,Urine 0.2 EU/dl (0.2)
[2020-09-03 20:15] LABS: Bilirubin,Urine Negative (Negative)
[2020-09-03 20:38] VITALS: BP 122/66; PULSE 75; RESP 16; TEMP 36.8; O2SAT 98
[2020-09-03 20:42] VITALS: BP 149/59; PULSE 95; RESP 16; TEMP 36.8; O2SAT 97; BMI 23.4
--- NOTE | 2020-09-03 20:45 | PC.NURSE ---
PT ARRIVED TO THE FLOOR VIA WW/C FROM ED W/STAFF @ 2041
[2020-09-03 21:13] LABS: POC Glucose,Bedside 219 (70-110)
--- NOTE | 2020-09-04 02:29 | PC.NURSE ---
Pt A&O x4 and has slept well though the night. no c/o pain or discomfort. pt reports having chills on and off and having general malaise. Pt has been afebrile but diaphoretic at times. IV patent, NS @ 75. Able to use the BSC independently. able to make needs known to staff. NPO since midnight. On RA, lungs diminished but clear. R elbow slightly swollen and tender to touch. VSS, call light in reach, no concerns at this time.
[2020-09-04 04:00] VITALS: BP 107/59; PULSE 85; RESP 16; TEMP 36.4; O2SAT 96
[2020-09-04 05:00] VITALS: BMI 23.4
[2020-09-04 06:22] LABS: POC Glucose,Bedside 317 (70-110)
--- NOTE | 2020-09-04 07:08 | XR_ITS ---
PROCEDURE: XR CHEST 2V CLINICAL HISTORY: Fever, Hx COVID COMPARISON: CR XR CHEST PORTABLE from 07/29/2020 CR XR CHEST PORTABLE from 08/01/[address] ANGIO CHEST from 08/29/2020 CR XR CHEST 2V from 08/29/2020 FINDINGS: Mild cardiomegaly without failure. Chronic changes with patchy area of infiltrate/atelectasis in the right upper lobe and left midlung and left lower lobe overall not significantly changed. There is increased density in the left paratracheal region consistent with enlarged thyroid gland with mild tracheal deviation to the right unchanged No acute bony abnormalities. IMPRESSION: Cardiomegaly with patchy infiltrates or atelectatic change bilaterally which appear stable Dictated by: Ruben Loving MD 09/04/2020 08:31 Ruben Loving MD in [facility] 09/04/2020 08:31
[2020-09-04 07:45] LABS: Basophils % 0.2 % (0.1-2.0); Eosinophils # 0.2 K/mm3 (0.0-0.4); Eosinophils % 1.4 % (0.1-12.0); Hematocrit 30.9 % (37.0-47.0); Hemoglobin 10.2 g/dL (12.2-16.2); Lymphocytes # 0.9 K/mm3 (0.7-4.5); Lymphocytes % 7.7 % (10-50); Mean Corpuscular HGB Conc 32.9 g/dL (31.8-35.4); Mean Corpuscular Hemoglobin 31.4 pg (27.0-31.2); Mean Corpuscular Volume 95.4 fl (81-99); Mean Platelet Volume 8.5 fl (7.4-10.4); Monocytes # 0.3 K/mm3 (0.1-1.0); Monocytes % 2.4 % (1.7-9.3); Neutrophils # 10.2 K/mm3 (1.8-7.8); Neutrophils % 88.3 % (37.0-80.0); Platelet Count 343 K/mm3 (142-424); Red Blood Count 3.24 M/mm3 (4.20-5.40); Red Cell Distribution Width 14.2 % (11.5-17.5); White Blood Count 11.5 K/mm3 (4.8-10.8)
[2020-09-04 07:51] LABS: MANUAL DIFFERENTIAL MANUAL DIFFERENTIAL (MANUAL DIFF)
[2020-09-04 07:54] LABS: Chloride 103 mmol/L (98-107); Sodium 139 mmol/L (136-145)
[2020-09-04 07:57] LABS: Anion Gap 7.9 mEq/L (5-15); Blood Urea Nitrogen 18 mg/dl (7-17); Calcium 8.3 mg/dl (8.4-10.2); Carbon Dioxide 31 mmol/L (22.0-30.0); Creatinine Clearance Estimated 41 mL/min (50-200); Estimated Glomerular Filt Rate 96 ml/min (>60); GFR (African American) 116 ML/MIN (>60); Glucose 296 mg/dl (74-100); Magnesium 1.6 mg/dl (1.6-2.3)
[2020-09-04 07:59] LABS: Potassium 2.9 mmoL/L (3.5-5.1)
[2020-09-04 08:00] VITALS: BP 118/59; PULSE 86; RESP 18; TEMP 36.7; O2SAT 96
[2020-09-04 08:41] LABS: Lymphocytes % 5 % (10-50); Monocytes % 1 % (2-9); Neutrophils % 94 % (42-76); Platelet Estimate Normal; RBC Morphology Normal; Total Cells Counted 100
--- NOTE | 2020-09-04 08:41 | HMH.PHACONS ---
- Pharmacy Consult Date: 09/04/20 Time: 08:41 Referring provider: DR. HURD Reason for Consult:: VANCOMYCIN DOSING Allergies and ADEs:: Allergies Allergy/AdvReac Type Severity Reaction Status Date / Time Penicillins Allergy Unknown Verified 05/17/20 13:04 Home Medications:: Home Medications Medication Instructions Recorded Confirmed Type glimepiride 4 mg tablet 4 mg PO DAILY 02/13/18 09/03/20 History metformin 500 mg tablet 500 mg PO BIDWM 02/13/18 09/03/20 History simvastatin 40 mg tablet 40 mg PO HS 02/13/18 09/03/20 History alendronate 35 mg tablet 35 mg PO WEEKLY 02/27/18 09/03/20 History Amlodipine Besylate [Norvasc 5mg 5 mg PO HS 03/13/18 09/03/20 History tablet] Furosemide [Furosemide 40MG tAB*] 20 mg PO DAILY 03/13/18 09/03/20 History levothyroxine 75 mcg tablet 75 mcg PO DAILYDM #0 tab 06/10/19 09/03/20 History allopurinol 100 mg tablet 100 mg PO DAILY tab 05/17/20 09/03/20 History Benzonatate [Benzonatate 200mg Cap] 200 mg PO TIDP PRN 07/27/20 09/03/20 History Fluticasone Propionate [Flonase 1 spray NS DAILY 07/27/20 09/03/20 History Allergy Relief NS] Multivit-Min/FA/Lycopen/Lutein 1 each PO DAILY 07/27/20 09/03/20 History [Centrum Silver Tablet] Guaifenesin/Dextromethorphan 5 ml PO Q4HP PRN #250 ml 08/01/20 09/03/20 Rx [Robitussin DM 200mg/20mg 10mL Udc] Albuterol Sulfate [Proventil-HFA 2 puffs IH QIDRT 08/29/20 09/03/20 History 90mcg/puff Inh] Aspirin [Aspirin 81mg EC Tab] 81 mg PO DAILY 08/29/20 09/03/20 History Cholecalciferol (Vitamin D3) 50 mcg PO DAILY 08/29/20 09/03/20 History [Vitamin D3] Sucralfate [Carafate 1gm Tab] 1 gm PO ACHS 08/29/20 09/03/20 History Tiotropium [place] [Spiriva 1 cap IH DAILY 08/29/20 09/03/20 History 18mcg/puff inhaler] Rivaroxaban [Xarelto 15mg tablet] 15 mg PO BIDWM #40 tab 09/01/20 09/03/20 Rx Height: 1.6 m Weight: 59.988 kg Laboratory Results:: Laboratory Results - last 24 hr 09/03/20 17:30: WBC 14.8 H, RBC 3.31 L, Hgb 10.4 L, Hct 31.5 L, MCV 95.0, MCH 31.3 H, MCHC 32.9, RDW 14.2, Plt Count 349 D, MPV 8.0, Neut % (Auto) 79.0, Lymph % (Auto) 15.8, [place] % (Auto) 4.7, Eos % (Auto) 0.2, Baso % (Auto) 0.3, Neut # (Auto) 11.7 H, Lymph # (Auto) 2.3, [place] # (Auto) 0.7, Eos # (Auto) 0.0, Baso # (Auto) 0.1 09/03/20 17:30: Sodium 136, Potassium 3.3 L, Chloride 99, Carbon Dioxide 32 H, Anion Gap 8.3, BUN 14, Creatinine 0.70, Estimated Creat Clear 47, Estimated GFR 80, Est GFR ( Amer) 97, Glucose 161 H, Calcium 8.2 L, Total Bilirubin 0.5, AST 35, ALT 27, Alkaline Phosphatase 97, Total Protein 6.5, Albumin 3.2 L, Globulin 3.3 H, Albumin/Globulin Ratio 1.0 L 09/03/20 17:30: Lactate 1.5 09/03/20 17:30: C-Reactive Protein 242.6 H, Procalcitonin 0.566 09/03/20 17:30: ESR 115 H 09/03/20 17:30: ESR 110 H 09/03/20 17:30: Procalcitonin 0.563 09/03/20 17:30: Uric Acid 5.1 09/03/20 19:40: Urine Color Yellow, Urine Appearance Cloudy, Urine pH 6.0, Ur Specific [place] 1.025, Urine Protein 1+, Urine Glucose (UA) Negative, Urine Ketones Trace, Urine Blood Negative, Urine Nitrate Negative, Urine Bilirubin Negative, Urine Urobilinogen 0.2, Ur Leukocyte Esterase Negative, Urine WBC 3-5, Ur Squamous Epith Cells 10-20 09/03/20 21:00: POC Glucose 219 H 09/04/20 05:54: POC Glucose 317 H* 09/04/20 06:27: Sodium 139, Potassium 2.9 L*, Chloride 103, Carbon Dioxide 31 H, Anion Gap 7.9, BUN 18 H D, Creatinine 0.60, Estimated Creat Clear 41, Estimated GFR 96, Est GFR ( Amer) 116, Glucose 296 H D, Calcium 8.3 L, Magnesium 1.6 09/04/20 07:40: WBC 11.5 H, RBC 3.24 L, Hgb 10.2 L, Hct 30.9 L, MCV 95.4, MCH 31.4 H, MCHC 32.9, RDW 14.2, Plt Count 343, MPV 8.5, Neut % (Auto) 88.3 H, Lymph % (Auto) 7.7 L, [place] % (Auto) 2.4, Eos % (Auto) 1.4, Baso % (Auto) 0.2, Neut # (Auto) 10.2 H, Lymph # (Auto) 0.9, [place] # (Auto) 0.3, Eos # (Auto) 0.2, Baso # (Auto) 0.0 Medical History: Reports:: Diabetes Mellitus Type 2, Hyperlipidemia, Hypertension Denies:: Cancer, Diabetes Mellitus
--- NOTE | 2020-09-04 09:17 | PC.NURSE ---
DR HURD AWARE OF POTASSIUM LEVEL 0814 THIS MORNING. 20 MEQ OF POTASSIUM CHL TID
[2020-09-04 11:45] LABS: POC Glucose,Bedside 194 (70-110)
--- NOTE | 2020-09-04 12:16 | HMH.HP ---
*Admission Date: 09/03/20 *Chief complaint: Fever, swollen elbow, history COVID-19 *History of present illness: This 80-year-old white female was readmitted last evening. She was brought to the emergency room with a fever of 103. She complained of some right elbow pain. Her history is that she had COVID-19 with symptoms starting July 13, 2020. She tested positive at that point. She was hospitalized and eventually discharged home but on August 29 she was readmitted with fever elevated white count shortness of breath and pain in the left lower leg. CTA at that point showed bilateral pulmonary emboli as well as a DVT which was detected in the left lower extremity by venous duplex. She was treated and started on Xarelto 15 mg p.o. twice daily. Here is a summary of her course at that hospitalization: the patient was admitted and a chest x-ray and UA were ordered. She was started on IV fluids and Rocephin empirically. Labs were ordered as well. Her chest x-ray showed a persistent but improving bilateral atelectasis versus infiltrate with COPD. There was also a left paratracheal mass/enlarged thyroid. She had a chest CTA showing acute bilateral pulmonary emboli and multifocal groundglass infiltrates consistent with COVID-19 pneumonitis. The left lobe of the thyroid gland was also enlarged. She had venous Dopplers showing a thrombus in the left posterior tibial vein. A covid PCR nasal swab was ordered and was positive. It is unlikely she is shedding replicative virus at this point in time. An IgM and IgG were both checked and were positive as well. Pulmonology was consulted as was ENT. The patient was started on Lovenox. Pulmonology saw the patient and felt her bilateral pulmonary infiltrates had improved significantly. He recommended continuing full dose anticoagulation. The patient did begin feeling better. She complained of some leg pain but was able to get up to the bedside commode and walk around her room. The patient had a soft tissue CT of her neck showing an enlarged left lobe of the thyroid with a left thyroid mass. There was a tracheal shift to the right at approximately 4 mm. The patient was seen in consultation by Dr. Devine he felt she was stable for discharge and could follow-up in his clinic in 2 months time. By 09/01/2020 the patient was feeling well. Her blood and urine cultures showed no growth. She was felt to be stable to discharge home and will follow up with ENT, pulmonology, and Dr. Alfonso. She will be discharged on Xarelto 15 mg twice daily for 3 weeks. On the day prior to this admission some bruising at the right elbow was reported. Subsequently the fever developed and she was directed to the emergency room. She has white count elevation in the fever and the swollen right elbow but is in no acute distress. [facility] History Medical History: Reports:: Diabetes Mellitus Type 2, Hyperlipidemia, Hypertension Denies:: Cancer, Diabetes Mellitus Type 1, Internal Pacemaker, MRSA, Seizures *Have you ever received a pneumonia vaccine?: No *Have you received a flu vaccine this season?: No Other Medical History: Reports: Hypothyroidism, Sinus Problems, Thyroid Disease (one side removed). Denies: Blood Transfusion Reaction Laterality Cases: Bilateral: Other Other Surgeries: Yes: No Previous Surgery, Appendectomy, Thyroidectomy (one side), Other. No: Pacemaker Amputation: No Fractures: No - *Social History Last grade of school completed: High school graduate Smoking Status: Former smoker Alcohol Intake: current Alcohol Intake Frequency:: a few times a week Substance Use Type: denies use *Occupational Status:: retired Housing: house Household Members: family *Travel in the last 8 weeks: None Family Hx:: Stroke Review of Systems - Constitutional Denies body ache(s), Denies chills - Eyes Denies change in vision - ENT Denies bleeding gums, Denies dizziness - *Cardiovascular Denies chest pain - *Respiratory Denie
--- NOTE | 2020-09-04 14:42 | P.CONPHA_ITS ---
[facility] Pharmacy VTE Monitoring - Patient Demographics Admission date: 09/04/20 Report Date: 09/04/20 Time: 14:43 Allergies/Adverse Reactions: Patient Allergies Penicillins Allergy (Unknown, Verified 05/17/20 13:04) Height: 1.6 m Weight: 59.988 kg Patient Problems: Current Active Problems Multinodular goiter (nontoxic) (Acute) Diabetes mellitus type 2 in nonobese (Chronic) Hypertension (Chronic) Hypothyroidism (Chronic) Leukocytosis (Acute) Pulmonary emboli (Acute) History of COVID-19 (Acute) Acute febrile illness (Acute) Acute arthritis (Acute) DVT (deep venous thrombosis) (Acute) Snowden's cyst of knee (Acute) Arthropathy of right elbow (Acute) - VTE Risk Labs: VTE Related Lab Results Hgb 10.2 g/dL (12.2-16.2) L 09/04/20 07:40 Hct 30.9 % (37.0-47.0) L 09/04/20 07:40 Plt Count 343 K/mm3 (142-424) 09/04/20 07:40 BUN 18 mg/dl (7-17) H D 09/04/20 06:27 Creatinine 0.60 mg/dl (0.52-1.04) 09/04/20 06:27 Estimated Creat Clear 41 mL/min (50-200) 09/04/20 06:27 VTE Risk Level: Low Risk - Prophylaxis Types of VTE Prophylaxis: Pharmacological (XARELTO REORDERED) Location of Applied Device: Not Applicable
[2020-09-04 16:00] VITALS: BP 123/66; PULSE 93; RESP 18; TEMP 36.7; O2SAT 95
--- NOTE | 2020-09-04 16:10 | PC.NURSE ---
ORTHO [facility] [employer] PAGED R/T ORTHO CONSULT
--- NOTE | 2020-09-04 16:30 | PC.NURSE ---
SHE IS AOX4, ABLE TO MAKE NEEDS KNOWN TO STAFF, NO O2 SUPPORT AT THIS TIME, VSS, DENIES N/V/D, NO PAIN. WILL CONTINUE TO MONITOR.
--- NOTE | 2020-09-04 17:23 | PC.NURSE ---
Dr. Hernandez was paged and returned call with Bill Santacruz rn
--- NOTE | 2020-09-04 17:41 | HMH.ORTHOCON ---
*Admission Date: 09/04/20 *History of present illness: 80-year-old female admitted last night with a fever of 103. At the time she had reported some right elbow pain and a new bruise over the medial aspect of the elbow. She denies any known history of trauma. She was recently admitted for COVID-19 and subsequently found to have bilateral pulmonary emboli as well as left lower extremity DVT. She was started on Xarelto at that time. Currently she reports no pain in the right elbow or hand. She reports possibly having strained it pulling herself out of a bedside commode chair or in her new bed. She does not recall any particular event that led to the bruise. No redness, swelling or warmth around the right elbow. No previous history of infection. No recent penetrating injuries, lacerations, abrasions, or puncture wounds around the right elbow or forearm. She does report urinary frequency/urgency but no dysuria. She received a dose of vancomycin in the ER on admission. [facility] History I have reviewed the patient's past medical history: Yes Medical History: Reports:: Diabetes Mellitus Type 2, Hyperlipidemia, Hypertension Denies:: Cancer, Diabetes Mellitus Type 1, Internal Pacemaker, MRSA, Seizures *Have you ever received a pneumonia vaccine?: No *Have you received a flu vaccine this season?: No Other Medical History: Reports: Hypothyroidism, Sinus Problems, Thyroid Disease (one side removed). Denies: Blood Transfusion Reaction Laterality Cases: Bilateral: Other Other Surgeries: Yes: No Previous Surgery, Appendectomy, Thyroidectomy (one side), Other. No: Pacemaker Amputation: No Fractures: No - *Social History Last grade of school completed: High school graduate Smoking Status: Former smoker Alcohol Intake: current Alcohol Intake Frequency:: a few times a week Substance Use Type: denies use *Occupational Status:: retired Housing: house Household Members: family *Travel in the last 8 weeks: None Family Hx:: Stroke Review of Systems - Review of Systems Review of systems:: pertinent systems reviewed and negative unless documented below - *Neurologic Denies abnormal walking, Denies abnormal speech, Denies seizure-like activity, Denies dizziness Meds Home Medications Medication Instructions Recorded Confirmed Type glimepiride 4 mg tablet 4 mg PO DAILY 02/13/18 09/03/20 History metformin 500 mg tablet 500 mg PO BIDWM 02/13/18 09/03/20 History simvastatin 40 mg tablet 40 mg PO HS 02/13/18 09/03/20 History alendronate 35 mg tablet 35 mg PO WEEKLY 02/27/18 09/03/20 History Amlodipine Besylate [Norvasc 5mg 5 mg PO HS 03/13/18 09/03/20 History tablet] Furosemide [Furosemide 40MG tAB*] 20 mg PO DAILY 03/13/18 09/03/20 History levothyroxine 75 mcg tablet 75 mcg PO DAILYDM #0 tab 06/10/19 09/03/20 History allopurinol 100 mg tablet 100 mg PO DAILY tab 05/17/20 09/03/20 History Multivit-Min/FA/Lycopen/Lutein 1 each PO DAILY 07/27/20 09/03/20 History [Centrum Silver Tablet] Guaifenesin/Dextromethorphan 5 ml PO Q4HP PRN #250 ml 08/01/20 09/03/20 Rx [Robitussin DM 200mg/20mg 10mL Udc] Albuterol Sulfate [Proventil-HFA 2 puffs IH QIDRT 08/29/20 09/03/20 History 90mcg/puff Inh] Aspirin [Aspirin 81mg EC Tab] 81 mg PO DAILY 08/29/20 09/03/20 History Cholecalciferol (Vitamin D3) 50 mcg PO DAILY 08/29/20 09/03/20 History [Vitamin D3] Sucralfate [Carafate 1gm Tab] 1 gm PO ACHS 08/29/20 09/03/20 History Tiotropium [place] [Spiriva 1 cap IH DAILY 08/29/20 09/03/20 History 18mcg/puff inhaler] Rivaroxaban [Xarelto 15mg tablet] 15 mg PO BIDWM #40 tab 09/01/20 09/03/20 Rx Allergies Allergy/AdvReac Type Severity Reaction Status Date / Time Penicillins Allergy Unknown Verified 05/17/20 13:04 Exam Vital signs and Labs for Last 24 Hours: Temp Pulse Resp BP Pulse Ox 98.1 F 93 H 18 123/66 95 09/04/20 16:00 09/04/20 16:00 09/04/20 16:00 09/04/20 16:00 09/04/20 16:00 Laboratory Results - last 24 hr
--- NOTE | 2020-09-04 18:57 | PC.NURSE ---
MS LOZANO HAS REQUESTED TO BE PLACED ON 2LNC THAT IS WHAT SHE WEARS AT HOME.
[2020-09-04 20:00] VITALS: BP 144/70; PULSE 90; RESP 16; TEMP 36.7; O2SAT 93
[2020-09-04 20:51] LABS: POC Glucose,Bedside 221 (70-110)
[2020-09-04 20:57] LABS: POC Glucose,Bedside 222 (70-110)
[2020-09-05 03:49] VITALS: BP 117/56; PULSE 88; RESP 18; TEMP 36.7; O2SAT 98
--- NOTE | 2020-09-05 03:49 | PC.NURSE ---
Pt. has not c/o n/v/d, pain or dizziness; afebrile. Pt. requested o2 as she wears 2l nc at home. Ambulates to bsc independently, tolerates well.
[2020-09-05 08:00] VITALS: BP 108/61; PULSE 81; RESP 18; TEMP 36.4; O2SAT 96
--- NOTE | 2020-09-05 08:53 | HMH.ACPN2 ---
Internal Medicine - PN: Subj *Date: 09/05/20 *Time: 08:53 Interval history: Patient requests to go home today. She states her breathing is doing well. She slept at intervals. She ate what she wanted for breakfast. She denies chest pain. She states her right arm discomfort is minimal. She feels she has better range of motion. She denies pain in her left leg. Patient was seen by Dr. Fisher to help with the followinyo F admitted with fevers, recent h/o COVID-19 as well as bilateral PE and LLE DVT -- very low suspicion for septic arthritis of R elbow at this time -- continue to monitor R elbow. Clinical signs of septic arthritis would be: significant pain, decreased ROM. Possibly erythema, warmth, effusion. -- no evidence of acute injury/trauma to R elbow/forearm/hand -- no ROM/activity restrictions for the RUE from ortho standpoint -- follow-up as an outpatient as needed Documented By: Shauna Fisher MD Exam Vital signs and Labs for Last 24 Hours: Temp Pulse Resp BP Pulse Ox 98.0 F 88 18 117/56 L 98 09/05/20 03:49 09/05/20 03:49 09/05/20 03:49 09/05/20 03:49 09/05/20 03:49 Laboratory Results - last 24 hr 09/04/20 11:32: POC Glucose 194 H 09/04/20 17:09: POC Glucose 221 H 09/04/20 20:43: POC Glucose 222 H I & O for Last 24 hours: Intake & Output 09/02/20 09/03/20 09/04/20 09/05/20 11:59 11:59 11:59 11:59 Intake Total 300 / 300 1274 / 1274 Output Total 100 / 100 Balance 300 / 300 1174 / 1174 Weight 132 lb 4.014 oz - Constitutional no acute distress - *Routine Respiratory Exam Present: CTA bilaterally (Anteriorly and posteriorly) - *Routine Cardiovascular Exam Present: RRR - *Routine Abdominal Exam Present: soft, normoactive bowel sounds. Absent: tenderness - *Routine Extremities Exam Present: edema Comments: Left leg continues to be a little larger than the right. Right arm without edema. Has full range of motion. - *Routine Neurological Exam Present: alert, oriented X3 Assessment and Plan (1) Acute febrile illness Status: Acute Category: Medical Code(s): R50.9 - Fever, unspecified (2) Leukocytosis Status: Acute Category: Medical Code(s): D72.829 - Elevated white blood cell count, unspecified (3) Pulmonary emboli Status: Acute Qualifiers: Pulmonary embolism type: unspecified Chronicity: acute Acute cor pulmonale presence: without acute cor pulmonale Qualified Code(s): I26.99 - Other pulmonary embolism without acute cor pulmonale Category: Medical Code(s): I26.99 - Other pulmonary embolism without acute cor pulmonale (4) Arthropathy of right elbow Status: Acute Category: Medical Code(s): M19.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mbotic vein of extremity: unspecified vein of extremity Chronicity: acute Laterality: left Qualified Code(s): I82.402 - Acute embolism and thrombosis of unspecified deep veins of left lower extremity Category: Medical Code(s): I82.409 - Acute embolism and thrombosis of unspecified deep veins of unspecified lower extremity (6) History of COVID-19 Status: Acute Category: Medical Code(s): Z86.16 - Personal history of COVID-19 (7) Multinodular goiter (nontoxic) Status: Acute Category: Medical Code(s): E04.2 - Nontoxic multinodular goiter (8) Hypokalemia Status: Acute Category: Medical Code(s): E87.6 - Hypokalemia - Assessment and plan all Dx Assessment and Plan for all problems:: Will repeat labs this a.m.. We will continue with vancomycin.
[2020-09-05 11:01] LABS: Basophils % 0.2 % (0.1-2.0); Eosinophils % 0.3 % (0.1-12.0); Hematocrit 30.3 % (37.0-47.0); Lymphocytes # 1.9 K/mm3 (0.7-4.5); Lymphocytes % 15.3 % (10-50); Mean Corpuscular Hemoglobin 31.5 pg (27.0-31.2); Mean Corpuscular Volume 95.7 fl (81-99); Mean Platelet Volume 7.9 fl (7.4-10.4); Monocytes # 0.5 K/mm3 (0.1-1.0); Monocytes % 4.4 % (1.7-9.3); Neutrophils # 9.8 K/mm3 (1.8-7.8); Neutrophils % 79.8 % (37.0-80.0); Platelet Count 461 K/mm3 (142-424); Red Blood Count 3.17 M/mm3 (4.20-5.40); Red Cell Distribution Width 14.5 % (11.5-17.5); White Blood Count 12.3 K/mm3 (4.8-10.8)
[2020-09-05 11:21] LABS: Chloride 109 mmol/L (98-107)
[2020-09-05 11:22] LABS: Potassium 3.9 mmoL/L (3.5-5.1); Sodium 142 mmol/L (136-145)
[2020-09-05 11:24] LABS: Blood Urea Nitrogen 20 mg/dl (7-17); Creatinine Clearance Estimated 41 mL/min (50-200); Estimated Glomerular Filt Rate 96 ml/min (>60); GFR (African American) 116 ML/MIN (>60)
[2020-09-05 11:25] LABS: Anion Gap 9.9 mEq/L (5-15); Calcium 8.4 mg/dl (8.4-10.2); Carbon Dioxide 27 mmol/L (22.0-30.0); Glucose 197 mg/dl (74-100)
[2020-09-05 11:38] LABS: POC Glucose,Bedside 190 (70-110)
[2020-09-05 12:17] LABS: POC Glucose,Bedside 117 (70-110)
[2020-09-05 15:00] VITALS: BMI 23.4
[2020-09-05 16:00] VITALS: BP 132/70; PULSE 87; RESP 16; TEMP 36.7; O2SAT 95
[2020-09-05 16:55] LABS: POC Glucose,Bedside 147 (70-110)
--- NOTE | 2020-09-05 17:54 | PC.NURSE ---
Pt has been pleasant, but extremely anxious this entire shift. Inspiratory wheezing heard bilaterally t/o per auscultation. Pt has tolerated RA appropriately this shift, with o2 sats >95%. No cough noted. No edema noted. New PIV placed in rt wrist this shift. PIV remains patent and continues to infuse NS @ 75 ml/hr. No other acute changes or complaints at this time.
[2020-09-05 20:00] VITALS: BP 114/63; PULSE 79; RESP 17; TEMP 37; O2SAT 90
[2020-09-05 20:30] LABS: POC Glucose,Bedside 213 (70-110)
[2020-09-05 22:11] LABS: Vancomycin,Trough 6.7 ug/mL (5.0-10.0)
[2020-09-06 03:48] VITALS: BP 131/58; PULSE 80; RESP 16; TEMP 36.8; O2SAT 92
--- NOTE | 2020-09-06 04:21 | PC.NURSE ---
Pt. has not c/o n/v/d, dizziness, soa or pain. Pt. noted to have intermittent nonproductive cough. Resting in bed with eyes closed at this time.
[2020-09-06 05:03] VITALS: BMI 23.4
[2020-09-06 06:49] LABS: POC Glucose,Bedside 129 (70-110)
[2020-09-06 07:21] LABS: Basophils # 0.1 K/mm3 (0-0.2); Basophils % 0.5 % (0.1-2.0); Eosinophils # 0.1 K/mm3 (0.0-0.4); Eosinophils % 1.1 % (0.1-12.0); Hematocrit 31.1 % (37.0-47.0); Lymphocytes # 2.3 K/mm3 (0.7-4.5); Lymphocytes % 25.9 % (10-50); Mean Corpuscular HGB Conc 32.3 g/dL (31.8-35.4); Mean Corpuscular Hemoglobin 31.2 pg (27.0-31.2); Mean Corpuscular Volume 96.5 fl (81-99); Mean Platelet Volume 7.6 fl (7.4-10.4); Monocytes # 0.4 K/mm3 (0.1-1.0); Monocytes % 4.5 % (1.7-9.3); Neutrophils # 6.1 K/mm3 (1.8-7.8); Platelet Count 470 K/mm3 (142-424); Red Blood Count 3.22 M/mm3 (4.20-5.40); Red Cell Distribution Width 14.4 % (11.5-17.5)
[2020-09-06 07:35] LABS: Anion Gap 6.3 mEq/L (5-15); Blood Urea Nitrogen 12 mg/dl (7-17); Calcium 8.6 mg/dl (8.4-10.2); Carbon Dioxide 28 mmol/L (22.0-30.0); Chloride 111 mmol/L (98-107); Creatinine Clearance Estimated 41 mL/min (50-200); Estimated Glomerular Filt Rate 96 ml/min (>60); GFR (African American) 116 ML/MIN (>60); Glucose 134 mg/dl (74-100); Potassium 4.3 mmoL/L (3.5-5.1); Sodium 141 mmol/L (136-145)
[2020-09-06 08:00] VITALS: BP 119/67; PULSE 97; RESP 18; TEMP 36.6; O2SAT 98
--- NOTE | 2020-09-06 08:33 | HMH.ACPN2 ---
Internal Medicine - PN: Subj *Date: 09/06/20 *Time: 08:33 Interval history: Patient really wants to go home today. She states she feels fine. She is breathing easily. She denies chest pain. Her right arm hurts at site of new IV. Left leg does not hurt. She has been out of bed without difficulty. CBC with normal white blood cell count today at 9000. Hemoglobin is 10 with a hematocrit of 31.1. Blood chemistries are satisfactory and renal function is normal. Blood cultures continue to be negative at 48 hours Exam Vital signs and Labs for Last 24 Hours: Temp Pulse Resp BP Pulse Ox 98.2 F 80 16 131/58 L 92 L 09/06/20 03:48 09/06/20 03:48 09/06/20 03:48 09/06/20 03:48 09/06/20 03:48 Laboratory Results - last 24 hr 09/05/20 06:28: POC Glucose 117 H 09/05/20 10:50: WBC 12.3 H, RBC 3.17 L, Hgb 10.0 L, Hct 30.3 L, MCV 95.7, MCH 31.5 H, MCHC 33.0, RDW 14.5, Plt Count 461 H D, MPV 7.9, Neut % (Auto) 79.8, Lymph % (Auto) 15.3, [place] % (Auto) 4.4, Eos % (Auto) 0.3, Baso % (Auto) 0.2, Neut # (Auto) 9.8 H, Lymph # (Auto) 1.9, [place] # (Auto) 0.5, Eos # (Auto) 0.0, Baso # (Auto) 0.0 09/05/20 10:50: Sodium 142, Potassium 3.9 D, Chloride 109 H, Carbon Dioxide 27, Anion Gap 9.9, BUN 20 H, Creatinine 0.60, Estimated Creat Clear 41, Estimated GFR 96, Est GFR ( Amer) 116, Glucose 197 H, Calcium 8.4 09/05/20 11:15: POC Glucose 190 H 09/05/20 16:48: POC Glucose 147 H 09/05/20 20:14: POC Glucose 213 H 09/05/20 20:50: Vancomycin Trough 6.7 09/06/20 06:40: POC Glucose 129 H 09/06/20 07:04: WBC 9.0 D, RBC 3.22 L, Hgb 10.0 L, Hct 31.1 L, MCV 96.5, MCH 31.2, MCHC 32.3, RDW 14.4, Plt Count 470 H, MPV 7.6, Neut % (Auto) 68.0, Lymph % (Auto) 25.9, [place] % (Auto) 4.5, Eos % (Auto) 1.1, Baso % (Auto) 0.5, Neut # (Auto) 6.1, Lymph # (Auto) 2.3, [place] # (Auto) 0.4, Eos # (Auto) 0.1, Baso # (Auto) 0.1 09/06/20 07:04: Sodium 141, Potassium 4.3, Chloride 111 H, Carbon Dioxide 28, Anion Gap 6.3, BUN 12 D, Creatinine 0.60, Estimated Creat Clear 41, Estimated GFR 96, Est GFR ( Amer) 116, Glucose 134 H D, Calcium 8.6 I & O for Last 24 hours: Intake & Output 09/03/20 09/04/20 09/05/20 09/06/20 11:59 11:59 11:59 11:59 Intake Total 300 / 300 1514 / 1514 3243 / 3243 Output Total 100 / 100 850 / 850 Balance 300 / 300 1414 / 1414 2393 / 2393 Weight 132 lb 4.014 oz 132 lb 4 oz Microbiology Reports for the Last 24 Hours: Microbiology 09/03/20 17:30 Blood Blood Culture - Preliminary NO GROWTH AFTER 48 HOURS 09/03/20 17:30 Blood Blood Culture - Preliminary NO GROWTH AFTER 48 HOURS - Constitutional no acute distress - *Routine Respiratory Exam Present: crackles (Bilateral basilar crackles greater on the left) - *Routine Cardiovascular Exam Present: RRR - *Routine Abdominal Exam Present: soft, normoactive bowel sounds. Absent: tenderness - *Routine Extremities Exam Present: calf tenderness (Minimal in left calf). Absent: edema Comments: Full range of motion of right elbow - *Routine Neurological Exam Present: alert, oriented X3 Assessment and Plan (1) Acute febrile illness Status: Acute Category: Medical Code(s): R50.9 - Fever, unspecified (2) Leukocytosis Status: Acute Category: Medical Code(s): D72.829 - Elevated white blood cell count, unspecified (3) Pulmonary emboli Status: Acute Qualifiers: Pulmonary embolism type: unspecified Chronicity: acute Acute cor pulmonale presence: without acute cor pulmonale Qualified Code(s): I26.99 - Other pulmonary embolism without acute cor pulmonale Category: Medical Code(s): I26.99 - Other pulmonary embolism without acute cor pulmonale (4) Arthropathy of right elbow Status: Acute Category: Medical Code(s): M19.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
[2020-09-06 08:46] LABS: POC Glucose,Bedside 218 (70-110)
--- NOTE | 2020-09-06 14:13 | HMH.DCSUM ---
General - General Admission date:: 09/03/20 Discharge date: 09/06/20 HPI HPI: This 80-year-old white female was readmitted last evening. She was brought to the emergency room with a fever of 103. She complained of some right elbow pain. Her history is that she had COVID-19 with symptoms starting July 13, 2020. She tested positive at that point. She was hospitalized and eventually discharged home but on August 29 she was readmitted with fever elevated white count shortness of breath and pain in the left lower leg. CTA at that point showed bilateral pulmonary emboli as well as a DVT which was detected in the left lower extremity by venous duplex. She was treated and started on Xarelto 15 mg p.o. twice daily. Here is a summary of her course at that hospitalization: the patient was admitted and a chest x-ray and UA were ordered. She was started on IV fluids and Rocephin empirically. Labs were ordered as well. Her chest x-ray showed a persistent but improving bilateral atelectasis versus infiltrate with COPD. There was also a left paratracheal mass/enlarged thyroid. She had a chest CTA showing acute bilateral pulmonary emboli and multifocal groundglass infiltrates consistent with COVID-19 pneumonitis. The left lobe of the thyroid gland was also enlarged. She had venous Dopplers showing a thrombus in the left posterior tibial vein. A covid PCR nasal swab was ordered and was positive. It is unlikely she is shedding replicative virus at this point in time. An IgM and IgG were both checked and were positive as well. Pulmonology was consulted as was ENT. The patient was started on Lovenox. Pulmonology saw the patient and felt her bilateral pulmonary infiltrates had improved significantly. He recommended continuing full dose anticoagulation. The patient did begin feeling better. She complained of some leg pain but was able to get up to the bedside commode and walk around her room. The patient had a soft tissue CT of her neck showing an enlarged left lobe of the thyroid with a left thyroid mass. There was a tracheal shift to the right at approximately 4 mm. The patient was seen in consultation by Dr. Devine he felt she was stable for discharge and could follow-up in his clinic in 2 months time. By 09/01/2020 the patient was feeling well. Her blood and urine cultures showed no growth. She was felt to be stable to discharge home and will follow up with ENT, pulmonology, and Dr. Alfonso. She will be discharged on Xarelto 15 mg twice daily for 3 weeks. On the day prior to this admission some bruising at the right elbow was reported. Subsequently the fever developed and she was directed to the emergency room. She has white count elevation in the fever and the swollen right elbow but is in no acute distress. Hospital Course Hospital Course: The patient's elbow x-ray showed elbow joint effusion versus hemarthrosis. She also had a hand x-ray showing arthritis but no acute fracture. She had an elbow CT showing osteoarthritis and fragmentation of the lateral epicondyle consistent with old fractures and soft tissue mineralization. There was a moderate-sized joint effusion with soft tissue thickening at the olecranon consistent with olecranon bursitis. The patient had a chest x-ray showing cardiomegaly with patchy infiltrates versus atelectatic change bilaterally which appeared stable. She was admitted and her Xarelto was resumed. Orthopedics was consulted. She was seen by Dr. Fisher who had a very low suspicion for septic arthritis. She recommended to continue to monitor the right elbow. By 09/05/2020, she was feeling better. She was continued on vancomycin. By 09/06/2020, she really wanted to go home. She stated she felt fine and had been up and out of bed without difficulty. Her white blood cell count had normalized and her blood chemistries were satisfactory. Her blood cultures were negative. She was stable to be discharged eloina
== END 2020-09-06 11:20 | disposition home or self-care (01) ==
LOC: ER 17:16 → 2ND 19:55
PROVIDERS: Nurse Practitioner Family; Admitting Provider Family Medicine; Emergency Provider Emergency Medicine; PCP Family Medicine; Visit Provider Family Medicine
DX: M19.021 Primary osteoarthritis, right elbow (principal); I26.99 Other pulmonary embolism without acute cor pulmonale; I82.442 Acute embolism and thrombosis of left tibial vein; E01.0 Iodine-deficiency related diffuse (endemic) goiter; Z79.01 Long term (current) use of anticoagulants; E11.9 Type 2 diabetes mellitus without complications; Z79.84 Long term (current) use of oral hypoglycemic drugs; Z79.899 Other long term (current) drug therapy; Z88.0 Allergy status to penicillin; Z86.16 Personal history of COVID-19
CPT/HCPCS: 36415; 71046; 73080; 73130; 73200; 80048; 80053; 80202; 81001; 82962; 83605; 83735; 84145; 84550; 85007; 85025; 85651; 86140; 87040; 96365; 96375; 99284; G0378; J3370

== ENCOUNTER → 2020-10-12 11:08 | Outpatient (CLI) | payer MEDICARE, SELFPAY ==
--- NOTE | 2020-10-12 11:08 | US_ITS ---
PROCEDURE: US THYROID CLINICAL INDICATION: left nodule COMPARISON: US US THYROID from 04/14/2020 US US [facility]NA THYROID from 05/10/2020 FINDINGS: There has been a prior right-sided thyroidectomy. The left lobe is enlarged at 4.6 x 2.7 cm mostly occupied a heterogeneous nodule with both solid and small cystic components measuring approximately 4 cm. Not significantly changed. IMPRESSION: No changed left thyroid nodule. Prior right thyroidectomy Dictated by: Ruben Loving MD 10/12/2020 17:53 Ruben Loving MD in [place] 10/12/2020 17:53
[2020-10-12 13:09] LABS: Free T4 (Free Thyroxine) 1.75 ng/dl (0.78-2.19)
[2020-10-12 13:23] LABS: Thyroid Stimulating Hormone 0.48 uIU/mL (0.465-4.68)
== END ==
PROVIDERS: PCP Family Medicine; Visit Provider Otolaryngology
DX: E04.1 Nontoxic single thyroid nodule (principal)
CPT/HCPCS: 36415; 76536; 84439; 84443

== ENCOUNTER → 2020-10-12 11:54 | Outpatient (CLI) | payer MEDICARE, SELFPAY | PROVIDERS: Visit Provider Otolaryngology | DX: E04.1 Nontoxic single thyroid nodule (principal) | CPT/HCPCS: 36415; 84439; 84443 ==

== ENCOUNTER 2020-10-26 09:41 | Emergency (ER) | payer MEDICARE, SELFPAY ==
[2020-10-26 09:42] VITALS: BP 170/67; PULSE 88; RESP 18; TEMP 36.6; O2SAT 97; BMI 26.2
--- NOTE | 2020-10-26 09:46 | HMH.EDGENADL ---
ED Disposition Clinical Impression: Gallstones, Cystitis Disposition: Home, Self-Care Condition on Discharge: Good Additional Instructions: Follow a bland diet and avoid fatty foods. Drink plenty of clear fluids. Use Tylenol for pain. Follow-up with general surgery. Referral has been placed. Please have your [id number] call the office tomorrow to make an appointment for soon as possible. If any jaundice (yellowing of the skin), nausea/vomiting, fever/chills, worsening pain, or other new symptoms please immediately report back to our emergency department. Take antibiotics as prescribed for UTI. Prescriptions: Nitrofurantoin Monohyd/M-Cryst [Macrobid 100 mg Capsule] 100 mg PO BID #14 cap Transmission Status: Pending to [facility] #[id number] Referrals: Vanessa Alfonso MD [Primary Care Provider] - - Critical Care Critical Care Time: No Attestation: On , the high probability of a clinically significant, sudden or life threatening deterioration of the following system(s) required my full and direct attention, intervention and personal management. The time I documented below is in addition to time spent performing reported procedures but includes the following listed in this critical care notation. Medical Decision Making - Medical Records Medical records reviewed: Yes: I reviewed the patient's medical records. - Anam Inquiry Pt receiving controlled substance: No Vital Signs: 10/26/20 09:42 10/26/20 10:31 10/26/20 11:00 Temperature 97.8 F Temperature Source Oral Pulse Rate 94 H 91 H Pulse Rate [Right] 88 Respiratory Rate 18 Blood Pressure 159/87 H 150/73 H Blood Pressure [Right Arm] 170/67 H Blood Pressure Mean 107 98 Blood Pressure Mean [Right Arm] 101 02 Sat by Pulse Oximetry 97 97 94 L Oxygen Delivery Method Room Air 10/26/20 11:39 Temperature Temperature Source Pulse Rate 94 H Pulse Rate [Right] Respiratory Rate Blood Pressure 151/82 H Blood Pressure [Right Arm] Blood Pressure Mean Blood Pressure Mean [Right Arm] 02 Sat by Pulse Oximetry 99 Oxygen Delivery Method Room Air - Lab Data Lab Results 10/26/20 09:56: WBC 9.6, RBC 4.21, Hgb 12.9, Hct 39.8, MCV 94.7, MCH 30.6, MCHC 32.3, RDW 14.1, Plt Count 335, MPV 8.0, Neut % (Auto) 72.2, Lymph % (Auto) 22.7, [place] % (Auto) 3.4, Eos % (Auto) 1.0, Baso % (Auto) 0.7, Neut # (Auto) 6.9, Lymph # (Auto) 2.2, [place] # (Auto) 0.3, Eos # (Auto) 0.1, Baso # (Auto) 0.1 10/26/20 09:56: Sodium 141, Potassium 3.8, Chloride 103, Carbon Dioxide 30, Anion Gap 11.8, BUN 13, Creatinine 0.70, Estimated Creat Clear 42, Estimated GFR 80, Est GFR ( Amer) 97, Glucose 233 H, Calcium 10.2, Total Bilirubin 0.3, AST 26, ALT 17, Alkaline Phosphatase 119, Troponin I < 0.01, Total Protein 7.5, Albumin 4.4, Globulin 3.1, Albumin/Globulin Ratio 1.4, Lipase 422 H 10/26/20 11:39: Urine Color Yellow, Urine Appearance Cloudy, Urine pH 7.5, Ur Specific Cobb 1.020, Urine Protein Negative, Urine Glucose (UA) Trace, Urine Ketones Trace, Urine Blood Trace-i, Urine Nitrate Negative, Urine Bilirubin Negative, Urine Urobilinogen 0.2, Ur Leukocyte Esterase 1+ A, Urine RBC 3-5, Urine WBC 5-10, Ur Squamous Epith Cells Occasional, Urine Bacteria 1+ Result diagrams: 10/26/20 09:56 10/26/20 09:56 Orders (Tests/Meds): ED MEDICATIONS Discontinued Medications Generic Name Dose Route Start Last Admin Trade Name Jennifer PRN Reason Stop Dose Admin Hydrocodone Bitart/Acetaminophen 1 tab 10/26/20 14:23 10/26/20 14:25 Hydrocodone/Apap 5/325 Mg Tablet PO 10/26/20 14:24 1 tab ONCE ONE Administration Lactated Ringer's 1,000 mls @ 999 mls/hr 10/26/20 10:15 10/26/20 10:15 Lactated Ringer's 1000 Ml Bag IV 10/26/20 11:15 999 mls/hr .Q1H1M CHAGO Administration Iopamidol 70 ml 10/26/20 11:24 10/26/20 11:24 Iopamidol-370 (76%);100ml Bottle IV 10/26/20 11:25 70 ml ONCE ONE Administration Ondansetron HCl 4 mg 10/26/20 10:02
--- NOTE | 2020-10-26 10:02 | CT_ITS ---
PROCEDURE: CT ABDOMEN PELVIS W CON CLINICAL INDICATION: RUQ PAIN COMPARISON: CT CT ABDOMEN PELVIS W CON from 06/09/[address] ANGIO CHEST from 10/26/2020 TECHNIQUE: IV Contrast: 75ML Isovue 370 Oral Contrast None Axial images obtained with sagittal and coronal reformats. All CT scans at the facility use one or more dose reduction, viz: automated exposure control, ma/kV adjustment per patient size (including targeted exams where dose is matched to indication, i.e. head), or iterative reconstruction technique. FINDINGS: LOWER THORAX: Fibrotic changes are present in the lung bases. ABDOMEN & PELVIS: The liver, spleen, adrenal glands, pancreas, and kidneys show no acute finding. There is generalized motion artifact which does obscure fine detail. There is some scarring of the left kidney both superiorly and inferiorly. No renal or ureteral calculi. No hydronephrosis. There are multiple gallstones noted with no obvious gallbladder wall thickening. No intestinal obstruction or free air. The appendix is not clearly delineated. No evidence of appendicitis. There is colonic diverticulosis. No convincing evidence of diverticulitis. Pericolic stranding evaluation is somewhat limited secondary to motion artifact. There is a mildly thickened appearance of the colon and may be due to nondistention. Coarse calcification noted in the body of the uterus consistent with fibroid involvement. No acute bony findings. There is some mild sclerosis of the right SI joint. There is a small umbilical hernia containing fat IMPRESSION: 1. Cholelithiasis. 2. Left renal scarring. 3. Colonic diverticulosis. No evidence of diverticulitis. 4. Mild nonspecific thickened appearance of colon which could be due to nondistention. Mild colitis is included in the differential diagnosis. Dictated by: Ruben Loving MD 10/26/2020 12:01 Ruben Loving MD in [facility] 10/26/2020 12:01
--- NOTE | 2020-10-26 10:06 | CT_ITS ---
PROCEDURE: CT ANGIO CHEST CLINCIAL INDICATION: pleuritic R sided chest pain recent COVID infxn COMPARISON: CT CT ABDOMEN PELVIS W CON from 06/09/[address] ANGIO CHEST from 08/29/2020 TECHNIQUE: IV Contrast: 70ML Isovue 370 Axial images obtained with sagittal and coronal reformats. All CT scans at the facility use one or more dose reduction, viz: automated exposure control, ma/kV adjustment per patient size (including targeted exams where dose is matched to indication, i.e. head), or iterative reconstruction technique. FINDINGS: HEART AND MEDIASTINAL STRUCTURES: There is enlarged left lobe of the thyroid gland incompletely imaged measuring 4 cm transverse 3 cm AP and greater than 3.6 cm cephalad caudad. There is mild deviation of the trachea toward the right by approximately 10 mm. There are mild atheromatous changes of the aorta with fibrocalcific plaque. No evidence of aortic dissection. No evidence of pulmonary embolus. No mediastinal or hilar mass LUNGS AND PLEURAL SPACES: COPD with scattered areas of scarring. Atelectatic/fibrotic changes are present in the lower lobes posteriorly. Previously described areas of ground-glass opacities have improved. No pleural effusions. No areas of consolidation. BONY STRUCTURES: No acute bony abnormalities apparent. UPPER ABDOMEN: Cholelithiasis ADDITIONAL FINDINGS: No other significant abnormalities. IMPRESSION: 1. No evidence of pulmonary embolus. 2. 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 These changes are slightly greater on the right side. 3. Enlarged left lobe of the thyroid gland with tracheal deviation toward the right Dictated by: Ruben Loving MD 10/26/2020 11:53 Ruben Loving MD in [facility] 10/26/2020 11:53
--- NOTE | 2020-10-26 10:08 | ECG_ITS ---
APPROVED REPORT Exam: Resting ECG HR:85 bpm ECG Measurements Heart Rate 85 AXES IL 136 P 66 QRSd 70 QRS 26 QT 378 T 12 QTc 449 Conclusion Normal sinus rhythm Normal ECG Electronically signed by : Ammon Melendez, 10/26/2020 17:34:22
[2020-10-26 10:12] LABS: Basophils # 0.1 K/mm3 (0-0.2); Basophils % 0.7 % (0.1-2.0); Eosinophils # 0.1 K/mm3 (0.0-0.4); Hematocrit 39.8 % (37.0-47.0); Hemoglobin 12.9 g/dL (12.2-16.2); Lymphocytes # 2.2 K/mm3 (0.7-4.5); Lymphocytes % 22.7 % (10-50); Mean Corpuscular HGB Conc 32.3 g/dL (31.8-35.4); Mean Corpuscular Hemoglobin 30.6 pg (27.0-31.2); Mean Corpuscular Volume 94.7 fl (81-99); Monocytes # 0.3 K/mm3 (0.1-1.0); Monocytes % 3.4 % (1.7-9.3); Neutrophils # 6.9 K/mm3 (1.8-7.8); Neutrophils % 72.2 % (37.0-80.0); Platelet Count 335 K/mm3 (142-424); Red Blood Count 4.21 M/mm3 (4.20-5.40); Red Cell Distribution Width 14.1 % (11.5-17.5); White Blood Count 9.6 K/mm3 (4.8-10.8)
[2020-10-26 10:23] LABS: Alanine Aminotransferase 17 U/L (12-78); Albumin Level 4.4 g/dl (3.5-5.0); Albumin/Globulin Ratio 1.4 (1.1-1.8); Alkaline Phosphatase 119 U/L (38-126); Anion Gap 11.8 mEq/L (5-15); Aspartate Amino Transferase 26 U/L (14-36); Bilirubin,Total 0.3 mg/dl (0.2-1.3); Blood Urea Nitrogen 13 mg/dl (7-17); Calcium 10.2 mg/dl (8.4-10.2); Carbon Dioxide 30 mmol/L (22.0-30.0); Chloride 103 mmol/L (98-107); Creatinine Clearance Estimated 42 mL/min (50-200); Estimated Glomerular Filt Rate 80 ml/min (>60); GFR (African American) 97 ML/MIN (>60); Globulin 3.1 g/dL (1.3-3.2); Glucose 233 mg/dl (74-100); Lipase 422 U/L (23-300); Potassium 3.8 mmoL/L (3.5-5.1); Sodium 141 mmol/L (136-145); Total Protein,Serum 7.5 g/dl (6.3-8.2)
[2020-10-26 10:31] VITALS: BP 159/87; PULSE 94; O2SAT 97
[2020-10-26 10:36] LABS: Troponin I < 0.01 ng/ml (0.00-0.034)
[2020-10-26 11:00] VITALS: BP 150/73; PULSE 91; O2SAT 94
--- NOTE | 2020-10-26 11:04 | PC.NURSE ---
pt going to rad
--- NOTE | 2020-10-26 11:04 | PC.NURSE ---
to ct per wheelchair
--- NOTE | 2020-10-26 11:33 | PC.NURSE ---
Pt returned from rad.
[2020-10-26 11:39] VITALS: BP 151/82; PULSE 94; O2SAT 99
[2020-10-26 11:42] LABS: Microscopic, Urine URINE MICROSCOPIC (MICROSCOPIC)
[2020-10-26 11:44] LABS: Appearance,Urine CLOUDY (Clear); Bilirubin,Urine Negative (Negative); Blood, Urine TRACE-I (Negative); Color,Urine YELLOW (Yellow); Glucose,Urine (UA) TRACE (Negative); Ketones,Urine TRACE (Negative); Leukocyte Esterase,Urine 1+ (Negative); Nitrate,Urine Negative (Negative); PH,Urine 7.5 (5.0-8.5); Protein,Urine Negative (Negative); Urobilinogen,Urine 0.2 EU/dl (0.2)
--- NOTE | 2020-10-26 12:17 | US_ITS ---
PROCEDURE: US ABDOMEN LIMITED CLINICAL INDICATION: gallstones elevated lipase COMPARISON: CT CT ABDOMEN PELVIS W CON from 10/26/2020 FINDINGS: PANCREAS: Diffuse increased echogenicity of the liver with poor through transmission of sound consistent with hepatic steatosis. No focal liver lesion demonstrated. There is appropriate direction of blood flow within non dilated portal vein. LIVER: No focal liver lesions demonstrated. Homogeneous echogenicity. No intrahepatic biliary ductal dilatation evident. There is appropriate direction of blood flow within a non dilated portal vein RIGHT KIDNEY: Unremarkable. Normal size and echogenicity. No hydronephrosis GALLBLADDER: There are multiple gallstones present. No gallbladder wall thickening, pericholecystic fluid, or biliary dilatation. Common bile duct is 3 mm. IMPRESSION: Multiple gallstones. Dictated by: Ruben Loving MD 10/26/2020 14:06 Ruben Loving MD in [place] 10/26/2020 14:06
--- NOTE | 2020-10-26 12:18 | PC.NURSE ---
md at bedside updating on plan of care
[2020-10-26 12:43] LABS: Bacteria,Urine 1+ /lpf; Squamous Epithelial Cell,Urine Occasional #/hpf (0-5)
--- NOTE | 2020-10-26 12:51 | PC.NURSE ---
pt returning from ultrasound
--- NOTE | 2020-10-26 14:43 | PC.NURSE ---
MD at bedside updating pt and senior caregiver on plan of care.
[2020-10-26 15:32] VITALS: BP 145/98; PULSE 87; RESP 18; TEMP 36.8; O2SAT 97
== END 2020-10-26 15:28 | disposition home or self-care (01) ==
PROVIDERS: Emergency Provider Emergency Medicine; PCP Family Medicine
DX: K80.20 Calculus of gallbladder without cholecystitis without obstruction (principal); N30.00 Acute cystitis without hematuria; E11.65 Type 2 diabetes mellitus with hyperglycemia; E03.9 Hypothyroidism, unspecified; I10 Essential (primary) hypertension; Z88.0 Allergy status to penicillin; Z79.899 Other long term (current) drug therapy
CPT/HCPCS: 71275; 74177; 76705; 80053; 81001; 83690; 84484; 85025; 87086; 87088; 87186; 93005; 99282; J2405; Q9967

== ENCOUNTER 2020-11-26 22:09 | Emergency (ER) | payer MEDICARE, SELFPAY ==
[2020-11-26 22:10] VITALS: BP 158/84; PULSE 92; RESP 20; TEMP 36.8; O2SAT 99; BMI 24.4
--- NOTE | 2020-11-26 22:32 | XR_ITS ---
PROCEDURE INFORMATION: Exam: XR Chest Exam date and time: 11/26/2020 10:32 PM Age: 80 years old Clinical indication: Injury or trauma; Fall; Blunt trauma (contusions or hematomas) TECHNIQUE: Imaging protocol: XR of the chest. Views: 1 view. Total images: 1 COMPARISON: CR XR CHEST 2V 09/04/2020 8:07 AM FINDINGS: Lungs: Normal pulmonary expansion. Pulmonary vasculature grossly normal. Mild pulmonary hyperlucency suspicious for COPD. No gross pulmonary infiltrates. No gross pulmonary contusion. Pleural spaces: No pleural effusion. No pneumothorax. Heart/Mediastinum: Heart size within normal limits for portable AP technique. No tracheal/mediastinal shift. Bones/joints: Angulated fracture of the right proximal humeral diaphysis again noted with about 45 degrees apex superior angulation currently. Diffuse osteopenia. IMPRESSION: 1. No acute cardiopulmonary process is evident. 2. Suspect COPD. 3. Osteopenia and displaced/angulated proximal right humeral diaphyseal fracture.
--- NOTE | 2020-11-26 22:32 | XR_ITS ---
PROCEDURE INFORMATION: Exam: XR Pelvis Exam date and time: 11/26/2020 10:32 PM Age: 80 years old Clinical indication: Injury or trauma; Blunt trauma (contusions or hematomas); Does not apply; Pelvic region; Patient HX: Fall, no pelvic complaints, only right humerus TECHNIQUE: Imaging protocol: XR pelvis. Views: 1 or 2 view. Total images: 1 COMPARISON: CT ABDOMEN PELVIS W CON 10/26/2020 11:12 AM FINDINGS: Bones/joints: Osteopenia. No fractures. Degenerative sclerosis in the SI joints and pubic symphysis. Soft tissues: Unremarkable. Organs: 14 mm calcified fibroid in the central pelvis. IMPRESSION: 1. No fractures are identified. 2. Osteopenia and degenerative changes in the SI joints and pubic symphysis. 3. Calcified uterine fibroid again noted.
--- NOTE | 2020-11-26 22:32 | XR_ITS ---
PROCEDURE INFORMATION: Exam: XR Right Humerus Exam date and time: 11/26/2020 10:32 PM Age: 80 years old Clinical indication: Injury or trauma; Blunt trauma (contusions or hematomas); Arm, upper; Right; Patient HX: Fall, best images, TECHNIQUE: Imaging protocol: XR Right humerus. Views: 2 or more views. Total images: 2 COMPARISON: CT ELBOW RT WO CON 09/03/2020 6:23 PM FINDINGS: Bones/joints: Osteopenia. Oblique mildly comminuted fracture of the proximal diaphysis of the right humerus about 10 mm posteromedial displacement of the distal fragment and about 20 degrees apex lateral angulation. Visualized adjacent ribs are intact. Glenohumeral alignment normal. Elbow joint alignment is grossly normal. AC joint alignment is normal. Lungs: Visualized right lung is clear. Soft tissues: Soft tissue swelling in the right upper arm. IMPRESSION: 1. Acute mildly comminuted fracture of the proximal right humeral diaphysis with mild angulation and displacement. 2. Osteopenia.
[2020-11-26 22:43] LABS: Basophils # 0.1 K/mm3 (0-0.2); Basophils % 0.6 % (0.1-2.0); Eosinophils # 0.1 K/mm3 (0.0-0.4); Eosinophils % 1.1 % (0.1-12.0); Hematocrit 39.3 % (37.0-47.0); Lymphocytes # 4.3 K/mm3 (0.7-4.5); Lymphocytes % 36.5 % (10-50); Mean Corpuscular HGB Conc 33.1 g/dL (31.8-35.4); Mean Corpuscular Hemoglobin 30.1 pg (27.0-31.2); Mean Corpuscular Volume 90.8 fl (81-99); Mean Platelet Volume 7.8 fl (7.4-10.4); Monocytes # 0.7 K/mm3 (0.1-1.0); Monocytes % 5.6 % (1.7-9.3); Neutrophils # 6.7 K/mm3 (1.8-7.8); Neutrophils % 56.2 % (37.0-80.0); Platelet Count 301 K/mm3 (142-424); Red Blood Count 4.33 M/mm3 (4.20-5.40); Red Cell Distribution Width 14.1 % (11.5-17.5); White Blood Count 11.9 K/mm3 (4.8-10.8)
[2020-11-26 22:46] VITALS: BP 142/76; PULSE 81; O2SAT 100
[2020-11-26 22:53] LABS: Alanine Aminotransferase 21 U/L (12-78); Albumin Level 4.3 g/dl (3.5-5.0); Albumin/Globulin Ratio 1.6 (1.1-1.8); Alkaline Phosphatase 94 U/L (38-126); Anion Gap 11.7 mEq/L (5-15); Aspartate Amino Transferase 29 U/L (14-36); Bilirubin,Total 0.4 mg/dl (0.2-1.3); Blood Urea Nitrogen 17 mg/dl (7-17); Carbon Dioxide 26 mmol/L (22.0-30.0); Chloride 103 mmol/L (98-107); Creatinine Clearance Estimated 43 mL/min (50-200); Estimated Glomerular Filt Rate 60 ml/min (>60); GFR (African American) 73 ML/MIN (>60); Globulin 2.7 g/dL (1.3-3.2); Glucose 213 mg/dl (74-100); Potassium 3.7 mmoL/L (3.5-5.1); Sodium 137 mmol/L (136-145)
[2020-11-26 23:01] VITALS: BP 160/82; PULSE 89; O2SAT 97
--- NOTE | 2020-11-26 23:19 | HMH.EDUPEXT ---
ED Disposition Clinical Impression: Fracture of humerus Qualifiers: Encounter type: initial encounter Humerus Location: transcondylar fracture Fracture type: closed Fracture alignment: displaced Laterality: right Qualified Code(s): S42.471A - Displaced transcondylar fracture of right humerus, initial encounter for closed fracture Disposition: Home, Self-Care Condition on Discharge: Good Instructions: DI for Arm Pain Additional Instructions: ice and wear splint and see ortho for follo wup Referrals: Vanessa Alfonso MD [Primary Care Provider] - Shauna Fisher MD [Physician] - - Critical Care Critical Care Time: No Attestation: On 11/26/20, the high probability of a clinically significant, sudden or life threatening deterioration of the following system(s) required my full and direct attention, intervention and personal management. The time I documented below is in addition to time spent performing reported procedures but includes the following listed in this critical care notation. Medical Decision Making - Medical Records Medical records reviewed: Yes: I reviewed the patient's medical records. - Anam Inquiry Pt receiving controlled substance: No Vital Signs: 11/26/20 22:10 11/26/20 22:46 11/26/20 23:01 Temperature 98.2 F Temperature Source Oral Pulse Rate 81 89 Pulse Rate [Left Radial] 92 H Respiratory Rate 20 Blood Pressure 142/76 H 160/82 H Blood Pressure [Left Arm] 158/84 H Blood Pressure Mean 108 Blood Pressure Mean [Left Arm] 108 Blood Pressure Source [Left Arm] Automatic Cuff Blood Pressure Position [Left Arm] Sitting 02 Sat by Pulse Oximetry 99 100 97 Oxygen Delivery Method Room Air 11/26/20 23:30 Temperature Temperature Source Pulse Rate 102 H Pulse Rate [Left Radial] Respiratory Rate Blood Pressure 139/73 Blood Pressure [Left Arm] Blood Pressure Mean Blood Pressure Mean [Left Arm] Blood Pressure Source [Left Arm] Blood Pressure Position [Left Arm] 02 Sat by Pulse Oximetry 99 Oxygen Delivery Method - Lab Data Lab results reviewed: Yes: I reviewed the patient's lab results. Lab Results 11/26/20 22:30: WBC 11.9 H, RBC 4.33, Hgb 13.0, Hct 39.3, MCV 90.8, MCH 30.1, MCHC 33.1, RDW 14.1, Plt Count 301, MPV 7.8, Neut % (Auto) 56.2, Lymph % (Auto) 36.5, [place] % (Auto) 5.6, Eos % (Auto) 1.1, Baso % (Auto) 0.6, Neut # (Auto) 6.7, Lymph # (Auto) 4.3, [place] # (Auto) 0.7, Eos # (Auto) 0.1, Baso # (Auto) 0.1 11/26/20 22:30: Sodium 137, Potassium 3.7, Chloride 103, Carbon Dioxide 26, Anion Gap 11.7, BUN 17, Creatinine 0.90, Estimated Creat Clear 43, Estimated GFR 60, Est GFR ( Amer) 73, Glucose 213 H, Calcium 9.0, Total Bilirubin 0.4, AST 29, ALT 21, Alkaline Phosphatase 94, Total Protein 7.0, Albumin 4.3, Globulin 2.7, Albumin/Globulin Ratio 1.6 Result diagrams: 11/26/20 22:30 11/26/20 22:30 Orders (Tests/Meds): ED MEDICATIONS Generic Name Dose Route Start Last Admin Trade Name Freq PRN Reason Stop Dose Admin Sodium Chloride 1,000 mls @ 999 mls/hr 11/26/20 22:45 11/26/20 22:48 Sod Chlor 0.9% 1000ml Bag IV 11/26/20 23:45 999 mls/hr .Q1H1M CHAGO Administration Discontinued Medications Generic Name Dose Route Start Last Admin Trade Name Freq PRN Reason Stop Dose Admin Acetaminophen/Codeine Phosphate 1 channing 11/27/20 00:26 Acetaminophen 300mg W/Codeine 30mg Take Home Pack (6) PO 11/27/20 00:27 ONCE ONE Morphine Sulfate 4 mg 11/26/20 22:35 11/26/20 22:48 Morphine 4mg/Ml Syringe IV 11/26/20 22:36 4 mg ONCE ONE Administration Morphine Sulfate 2 mg 11/26/20 23:29 11/26/20 23:37 Morphine 2mg/Ml Syringe IV 11/26/20 23:30 2 mg ONCE ONE Administration Ondansetron HCl 4 mg 11/26/20 22:35 11/26/20 22:48 Ondansetron 4mg/2ml Vial IV 11/26/20 22:36 4 mg ONCE ONE Administration - Radiology Data #1 Image(s): Chest, Humerus, Pelvis Image Reviewed: Yes I reviewed the patient's radiolo
[2020-11-26 23:30] VITALS: BP 139/73; PULSE 102; O2SAT 99
[2020-11-27 00:43] VITALS: BP 132/88; PULSE 80; RESP 18; TEMP 36.8; O2SAT 98
== END 2020-11-27 00:56 | disposition home or self-care (01) ==
PROVIDERS: Emergency Provider Emergency Medicine; PCP Family Medicine
DX: S42.471A Displaced transcondylar fracture of right humerus, initial encounter for closed fracture (principal); W01.0XXA Fall on same level from slipping, tripping and stumbling without subsequent striking against object, initial encounter; Y92.018 Other place in single-family (private) house as the place of occurrence of the external cause; E78.5 Hyperlipidemia, unspecified; E11.65 Type 2 diabetes mellitus with hyperglycemia; I10 Essential (primary) hypertension; E03.9 Hypothyroidism, unspecified
CPT/HCPCS: 29105; 71045; 72170; 73060; 80053; 85025; 99282; J2405

== ENCOUNTER → 2020-11-28 11:59 | Outpatient (CLI) | payer MEDICARE, SELFPAY ==
[2020-11-28 13:06] LABS: D-Dimer 0.95 ug/mL (0.0-0.5)
== END ==
PROVIDERS: Visit Provider Internal Medicine Pulmonary Disease
DX: R06.02 Shortness of breath (principal)
CPT/HCPCS: 36415; 85378

== ENCOUNTER → 2020-12-01 10:43 | Outpatient (CLI) | payer MEDICARE, SELFPAY ==
--- NOTE | 2020-12-01 10:54 | XR_ITS ---
PROCEDURE: XR HUMERUS RT CLINICAL INDICATION: RT humerus fracture COMPARISON: CR XR HUMERUS RT from 11/26/2020 FINDINGS: There is a displaced comminuted fracture involving the proximal mid aspect of the humerus. There is 2.2 cm medial displacement of the distal fracture fragment with no bony apposition. A small butterfly fragment is present proximally. Compared to the previous exam there is greater medial displacement of the distal fracture fragment. IMPRESSION: Comminuted displaced proximal to mid right humerus fracture as described above. Dictated by: Ruben Loving MD 12/01/2020 14:42 Ruben Loving MD in [facility] 12/01/2020 14:42
== END ==
PROVIDERS: PCP Family Medicine; Visit Provider Orthopaedic Surgery
DX: S42.301A Unspecified fracture of shaft of humerus, right arm, initial encounter for closed fracture (principal)
CPT/HCPCS: 73060

== ENCOUNTER → 2020-12-06 10:31 | Outpatient (CLI) | payer MEDICARE, SELFPAY ==
--- NOTE | 2020-12-06 10:33 | CA_ITS ---
APPROVED REPORT Bilateral Lower Extremity Venous Study for DVT. Machine Packer: Virginia Mehta RVT Indications DVT of Lower Extremity: Left DVT IN LLE 08/29/20 Past History DVT : Left Medications Aspirin Vein Imaging CFV (R): compressive, spontaneous, phasic, augmentation FEM (R): compressive, spontaneous, phasic, augmentation POP (R): compressive, spontaneous, phasic, augmentation PTV (R): Compressible GSV (R): Compressible Peroneals (R):Compressible GAS (R): Compressible CFV (L): compressive, spontaneous, phasic, augmentation FEM (L): compressive, spontaneous, phasic, augmentation POP (L): compressive, spontaneous, phasic, augmentation PTV (L): Compressible GSV (L): Compressible Peroneals (L):Compressible GAS (L): Compressible Findings Study suggests no evidence of DVT of the bilateral lower extremites. Study suggests no evidence of SVT of the bilateral lower extremites. Conclusion Study suggests no evidence of DVT of the bilateral lower extremites. Study suggests no evidence of SVT of the bilateral lower extremites. Electronically signed by : Ruben Loving MD 12/06/2020 17:34:55
== END ==
PROVIDERS: PCP Family Medicine; Visit Provider Internal Medicine Pulmonary Disease
DX: Z86.718 Personal history of other venous thrombosis and embolism (principal)
CPT/HCPCS: 93970

== ENCOUNTER → 2020-12-09 08:46 | Outpatient (CLI) | payer MEDICARE, SELFPAY ==
--- NOTE | 2020-12-09 08:54 | XR_ITS ---
PROCEDURE: XR HUMERUS RT CLINICAL INDICATION: RT humerus fx Follow-up fracture COMPARISON: CR XR HUMERUS RT from 11/26/2020 CR XR HUMERUS RT from 12/01/2020 FINDINGS: There is a displaced comminuted fracture involving the proximal the midshaft of the humerus as before. The distal portion of the humerus is displaced medially and anteriorly with mild overlap of the fracture fragments with 0 percent apposition. The proximal fragment is angulated laterally. No callus formation apparent. The upper aspect of the cast does not cover the fracture in is only at the inferior aspect of the proximal fracture fragment. IMPRESSION: Displaced humeral fracture as described above Dictated by: Ruben Loving MD 12/09/2020 09:41 Ruben Loving MD in [facility] 12/09/2020 09:41
== END ==
PROVIDERS: PCP Family Medicine; Visit Provider Orthopaedic Surgery
DX: S42.309A Unspecified fracture of shaft of humerus, unspecified arm, initial encounter for closed fracture (principal)
CPT/HCPCS: 73060

== ENCOUNTER → 2020-12-12 12:11 | Outpatient (CLI) | payer MEDICARE, SELFPAY ==
--- NOTE | 2020-12-12 12:19 | XR_ITS ---
PROCEDURE: XR CHEST 2V CLINICAL HISTORY: HTN, COMPARISON: CR XR CHEST 2V from 08/29/2020 CR XR CHEST 2V from 09/04/[address] ANGIO CHEST from 10/26/2020 CR XR CHEST PORTABLE from 11/26/2020 FINDINGS: The cardiomediastinal silhouette and pulmonary vascularity are within normal limits. The lungs are clear without infiltrates, suspicious nodules, or pleural effusions. Trachea is shifted toward the right consistent with enlargement of the left thyroid gland as seen on previous chest CT. There is a comminuted and displaced fracture of the proximal to mid shaft of the right humerus. IMPRESSION: No acute finding of the chest. Enlarged left lobe of the thyroid gland with tracheal deviation toward the right Displaced and comminuted right humeral fracture Dictated by: Ruben Loving MD 12/12/2020 12:40 Ruben Loving MD in [facility] 12/12/2020 12:40
--- NOTE | 2020-12-12 12:41 | ECG_ITS ---
APPROVED REPORT Exam: Resting ECG HR:84 bpm ECG Measurements Heart Rate 84 AXES OR 126 P 76 QRSd 60 QRS 56 QT 360 T 41 QTc 425 Conclusion Sinus rhythm with premature supraventricular complexes Low voltage QRS Borderline ECG Electronically signed by : Ammon Melendez, 12/13/2020 22:02:03
== END ==
PROVIDERS: PCP Family Medicine; Visit Provider Family Medicine
DX: Z01.818 Encounter for other preprocedural examination (principal)
CPT/HCPCS: 71046; 93005

== ENCOUNTER → 2020-12-13 12:13 | Outpatient (CLI) | payer MEDICARE, SELFPAY ==
--- NOTE | 2020-12-13 12:19 | XR_ITS ---
PROCEDURE: XR HUMERUS RT CLINICAL INDICATION: RT humerus fracture COMPARISON: CR XR HUMERUS RT from 11/26/2020 CR XR HUMERUS RT from 12/01/2020 CR XR HUMERUS RT from 12/09/2020 FINDINGS: Comminuted displaced fracture of the right humerus once again noted. The cast has been removed with a new supporting device present. There is medial displacement of the distal fracture fragment by approximately 2.5 cm there has been improvement in the lateral angulation the proximal fracture fragment. No callus formation apparent. IMPRESSION: Comminuted displaced fracture proximal humerus. Dictated by: Ruben Loving MD 12/13/2020 13:58 Ruben Loving MD in [place] 12/13/2020 13:58
== END ==
PROVIDERS: PCP Family Medicine; Visit Provider Orthopaedic Surgery
DX: S42.301A Unspecified fracture of shaft of humerus, right arm, initial encounter for closed fracture (principal)
CPT/HCPCS: 73060

== ENCOUNTER → 2020-12-27 13:12 | Outpatient (CLI) | payer MEDICARE, SELFPAY ==
--- NOTE | 2020-12-27 13:16 | XR_ITS ---
PROCEDURE: XR HUMERUS RT CLINICAL INDICATION: right humerus fx. in splint Follow-up fracture COMPARISON: CR XR HUMERUS RT from 11/26/2020 CR XR HUMERUS RT from 12/01/2020 CR XR HUMERUS RT from 12/09/2020 CR XR HUMERUS RT from 12/13/2020 FINDINGS: Comminuted displaced midshaft humeral fracture is once again noted. There remains twos 0.5 cm medial displacement of the distal fracture fragment. Callus formation however is developing at the fracture site. A butterfly fragment is displaced medially along the superior aspect of the fracture. Other findings:None. IMPRESSION: Healing comminuted displaced midshaft humeral fracture Dictated by: Ruben Loving MD 12/27/2020 13:30 Ruben Loving MD in [place] 12/27/2020 13:30
== END ==
PROVIDERS: PCP Family Medicine; Visit Provider Orthopaedic Surgery
DX: S42.309A Unspecified fracture of shaft of humerus, unspecified arm, initial encounter for closed fracture (principal)
CPT/HCPCS: 73060

== ENCOUNTER → 2021-01-11 12:23 | Outpatient (CLI) | payer MEDICARE, SELFPAY ==
--- NOTE | 2021-01-11 12:30 | XR_ITS ---
PROCEDURE: XR HUMERUS RT CLINICAL INDICATION: RT humerus fx Follow-up fracture COMPARISON: CR XR HUMERUS RT from 12/01/2020 CR XR HUMERUS RT from 12/09/2020 CR XR HUMERUS RT from 12/13/2020 CR XR HUMERUS RT from 12/27/2020 FINDINGS: Healing displaced fracture present involving the proximal shaft of the humerus with persistent medial angulation and medial displacement of the distal fracture fragment. Increasing callus formation is noted. The medial displacement is somewhat improved. IMPRESSION: Healing fracture proximal humerus with some improvement in the medial displacement Dictated by: Ruben Loving MD 01/11/2021 13:10 Ruben Loving MD in [place] 01/11/2021 13:10
== END ==
PROVIDERS: PCP Family Medicine; Visit Provider Orthopaedic Surgery
DX: S42.301A Unspecified fracture of shaft of humerus, right arm, initial encounter for closed fracture (principal)
CPT/HCPCS: 73060

== ENCOUNTER → 2021-02-22 13:33 | Outpatient (CLI) | payer MEDICARE, SELFPAY ==
--- NOTE | 2021-02-22 13:42 | XR_ITS ---
PROCEDURE: XR HUMERUS RT CLINICAL INDICATION: right humerus fx COMPARISON: CR XR HUMERUS RT from 12/09/2020 CR XR HUMERUS RT from 12/13/2020 CR XR HUMERUS RT from 12/27/2020 CR XR HUMERUS RT from 01/11/2021 FINDINGS: Healing comminuted fracture involves the mid to proximal shaft of the right humerus with developing callus formation. No change in the medial displacement and angulation of the distal fracture fragment. Callus formation is slightly increased. IMPRESSION: Healing comminuted mid to proximal right humeral shaft fracture with medial angulation and medial displacement of the distal fracture Dictated by: Ruben Loving MD 02/22/2021 15:39 Ruben Loving MD in [place] 02/22/2021 15:39
== END ==
PROVIDERS: PCP Family Medicine; Visit Provider Orthopaedic Surgery
DX: S42.301A Unspecified fracture of shaft of humerus, right arm, initial encounter for closed fracture (principal)
CPT/HCPCS: 73060

== ENCOUNTER → 2021-04-21 13:18 | Outpatient (CLI) | payer MEDICARE, SELFPAY | PROVIDERS: PCP Family Medicine; Visit Provider Family Medicine | DX: R42 Dizziness and giddiness (principal); I49.1 Atrial premature depolarization; I10 Essential (primary) hypertension; E11.9 Type 2 diabetes mellitus without complications; E03.9 Hypothyroidism, unspecified | CPT/HCPCS: 93225; 93226 ==

== ENCOUNTER → 2021-04-25 13:16 | Outpatient (CLI) | payer MEDICARE, SELFPAY ==
--- NOTE | 2021-04-25 13:16 | US_ITS ---
PROCEDURE: US THYROID CLINICAL INDICATION: thyroid nodule Yes some with knee COMPARISON: US US THYROID from 10/12/2020 FINDINGS: Right lobe: Status post right thyroidectomy Left lobe: 5 x 2.5 x 3.6 cm. There is diffuse heterogeneous echogenicity. There remains a heterogeneous nodule with both solid and cystic components occupying most of the left lobe. The nodule measures 4.3 by 2.2 by 2.8 cm not significantly changed. Isthmus: Thickened at 5 mm with heterogeneous echogenicity Additional findings: IMPRESSION: Status post right thyroidectomy. No change 4.3 cm left heterogeneous thyroid nodule with both cystic and solid components Dictated by: Ruben Loving MD 04/26/2021 10:18 Ruben Loving MD in [place] 04/26/2021 10:18
== END ==
PROVIDERS: PCP Family Medicine; Visit Provider Otolaryngology
DX: E04.1 Nontoxic single thyroid nodule (principal)
CPT/HCPCS: 76536

== ENCOUNTER → 2021-05-24 12:15 | Outpatient (CLI) | payer MEDICARE, SELFPAY ==
--- NOTE | 2021-05-24 12:19 | XR_ITS ---
PROCEDURE: XR HUMERUS RT CLINICAL INDICATION: right humerus fracture COMPARISON: CR XR HUMERUS RT from 12/13/2020 CR XR HUMERUS RT from 12/27/2020 CR XR HUMERUS RT from 01/11/2021 CR XR HUMERUS RT from 02/22/2021 FINDINGS: There is a healing displaced fracture involving the proximal to mid shaft the right humerus with medial angulation and displacement of the distal fracture fragment. Developing callus formation which has somewhat increased. Fracture line is still visible. IMPRESSION: Healing proximal to midshaft right humeral fracture Dictated by: Ruben Loving MD 05/24/2021 18:47 Ruben Loving MD in [place] 05/24/2021 18:47
== END ==
PROVIDERS: PCP Family Medicine; Visit Provider Orthopaedic Surgery
DX: S42.309A Unspecified fracture of shaft of humerus, unspecified arm, initial encounter for closed fracture (principal)
CPT/HCPCS: 73060

== ENCOUNTER → 2021-05-30 12:23 | Outpatient (CLI) | payer MEDICARE, SELFPAY ==
[2021-05-30 12:49] LABS: Basophils # 0.1 K/mm3 (0-0.2); Basophils % 0.4 % (0.1-2.0); Eosinophils # 0.1 K/mm3 (0.0-0.4); Eosinophils % 0.7 % (0.1-12.0); Hematocrit 43.6 % (37.0-47.0); Hemoglobin 14.4 g/dL (12.2-16.2); Lymphocytes # 2.8 K/mm3 (0.7-4.5); Lymphocytes % 23.3 % (10-50); Mean Corpuscular HGB Conc 33.1 g/dL (31.8-35.4); Mean Corpuscular Hemoglobin 31.8 pg (27.0-31.2); Mean Corpuscular Volume 96.1 fl (81-99); Mean Platelet Volume 8.4 fl (7.4-10.4); Monocytes # 0.5 K/mm3 (0.1-1.0); Monocytes % 3.9 % (1.7-9.3); Neutrophils # 8.6 K/mm3 (1.8-7.8); Neutrophils % 71.6 % (37.0-80.0); Platelet Count 316 K/mm3 (142-424); Red Blood Count 4.53 M/mm3 (4.20-5.40); Red Cell Distribution Width 14.5 % (11.5-17.5)
[2021-05-30 13:15] LABS: Chloride 105 mmol/L (98-107); Potassium 4.5 mmoL/L (3.5-5.1); Sodium 143 mmol/L (136-145)
[2021-05-30 13:18] LABS: Anion Gap 11.5 mEq/L (5-15); Blood Urea Nitrogen 19 mg/dl (7-17); Carbon Dioxide 31 mmol/L (22.0-30.0); Estimated Glomerular Filt Rate 53 ml/min (>60); GFR (African American) 64 ML/MIN (>60)
[2021-05-30 13:19] LABS: Calcium 9.6 mg/dl (8.4-10.2); Glucose 163 mg/dl (74-100)
== END ==
PROVIDERS: Visit Provider Internal Medicine
DX: Z01.812 Encounter for preprocedural laboratory examination (principal); Z11.52 Encounter for screening for COVID-19; R06.02 Shortness of breath
CPT/HCPCS: 36415; 80048; 85025; C9803; U0003; U0005

== ENCOUNTER 2021-05-31 09:29 | Day surgery (SDC) | payer MEDICARE, SELFPAY ==
[2021-05-31] VITALS (11 sets, daily range): BP systolic 106–177; BP diastolic 56–85; PULSE 65–87; RESP 17–18; O2SAT 90–100; BMI 25.4
--- NOTE | 2021-05-31 | IR_ITS ---
APPROVED REPORT Patient Location: Outpatient Incising Machine Operator: JL Meadows RT (R) PROCEDURES Left heart catheterization Left ventriculogram Selective coronary angiogram INDICATION Worsening angina pectoris Informed consent was obtained prior to the procedure. COMPLICATIONS NONE Estimated Blood Loss: LESS THAN 10 ML TECHNIQUE One percent lidocaine used to anesthetize the right anterior aspect of the wrist. The right radial artery was accessed via the Seldinger technique. A 6 Slovenian sheath was placed in the right radial artery. 2.5 mg of verapamil, 800 mcg of nitroglycerin, 1mg Lidocaine and 5000 U Heparin were given through the arterial sheath. The Poppa catheter was also used to perform left heart catheterization, left ventriculogram and selective coronary angiogram. At the end of the procedure the sheath was removed good hemostasis was achieved using Traclet band, patient was transferred to the postop holding area in stable condition. ANGIOGRAPHIC RESULTS The left main artery Normal The left anterior descending artery Has a smooth proximal 10% stenosis with mild less than 10% luminal irregularities in the midsegment The circumflex artery Large dominant normal The right coronary artery Vestigial normal The PAVON ventriculogram reveals Normal 65% The left ventricular end-diastolic pressure Slightly elevated 20 mmHg IMPRESSION Minimal luminal irregularities in the LAD Normal ejection fraction Slightly elevated LVEDP PLAN 1. Evaluation of noncardiac symptoms Electronically signed by : Bossman Ruff MD 05/31/2021 12:05:16
== END 2021-05-31 14:59 | disposition home or self-care (01) ==
LOC: CATHLAB 09:30
PROVIDERS: PCP Family Medicine; Visit Provider Internal Medicine
DX: R06.02 Shortness of breath (principal); I25.118 Atherosclerotic heart disease of native coronary artery with other forms of angina pectoris; E11.9 Type 2 diabetes mellitus without complications; Z79.84 Long term (current) use of oral hypoglycemic drugs; Z86.16 Personal history of COVID-19; I49.8 Other specified cardiac arrhythmias; E03.9 Hypothyroidism, unspecified; Z79.899 Other long term (current) drug therapy
CPT/HCPCS: 93306; 93458; 99152; C1725; C1769; J1644; Q9967

== ENCOUNTER → 2021-07-26 08:58 | Outpatient (CLI) | payer MEDICARE, SELFPAY ==
--- NOTE | 2021-07-26 09:15 | XR_ITS ---
FINAL REPORT TECHNIQUE: Bone mineral density was calculated of the lumbar spine and hip. CLINICAL HISTORY: . evaluate for osteoporosis FINDINGS: Using L1-4, the bone mineral density of the spine is 0.784 g/cm2, corresponding to T-score of -2.4. Using the left hip, the bone mineral density of the femoral neck is 0.577 g/cm2, corresponding to a T-score of -2.5. 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 FRAX data listing fracture risk was not provided. Reviewed, Interpreted and Dictated by Flip Brown III, MD Transcribed by Jax Glez Authenticated by Flip Brown III, MD on 07/26/2021 11:05:34 AM [facility]
[2021-07-26 16:07] LABS: Anion Gap 12.8 mEq/L (5-15); Blood Urea Nitrogen 23 mg/dl (7-17); Calcium 9.4 mg/dl (8.4-10.2); Carbon Dioxide 30 mmol/L (22.0-30.0); Chloride 99 mmol/L (98-107); Estimated Glomerular Filt Rate 53 ml/min (>60); GFR (African American) 64 ML/MIN (>60); Glucose 149 mg/dl (74-100); Potassium 3.8 mmoL/L (3.5-5.1); Sodium 138 mmol/L (136-145)
== END ==
PROVIDERS: Urology; PCP Family Medicine; Visit Provider Orthopaedic Surgery
DX: M81.0 Age-related osteoporosis without current pathological fracture (principal); R06.00 Dyspnea, unspecified
CPT/HCPCS: 36415; 77080; 80048; 93270

== ENCOUNTER 2021-08-06 13:43 | Emergency (ER) | payer MEDICARE, SELFPAY ==
[2021-08-06] VITALS (10 sets, daily range): BP systolic 131–159; BP diastolic 56–86; PULSE 85–102; RESP 15–18; TEMP 36.8; O2SAT 95–100; BMI 26.2
--- NOTE | 2021-08-06 14:40 | XR_ITS ---
PROCEDURE INFORMATION: Exam: XR Left Femur Exam date and time: 08/06/2021 2:40 PM Age: 81 years old Clinical indication: Pain; Thigh; Left; Additional info: Pain left lle, no known injury TECHNIQUE: Imaging protocol: XR Left femur. Views: 2 views. COMPARISON: CA VENOUS DOPPLER LE BI 12/06/2020 10:46 AM FINDINGS: Bones/joints: There is no evidence of acute fracture.There is no evidence of malalignment or dislocation. Soft tissues: Unremarkable. IMPRESSION: There is no evidence of acute fracture.There is no evidence of malalignment or dislocation.
--- NOTE | 2021-08-06 14:40 | XR_ITS ---
PROCEDURE INFORMATION: Exam: XR Left Hip Exam date and time: 08/06/2021 2:40 PM Age: 81 years old Clinical indication: Hip pain; Left hip; Additional info: Pain left lle, no known injury TECHNIQUE: Imaging protocol: XR Left hip. Views: 2 or 3 views hip with pelvis when performed. COMPARISON: CR XR PELVIS 1-2V 11/26/2020 10:57 PM FINDINGS: Bones/joints: There is no evidence of acute fracture.There is no evidence of malalignment or dislocation. Soft tissues: Unremarkable. Organs: Stable calcific density in the pelvis may represent calcified fibroid IMPRESSION: There is no evidence of acute fracture.There is no evidence of malalignment or dislocation.
--- NOTE | 2021-08-06 14:41 | XR_ITS ---
PROCEDURE INFORMATION: Exam: XR Left Knee Exam date and time: 08/06/2021 2:41 PM Age: 81 years old Clinical indication: Pain; Knee; Left; Additional info: Pain left lle, no known injury TECHNIQUE: Imaging protocol: XR Left knee. Views: 3 views. COMPARISON: CA VENOUS DOPPLER LE BI 12/06/2020 10:46 AM FINDINGS: Bones/joints: Tricompartmental joint space narrowing and osteophyte formation consistent with degenerative changes. There is no evidence of acute fracture.There is no evidence of malalignment or dislocation. Unhealed ossific fragment along the medial aspect of the medial compartment may represent avulsion fracture of unknown age. Chondrocalcinosis in the lateral compartment. Soft tissues: Normal. Other findings: Mild suprapatellar joint effusion IMPRESSION: 1. Tricompartmental joint space narrowing and osteophyte formation consistent with degenerative changes. 2. There is no evidence of acute fracture.There is no evidence of malalignment or dislocation. 3. Unhealed ossific fragment along the medial aspect of the medial compartment may represent avulsion fracture of unknown age.
--- NOTE | 2021-08-06 15:00 | PC.NURSE ---
radiology is bedside
--- NOTE | 2021-08-06 15:38 | HMH.EDGENADL ---
ED Disposition Clinical Impression: Left leg pain Disposition: Home, Self-Care Condition on Discharge: Good Additional Instructions: At this time, your x-rays do not show a fracture or dislocation. Your DVT study does not show a blood clot in your lower extremity. Please continue taking Tylenol and elevate your extremity. If your condition worsens or any other concerns arise, please return to the emergency department. Otherwise, please follow-up with your primary care physician. Referrals: Vanessa Alfonso MD [Primary Care Provider] - - Critical Care Critical Care Time: No Attestation: On 08/06/21, the high probability of a clinically significant, sudden or life threatening deterioration of the following system(s) required my full and direct attention, intervention and personal management. The time I documented below is in addition to time spent performing reported procedures but includes the following listed in this critical care notation. Medical Decision Making - Medical Records Medical records reviewed: Yes: I reviewed the patient's medical records. - Anma Inquiry Pt receiving controlled substance: No Vital Signs: 08/06/21 14:16 08/06/21 14:21 08/06/21 14:30 Pulse Rate 95 H 90 Pulse Rate [Left] 97 H Respiratory Rate 15 18 16 Blood Pressure 152/70 H 159/81 H Blood Pressure [Right Arm] 143/75 H Blood Pressure Mean 76 107 Blood Pressure Mean [Right Arm] 97 02 Sat by Pulse Oximetry 96 97 96 08/06/21 14:53 08/06/21 15:01 08/06/21 15:30 Pulse Rate 99 H 95 H 93 H Pulse Rate [Left] Respiratory Rate 16 Blood Pressure 139/63 131/56 L 153/75 H Blood Pressure [Right Arm] Blood Pressure Mean 95 Blood Pressure Mean [Right Arm] 02 Sat by Pulse Oximetry 95 100 100 08/06/21 16:00 08/06/21 16:31 08/06/21 17:01 Pulse Rate 96 H 85 102 H Pulse Rate [Left] Respiratory Rate Blood Pressure 140/79 146/74 H 155/86 H Blood Pressure [Right Arm] Blood Pressure Mean Blood Pressure Mean [Right Arm] 02 Sat by Pulse Oximetry 100 100 99 - Lab Data Lab results reviewed: Yes: I reviewed the patient's lab results. Orders (Tests/Meds): ED MEDICATIONS Discontinued Medications Generic Name Dose Route Start Last Admin Trade Name Freq PRN Reason Stop Dose Admin Acetaminophen 500 mg 08/06/21 14:41 08/06/21 14:57 Acetaminophen 500mg Tab PO 08/06/21 14:42 500 mg ONCE ONE Administration Medical Decision Narrative: Patient is an 81-year-old female presenting for chief complaint of worsening left lower extremity pain for 3 days. Differential diagnosis includes, but is not limited to, fracture, dislocation, DVT, sprain versus muscular strain, other. On initial exam, patient is hemodynamically stable nontoxic-appearing. Patient has full strength in both lower extremities and remainder of neurologic exam is nonfocal. She is able to bear weight but with some pain. No erythema, edema or warmth over her knee joints to suggest septic arthritis. Patient was evaluated with x-ray of her left hip, femur and knee which were negative for acute fractures or dislocations. DVT study was negative for DVT but showed a left-sided Snowden's cyst in the popliteal fossa. At this time, patient feels well and would like to be discharged. She was counseled to continue supportive care at home including elevation, Tylenol and to monitor for worsening of symptoms. She was advised to see her primary care physician on an outpatient basis. She was agreeable with plan. General Adult HPI - General Chief complaint: PAIN Stated complaint: weakness in lt leg Time Seen by Provider: 08/06/21 14:20 Mode of Arrival: Ambulatory Limitations: No Limitations Description of Symptoms (Recalled from ER Triage Doc. by RN): pt c/o R leg pain, swelling and warmth from her upper thigh down through her diana. pt states she has been having pain in this leg since she was started on xarelto on Jul 26. at this
--- NOTE | 2021-08-06 15:39 | CA_ITS ---
FINAL REPORT TECHNIQUE: Ultrasound images of the deep venous system were obtained from the left groin to the calf veins. CLINICAL HISTORY: Patient reports LLE swelling, pain FINDINGS: The deep venous system of the left lower extremity is normally compressible. Normal flow is identified. Incidental note is made of a small Snowden cyst. IMPRESSION: No evidence of left lower extremity DVT. Reviewed, Interpreted and Dictated by Flip Brown III, MD Transcribed by Judy Champagne Authenticated by Flip Brown III, MD on 08/07/2021 08:57:46 AM [facility]
== END 2021-08-06 17:34 | disposition home or self-care (01) ==
PROVIDERS: Emergency Provider Emergency Medicine; PCP Family Medicine
DX: M79.605 Pain in left leg (principal); E11.9 Type 2 diabetes mellitus without complications; E78.5 Hyperlipidemia, unspecified; I10 Essential (primary) hypertension
CPT/HCPCS: 73502; 73552; 73562; 93971; 99282

== ENCOUNTER → 2021-08-29 13:25 | Outpatient (CLI) | payer MEDICARE, SELFPAY ==
--- NOTE | 2021-08-29 13:33 | XR_ITS ---
FINAL REPORT CLINICAL HISTORY: right humerus fracture 1 month [facility] COMPARISON: May 24, 2021 FINDINGS: 2 views of the right humerus were obtained. There is a healing displaced fracture of the mid humerus. There is full shaft with medial displacement of the distal fracture fragment. There is over riding of the fracture fragments. There is progressive callus formation. IMPRESSION: Healing mid humerus fracture. Reviewed, Interpreted and Dictated by Guillermo Chau MD Transcribed by Jax Glez Authenticated by Guillermo Chau MD on 08/29/2021 03:26:20 PM [facility]
== END ==
PROVIDERS: PCP Family Medicine; Visit Provider Orthopaedic Surgery
DX: S42.301A Unspecified fracture of shaft of humerus, right arm, initial encounter for closed fracture (principal)
CPT/HCPCS: 73060

== ENCOUNTER → 2021-09-29 13:06 | Outpatient (CLI) | payer MEDICARE, SELFPAY ==
[2021-09-29 13:13] LABS: Microscopic, Urine URINE MICROSCOPIC (MICROSCOPIC)
[2021-09-29 18:31] LABS: Appearance,Urine CLOUDY (Clear); Bilirubin,Urine Negative (Negative); Blood, Urine 3+ (Negative); Color,Urine YELLOW (Yellow); Glucose,Urine (UA) Negative (Negative); Ketones,Urine Negative (Negative); Leukocyte Esterase,Urine Negative (Negative); Nitrate,Urine Negative (Negative); PH,Urine 6.5 (5.0-8.5); Protein,Urine Negative (Negative); Urobilinogen,Urine 0.2 EU/dl (0.2)
[2021-09-29 18:41] LABS: Bacteria,Urine 4+ /lpf; Squamous Epithelial Cell,Urine Occasional #/hpf (0-5)
== END ==
PROVIDERS: Visit Provider Nurse Practitioner
DX: N30.01 Acute cystitis with hematuria (principal); B96.1 Klebsiella pneumoniae [K. pneumoniae] as the cause of diseases classified elsewhere
CPT/HCPCS: 81001; 87086; 87088; 87186

== ENCOUNTER 2021-12-03 20:27 | Emergency (ER) | payer MEDICARE, SELFPAY ==
[2021-12-03 20:29] VITALS: BP 148/66; PULSE 76; RESP 16; TEMP 36.7; O2SAT 99; BMI 26.2
--- NOTE | 2021-12-03 20:46 | XR_ITS ---
PROCEDURE INFORMATION: Exam: XR Right Wrist Exam date and time: 12/03/2021 9:02 PM Age: 81 years old Clinical indication: Injury or trauma; Fall; Blunt trauma (contusions or hematomas); Wrist; Right; Additional info: Fall pain in wrist TECHNIQUE: Imaging protocol: XR Right wrist. Views: 3 or more views. COMPARISON: CR XR HAND RT MIN 3V 09/03/2020 5:41 PM FINDINGS: Bones/joints: Mildly displaced distal radial metaphyseal fracture with an intra-articular component in the radiocarpal joint. Nondisplaced ulnar styloid process fracture. Soft tissues: Cartilage calcifications. IMPRESSION: 1. Mildly displaced distal radial metaphyseal fracture with an intra-articular component in the radiocarpal joint. 2. Nondisplaced ulnar styloid process fracture.
--- NOTE | 2021-12-03 20:52 | HMH.EDUPEXT ---
ED Disposition Clinical Impression: Fracture of wrist Qualifiers: Encounter type: initial encounter Fracture type: closed Laterality: right Qualified Code(s): S62.101A - Fracture of unspecified carpal bone, right wrist, initial encounter for closed fracture Disposition: Home, Self-Care Condition on Discharge: Good Instructions: DI for Wrist Fracture Additional Instructions: wear splint and see pcp and ortho for follow up Referrals: Vanessa Alfonso MD [Primary Care Provider] - Lionel Bland JR, MD [Physician] - - Critical Care Critical Care Time: No Attestation: On 12/03/21, the high probability of a clinically significant, sudden or life threatening deterioration of the following system(s) required my full and direct attention, intervention and personal management. The time I documented below is in addition to time spent performing reported procedures but includes the following listed in this critical care notation. Medical Decision Making - Medical Records Medical records reviewed: Yes: I reviewed the patient's medical records. - Anam Inquiry Pt receiving controlled substance: No Vital Signs: 12/03/21 20:29 Temperature 98.1 F Temperature Source Oral Pulse Rate [Right] 76 Respiratory Rate 16 Blood Pressure [Right Arm] 148/66 H Blood Pressure Mean [Right Arm] 93 02 Sat by Pulse Oximetry 99 - Radiology Data #1 Image(s): Wrist Image Reviewed: Yes I have reviewed radiologist's interpretation Preliminary Findings: Abnormal (positive fx ) Medical Decision Narrative: tyenol and wear splint and see pcp and ortho for follow up Upper Extremity HPI - General Chief Complaint: Extremity Injury, Upper Stated Complaint: Right wrist pain; AO 1830 Fell Time Seen by Provider: 12/03/21 20:40 Mode of Arrival: Ambulatory Source of Information: Patient, Medical Record Limitations: No Limitations Description of Symptoms (Recalled from ER Triage Doc. by RN): pt states she tripped in a hole and landed on rt wirst . pt denies loc . pt c/o rt wrist pain - History of Present Illness HPI narrative: tripped and fell with injury to rt wrist and lt knee - no loc or other c/o MD complaint: injury to: right, wrist Onset (ago): hour(s) Other Extremity Injury: Right: wrist Other injuries: LLE Handedness: right Place: home Severity: moderate Context: fall Associated symptoms: denies other symptoms - Related Data Home Medications Medication Instructions Recorded Confirmed glimepiride 4 mg tablet 4 mg PO DAILY 02/13/18 10/03/21 metformin 500 mg tablet 500 mg PO BIDWM 02/13/18 10/03/21 alendronate 35 mg tablet 35 mg PO WEEKLY 02/27/18 10/03/21 Furosemide [Furosemide 40MG tAB*] 20 mg PO DAILY 03/13/18 10/03/21 levothyroxine 75 mcg tablet 75 mcg PO DAILYDM #0 tab 06/10/19 10/03/21 allopurinol 100 mg tablet 100 mg PO DAILY tab 05/17/20 10/03/21 Multivit-Min/FA/Lycopen/Lutein 1 each PO DAILY 07/27/20 10/03/21 [Centrum Silver Tablet] Cholecalciferol (Vitamin D3) 50 mcg PO DAILY 08/29/20 10/03/21 [Vitamin D3] Nitrofurantoin Monohyd/M-Cryst 100 mg PO BID 11/26/20 10/03/21 [Macrobid 100 mg Capsule] aspirin 81 mg tablet,delayed 81 mg PO DAILY 05/24/21 10/03/21 release simvastatin 40 mg tablet 40 mg PO HS tab 05/24/21 10/03/21 sulfamethoxazole 800 1 tab PO Q12H tab 10/03/21 10/03/21 mg-trimethoprim 160 mg tablet Previous Rx's Medication Instructions Recorded acetaminophen 300 mg-codeine 30 mg 1 tab PO Q8H PRN #30 tab 12/13/20 tablet loratadine 10 mg tablet See Rx Instructions .ROUTE 08/10/21 .COMPLEX #30 tab metoprolol succinate 100 mg 100 mg PO BID #180 tab 08/30/21 tablet,extended release 24 hr rivaroxaban 20 mg tablet See Rx Instructions .ROUTE 10/30/21 .COMPLEX #90 tab Allergies Allergy/AdvReac Type Severity Reaction Status Date / Time Penicillins Allergy Unknown NA Verified 10/03/21 14:14 [facility] History - Hepatitis A Screen Attestation statement:: This pa
--- NOTE | 2021-12-03 21:11 | PC.NURSE ---
pt to XRay
--- NOTE | 2021-12-03 22:01 | XR_ITS ---
PROCEDURE INFORMATION: Exam: XR Left Knee Exam date and time: 12/03/2021 10:07 PM Age: 81 years old Clinical indication: Injury or trauma; Fall; Blunt trauma; Knee; Left TECHNIQUE: Imaging protocol: XR Left knee. Views: 3 views. COMPARISON: CR XR KNEE LT 3V 08/06/2021 2:57 PM FINDINGS: Bones/joints: Mild tricompartmental osteoarthrosis. No acute fracture or dislocation. Small superior pole patellar enthesophyte. Meniscal calcifications. Calcifications of the medial collateral ligament suggest prior injury. Soft tissues: Marked anterior soft tissue edema. Vasculature: Vascular calcifications. IMPRESSION: 1. No acute fracture or dislocation. 2. Marked anterior soft tissue edema.
[2021-12-03 23:06] VITALS: BP 145/78; PULSE 80; RESP 20; TEMP 36.7; O2SAT 98
== END 2021-12-03 23:10 | disposition home or self-care (01) ==
PROVIDERS: Emergency Provider Emergency Medicine; PCP Family Medicine
DX: S52.501A Unspecified fracture of the lower end of right radius, initial encounter for closed fracture (principal); S52.614A Nondisplaced fracture of right ulna styloid process, initial encounter for closed fracture; W17.2XXA Fall into hole, initial encounter; Y92.019 Unspecified place in single-family (private) house as the place of occurrence of the external cause; E11.9 Type 2 diabetes mellitus without complications; I10 Essential (primary) hypertension; E78.5 Hyperlipidemia, unspecified; Z88.0 Allergy status to penicillin; Z79.899 Other long term (current) drug therapy
CPT/HCPCS: 73110; 73562; 99283

== ENCOUNTER → 2021-12-29 12:53 | Outpatient (CLI) | payer MEDICARE, SELFPAY ==
--- NOTE | 2021-12-29 12:59 | XR_ITS ---
FINAL REPORT CLINICAL HISTORY: wrist fracture - f/u COMPARISON: December 03, 2021 FINDINGS: RIGHT WRIST Three views demonstrates an impacted distal radial fracture. The fracture fragments appear more impacted than on the prior exam. The fracture line extends to the radiocarpal joint. There is also a fracture of the ulnar styloid process. The bones are osteopenic. There are mild and moderate degenerative changes. There are soft tissue calcifications. IMPRESSION: Impacted distal radial fracture. Ulnar styloid process fracture. Mild and moderate degenerative changes. Reviewed, Interpreted and Dictated by Flip Brown III, MD Transcribed by Xenia Banks Authenticated and [facility]
== END ==
PROVIDERS: PCP Family Medicine; Visit Provider Orthopaedic Surgery
DX: S62.101A Fracture of unspecified carpal bone, right wrist, initial encounter for closed fracture (principal)
CPT/HCPCS: 73110

== ENCOUNTER → 2022-02-02 11:16 | Outpatient (CLI) | payer MEDICARE, SELFPAY ==
--- NOTE | 2022-02-02 11:22 | XR_ITS ---
FINAL REPORT CLINICAL HISTORY: wrist pain COMPARISON: 12/29/2021 FINDINGS: AP, oblique, and lateral views of the right wrist were obtained. There has been interval healing of the previously seen intra-articular distal radial fracture. Alignment is unchanged. The ulnar styloid fracture is unchanged. There is degenerative joint disease and osteopenia with chondrocalcinosis. There has been slight improvement in the soft tissue edema. IMPRESSION: Interval healing of previously seen intra-articular distal radial fracture. Ulnar styloid fracture is unchanged. Degenerative joint disease and osteopenia with chondrocalcinosis. Reviewed, Interpreted and Dictated by Jami Petty MD Transcribed by Sydnie aJcques Authenticated and [facility]
== END ==
PROVIDERS: PCP Family Medicine; Visit Provider Orthopaedic Surgery
DX: S62.101A Fracture of unspecified carpal bone, right wrist, initial encounter for closed fracture (principal)
CPT/HCPCS: 73110

== ENCOUNTER → 2022-07-26 13:50 | Outpatient (CLI) | payer MEDICARE, SELFPAY ==
--- NOTE | 2022-07-26 14:01 | US_ITS ---
FINAL REPORT TECHNIQUE: Sonographic images of the thyroid gland were obtained in the longitudinal and transverse planes. CLINICAL HISTORY: history of thyroidectomy right side COMPARISON: 04/25/2021 and 10/12/2020 FINDINGS: The right lobe is absent. The left lobe measures 2.9 x 5.4 x 2.8 cm. The left lobe is diffusely heterogeneous. There is a large, isoechoic nodule encompassing most of the left lobe which is wider than tall measuring 4.8 cm, previously measured 4.3 cm. Difference in size could be technical and related to large size of nodule. The isthmus measures 4 mm. This is normal. IMPRESSION: Stable left thyroid nodule. Reviewed, Interpreted and Dictated by Jami Petty MD Transcribed by Citlalli Prieto Authenticated and [facility]
[2022-07-26 16:03] LABS: Free T4 (Free Thyroxine) 1.55 ng/dl (0.78-2.19)
[2022-07-26 16:04] LABS: T4 (Thyroxine) 11.3 ug/dl (5.53-11.0)
[2022-07-26 16:18] LABS: Thyroid Stimulating Hormone 0.32 uIU/mL (0.465-4.68)
== END ==
PROVIDERS: PCP Family Medicine; Visit Provider Otolaryngology
DX: E04.1 Nontoxic single thyroid nodule (principal); E04.2 Nontoxic multinodular goiter
CPT/HCPCS: 36415; 76536; 84436; 84439; 84443

== ENCOUNTER 2023-01-14 08:42 | Emergency (ER) | payer MEDICARE, SELFPAY ==
[2023-01-14] VITALS (8 sets, daily range): BP systolic 112–141; BP diastolic 55–87; PULSE 69–80; RESP 18; TEMP 36.7; O2SAT 91–94; BMI 25.9
--- NOTE | 2023-01-14 08:50 | XR_ITS ---
FINAL REPORT CLINICAL HISTORY: soa COMPARISON: 12/12/2020 FINDINGS: SINGLE VIEW CHEST The heart size is normal. The mediastinum is normal. The lungs are clear. There is no pneumothorax. IMPRESSION: No acute cardiopulmonary process. Reviewed, Interpreted and Dictated by Flip Brown III, MD Transcribed by Deborah Hartmann Authenticated and [facility]
--- NOTE | 2023-01-14 08:52 | CT_ITS ---
FINAL REPORT CLINICAL HISTORY: RLQ pain COMPARISON: 10/26/2020 FINDINGS: CT OF THE ABDOMEN AND PELVIS WITH CONTRAST Axial CT images of the abdomen and pelvis were obtained after the administration of oral and iv contrast. Coronal reformatted images were also obtained and reviewed.This study was performed with techniques to keep radiation doses as low as reasonably achievable (ALARA). Individualized dose reduction techniques using automated exposure control or adjustment of mA and/or kV according to the patient's size were employed. Abdomen: There is mild bibasilar atelectasis or scarring. The heart is normal in size. The liver has an unremarkable appearance, without evidence of mass or biliary ductal dilatation. Gallstones are noted in the gallbladder. No evidence of biliary ductal dilatation. The spleen is unremarkable. No adrenal mass is present. The pancreas has an unremarkable appearance. Left renal scarring is noted. The aorta is normal in caliber. There is no free fluid or adenopathy. No mass or abnormal fluid collection is seen. Diverticulum is noted in the region of the fourth portion of the duodenum extending superiorly. Pelvis: The appendix is not visualized. There are no localized inflammatory changes seen in the right lower quadrant. The urinary bladder is unremarkable. There is no evidence of mass or adenopathy. There is no evidence of bowel obstruction. Severe descending and sigmoid diverticulosis. There is an umbilical hernia containing fat. Uterine calcifications are present consistent with fibroids. IMPRESSION: Cholelithiasis without evidence of biliary ductal dilatation. Severe descending and sigmoid diverticulosis. No localized inflammatory changes seen in the right lower quadrant. Reviewed, Interpreted and Dictated by Flip Brown III, MD Transcribed by Shirley Humphrey Authenticated and . [facility]
--- NOTE | 2023-01-14 08:57 | PC.NURSE ---
assisted pt to bathroom, unable to urinate for specimen at this time.
--- NOTE | 2023-01-14 09:16 | HMH.EDGENADL ---
Discharge Plan Disposition Patient Disposition: Home, Self-Care Prescriptions Prescriptions: New levofloxacin 750 mg tablet 750 mg PO DAILY 7 Days Qty: 7 0RF metronidazole 500 mg tablet 500 mg PO Q8H 7 Days Qty: 21 0RF No Action metformin 500 mg tablet 500 mg PO BIDWM glimepiride 4 mg tablet 4 mg PO DAILY allopurinol 100 mg tablet 100 mg PO DAILY aspirin 81 mg tablet,delayed release (DR/EC) 81 mg PO DAILY famotidine 40 mg tablet 40 mg PO DAILY fluticasone propionate 50 mcg/actuation spray,suspension NS amlodipine 5 mg tablet 5 mg PO DAILY nystatin 100,000 unit/gram cream TP furosemide 40 mg tablet 40 mg PO simvastatin 40 mg tablet 40 mg PO alendronate 35 mg tablet 35 mg PO WEEKLY acetaminophen-codeine 300-30 mg tablet 1 tab PO Q8H PRN (Reason: humerus fracture) Qty: 30 0RF loratadine 10 mg tablet See Rx Instructions .ROUTE .COMPLEX Qty: 30 5RF Dose Instruction: TAKE 1 TABLET BY MOUTH ONCE DAILY Rx Instructions: TAKE 1 TABLET BY MOUTH ONCE DAILY metoprolol tartrate 100 mg tablet 100 mg PO BID Qty: 180 3RF levothyroxine 50 mcg capsule 50 mcg PO DAILY Qty: 90 3RF Xarelto 20 mg tablet 20 mg PO DAILY Qty: 90 1RF vxqaqurv-pjg-RK-lycopen-lutein 1 EACH tablet 1 each PO DAILY cholecalciferol (vitamin D3) 50 MCG capsule 50 mcg PO DAILY nitrofurantoin monohyd/m-cryst 100 MG capsule 100 mg PO BID Referrals Follow up/Referrals: Vanessa Alfonso MD [Primary Care Provider] - See instructions Activity Restrictions/Add. Instructions Additional Instructions/Restrictions: Follow-up with Dr. Alfonso as scheduled on . Otherwise return to the emergency department for worsening pain vomiting fever or any other concerns within the next 8 hours Clinical Impressions Clinical Impression: Diverticulitis Discharge ED Provider: Robert Oliveira General Adult HPI General Chief complaint: Weakness Stated complaint: fever, weakness Time Seen by Provider: 01/14/23 08:45 Mode of Arrival: Wheelchair Source of Information: Patient and Relative Limitations: No Limitations Description of Symptoms (Recalled from ER Triage Doc. by RN): Pt reports burning with urination x2 days, daughter in law reports pt began running fever lastnight and had some confusion. Pt clammy in nature upon arrival to ED. Pt alert and oriented upon arrival to ED, generalized weakness noted. History of Present Illness HPI narrative: 82-year-old female with history of CHF coronary disease diabetes A-fib presents with 2 days of burning urination and fever. Fever to 101. She is having intermittent confusion with episodes of fever as well. She also says that she has right lower quadrant abdominal pain dull nonradiating intermittent. No cough chest pain difficulty breathing headaches or neck stiffness. She has generalized weakness as well. Related Data Home Medications Medication Instructions Recorded Confirmed glimepiride 4 mg tablet 4 mg PO DAILY Diabetes 02/13/18 08/30/22 metformin 500 mg tablet 500 mg PO BIDWM Diabetes 02/13/18 08/30/22 alendronate 35 mg tablet 35 mg PO WEEKLY Osteoporosis 02/27/18 08/30/22 allopurinol 100 mg tablet 100 mg PO DAILY gout 05/17/20 08/30/22 amgyuivh-xnm-aeksc acid 0.4 1 each PO DAILY Supplement 07/27/20 08/30/22 mg-lycopene 300 mcg-lutein 250 mcg tablet cholecalciferol (vitamin D3) 50 50 mcg PO DAILY Supplement 08/29/20 08/30/22 mcg (2,000 unit) capsule nitrofurantoin 100 mg PO BID Supplement 11/26/20 08/30/22 monohydrate/macrocrystals 100 mg capsule aspirin 81 mg tablet,delayed 81 mg PO DAILY Heart disease 05/24/21 08/30/22 release amlodipine 5 mg tablet 5 mg PO DAILY 02/02/22 08/30/22 famotidine 40 mg tablet 40 mg PO DAILY 02/02/22 08/30/22 fluticasone propionate 50 intranasal 02/02/22 08/30/22 mcg/actuation nasal spray,suspension nystatin 1
[2023-01-14 09:25] LABS: Basophils % 0.3 % (0.1-2.0); Eosinophils # 0.1 K/mm3 (0.0-0.4); Hematocrit 45.9 % (37.0-47.0); Hemoglobin 14.6 g/dL (12.2-16.2); Mean Corpuscular HGB Conc 31.8 g/dL (31.8-35.4); Mean Corpuscular Hemoglobin 30.6 pg (27.0-31.2); Mean Corpuscular Volume 96.2 fl (81-99); Mean Platelet Volume 8.4 fl (7.4-10.4); Monocytes # 0.4 K/mm3 (0.1-1.0); Monocytes % 4.6 % (1.7-9.3); Neutrophils # 7.2 K/mm3 (1.8-7.8); Platelet Count 203 K/mm3 (142-424); Red Blood Count 4.77 M/mm3 (4.20-5.40); Red Cell Distribution Width 13.4 % (11.5-17.5); White Blood Count 8.6 K/mm3 (4.8-10.8)
[2023-01-14 09:27] LABS: Microscopic, Urine URINE MICROSCOPIC (MICROSCOPIC)
[2023-01-14 09:29] LABS: Alanine Aminotransferase 54 U/L (12-78); Albumin Level 4.2 g/dl (3.5-5.0); Albumin/Globulin Ratio 1.2 (1.1-1.8); Alkaline Phosphatase 146 U/L (38-126); Anion Gap 13.3 mEq/L (5-15); Aspartate Amino Transferase 90 U/L (14-36); Bilirubin,Total 0.7 mg/dl (0.2-1.3); Blood Urea Nitrogen 16 mg/dl (7-17); Calcium 8.9 mg/dl (8.4-10.2); Carbon Dioxide 26 mmol/L (22.0-30.0); Chloride 100 mmol/L (98-107); Creatinine Clearance Estimated 44 mL/min (50-200); Estimated Glomerular Filt Rate 53 ml/min (>60); GFR (African American) 64 ML/MIN (>60); Globulin 3.5 g/dL (1.3-3.2); Glucose 234 mg/dl (74-100); Lipase 185 U/L (23-300); Potassium 4.3 mmoL/L (3.5-5.1); Sodium 135 mmol/L (136-145); Total Protein,Serum 7.7 g/dl (6.3-8.2)
[2023-01-14 09:46] LABS: Appearance,Urine CLEAR (Clear); Blood, Urine Negative (Negative); Color,Urine YELLOW (Yellow); Glucose,Urine (UA) Negative (Negative); Ketones,Urine TRACE (Negative); Leukocyte Esterase,Urine Negative (Negative); Nitrate,Urine Negative (Negative); PH,Urine 5.5 (5.0-8.5); Protein,Urine 1+ (Negative); Specific Gravity, Urine 1.025 (1.005-1.030)
[2023-01-14 10:03] LABS: Bilirubin,Urine Negative (Negative)
--- NOTE | 2023-01-14 10:14 | PC.NURSE ---
rounded on pt, family at BS, call rodriguez in reach, updated pt we are waiting on CT scan results. Pt states no needs at this time.
[2023-01-14 11:27] LABS: Coronavirus 19, PCR Not Detected (NotDetected); Influenza A, PCR Not Detected (NotDetected); Influenza B, PCR Not Detected (NotDetected)
[2023-01-14 15:29] LABS: Bacteria,Urine Trace /lpf; Squamous Epithelial Cell,Urine Occasional #/hpf (0-5)
== END 2023-01-14 11:53 | disposition home or self-care (01) ==
PROVIDERS: Emergency Provider Emergency Medicine; PCP Family Medicine
DX: K57.32 Diverticulitis of large intestine without perforation or abscess without bleeding (principal); R53.1 Weakness; I25.10 Atherosclerotic heart disease of native coronary artery without angina pectoris; I48.91 Unspecified atrial fibrillation; I50.9 Heart failure, unspecified; E11.9 Type 2 diabetes mellitus without complications
CPT/HCPCS: 71045; 74177; 80053; 81001; 83690; 85025; 87040; 87077; 87186; 87636; 96374; 99285; Q9967

== ENCOUNTER 2023-01-16 13:56 | Emergency (ER) | payer MEDICARE, SELFPAY ==
[2023-01-16 14:21] VITALS: BP 109/63; PULSE 87; RESP 20; TEMP 36.4; O2SAT 100; BMI 26.5
[2023-01-16 14:38] LABS: Microscopic, Urine URINE MICROSCOPIC (MICROSCOPIC)
[2023-01-16 14:48] LABS: Appearance,Urine CLEAR (Clear); Bilirubin,Urine Negative (Negative); Blood, Urine Negative (Negative); Color,Urine YELLOW (Yellow); Glucose,Urine (UA) Negative (Negative); Ketones,Urine Negative (Negative); Leukocyte Esterase,Urine 1+ (Negative); Nitrate,Urine Negative (Negative); PH,Urine 5.5 (5.0-8.5); Protein,Urine Negative (Negative); Specific Gravity, Urine 1.015 (1.005-1.030); Urobilinogen,Urine 0.2 EU/dl (0.2)
[2023-01-16 14:51] LABS: Basophils % 0.5 % (0.1-2.0); Eosinophils # 0.1 K/mm3 (0.0-0.4); Eosinophils % 0.8 % (0.1-12.0); Hematocrit 46.2 % (37.0-47.0); Hemoglobin 14.9 g/dL (12.2-16.2); Lymphocytes # 2.7 K/mm3 (0.7-4.5); Lymphocytes % 29.3 % (10-50); Mean Corpuscular HGB Conc 32.3 g/dL (31.8-35.4); Mean Corpuscular Hemoglobin 30.5 pg (27.0-31.2); Mean Corpuscular Volume 94.5 fl (81-99); Mean Platelet Volume 8.9 fl (7.4-10.4); Monocytes # 0.5 K/mm3 (0.1-1.0); Monocytes % 5.8 % (1.7-9.3); Neutrophils # 5.9 K/mm3 (1.8-7.8); Neutrophils % 63.7 % (37.0-80.0); Platelet Count 240 K/mm3 (142-424); Red Blood Count 4.89 M/mm3 (4.20-5.40); Red Cell Distribution Width 13.2 % (11.5-17.5); White Blood Count 9.3 K/mm3 (4.8-10.8)
[2023-01-16 14:55] LABS: Chloride 99 mmol/L (98-107); Sodium 137 mmol/L (136-145)
[2023-01-16 14:56] LABS: Potassium 4.5 mmoL/L (3.5-5.1)
[2023-01-16 14:58] LABS: Alanine Aminotransferase 52 U/L (12-78); Albumin Level 3.9 g/dl (3.5-5.0); Albumin/Globulin Ratio 1.1 (1.1-1.8); Alkaline Phosphatase 148 U/L (38-126); Anion Gap 16.5 mEq/L (5-15); Aspartate Amino Transferase 46 U/L (14-36); Bilirubin,Total 0.4 mg/dl (0.2-1.3); Blood Urea Nitrogen 16 mg/dl (7-17); Carbon Dioxide 26 mmol/L (22.0-30.0); Creatinine Clearance Estimated 41 mL/min (50-200); Estimated Glomerular Filt Rate 47 ml/min (>60); GFR (African American) 57 ML/MIN (>60); Globulin 3.6 g/dL (1.3-3.2); Total Protein,Serum 7.5 g/dl (6.3-8.2)
[2023-01-16 14:59] LABS: Calcium 9.1 mg/dl (8.4-10.2); Glucose 188 mg/dl (74-100)
[2023-01-16 15:21] LABS: Bacteria,Urine Trace /lpf
--- NOTE | 2023-01-16 15:58 | HMH.EDGENADL ---
Discharge Plan Disposition Patient Disposition: Home, Self-Care Condition: Good Prescriptions Prescriptions: No Action furosemide 40 mg tablet 40 mg PO QODHS metformin 500 mg tablet 500 mg PO BID metoprolol tartrate 100 mg tablet 100 mg PO BID famotidine 40 mg tablet 40 mg PO DAILY allopurinol 100 mg tablet 100 mg PO DAILY simvastatin 40 mg tablet 40 mg PO DAILY levothyroxine 75 mcg tablet 75 mcg PO AM alendronate 35 mg tablet 35 mg PO DIRECTED levothyroxine 50 mcg tablet 50 mcg PO AM Patient Comments: TAKE 1 TABLET BY MOUTH ONCE DAILY glimepiride 4 mg tablet 4 mg PO DAILY Xarelto 20 mg tablet 20 mg PO DAILY Referrals Follow up/Referrals: Vanessa Alfonso MD [Primary Care Provider] - See instructions Activity Restrictions/Add. Instructions Additional Instructions/Restrictions: Continue antibiotics as directed. Follow-up PCP in 1 to 2 days. Return to the ER for fever, pain, confusion Clinical Impressions Clinical Impression: Diverticulitis Discharge ED Provider: Jose Alberto Sotelo General Adult HPI General Chief complaint: Weakness Stated complaint: Phys ref, poss bacterial inf in blood Time Seen by Provider: 01/16/23 14:56 Mode of Arrival: Wheelchair Source of Information: Patient and Relative Limitations: No Limitations Description of Symptoms (Recalled from ER Triage Doc. by RN): pt to ed c/o weakness and dizziness. pt reports being seen at her pcp office who sent her to ed for eval for possible blood infection. pt states she was seen on saturday in the ed and d/c home with oral abx. History of Present Illness HPI narrative: 82yo F presents to the ER as directed by her PCP office with concern for possible blood infection. Patient recently evaluated in the emergency department and diagnosed with diverticulitis. Taking antibiotics as directed. Denies fever, nausea/vomiting/diarrhea. Reports her symptoms have significantly improved Related Data Home Medications Medication Instructions Recorded Confirmed alendronate 35 mg tablet 35 mg PO DIRECTED Supplement 01/16/23 01/16/23 allopurinol 100 mg tablet 100 mg PO DAILY Gout 01/16/23 01/16/23 famotidine 40 mg tablet 40 mg PO DAILY Acid Reflux 01/16/23 01/16/23 furosemide 40 mg tablet 40 mg PO QODHS Fluid 01/16/23 01/16/23 glimepiride 4 mg tablet 4 mg PO DAILY Diabetes 01/16/23 01/16/23 levothyroxine 50 mcg tablet 50 mcg PO AM Thyroid 01/16/23 01/16/23 levothyroxine 75 mcg tablet 75 mcg PO AM Thyroid 01/16/23 01/16/23 metformin 500 mg tablet 500 mg PO BID Diabetes 01/16/23 01/16/23 metoprolol tartrate 100 mg tablet 100 mg PO BID Heart Rhythm 01/16/23 01/16/23 rivaroxaban 20 mg tablet (Xarelto) 20 mg PO DAILY Blood Thinner 01/16/23 01/16/23 simvastatin 40 mg tablet 40 mg PO DAILY High Cholesterol 01/16/23 01/16/23 Allergies Allergy/AdvReac Type Severity Reaction Status Date / Time Penicillins Allergy Unknown NA Verified 08/30/22 13:51 [facility] Disclaimer: The information contained in this section may have been updated after the patient was seen, as this information can be updated by other users. Medical History Abnormal Holter exam Atrial bigeminy Bigeminy Coronary artery disease Diastolic dysfunction Dyspnea PAC (premature atrial contraction) PVC (premature ventricular contraction) Thyroid nodule Ventricular bigeminy seen on telemetry monitor Social History Smoking Status: Never smoker second hand exposure: No alcohol intake: current substance use type: denies use current occupational status: retired Travel in the last 8 weeks: Inside the [place] household members: family housing: house current occupational exposures/hazards: No caffeine: Yes ROS Obtained: Yes Systems reviewed as appropriate & no additional complaints excep
[2023-01-16 16:20] VITALS: BP 157/61; PULSE 70; RESP 18; TEMP 36.5; O2SAT 100
== END 2023-01-16 16:20 | disposition home or self-care (01) ==
PROVIDERS: Emergency Provider Family Medicine; PCP Family Medicine
DX: K57.92 Diverticulitis of intestine, part unspecified, without perforation or abscess without bleeding (principal); I25.10 Atherosclerotic heart disease of native coronary artery without angina pectoris; I49.1 Atrial premature depolarization; I49.3 Ventricular premature depolarization; E04.1 Nontoxic single thyroid nodule
CPT/HCPCS: 80053; 81001; 85025; 87086; 99285

== ENCOUNTER → 2023-02-12 14:14 | Outpatient (CLI) | payer MEDICARE, SELFPAY ==
[2023-02-12 16:44] LABS: Thyroid Stimulating Hormone 0.02 uIU/mL (0.465-4.68)
== END ==
PROVIDERS: PCP Family Medicine; Visit Provider Otolaryngology
DX: E03.9 Hypothyroidism, unspecified (principal)
CPT/HCPCS: 36415; 84443

== ENCOUNTER 2023-04-29 19:14 | Emergency (ER) | payer MEDICARE, SELFPAY ==
[2023-04-29 19:30] VITALS: BP 145/96; PULSE 85; RESP 18; TEMP 36.6; O2SAT 98; BMI 25.7
--- NOTE | 2023-04-29 19:43 | EXP.UTC ---
Discharge Plan Disposition Patient Disposition: Home, Self-Care Condition: Good Prescriptions Prescriptions: No Action levothyroxine 25 mcg tablet 25 mcg PO DAILY Qty: 90 3RF nystatin-triamcinolone 100,000-0.1 unit/g-% cream topical Patient Comments: APPLY TOPICALLY TO THE AFFECTED AREA TWICE DAILY furosemide 20 mg tablet 10 mg PO Q OTHER DAY Rx Instructions: 1/2 tablet every other day (5mg) metoprolol tartrate 100 mg tablet 100 mg PO BID allopurinol 100 mg tablet 100 mg PO DAILY simvastatin 40 mg tablet 40 mg PO DAILY alendronate 35 mg tablet 35 mg PO DIRECTED glimepiride 4 mg tablet 4 mg PO DAILY Xarelto 20 mg tablet 20 mg PO DAILY metformin 500 mg tablet 500 mg PO BID Rx Instructions: 500mg in am 250mg in pm famotidine 40 mg tablet 40 mg PO DAILY PRN (Reason: Acid Reflux) Referrals Follow up/Referrals: Vanessa Alfonso MD [Primary Care Provider] - See instructions Verenice Cannon APRN [Nurse Practitioner] - See instructions Activity Restrictions/Add. Instructions Additional Instructions/Restrictions: Follow up with ENT tomorrow as scheduled DO not stick anything in your ear Return if needed Straight to ER if any life threatening symptoms Clinical Impressions Clinical Impression: Ear problem Qualifiers: Laterality: right Qualified Code(s): H93.91 - Unspecified disorder of right ear Instructions Patient Instructions: DI for Ear Pain-Adult Discharge ED Provider: Luda Chaidez [facility] General Stated complaint: right ear pain Mode of Arrival: Ambulatory Source of Information: Patient Limitations: No Limitations Time Seen by Provider: 04/29/23 19:43 Description of Symptoms (Recalled from Triage Doc. by RN): Pt was sticking toilet paper in her right ear and feels like she got a piece stuck in there HEENT Symptoms (Recalled from RN notes): Yes Resp Symptoms (Recalled from RN notes): No Skin Symptoms (Recalled from RN notes): No MS Symptoms (Recalled from RN notes): No Functional Status (Recalled from RN notes): n/a History of Present Illness Provider Complaint: Patient states she has been having chirping sound in her right ear states that she stuck a piece of tissue in there earlier trying to see if she may have had something in there and it broke off and she thinks she may have a piece stuck in there so she came in to get it checked Related Data Home Medications Medication Instructions Recorded Confirmed alendronate 35 mg tablet 35 mg PO DIRECTED Supplement 01/16/23 04/29/23 allopurinol 100 mg tablet 100 mg PO DAILY Gout 01/16/23 04/29/23 glimepiride 4 mg tablet 4 mg PO DAILY Diabetes 01/16/23 04/29/23 metoprolol tartrate 100 mg tablet 100 mg PO BID Heart Rhythm 01/16/23 04/29/23 rivaroxaban 20 mg tablet (Xarelto) 20 mg PO DAILY Blood Thinner 01/16/23 04/29/23 simvastatin 40 mg tablet 40 mg PO DAILY High Cholesterol 01/16/23 04/29/23 furosemide 20 mg tablet 10 mg PO Q OTHER DAY 02/27/23 04/29/23 metformin 500 mg tablet 500 mg PO BID Diabetes 02/27/23 04/29/23 nystatin-triamcinolone 100,000 applic topical 02/27/23 02/28/23 unit/g-0.1 % topical cream famotidine 40 mg tablet 40 mg PO DAILY PRN Acid Reflux 02/28/23 04/29/23 Previous Rx's Medication Instructions Recorded levothyroxine 25 mcg tablet 25 mcg PO DAILY #90 tabs 02/27/23 Allergies Allergy/AdvReac Type Severity Reaction Status Date / Time Penicillins Allergy Unknown NA Verified 04/29/23 19:43 Worker's Comp Is this a Worker's Comp case?: No [facility] Disclaimer: The information contained in this section may have been updated after the patient was seen, as this information can be updated by other users. Medical History (Updated 04/29/23 @ 19:58 by Luda Chaidez APRN) Abnormal Holter exam Atrial bigeminy Bigeminy Coronary artery disease Diastolic dysfunction Dyspnea Hyperlipidemia PAC (premature atrial con
[2023-04-29 20:06] VITALS: BP 145/96; PULSE 85; RESP 18; TEMP 36.6; O2SAT 98
== END 2023-04-29 20:06 | disposition home or self-care (01) ==
PROVIDERS: Emergency Provider Nurse Practitioner; PCP Family Medicine
DX: H93.91 Unspecified disorder of right ear (principal); I49.8 Other specified cardiac arrhythmias; I25.10 Atherosclerotic heart disease of native coronary artery without angina pectoris; E78.5 Hyperlipidemia, unspecified; E11.9 Type 2 diabetes mellitus without complications; Z79.84 Long term (current) use of oral hypoglycemic drugs
CPT/HCPCS: 99203; 99212; G0463

== ENCOUNTER → 2023-04-30 12:19 | Outpatient (CLI) | payer MEDICARE, SELFPAY ==
[2023-04-30 13:45] LABS: Free T4 (Free Thyroxine) 1.66 ng/dl (0.78-2.19)
[2023-04-30 13:58] LABS: Thyroid Stimulating Hormone 2.32 uIU/mL (0.465-4.68)
== END ==
PROVIDERS: PCP Family Medicine; Visit Provider Nurse Practitioner
DX: E04.2 Nontoxic multinodular goiter (principal)
CPT/HCPCS: 36415; 84439; 84443

== ENCOUNTER → 2023-05-14 12:10 | Outpatient (POV) | payer MEDICARE, SELFPAY | PROVIDERS: Visit Provider Specialist/Technologist | DX: Z00.00 Encounter for general adult medical examination without abnormal findings (principal) ==

== ENCOUNTER 2023-08-29 12:11 | Outpatient (CLI) | payer MEDICARE, SELFPAY ==
[2023-08-29 12:48] LABS: Basophils # 0.1 K/mm3 (0-0.2); Basophils % 0.5 % (0.1-2.0); Eosinophils % 0.4 % (0.1-12.0); Hematocrit 47.7 % (37.0-47.0); Hemoglobin 15.6 g/dL (12.2-16.2); Lymphocytes # 2.9 K/mm3 (0.7-4.5); Lymphocytes % 28.5 % (10-50); Mean Corpuscular HGB Conc 32.7 g/dL (31.8-35.4); Mean Corpuscular Hemoglobin 33.3 pg (27.0-31.2); Mean Corpuscular Volume 101.8 fl (81-99); Mean Platelet Volume 8.5 fl (7.4-10.4); Monocytes # 0.5 K/mm3 (0.1-1.0); Monocytes % 4.7 % (1.7-9.3); Neutrophils # 6.6 K/mm3 (1.8-7.8); Neutrophils % 65.9 % (37.0-80.0); Platelet Count 261 K/mm3 (142-424); Red Blood Count 4.68 M/mm3 (4.20-5.40); Red Cell Distribution Width 13.7 % (11.5-17.5)
[2023-08-29 13:25] LABS: Chloride 104 mmol/L (98-107); Potassium 4.1 mmoL/L (3.5-5.1); Sodium 144 mmol/L (136-145)
[2023-08-29 13:28] LABS: Alanine Aminotransferase 21 U/L (12-78); Albumin Level 4.4 g/dl (3.5-5.0); Alkaline Phosphatase 108 U/L (38-126); Anion Gap 11.1 mEq/L (5-15); Aspartate Amino Transferase 33 U/L (14-36); Bilirubin,Direct 0.2 mg/dl (0.0-0.4); Bilirubin,Indirect 0.3 mg/dL (0.0-0.9); Bilirubin,Total 0.5 mg/dl (0.2-1.3); Bilirubin,Unconjugated 0.3 mg/dL (0.0-1.1); Blood Urea Nitrogen 22 mg/dl (7-17); Calcium 9.7 mg/dl (8.4-10.2); Carbon Dioxide 33 mmol/L (22.0-30.0); Cholesterol 203 mg/dl (140-200); Estimated Glomerular Filt Rate 47 ml/min (>60); GFR (African American) 57 ML/MIN (>60); Glucose 168 mg/dl (74-100); Total Protein,Serum 7.3 g/dl (6.3-8.2); Triglycerides 258 mg/dl (30-150); VLDL Cholesterol 52 mg/dL (0-40)
[2023-08-29 13:29] LABS: HDL Cholesterol 41 mg/dl (40-60)
[2023-08-29 13:39] LABS: Direct LDL Cholesterol 99.09 mg/dL (100-129)
[2023-08-29 13:48] LABS: Free T4 (Free Thyroxine) 1.31 ng/dl (0.78-2.19)
[2023-08-29 13:59] LABS: Thyroid Stimulating Hormone 0.77 uIU/mL (0.465-4.68)
== END 2023-08-29 23:59 ==
LOC: LAB 12:13
PROVIDERS: PCP Family Medicine; Visit Provider Nurse Practitioner Family
DX: E78.5 Hyperlipidemia, unspecified (principal); I11.9 Hypertensive heart disease without heart failure; I48.0 Paroxysmal atrial fibrillation; R06.00 Dyspnea, unspecified; E11.9 Type 2 diabetes mellitus without complications; K21.9 Gastro-esophageal reflux disease without esophagitis; Z79.84 Long term (current) use of oral hypoglycemic drugs
CPT/HCPCS: 36415; 80048; 80061; 80076; 84439; 84443; 85025

== ENCOUNTER 2023-11-15 13:18 | Outpatient (CLI) | payer MEDICARE, SELFPAY ==
--- NOTE | 2023-11-15 13:19 | US_ITS ---
FINAL REPORT CLINICAL HISTORY: 6 month repeat COMPARISON: 07/26/2022 FINDINGS: Sonographic images of the thyroid gland were obtained. The left thyroid lobe measures 5.8 cm. in length. The right thyroid lobe is surgically absent. The thyroid isthmus measures 0.5 cm. Again noted is a heterogeneous mass in the left thyroid lobe measuring 4.7 cm in length, was 4.8 cm, stable. Mass is mostly solid and isoechoic, TR 3. IMPRESSION: Stable left thyroid mass. Reviewed, Interpreted and Dictated by Flip Brown III, MD Transcribed by Shirley Humphrey Authenticated and [facility]
[2023-11-15 15:30] LABS: Free T4 (Free Thyroxine) 1.12 ng/dl (0.78-2.19)
[2023-11-15 15:44] LABS: Thyroid Stimulating Hormone 0.85 uIU/mL (0.465-4.68)
== END 2023-11-15 23:59 | disposition home or self-care (01) ==
LOC: RAD 13:19
PROVIDERS: PCP Family Medicine; Visit Provider Nurse Practitioner
DX: E04.1 Nontoxic single thyroid nodule (principal); E03.9 Hypothyroidism, unspecified; E04.2 Nontoxic multinodular goiter
CPT/HCPCS: 36415; 76536; 84439; 84443

== ENCOUNTER 2024-02-27 14:10 | Outpatient (CLI) | payer MEDICARE, SELFPAY ==
[2024-02-27 14:42] LABS: Basophils # 0.1 K/mm3 (0-0.2); Basophils % 0.8 % (0.1-2.0); Eosinophils # 0.1 K/mm3 (0.0-0.4); Eosinophils % 0.4 % (0.1-12.0); Hematocrit 43.2 % (37.0-47.0); Lymphocytes # 3.5 K/mm3 (0.7-4.5); Lymphocytes % 32.8 % (10-50); Mean Corpuscular HGB Conc 32.4 g/dL (31.8-35.4); Mean Corpuscular Hemoglobin 32.2 pg (27.0-31.2); Mean Corpuscular Volume 99.4 fl (81-99); Mean Platelet Volume 8.4 fl (7.4-10.4); Monocytes # 0.5 K/mm3 (0.1-1.0); Monocytes % 5.1 % (1.7-9.3); Neutrophils # 6.4 K/mm3 (1.8-7.8); Neutrophils % 60.8 % (37.0-80.0); Platelet Count 298 K/mm3 (142-424); Red Blood Count 4.35 M/mm3 (4.20-5.40); Red Cell Distribution Width 13.8 % (11.5-17.5); White Blood Count 10.5 K/mm3 (4.8-10.8)
[2024-02-27 15:07] LABS: Alanine Aminotransferase 21 U/L (12-78); Albumin Level 3.7 g/dl (3.5-5.0); Alkaline Phosphatase 121 U/L (38-126); Anion Gap 14.1 mEq/L (5-15); Aspartate Amino Transferase 26 U/L (14-36); Bilirubin,Indirect 0.3 mg/dL (0.0-0.9); Bilirubin,Total 0.3 mg/dl (0.2-1.3); Bilirubin,Unconjugated 0.4 mg/dL (0.0-1.1); Blood Urea Nitrogen 14 mg/dl (7-17); Calcium 8.8 mg/dl (8.4-10.2); Carbon Dioxide 25 mmol/L (22.0-30.0); Chloride 105 mmol/L (98-107); Chol/HDL Ratio 3.9 (1-3.5); Cholesterol 157 mg/dl (140-200); Estimated Glomerular Filt Rate 60 ml/min (>60); GFR (African American) 72 ML/MIN (>60); Glucose 262 mg/dl (74-100); HDL Cholesterol 40 mg/dl (40-60); Potassium 4.1 mmoL/L (3.5-5.1); Total Protein,Serum 6.6 g/dl (6.3-8.2); Triglycerides 265 mg/dl (30-150); VLDL Cholesterol 53 mg/dL (0-40)
[2024-02-27 15:18] LABS: Direct LDL Cholesterol 76.94 mg/dL (100-129)
[2024-02-27 15:37] LABS: Thyroid Stimulating Hormone 0.86 uIU/mL (0.465-4.68)
[2024-02-27 15:42] LABS: Free T4 (Free Thyroxine) 1.27 ng/dl (0.78-2.19)
[2024-02-27 15:43] LABS: Sodium 140 mmol/L (136-145)
== END 2024-02-27 23:59 | disposition home or self-care (01) ==
LOC: LAB 14:13
PROVIDERS: PCP Family Medicine; Visit Provider Nurse Practitioner
DX: R00.0 Tachycardia, unspecified (principal); E78.2 Mixed hyperlipidemia; I48.91 Unspecified atrial fibrillation; I10 Essential (primary) hypertension
CPT/HCPCS: 36415; 80048; 80061; 80076; 84439; 84443; 85025

== ENCOUNTER 2024-03-11 13:08 | Outpatient (CLI) | payer MEDICARE, SELFPAY ==
--- NOTE | 2024-03-11 13:14 | CA_ITS ---
APPROVED REPORT EXAM: Comprehensive 2D, Doppler, and color-flow Echocardiogram Hvac Engineer: Yi Vila RT(R) Ht: 5 ft 3 in Wt: 139lbs BSA: 1.66 BP: 145/78 mmHg Indications: SOA, CAD, Abn EKG, AFIB, DD, dizziness, hypothyroidism, DM, HTN 2D Dimensions LVEF (Saleem's) 59.70 % F: 54 - 74 LV Volume 55.90 mL F: 46 - 106 LV Volume Index 33.7 mL/m2 F: 29 - 61 LA Volume 28.30 mL LA Volume Index 17.05 mL/m2 (M/F) 16-34 EF AP4 63.10 % EF AP2 54.3 % EF BP 59.7 % GL Strain -21.7 % M-Mode Dimensions RVDd 2.66 cm (0.9-2.6) LA Diam 3.63 cm (1.9-4.0) LVDd 3.78 cm (3.5-5.7) LVDs 2.82 cm (3.5-5.7) IVSd 1.33 cm (0.6-1.1) PWd 0.97 cm (0.6-1.1) EF (Teich) 50.80% FS 25.40% EDV (Teich) 61.20 mL ESV (Teich) 30.10 mL LV Diastology E Decel Time 200 (160-240 msec) E/A Ratio 0.7 Mitral Valve MV E Max Storm. 72.0 (40-130 cm/s) MV A Velocity 107.0 (40-130 cm/s) E/A Ratio 0.67 MV PHT 59.0 ms Tricuspid Valve TR P. Velocity 283.00 cm/s RAP Estimate 10.00 mmHg RVSP 42.10 mmHg Left Ventricle The left ventricle is normal size. The left ventricular systolic function is normal. The left ventricular ejection fraction is within the normal range. There is increased LV wall thickness. There is normal LV segmental wall motion. The left ventricular diastolic function is normal. LVEF is 55%. Right Ventricle Right ventricle is mildly dilated. The right ventricular systolic function is normal. Atria Left atrium is moderately dilated. Right atrium is moderately dilated. There is no Doppler evidence of interatrial shunt. Aortic Valve The aortic valve opens well. The aortic valve is trileaflet. There is no aortic valvular stenosis. No aortic regurgitation is present. Mitral Valve The mitral valve leaflets are mildly thickened. No evidence of mitral valve stenosis. Mild mitral regurgitation. Tricuspid Valve The tricuspid valve leaflets are thin and pliable. Moderate tricuspid regurgitation. RVSP is 30-35 mmHg. Pulmonic Valve The pulmonary valve is normal in structure. Trace pulmonic regurgitation. Great Vessels The aortic root is normal in size. IVC is normal in size and collapses >50% with inspiration. Pericardium There is no pericardial effusion. Other Information Study Quality: Fair Conclusion Normal biventricular systolic function. Mild RV dilation. Biatrial dilation. Moderate TR. Mild MR. RVSP 30-35 mmHg. Electronically signed by : Ayanna Perla MD 03/16/2024 11:50:20
== END 2024-03-11 23:59 | disposition home or self-care (01) ==
LOC: RT 13:11
PROVIDERS: PCP Family Medicine; Visit Provider Nurse Practitioner
DX: R06.09 Other forms of dyspnea (principal); I51.7 Cardiomegaly
CPT/HCPCS: 93306

== ENCOUNTER 2024-05-13 09:47 | Outpatient (CLI) | payer MEDICARE, SELFPAY ==
--- NOTE | 2024-05-13 09:53 | US_ITS ---
FINAL REPORT CLINICAL HISTORY: 6 MONTH F/U COMPARISON: 11/15/2023 FINDINGS: Sonographic images of the thyroid gland were obtained. The right thyroid lobe measures 58 mm. in length. The left thyroid lobe has been surgically resected. The thyroid isthmus measures 4 mm. There is a large mostly solid and isoechoic mass present in the right lobe of the thyroid gland, which measures 44 x 27 x 35 mm in size, visually stable when compared to the prior exam of November of this year. No new nodules or masses are identified. IMPRESSION: Prior left thyroidectomy. Stable nodule present in the right lobe of the thyroid gland, 44 mm in length, mostly solid, isoechoic, a TI-RADS category 3 nodule. No new nodules or masses are identified. Reviewed, Interpreted and Dictated by Flip Brown III, MD Transcribed by Ariane Victoria Authenticated and [facility]
[2024-05-13 11:40] LABS: Thyroid Stimulating Hormone 1.81 uIU/mL (0.465-4.68)
[2024-05-13 11:49] LABS: Free T4 (Free Thyroxine) 1.23 ng/dl (0.78-2.19)
== END 2024-05-13 23:59 | disposition home or self-care (01) ==
PROVIDERS: PCP Family Medicine; Visit Provider Nurse Practitioner
DX: E04.1 Nontoxic single thyroid nodule (principal)
CPT/HCPCS: 36415; 76536; 84439; 84443

== ENCOUNTER 2024-06-19 19:03 | Emergency (ER) | payer MEDICARE, SELFPAY ==
[2024-06-19 19:13] VITALS: BP 145/76; PULSE 83; RESP 18; TEMP 36.6; O2SAT 97; BMI 24.7
--- NOTE | 2024-06-19 19:37 | CT_ITS ---
PROCEDURE INFORMATION: Exam: CT Maxillofacial Without Contrast Exam date and time: 06/19/2024 7:50 PM Age: 83 years old Clinical indication: Injury or trauma; Blunt trauma (contusions or hematomas); Other: Fall injury, on xarelto TECHNIQUE: Imaging protocol: Computed tomography of the face without contrast. Radiation optimization: All CT scans at this facility use at least one of these dose optimization techniques: automated exposure control; mA and/or kV adjustment per patient size (includes targeted exams where dose is matched to clinical indication); or iterative reconstruction. COMPARISON: CT HEAD/BRAIN WO CON 06/19/2024 7:48 PM FINDINGS: Paranasal sinuses: Severe motion artifact through the maxillary sinus and orbits and upper portion of the mandible region which significantly limited this study. Fluid level noted in the right maxillary sinus. Associated small to moderate amounts of air noted in the soft tissues adjacent to the right maxillary sinus. Small amounts of air also noted within the anterior inferior right orbit. These findings may be related to a nondisplaced/nondepressed fracture of the right orbital floor adjacent to the lateral aspect of the infraorbital foramen. No other definite fracture of the right maxillary sinus or orbit seen. The above described potential fracture is best seen on the CT brain which includes this area as this area is somewhat obscured by motion on this CT. Orbital cavities: No evident proptosis. Bones: See Paranasal sinuses finding. Soft tissues: See Paranasal sinuses finding. IMPRESSION: 1. Possible nondisplaced blowout type fracture of the right orbital floor adjacent to the infraorbital foramen. Associated small to moderate amounts of soft tissue air around the maxillary sinus and in the anterior inferior right orbit. Small fluid level in the maxillary sinus also noted. 2. Sensitivity of this study for facial fracture significantly limited due to severe motion artifact.
--- NOTE | 2024-06-19 19:37 | CT_ITS ---
PROCEDURE INFORMATION: Exam: CT Head Without Contrast Exam date and time: 06/19/2024 7:48 PM Age: 83 years old Clinical indication: Injury or trauma; Fall; Blunt trauma (contusions or hematomas); Additional info: Fall injury, on xarelto TECHNIQUE: Imaging protocol: Computed tomography of the head without contrast. Radiation optimization: All CT scans at this facility use at least one of these dose optimization techniques: automated exposure control; mA and/or kV adjustment per patient size (includes targeted exams where dose is matched to clinical indication); or iterative reconstruction. COMPARISON: CT HEAD/BRAIN WO CON 06/09/2019 9:11 AM FINDINGS: Brain: No intracranial hemorrhage. Generalized atrophic changes of the ventricles and subarachnoid spaces. Chronic small-vessel ischemic changes noted. No mass, mass effect or midline shift. Intracranial atherosclerotic changes are noted. Cerebral ventricles: See Brain finding. Paranasal sinuses: Visualized sinuses are unremarkable. No fluid levels. Mastoid air cells: Visualized mastoid air cells are well aerated. Bones: Unremarkable. No acute fracture. Soft tissues: Unremarkable. IMPRESSION: 1. Chronic intracranial changes with some interval progression. No acute intracranial abnormality. 2. Evidence for possible right orbital floor blow-out fracture. Please refer to CT of the maxillofacial for detail.
--- NOTE | 2024-06-19 19:37 | CT_ITS ---
PROCEDURE INFORMATION: Exam: CT Cervical Spine Without Contrast Exam date and time: 06/19/2024 7:52 PM Age: 83 years old Clinical indication: Injury or trauma; Fall; Blunt trauma; Additional info: Fall injury, on xarelto TECHNIQUE: Imaging protocol: Computed tomography of the cervical spine without contrast. Radiation optimization: All CT scans at this facility use at least one of these dose optimization techniques: automated exposure control; mA and/or kV adjustment per patient size (includes targeted exams where dose is matched to clinical indication); or iterative reconstruction. COMPARISON: CT SOFT TISSUE NECK WO CON 09/01/2020 8:44 AM FINDINGS: Bones: Degenerative changes of the C-spine most pronounced at C5-C6 and C6-C7. Multilevel degenerative related [id number] and moderate central canal narrowing most pronounced at the C6-C7 level. Otherwise unremarkable CT of the C-spine with no fracture evident. Alignment and vertebral body heights are intact. Lungs: Lung apices are normal. Thyroid: Enlarged left lobe of the thyroid redemonstrated. Right thyroid resection again noted. Soft tissues: Unremarkable. IMPRESSION: Degenerative changes. No acute abnormality.
--- NOTE | 2024-06-19 19:45 | HMH.EDGENADL ---
Discharge Plan Disposition Patient Disposition: Home, Self-Care Prescriptions Prescriptions: New hydrocodone-acetaminophen 5-325 mg tablet 1 tab PO Q6H PRN (Reason: pain) 3 Days Qty: 12 0RF No Action cefdinir 300 mg capsule 300 mg PO BID Patient Comments: TAKE 1 CAPSULE BY MOUTH TWICE DAILY FOR 7 DAYS (DME) lancets [TRUEplus Lancets] 28 gauge misc See Rx Instructions .ROUTE .MEDSUPPLY Qty: 100 Rx Instructions: As directed furosemide 40 mg tablet 20 mg PO Q OTHER DAY levothyroxine 25 mcg tablet 25 mcg PO DAILY Qty: 90 3RF nystatin-triamcinolone 100,000-0.1 unit/g-% cream topical Patient Comments: APPLY TOPICALLY TO THE AFFECTED AREA TWICE DAILY Xarelto 20 mg tablet See Rx Instructions .ROUTE .COMPLEX Qty: 90 3RF Dose Instruction: TAKE 1 TABLET EVERY DAY Rx Instructions: TAKE 1 TABLET EVERY DAY metoprolol tartrate 100 mg tablet See Rx Instructions .ROUTE .COMPLEX Qty: 180 3RF Dose Instruction: TAKE 1 TABLET TWICE DAILY Rx Instructions: TAKE 1 TABLET TWICE DAILY allopurinol 100 mg tablet 100 mg PO DAILY simvastatin 40 mg tablet 40 mg PO DAILY alendronate 35 mg tablet 35 mg PO DIRECTED glimepiride 4 mg tablet 4 mg PO DAILY metformin 500 mg tablet 500 mg PO BID Rx Instructions: 500mg in am 250mg in pm famotidine 40 mg tablet 40 mg PO DAILY PRN (Reason: Acid Reflux) Referrals Follow up/Referrals: Antony Fagan MD [Physician] - See instructions Vanessa Alfonso MD [Primary Care Provider] - See instructions Activity Restrictions/Add. Instructions Additional Instructions/Restrictions: You have a minor closed fracture of the floor of your right orbit which is also the roof of your right maxillary sinus with some blood in your maxillary sinus that is communicating with your nasal cavities which is why you are experiencing some blood coming out of your nose. No indication for stopping your Xarelto at the moment. Given the fact that you still have some dizziness I do believe that you have had a mild concussion the symptoms may persist for a few weeks please be very careful with ambulation and falling until those symptoms resolved. If you continue to have falling episodes I recommend he have a risk and benefit discussion with your primary care doctor regarding whether or not you need to remain on your anticoagulation. As discussed please take [id number] decongestions/Sudafed. Additionally please maintain sinus precautions as discussed which includes being careful with blowing your nose and bearing down/having a Valsalva maneuver. I also recommend you follow-up with a facial surgeon to ensure resolution of your symptoms this could be a plastic surgeon and oral maxillofacial surgeon or an ear nose and throat doctor. We have referred you to our ENT doctor here. There is no evidence of any bleeding in your brain please return with any changes in mental status or other concerns. Clinical Impressions Clinical Impression: Fall, Epistaxis due to trauma, Contusion of face, Closed blow-out fracture of right orbit Print Language Print Language: Romanian Discharge ED Provider: Antony Conner General Adult HPI General Chief complaint: Fall Stated complaint: ao 06/19, facial bruising Time Seen by Provider: 06/19/24 19:24 Mode of Arrival: Ambulatory Limitations: No Limitations Description of Symptoms (Recalled from ER Triage Doc. by RN): pt fell on concret hit rigt side of face on blood thinner no LOC History of Present Illness HPI narrative: Patient is an 83-year-old chronically anticoagulated on Xarelto from atrial fibrillation who presents today with a facial injury/head injury after a mechanical fall. She was in a parking lot when she tripped and fell landing directly onto a concrete pilon that was parking spots striking directly onto her right zygomatic region. No loss of consciousness no persistent nausea vomiting she has had some blood that has been coming through her nose. No significant nasal pain no significant changes in her vision. No significant neck pain chest pain or abdominal pelvis pain. Related Data Home Medications ?Medication ?Instructions ?Recorded ?Confirmed alendronate 35 mg tablet 35 mg PO DIRECTED Supplement 01/16/23 05/25/24 allopurinol 100 mg tablet 100 mg PO DAILY Gout 01/16/23 05/25/24 glimepiride 4 mg tablet 4 mg PO DAILY Diabetes 01/16/23 05/25/24 simvastatin 40 mg tablet 40 mg PO DAILY High Cholesterol 01/16/23 05/25/24 metformin 500 mg tablet 500 mg PO BID Diabetes 02/27/23 05/25/24 nystatin-triamcinolone 100,000 applic topical 02/27/23 05/25/24 unit/g-0.1 % topical cream famotidine 40 mg tablet 40 mg PO DAILY PRN Acid Reflux 02/28/23 05/25/24 cefdinir 300 mg capsule 300 mg PO BID 05/25/24 05/25/24 furosemide 40 mg tablet 20 mg PO Q OTHER DAY 05/25/24 05/25/24 lancets 28 gauge (TRUEplus Lancets) #100 ea 05/25/24 05/25/24 Previous Rx's ?Medication ?Instructions ?Recorded levothyroxine 25 mcg tablet 25 mcg PO DAILY #90 tabs 02/27/23 rivaroxaban 20 mg tablet (Xarelto) See Rx Instructions .Route 03/24/24 .COMPLEX #90 tabs metoprolol tartrate 100 mg tablet See Rx Instructions .Route 05/21/24 .COMPLEX #180 tabs hydrocodone 5 mg-acetaminophen 325 1 tab PO Q6H PRN pain 3 days #12 06/19/24 mg tablet tabs Allergies Allergy/AdvReac Type Severity Reaction Status Date / Time Penicillins Allergy Unknown NA Verified 05/25/24 11:27 [facility] Disclaimer: The information contained in this section may have been updated after the patient was seen, as this information can be updated by other users. Medical History (Updated 06/19/24 @ 21:28 by Antony Conner MD) Dizziness Tinnitus, bilateral Foreign body in right ear Hyperlipidemia Diastolic dysfunction Coronary artery disease Thyroid nodule PVC (premature ventricular contraction) PAC (premature atrial contraction) Ventricular bigeminy seen on potline monitor Atrial bigeminy Bigeminy Abnormal Holter exam Dyspnea Surgical History (Updated 05/25/24 @ 11:35 by KEVIN Villela) History of partial hysterectomy History of thyroidectomy Social History Smoking Status: Former smoker second hand exposure: No alcohol intake: current alcohol intake frequency: a few times a week substance use type: denies use current occupational status: retired Travel in the last 8 weeks: Inside the [place] household members: family housing: house current occupational exposures/hazards: No caffeine: Yes Have you lived/traveled outside US in past 30 days?: No Contact w/someone who lives/traveled outside US past 30 days?: No Exposure to someone with infectious disease in past 14 days?: No Do you have a fever (greater than 100.4 F or 38 C)?: No Have you tested positive for COVID-19: No Exposed to someone with COVID-19 in past 14 days?: No Do you have a sore throat?: No Do you have a cough?: No Do you have any weakness?: No Do you have any diarrhea?: No Are you experiencing any unusual bleeding?: No Do you have any muscle aches/pain?: No Do you have any abdominal pain?: No Are you experiencing loss of taste or smell?: No Other Medical History Have you received the Flu Vaccine for this season: No Have you received the Pneumonia Vaccine: No ROS Obtained: Yes All systems reviewed & no additional complaints except as documented Physical Exam General General appearance: alert and in no apparent distress Head Head exam: other (There is right zygomatic tenderness palpation no significant step-offs there is superficial skin abrasions and ecchymosis periorbitally she also has bleeding in bilateral naris no evidence of any significant nasal bone deformity or Garcia sign or septal hematoma) Neck Neck exam: Absent tenderness (No midline tenderness) Respiratory Respiratory exam: Present normal lung sounds bilaterally Cardiovascular Cardiovascular exam: Present regular rate Neurological Exam Neurological exam: Present alert and oriented X3 Medical Decision Making Medical Records Screening: Per USPSTF and CDC recommendations, given the prevalence of disease in our region, it is our hospital?s policy to screen for HIV and viral Hepatitis for all patients aged 18 and over and those with ongoing risk factors. Anam Inquiry Pt receiving controlled substance: No Vital Signs: 06/19/24 19:13 06/19/24 21:23 Temperature 97.8 F 98 F Temperature Source Oral Pulse Rate 66 Pulse Rate [Right Radial] 83 Respiratory Rate 18 18 Blood Pressure 149/66 H Blood Pressure [Right Arm] 145/76 H Blood Pressure Mean [Right Arm] 99 02 Sat by Pulse Oximetry 97 Oxygen Delivery Method Room Air Orders (Tests/Meds): ED MEDICATIONS Discontinued Medications Generic Name Dose Route Start Last Admin Trade Name Freq PRN Reason Stop Dose Admin Acetaminophen 1,000 mg 06/19/24 19:37 06/19/24 19:53 Acetaminophen 500mg Tab PO 06/19/24 19:38 1,000 mg ONCE ONE Administration ORDERS Category Date Time Status CT cervical spine wo con Stat Cat Scan 06/19/24 19:[address] facial bones wo con Stat Cat Scan 06/19/24 19:[address] head/brain wo con Stat Cat Scan 06/19/24 19:37 Completed Medical Decision Narrative: 83-year-old female presents with above history and physical. Being anticoagulated on Xarelto she is high risk for intracranial hemorrhage we will get a CT scan of her head face cervical spine for further evaluation management. The blood in her nares without an obvious nasal bone fracture makes me concerned about a minor maxillary sinus injury. Will reassess after her initial scans are complete Tylenol has been administered. Reassessment 933 patient serial neurologic exams remain normal. No excessive bleeding. CT scans performed which I personally interpreted no evidence of any intracranial hemorrhage cervical spine is unremarkable from a fracture standpoint. Radiology reads are consistent with this. Regarding her right face there is an air-fluid level and blood in her right maxillary sinus with what appears to be an inferior blowout fracture/orbital floor/maxillary roof fracture. Clinically she has no evidence of any entrapment. She was moving significantly during the CT scan and there is some limitation in what we were able to see but no definitive midface or other fracture was noted. No antibiotic prophylaxis is needed she has been told to take decongestions was given pain medicine and placed on sinus precautions and advised to follow-up with an ENT doctor. No indication for seeing an stretching machine tender frame at the moment. This is almost certainly nonoperative. She also states she was slightly dizzy after this head injury likely has had a mild concussion she has been advised to be very careful with being on Xarelto her daughter will stay with her overnight she will return with any worsening symptoms. She has been given a referral to her ENT doctor and she is also been told that she can follow-up with plastics or OMFS if she would prefer. She was discharged in improved and stable condition. Critical Care Critical Care Time Critical Care Time: No
[2024-06-19] MEDS: ACETAMINOPHEN 500MG TAB 1000 MG PO (19:53)
[2024-06-19 21:23] VITALS: BP 149/66; PULSE 66; RESP 18; TEMP 36.6; O2SAT 98
== END 2024-06-19 21:40 | disposition home or self-care (01) ==
PROVIDERS: Emergency Provider Student in an Organized Health Care Education/Training Program; PCP Family Medicine
DX: S02.31XA Fracture of orbital floor, right side, initial encounter for closed fracture (principal); S00.83XA Contusion of other part of head, initial encounter; R04.0 Epistaxis; R42 Dizziness and giddiness; W01.198A Fall on same level from slipping, tripping and stumbling with subsequent striking against other object, initial encounter; Y93.89 Activity, other specified; Y92.481 Parking lot as the place of occurrence of the external cause
CPT/HCPCS: 70450; 70486; 72125; 99284

== ENCOUNTER 2024-06-22 15:58 | Outpatient (CLI) | payer MEDICARE, SELFPAY ==
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
== END 2024-06-22 23:59 | disposition home or self-care (01) ==
LOC: RAD 15:59
PROVIDERS: PCP Family Medicine; Visit Provider Family Medicine
DX: R07.81 Pleurodynia (principal)
CPT/HCPCS: 71046; 71100

== ENCOUNTER 2024-07-21 09:54 | Outpatient (CLI) | payer MEDICARE, SELFPAY ==
[2024-07-21 10:19] LABS: Basophils % 0.4 % (0.1-2.0); Eosinophils # 0.1 K/mm3 (0.0-0.4); Eosinophils % 0.9 % (0.1-12.0); Hemoglobin 12.8 g/dL (12.2-16.2); Lymphocytes # 2.4 K/mm3 (0.7-4.5); Lymphocytes % 27.1 % (10-50); Mean Corpuscular HGB Conc 33.7 g/dL (31.8-35.4); Mean Corpuscular Hemoglobin 33.2 pg (27.0-31.2); Mean Corpuscular Volume 98.7 fl (81-99); Mean Platelet Volume 10.4 fl (7.4-10.4); Monocytes # 0.6 K/mm3 (0.1-1.0); Monocytes % 6.3 % (1.7-9.3); Neutrophils # 5.9 K/mm3 (1.8-7.8); Platelet Count 217 K/mm3 (142-424); Red Blood Count 3.85 M/mm3 (4.20-5.40); Red Cell Distribution Width 13.4 % (11.5-17.5)
[2024-07-21 11:47] LABS: Free T4 (Free Thyroxine) 1.41 ng/dl (0.78-2.19)
[2024-07-21 12:57] LABS: Albumin Level 3.7 g/dl (3.5-5.0); Chloride 108 mmol/L (98-107); Sodium 140 mmol/L (136-145)
[2024-07-21 12:58] LABS: Potassium 4.2 mmoL/L (3.5-5.1)
[2024-07-21 13:00] LABS: Alanine Aminotransferase 22 U/L (12-78); Alkaline Phosphatase 89 U/L (38-126); Anion Gap 9.2 mEq/L (5-15); Aspartate Amino Transferase 27 U/L (14-36); Bilirubin,Direct 0.3 mg/dl (0.0-0.4); Bilirubin,Indirect 0.1 mg/dL (0.0-0.9); Bilirubin,Total 0.4 mg/dl (0.2-1.3); Bilirubin,Unconjugated 0.1 mg/dL (0.0-1.1); Blood Urea Nitrogen 19 mg/dl (7-17); Carbon Dioxide 27 mmol/L (22.0-30.0); Cholesterol 117 mg/dl (140-200); Estimated Glomerular Filt Rate 53 ml/min (>60); GFR (African American) 64 ML/MIN (>60); Triglycerides 201 mg/dl (30-150); VLDL Cholesterol 40 mg/dL (0-40)
[2024-07-21 13:01] LABS: Chol/HDL Ratio 3.3 (1-3.5); Glucose 154 mg/dl (74-100); HDL Cholesterol 36 mg/dl (40-60); Magnesium 1.8 mg/dl (1.6-2.3)
[2024-07-21 13:18] LABS: Direct LDL Cholesterol 49.35 mg/dL (100-129)
[2024-07-21 14:21] LABS: NT Pro Brain Natriuretic Pep. 1530 pg/mL (0-450)
[2024-07-21 14:43] LABS: Thyroid Stimulating Hormone 1.48 uIU/mL (0.465-4.68)
== END 2024-07-21 23:59 | disposition home or self-care (01) ==
PROVIDERS: PCP Family Medicine; Visit Provider Physician Assistant
DX: K30 Functional dyspepsia (principal); I48.91 Unspecified atrial fibrillation; E78.2 Mixed hyperlipidemia; E11.9 Type 2 diabetes mellitus without complications; I10 Essential (primary) hypertension; E03.9 Hypothyroidism, unspecified; R06.00 Dyspnea, unspecified; I25.110 Atherosclerotic heart disease of native coronary artery with unstable angina pectoris
CPT/HCPCS: 36415; 80048; 80061; 80076; 83735; 83880; 84439; 84443; 85025

== ENCOUNTER 2024-07-24 09:06 | Outpatient (CLI) | payer MEDICARE, SELFPAY ==
[2024-07-24 09:24] VITALS: BMI 25.6
[2024-07-24 09:34] VITALS: BP 129/59; PULSE 71; RESP 16; TEMP 36.6; O2SAT 98
[2024-07-24] MEDS: METOPROLOL TARTRATE 50MG TABLET PO (09:40)
[2024-07-24 09:44] LABS: POC Glucose,Bedside 153 (70-110)
[2024-07-24 10:30] VITALS: BP 121/62; PULSE 61; RESP 16; O2SAT 94
[2024-07-24] MEDS: 0.9 % SODIUM CHLORIDE 50 ML VIAL IV (10:30)
[2024-07-24] MEDS: NITROGLYCERIN 0.4MG SL TABLET SL (10:30)
[2024-07-24] MEDS: IOPAMIDOL-370 (76%);100ML BOTTLE 80 ML IV (10:30)
[2024-07-24 10:33] VITALS: BP 95/44; PULSE 65; RESP 16; O2SAT 96
[2024-07-24 10:36] VITALS: BP 100/55; PULSE 69; RESP 16; O2SAT 99
[2024-07-24 10:39] VITALS: BP 98/56; PULSE 69; RESP 16; O2SAT 99
[2024-07-24 10:50] VITALS: BP 124/62; PULSE 74; RESP 16; O2SAT 99
== END 2024-07-24 23:59 | disposition home or self-care (01) ==
PROVIDERS: PCP Family Medicine; Visit Provider Physician Assistant
DX: I25.110 Atherosclerotic heart disease of native coronary artery with unstable angina pectoris (principal); R06.00 Dyspnea, unspecified; K30 Functional dyspepsia
CPT/HCPCS: 75574; 82962; Q9967

== ENCOUNTER 2024-07-27 15:09 | Outpatient (CLI) | payer MEDICARE, SELFPAY ==
[2024-07-27 15:52] LABS: Chloride 106 mmol/L (98-107); Potassium 4.2 mmoL/L (3.5-5.1); Sodium 140 mmol/L (136-145)
[2024-07-27 15:55] LABS: Anion Gap 11.2 mEq/L (5-15); Blood Urea Nitrogen 17 mg/dl (7-17); Calcium 9.1 mg/dl (8.4-10.2); Carbon Dioxide 27 mmol/L (22.0-30.0); Estimated Glomerular Filt Rate 53 ml/min (>60); GFR (African American) 64 ML/MIN (>60); Glucose 123 mg/dl (74-100)
[2024-07-27 16:08] LABS: NT Pro Brain Natriuretic Pep. 1740 pg/mL (0-450)
== END 2024-07-27 23:59 | disposition home or self-care (01) ==
LOC: LAB 15:11
PROVIDERS: PCP Family Medicine; Visit Provider Physician Assistant
DX: R06.00 Dyspnea, unspecified (principal)
CPT/HCPCS: 36415; 80048; 83880

== ENCOUNTER 2024-08-11 14:15 | Outpatient (CLI) | payer MEDICARE, SELFPAY ==
[2024-08-11 15:19] LABS: Anion Gap 15.2 mEq/L (5-15); Blood Urea Nitrogen 19 mg/dl (7-17); Calcium 9.6 mg/dl (8.4-10.2); Carbon Dioxide 30 mmol/L (22.0-30.0); Chloride 103 mmol/L (98-107); Estimated Glomerular Filt Rate 47 ml/min (>60); GFR (African American) 57 ML/MIN (>60); Glucose 153 mg/dl (74-100); Potassium 4.2 mmoL/L (3.5-5.1); Sodium 144 mmol/L (136-145)
[2024-08-11 15:27] LABS: NT Pro Brain Natriuretic Pep. 1580 pg/mL (0-450)
== END 2024-08-11 23:59 | disposition home or self-care (01) ==
LOC: LAB 14:16
PROVIDERS: PCP Family Medicine; Visit Provider Physician Assistant
DX: R06.00 Dyspnea, unspecified (principal)
CPT/HCPCS: 36415; 80048; 83880

== ENCOUNTER 2024-08-14 20:22 | Emergency (ER) | payer MEDICARE, SELFPAY ==
[2024-08-14 20:37] VITALS: BP 141/65; PULSE 93; RESP 18; TEMP 36.7; O2SAT 92; BMI 21.9
--- NOTE | 2024-08-14 21:36 | HMH.EDGENADL ---
Discharge Plan Disposition Patient Disposition: Home, Self-Care Condition: Good Chief Complaint: Wound/Laceration Prescriptions Prescriptions: No Action cefdinir 300 mg capsule 300 mg PO BID Patient Comments: TAKE 1 CAPSULE BY MOUTH TWICE DAILY FOR 7 DAYS (DME) lancets [TRUEplus Lancets] 28 gauge misc See Rx Instructions .ROUTE .MEDSUPPLY Qty: 100 Rx Instructions: As directed furosemide 40 mg tablet 20 mg PO Q OTHER DAY spironolactone 25 mg tablet 25 mg PO DAILY Qty: 90 3RF levothyroxine 25 mcg tablet 25 mcg PO DAILY Qty: 90 3RF nystatin-triamcinolone 100,000-0.1 unit/g-% cream 0.1 applic topical DAILY Patient Comments: APPLY TOPICALLY TO THE AFFECTED AREA TWICE DAILY isosorbide dinitrate 30 mg tablet 30 mg PO ONCE Rx Instructions: allow nitrate-free interval of 12-14 hrs per 24-hr period lansoprazole 15 mg tablet,disintegrat, delay rel 15 mg PO DAILY (DME) True Metrix Glucose Test Strip Strip See Rx Instructions .ROUTE .MEDSUPPLY Qty: 10 Rx Instructions: As directed Xarelto 20 mg tablet See Rx Instructions .ROUTE .COMPLEX Qty: 90 3RF Dose Instruction: TAKE 1 TABLET EVERY DAY Rx Instructions: TAKE 1 TABLET EVERY DAY metoprolol tartrate 100 mg tablet See Rx Instructions .ROUTE .COMPLEX Qty: 180 3RF Dose Instruction: TAKE 1 TABLET TWICE DAILY Rx Instructions: TAKE 1 TABLET TWICE DAILY allopurinol 100 mg tablet 100 mg PO DAILY simvastatin 40 mg tablet 40 mg PO DAILY alendronate 35 mg tablet 35 mg PO DIRECTED glimepiride 4 mg tablet 4 mg PO DAILY metformin 500 mg tablet 500 mg PO BID Rx Instructions: 500mg in am 250mg in pm famotidine 40 mg tablet 40 mg PO DAILY PRN (Reason: Acid Reflux) Referrals Follow up/Referrals: Vanessa Alfonso MD [Primary Care Provider] - See instructions Activity Restrictions/Add. Instructions Additional Instructions/Restrictions: You were evaluated in the emergency department today. Please keep your wound clean and dry. Do not submerge in any water. Do not pick at the glue. Let it fall off on its own. You were given a Tdap booster today. Follow-up closely with your primary care provider. Return to the emergency department for new or worsening symptoms. Clinical Impressions Clinical Impression: Laceration of finger Instructions Patient Instructions: DI for Laceration Repair Print Language Print Language: Vietnamese Discharge ED Provider: Kely Nazario General Adult HPI General Chief complaint: Wound/Laceration Stated complaint: RT pinky lac @1400 Time Seen by Provider: 08/14/24 21:23 Mode of Arrival: Ambulatory Source of Information: Patient Limitations: No Limitations Description of Symptoms (Recalled from ER Triage Doc. by RN): Patient reports a laceration that she sustained today at 1400. States she was going through the trash can attempting find something, and sustained the laceration, but is unsure on what. Unknown if her tetnus vaccination is up to date. Band-aid in place. Patient states everytime she removes the bandage, the wound bleeds again. Patient endorses anticoagulant usage. Assessment delayed in triage until provider evaluation. History of Present Illness HPI narrative: This patient is an 84-year-old female with a history of paroxysmal atrial fibrillation on Xarelto presenting to the emergency department for evaluation with concern for laceration to her right pinky. She states that she was going to the trash can to find something when she cut it, she is not sure on what. This happened around 2:00 PM. She is unsure when her last tetanus shot was. She notes that her primary concern is that she has continued bleeding from the wound intermittently and is not able to get it under control. No other concerns noted at this time. Related Data Home Medications ?Medication ?Instructions ?Recorded ?Confirmed alendronate 35 mg tablet 35 mg PO DIRECTED Supplement 01/16/23 08/11/24 allopurinol 100 mg tablet 100 mg PO DAILY Gout 01/16/23 08/11/24 glimepiride 4 mg tablet 4 mg PO DAILY Diabetes 01/16/23 08/11/24 simvastatin 40 mg tablet 40 mg PO DAILY High Cholesterol 01/16/23 08/11/24 metformin 500 mg tablet 500 mg PO BID Diabetes 02/27/23 08/11/24 nystatin-triamcinolone 100,000 0.1 applic topical DAILY 02/27/23 08/11/24 unit/g-0.1 % topical cream famotidine 40 mg tablet 40 mg PO DAILY PRN Acid Reflux 02/28/23 08/11/24 cefdinir 300 mg capsule 300 mg PO BID 05/25/24 08/11/24 furosemide 40 mg tablet 20 mg PO Q OTHER DAY 05/25/24 08/11/24 lancets 28 gauge (TRUEplus Lancets) #100 ea 05/25/24 08/11/24 blood sugar diagnostic (True #10 ea 06/24/24 08/11/24 Metrix Glucose Test Strip) isosorbide dinitrate 30 mg tablet 30 mg PO ONCE 07/21/24 08/11/24 lansoprazole 15 mg delayed 15 mg PO DAILY 07/21/24 08/11/24 release,disintegrating tablet Previous Rx's ?Medication ?Instructions ?Recorded levothyroxine 25 mcg tablet 25 mcg PO DAILY #90 tabs 02/27/23 rivaroxaban 20 mg tablet (Xarelto) See Rx Instructions .Route 03/24/24 .COMPLEX #90 tabs metoprolol tartrate 100 mg tablet See Rx Instructions .Route 05/21/24 .COMPLEX #180 tabs spironolactone 25 mg tablet 25 mg PO DAILY #90 tabs 08/11/24 Allergies Allergy/AdvReac Type Severity Reaction Status Date / Time Penicillins Allergy Unknown NA Verified 08/11/24 13:47 [facility] Disclaimer: The information contained in this section may have been updated after the patient was seen, as this information can be updated by other users. Medical History Elevated brain natriuretic peptide (BNP) level Diabetes Hypothyroidism Indigestion Worsening angina Dizziness Tinnitus, bilateral Foreign body in right ear Hyperlipidemia Diastolic dysfunction Coronary artery disease Thyroid nodule PVC (premature ventricular contraction) PAC (premature atrial contraction) Ventricular bigeminy seen on ekg monitor tech Atrial bigeminy Bigeminy Abnormal Holter exam Dyspnea Surgical History History of partial hysterectomy History of thyroidectomy Social History Smoking Status: Never smoker second hand exposure: No alcohol intake: current alcohol intake frequency: a few times a week substance use type: denies use current occupational status: retired Travel in the last 8 weeks: Inside the [place] household members: family housing: house current occupational exposures/hazards: No caffeine: Yes Have you lived/traveled outside US in past 30 days?: No Contact w/someone who lives/traveled outside US past 30 days?: No Exposure to someone with infectious disease in past 14 days?: No Do you have a fever (greater than 100.4 F or 38 C)?: No Have you tested positive for COVID-19: No Exposed to someone with COVID-19 in past 14 days?: No Do you have a sore throat?: No Do you have a cough?: No Do you have any weakness?: No Do you have any diarrhea?: No Are you experiencing any unusual bleeding?: No Do you have any muscle aches/pain?: No Do you have any abdominal pain?: No Are you experiencing loss of taste or smell?: No Other Medical History Have you received the Flu Vaccine for this season: No Have you received the Pneumonia Vaccine: No ROS Obtained: Yes All systems reviewed & no additional complaints except as documented Physical Exam General General appearance: alert and in no apparent distress Head Head exam: atraumatic and normocephalic Eye Eye exam: Present normal appearance, PERRL and EOMI ENT ENT exam: Present normal exam, normal oropharynx, mucous membranes moist and normal external ear exam Neck Neck exam: Present normal inspection, full ROM and trachea midline; Absent tenderness Chest Chest inspection: Present normal inspection and symmetric chest wall rise; Absent tenderness Respiratory Respiratory exam: Present normal lung sounds bilaterally; Absent respiratory distress, wheezes, stridor or accessory muscle use Cardiovascular Cardiovascular exam: Present regular rate and normal rhythm Abdominal Exam Abdominal exam: Present soft; Absent distention, tenderness or guarding Extremities Exam Extremities exam: Present full ROM and normal capillary refill; Absent tenderness or edema Expanded Upper Extremity Exam Right: Hand L/R back image: 1. Superficial subcentimeter lacerations currently hemostatic. Neurovascularly intact distally Back Exam Back exam: Present normal inspection and full ROM; Absent tenderness Neurological Exam Neurological exam: Present alert, oriented X3, CN II-XII intact and normal gait; Absent motor sensory deficit Psychiatric Psychiatric exam: Present normal affect and normal mood Skin Skin exam: Present warm and dry Medical Decision Making Medical Records Medical records reviewed: Yes I reviewed the patient's medical records. Screening: Per USPSTF and CDC recommendations, given the prevalence of disease in our region, it is our hospital?s policy to screen for HIV and viral Hepatitis for all patients aged 18 and over and those with ongoing risk factors. Anam Inquiry Pt receiving controlled substance: No Vital Signs: 08/14/24 20:37 Temperature 98.1 F Temperature Source Oral Pulse Rate [Radial] 93 H Respiratory Rate 18 Blood Pressure [Left Arm] 141/65 H Blood Pressure Mean [Left Arm] 90 Blood Pressure Source [Left Arm] Automatic Cuff 02 Sat by Pulse Oximetry 92 L Oxygen Delivery Method Room Air Lab Data Lab results reviewed: Yes I reviewed the patient's lab results. Orders (Tests/Meds): ED MEDICATIONS Discontinued Medications Generic Name Dose Route Start Last Admin Trade Name Jennifer PRN Reason Stop Dose Admin Tetanus/Reduced Diphtheria/Acell Pertussis 0.5 ml 08/14/24 21:30 Tet/Diphth/Pert-Adult 0.5ml Syringe IM 08/14/24 21:31 .ONCE ONE Medical Decision Narrative: In summary, this patient is a 84-year-old female presenting to the Emergency Department for evaluation of laceration to the right pinky. Differential diagnoses considered include but are not limited to laceration, abrasion, neurovascular injury. Ruling out the most morbid conditions drove assessment. It should be noted patient's history includes atrial fibrillation on Xarelto which may or may not be at goal therapy. This complicates all aspects of care by increasing patient's risk for morbidity. On exam, the patient is very well-appearing. She has a very superficial subcentimeter laceration to the right pinky that is currently hemostatic. Wound was copiously irrigated, Tdap booster was administered, and the wound was glued. Patient tolerated this well with no acute complication. At this time, exam is reassuring and I feel she is appropriate for discharge home with instructions for supportive management and wound care. Strict return precautions were given and she was discharged after all questions were answered. Procedures Risk/Benefits of Procedure(s) Were Explained: Yes Laceration Laceration 1: Site: finger Side (If applicable): right Size (cm): 0.5 Description: linear Depth: simple, single layer Pre-repair: wound explored, irrigated extensively and deep structures intact Skin layer closed with: Dermabond Critical Care Critical Care Time Critical Care Time: No
[2024-08-14] MEDS: TET/DIPHTH/PERT-ADULT 0.5ML SYRINGE 0.5 ML IM (21:39)
[2024-08-14 21:52] VITALS: BP 118/72; PULSE 74; RESP 16; TEMP 36.6; O2SAT 98
== END 2024-08-14 21:52 | disposition home or self-care (01) ==
PROVIDERS: Emergency Provider Emergency Medicine; PCP Family Medicine
DX: S61.216A Laceration without foreign body of right little finger without damage to nail, initial encounter (principal); Z23 Encounter for immunization; Z79.01 Long term (current) use of anticoagulants; W26.9XXA Contact with unspecified sharp object(s), initial encounter; Y93.89 Activity, other specified; Y92.9 Unspecified place or not applicable
CPT/HCPCS: 12001; 90471; 90715; 99283

== ENCOUNTER 2024-11-11 14:35 | Outpatient (CLI) | payer MEDICARE, SELFPAY ==
--- NOTE | 2024-11-11 14:30 | US_ITS ---
FINAL REPORT TECHNIQUE: Sonographic images of the thyroid gland were obtained in the longitudinal and transverse planes. CLINICAL HISTORY: history of thyroidectomy COMPARISON: 05/13/2024 FINDINGS: The right lobe is absent. The left lobe measures 6.1 x 3.0 x 3.3 cm. There is a mixed cystic and solid 4.7 cm nodule which previously measured 4.4 cm. The difference may be related to technique. No new nodules in the left lobe. The isthmus measures 3 mm. This is normal. IMPRESSION: Stable large TR 3 left thyroid nodule. If not previously biopsied, biopsy recommended per TI-RADS criteria. Reviewed, Interpreted and Dictated by Jami Petty MD Transcribed by hSirley Humphrey Authenticated and [facility]
[2024-11-11 16:07] LABS: Chloride 105 mmol/L (98-107); Potassium 4.3 mmoL/L (3.5-5.1); Sodium 140 mmol/L (136-145)
[2024-11-11 16:10] LABS: Anion Gap 13.3 mEq/L (5-15); Blood Urea Nitrogen 16 mg/dl (7-17); Calcium 9.1 mg/dl (8.4-10.2); Carbon Dioxide 26 mmol/L (22.0-30.0); Estimated Glomerular Filt Rate 47 ml/min (>60); GFR (African American) 57 ML/MIN (>60); Glucose 265 mg/dl (74-100)
[2024-11-11 16:19] LABS: NT Pro Brain Natriuretic Pep. 317 pg/mL (0-450)
[2024-11-11 16:45] LABS: Thyroid Stimulating Hormone 1.07 uIU/mL (0.465-4.68)
== END 2024-11-11 23:59 | disposition home or self-care (01) ==
PROVIDERS: Physician Assistant; PCP Family Medicine; Visit Provider Nurse Practitioner
DX: E03.9 Hypothyroidism, unspecified (principal); R79.89 Other specified abnormal findings of blood chemistry; N28.9 Disorder of kidney and ureter, unspecified
CPT/HCPCS: 36415; 76536; 80048; 83880; 84439; 84443

== ENCOUNTER 2024-11-24 07:46 | Outpatient (CLI) | payer MEDICARE, SELFPAY ==
--- NOTE | 2024-11-24 08:00 | US_ITS ---
FINAL REPORT CLINICAL HISTORY: LT THYROID NODULE -- LT THYROID FNA -- TRELL GERMAIN FINDINGS: ULTRASOUND GUIDED THYROID BIOPSY HISTORY: Left thyroid nodule/mass. TECHNIQUE: Informed consent was obtained from the patient. A time-out was performed. Limited sonographic evaluation of thyroid gland was performed to localize lesion of interest. The neck was prepped in a routine sterile fashion and locally anesthetized with 1% lidocaine. FNA was performed with 25-gauge needle under direct sonographic visualization. 4 passes of the large left thyroid nodule were made. Cytology is pending. Procedure was well tolerated. CONCLUSION: Technically successful thyroid fine needle aspiration of a left thyroid nodule/mass. Reviewed, Interpreted and Dictated by Vanessa Gonzalez MD Transcribed by Riddhi Lam PA-C Authenticated and [facility]
== END 2024-11-24 23:59 | disposition home or self-care (01) ==
PROVIDERS: PCP Family Medicine; Visit Provider Nurse Practitioner
DX: E04.1 Nontoxic single thyroid nodule (principal)
CPT/HCPCS: 10005; 88173; 88305

== ENCOUNTER 2024-12-21 13:36 | Outpatient (CLI) | payer MEDICARE, SELFPAY ==
--- OUTSIDE RECORDS SUMMARY | 2024-11-19 09:45 | XMS_ITS ---
Author Organization [facility] Address [address] [facility] [address] [id number] Care Team Providers Care Learning Technologies Specialist Name Role Phone Antony Alfonso Primary Care Provider Renata Mcfarlane Unavailable [phone] Allergies Allergen (clinical drug ingredient) Drug/Non Drug Allergy documented on EMR Reaction Allergy Type Onset Date Status Penicillin rash Drug Allergy Active REASON FOR VISIT nerve pain in hand Medications Medication SIG (Take, Route, Frequency, Duration) Notes Start Date End Date Status Furosemide 40 MG 1 tablet orally Once a day for 90 days Active Alendronate Sodium 35 MG TAKE 1 TABLET O NE TIME WEEKLY for 84 Active Cipro 500 MG 1 tablet Orally Two times a day for 3 days 10/29/2024 Active Clotrimazole-Betamethasone 1-0.05 % 1 application Externally Twice a day 10/29/2024 Active Glimepiride 4 MG TAKE 1 TABLET EVERY DAY for 90 Active Xarelto 20 MG 1 tab(s) orally once a day (in the evening) for 30 days Active Nystatin-Triamcinolone 235506-0.1 UNIT/GM 1 application Externally Twice a day 01/31/2023 Active Levothyroxine Sodium 25 MCG 1 tab(s) Ora lly once a day for 90 days Active Famotidine 40 MG TAKE 1 TABLET EVERY DAY for 90 days Active Calcium 500 MG 1 TAB ORALLY ONCE DAILY 07/19/2016 Active Loratadine 10 MG 1 tab(s) orally once a day Active Centrum Silver - 1 tab(s) orally once a day for 30 day(s) Active Metoprolol Tartrate 100 MG 1 tab(s) orally bid Active Aspirin 81 MG 1 tab(s) orally once a day Active Vitamin D3 1000 IU 2 P.O. Q DAY 07/19/2016 Active Voltaren 1 % as directed External ly four times a day as needed 11/19/2024 Active Spironolactone 25 MG 1 tablet Orally Active metFORMIN HCl 500 MG TAKE 1 TABLET TWICE DAILY for 90 Active Simvastatin 40 MG TAKE 1 TABLET AT BED TIME for 90 Active Allopurinol 100 MG TAKE 1 TABLET EVERY DAY for 90 Active Isosorbide Dinitrate 30 MG TAKE 1 TABLET ONE TIME DAILY for 90 Active Vital Signs Blood pressure systolic 116 mm Hg 11/20/19 25 Blood pressure diastolic 70 mm Hg 025 Heart Rate 77 /min 11/19/2024 Height 62 in 11/19/2024 Weight 131.2 lbs 11/19/2024 BMI 23.99 kg/m2 11/19/2024 Encounters Encounter Location Date Provider Diagnosis [facility] [address] [facility] [address] [facility] [address] [place] [id number] 11/19/2024 Renata Mcfarlane De Quervain's tenosynovitis M65.4 Assessments Encounter Date Diagnosis (ICD Code) Assessment Notes Treatment Notes Treatment Clinical Notes Section Notes 11/19/2024 De Quervain's tenosynovitis (ICD-10 - M65.4) Will get a thumb spika. Plan Of Treatment Medication Medication Name Sig Start Date Stop Date Notes Voltaren 1 % as directed External ly four times a day as needed 11/19/2024 Treatment Notes Assessment Notes De Quervain's tenosynovitis Will get a t humb spika. Next Appt Details Follow Up: prn, Reason: Provider Name:Antony mcfarland, 12/21/2024 04:15:00 PM, [address] [facility] [address] [facility], [address], [place], [id number], Provider Name:Antony mcfarland, 01/25/2025 10:45:00 AM, [address] [facility] [address] [facility], [address], [place], [id number], Progress Notes * Ian ZAFAR:1940 (84 yo F)Acc No.[id number]:11/19/2024 Progress Notes Patient: Geetha JOHN Provider: MARCELLUS Garcia :1940 A ge:84 Y S ex:Female Date:11/19/2024 Address:[facility] [place] MONTIEL, Samina FISCHER [id number] Pcp:Antony Alfonso Subjective: * Chief Complaints: * 1 . Nerve pain in hand. * HPI: W rist/Hand: 84 year old female presents with c/o pain P t is here with c/o having nerves pain in her left hand. Pt sts her hand is better, but sts that the pain was very bad. Pt sts she was not able to move her finger and that it kept her awake. Pt sts the pain started 4 days ago and sts when she woke up this morning it was better. Pt has been taking Tylenol and soaking her hand in warm Epsom Salt water. Pt sts her hand was swollen around her thumb as well. * ROS: D ERMATOLOGY: no R anni. n o H kamila. G ASTROENTEROLOGY: no N ausea. n o V omiting. n o D iarrhea.? U ROLOGY: no D ifficulty urinating. n o B lood in urine. * Medical History: H ypertension, Hyperlipidemia, Prolapsed Bladder, Hypothyroidism, Multinodular goiter, Covid, Type 2 Diabetes, Fx rt arm 12/05/2020. * Surgical History: A ppendectomy, as a child , tubal ligation 1970, Thyroidectomy - [facility] 03/13/2018, Ovary Dermoid Cyst Removal- , Dr. Hernadez 07/11/2019. * Hospitalization/Major Diagno stic Procedure: D iarrhea at [facility] 01/2015, Overnight at [facility] 03/13/2018, Fever 09/03/2020, [facility] ER- for a fall and hurt her right wrist . * Family History: F ather: 84 yrs. M other: 89 yrs. 2 sister(s) . 1 son(s) , 3 daughter(s) . . 1 brother , 1 sister . * Social History: C URRENT TOBACCO USE S moking Status: P atient does NOT smoke. C affeine: yes, frequency:coffee, qd. Home smoke detector use: yes. Marital Status: . Past smoking status: did smoke in the past. Alcohol: Yes, Type: , Frequency: ,Years: , Determination:twice weekly. * Medications: T aking Spironolactone 25 MG Tablet 1 tablet Orally , Taking metFORMIN HCl 500 MG Tablet TAKE 1 TABLET TWICE DAILY , Taking Simvastatin 40 MG Tablet TAKE 1 TABLET AT BEDTIME , Taking Allopurinol 100 MG Tablet TAKE 1 TABLET EVERY DAY , Taking Loratadine 10 MG Tablet 1 tab(s) orally once a day , Taking Centrum Silver - Tablet 1 tab(s) orally once a day , Taking Metoprolol Tartrate 100 MG Tablet 1 tab(s) orally bid , Taking Aspirin 81 MG Tablet Delayed Release 1 tab(s) orally once a day , Taking Vitamin D3 1000 IU 2 P.O. Q DAY , Taking Calcium 500 MG 1 TAB ORALLY ONCE DAILY , Taking Xarelto 20 MG Tablet 1 tab(s) orally once a day (in the evening) , Taking Nystatin-Triamcinolone 920037-2.1 UNIT/GM Cream 1 application Externally Twice a day , Taking Levothyroxine Sodium 25 MCG Tablet 1 tab(s) Orally once a day , Taking Famotidine 40 MG Tablet TAKE 1 TABLET EVERY DAY , Taking Furosemide 40 MG Tablet 1 tablet orally Once a day , Taking Alendronate Sodium 35 MG Tablet TAKE 1 TABLET ONE TIME WEEKLY , Taking Cipro 500 MG Tablet 1 tablet Orally Two times a day , Taking Clotrimazole-Betamethasone 1-0.05 % Cream 1 application Externally Twice a day , Taking Glimepiride 4 MG Tablet TAKE 1 TABLET EVERY DAY , Taking Isosorbide Dinitrate 30 MG Tablet TAKE 1 TABLET ONE TIME DAILY , Medication List reviewed and reconciled with the patient * Allergies: P enicillin: rash - Allergy. Objective: * Vitals: W t: 131.2, Temp: 98.2, BP: 116/70, HR: 77, Nurse: mmtommy, Ht: 62, BMI:23.99. * Examination: W rist / Hand: Wrist/Hand: l eft. Inspection: n o swelling, redness or ecchymosis. Range of motion: p ain with opposition of the left thumb, positive Rudy Test. Palpation: t tp at the base of the thumb. 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 Assessment: * Assessment: 1. D e Quervain's tenosynovitis - M65.4 (Primary) S pecify :thumb Plan: * Treatment: * Procedure Codes: G 2211 Complex e/m visit add on * Follow Up: p rn * Billing Information: * Visit Code: 81713 Office Visit, Est Pt., Level 3. * Procedure Codes: G2211 Complex e/m visit add on. * Electronic signature of MARCELLUS Brooks on 12/21/2024 at 01:43 PM EDT Sign off status: Pending * Provider: MARCELLUS Garcia Date: 0 11/19/2024 Generated for Pavani gonzalo/Fadebig/eTransmitting on: 0 12/21/2024 01:43 PM EDT History and Physical Notes * HPI (History of Present Illness) Category Sub-Category Detail Notes Category Not es Wrist/Hand pain Pt is here with c/o having nerves pain in her left hand. Pt sts her hand is better, but sts that the pain was very bad. Pt sts she was not able to move her finger and that it kept her awake. Pt sts the pain started 4 days ago and sts when she woke up this morning it was better. Pt has been taking Tylenol and soaking her hand in warm Epsom Salt water. 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
--- OUTSIDE RECORDS SUMMARY | 2024-12-17 12:00 | XMS_ITS ---
Author Organization [facility] Address [address] [facility] [address] [place] [id number] Care Team Providers Care Observer Helper Name Role Phone Antony Alfonso Primary Care Provider Allergies Allergen (clinical drug ingredient) Drug/Non Drug Allergy documented on EMR Reaction Allergy Type Onset Date Status Penicillin rash Drug Allergy Active Results Component Value Reference Range Notes P-Basic Metabolic Panel (BMP ) (Not yet reviewed by provider) Interpretation: Performing Lab: Notes/Report: Test performed by [facility] [address] [place] [address] , [address], [place] [address] Saúl Araiza MD, Lab Asst CLIA: [id number] Sodium 140 135-145 mmol/L Potassium 4.5 3.5-5.3 mmol/L Chloride 102 97-108 mmol/L CO2 24 22-32 mmol/L Glucose 103 65-99 mg/dL BUN 19 8-23 mg/dL Creatinine 1.30 0.50-1.00 mg/dL Calcium 9.9 8.6-10.4 mg/dL eGFR by Creatinine 40 >59 mL/min/1.73m2 CBC Venipuncture (in house) Reviewed date:12/17/2024 05:27:47 PM Interpretation: Performing Lab: Notes/Report: wbc 10.6 3.5 - 10 lymph 33.9% 15 - 50 mid 6.6% 2 - 15 gran 59.5% 35 - 80 rbc 4.27 3.5 - 5.5 hgb 13.3 11.5 - 16.5 hct 40.3 35 - 55 mcv 94.4 75 - 100 mch 31.3 25 - 35 mchc 33.1 31 - 38 platlet 305 100 - 400 REASON FOR VISIT SOA Medications Medication SIG (Take, Route, Frequency, Duration) Notes Start Date End Date Status Allopurinol 100 MG TAKE 1 TABLET EVERY DAY for 90 Active Spironolactone 25 MG 1 tablet Orally Active metFORMIN HCl 500 MG TAKE 1 TABLET TWICE DAILY for 90 Active Simvastatin 40 MG TAKE 1 TABLET AT BED TIME for 90 Active Medrol 4 MG as directed Orally f or 6 days 12/17/2024 Active Clotrimazole-Betamethasone 1-0.05 % 1 application Externally Twice a day 10/29/2024 Active Glimepiride 4 MG TAKE 1 TABLET EVERY DAY for 90 Active Isosorbide Dinitrate 30 MG TAKE 1 TABLET ONE TIME DAILY for 90 Active Voltaren 1 % as directed External ly four times a day as needed 11/19/2024 Active Furosemide 40 MG 1 tablet orally Once a day for 90 days Active Alendronate Sodium 35 MG TAKE 1 TABLET O NE TIME WEEKLY for 84 Active Levothyroxine Sodium 25 MCG 1 tab(s) Ora lly once a day for 90 days Active Famotidine 40 MG TAKE 1 TABLET EVERY DAY for 90 days Active Nystatin-Triamcinolone 556370-4.1 UNIT/GM 1 application Externally Twice a day 01/31/2023 Active Metoprolol Tartrate 100 MG 1 tab(s) orally bid Active Calcium 500 MG 1 TAB ORALLY ONCE DAILY 07/19/2016 Active Xarelto 20 MG 1 tab(s) orally once a day (in the evening) for 30 days Active Aspirin 81 MG 1 tab(s) orally once a day Active Vitamin D3 1000 IU 2 P.O. Q DAY 07/19/2016 Active Centrum Silver - 1 tab(s) orally once a day for 30 day(s) Active Loratadine 10 MG 1 tab(s) orally once a day Active Vital Signs Blood pressure systolic 120 mm Hg 12/18/19 25 Blood pressure diastolic 62 mm Hg 025 Heart Rate 62 /min 12/17/2024 Height 62 in 12/17/2024 Weight 129.4 lbs 12/17/2024 BMI 23.66 kg/m2 12/17/2024 Encounters Encounter Location Date Provider Diagnosis [facility] [address] [place], [place] [id number] 12/17/2024 Antony Alfonso Shortness of breath R06.02 ; Leg pain, left M79.605 and History of DVT (deep vein thrombosis) Z86.718 Assessments Encounter Date Diagnosis (ICD Code) Assessment Notes Treatment Notes Treatment Clinical Notes Section Notes 12/17/2024 Shortness of breath (ICD-10 - R06.02) 12/17/2024 Leg pain, left (ICD-10 - M79.605) 12/17/2024 History of DVT (deep vein thrombosis) (ICD-10 - Z86.718) Plan Of Treatment Medication Medication Name Sig Start Date Stop Date Notes Medrol 4 MG as directed Orally for 6 days 12/17/2024 Pending Test Test Name Order Date venous doppler ultrasound leg, lower lef t 12/17/2024 CT scan : Chest with PE Protocol 025 P-Basic Metabolic Panel (BMP) 12/17/2024 Next Appt Details Follow Up: Saturday, Reason: Provider Name:Antony Jimenez [facility], 12/21/2024 04:15:00 PM, [address] [place] [address] [address] [facility], [facility] [address], [place], [place], [phone], Provider Name:Antony Jimenez [facility], 01/25/2025 10:45:00 AM, [address] [place] [address] [address] [facility], [address], [place], [place], [phone], Progress Notes * BLAKE ZoraaDOB:1940 (84 yo F)Acc No.[id number]:12/17/2024 Progress Notes Patient: Geetha JOHN Provider: Antony Alfonso M.D. :1940 A ge:84 Y S ex:Female Date:12/17/2024 Address:[address] [place] [address], [place] [id number] Subjective: * Chief Complaints: * 1 . SOA. * HPI: C ardiology: The pt is here today with c/o shortness of breath and cough. Pt states she is eating a lot of cough drops. Pt's daughter states the pt called her last night and stated she cough not get a good breath. Pt called back after she coughed up some phlem and stated she can breath better. Pt states she states it is worse in the evenings. Pt's daughter states she c/o SOB all the time. 84 year old female presents with c/o Short of Breath. Denies : Chest Pain. D enies : Dizziness. * ROS: D ERMATOLOGY: no R anni. [...] child , tubal ligation 1970, Thyroidectomy - [facility] 03/13/2018, Ovary Dermoid Cyst Removal- , Dr. Hernadez 07/11/2019. * Hospitalization/Major Diagno stic Procedure: D iarrhea at [facility] 01/2015, Overnight at [facility] 03/13/2018, Fever 09/03/2020, [facility] ER- for a fall and hurt [...] day (in the evening) , Taking Nystatin-Triamcinolone 768612-8.1 UNIT/GM Cream 1 application Externally Twice a day , Taking Levothyroxine Sodium 25 MCG Tablet 1 tab(s) Orally once a day , Taking Famotidine 40 MG Tablet TAKE 1 TABLET EVERY DAY , Taking Furosemide 40 MG Tablet 1 tablet orally Once a day , Taking Alendronate Sodium 35 MG Tablet TAKE 1 TABLET ONE TIME WEEKLY , Taking Clotrimazole-Betamethasone 1-0.05 % Cream 1 application Externally Twice a day , Taking Glimepiride 4 MG Tablet TAKE 1 TABLET EVERY DAY , Taking Isosorbide Dinitrate 30 MG Tablet TAKE 1 TABLET ONE TIME DAILY , Taking Voltaren 1 % Gel as directed Externally four times a day as needed , Discontinued Cipro 500 MG Tablet 1 tablet Orally Two times a day , Medication List reviewed and reconciled with the patient * Allergies: P enicillin: rash - Allergy. Objective: * Vitals: W t: 129.4, Temp: 97.9, BP: 120/62, HR: 62, O2 Sat: 98% on RA, Nurse: JAVIER, Ht: 62, BMI:23.66. * Examination: G eneral Examination: General Appearance: N AD, weight noted. HEENT: S clera and conjunctiva clear, PERRLA, periorbital area WNL. Oral cavity: n o lesions, mucosa moist and WNL, no erythema. Neck: s upple, no lymphadenopathy. Chest: n ormal shape and expansion. Heart: R SR, no ectopics, aortic murmur. Lungs: c lear to auscultation. Neurologic Exam: I ntact, gait normal. Skin: n ormal, no rash. Peripheral pulses: n ormal . Back: mild dorsal kyphosis. Extremities: n o leg edema, some fullness of the left calf.? Assessment: * Assessment: 1. S hortness of breath - R06.02 (Primary) 2 . L eg pain, left - M79.605? 3. H istory of DVT (deep vein thrombosis) - Z86.718 Plan: * Treatment: Value Reference Range B UN 19 8-23 - mg/dL * C alcium 9.9 8.6-10.4 - mg/dL * C hloride 102 97-108 - mmol/L * C O2 24 22-32 - mmol/L * C reatinine 1.30 H 0.50-1.00 - mg/dL * G lucose 103 H 65-99 - mg/dL * P otassium 4.5 3.5-5.3 - mmol/L * S odium 140 135-145 - mmol/L * e GFR by Creatinine 40 L >59 - mL/min/1.73m2 ?LAB: CBC Venipuncture (in house) (Collection Date & Time - 12/17/2024)* Value Reference Range w bc 10.6 3.5 - 10 * l ymph 33.9% 15 - 50 * m id 6.6% 2 - 15 * g ran 59.5% 35 - 80 * r bc 4.27 3.5 - 5.5 * h gb 13.3 11.5 - 16.5 * h ct 40.3 35 - 55 * m cv 94.4 75 - 100 * m ch 31.3 25 - 35 * m chc 33.1 31 - 38 * p latlet 305 100 - 400 * Radha Benjamin 12/17/2024 05 :10:33 PM EDT > Provider reviewed results while patient in office. ?Imaging: CT scan : Chest with PE Protocol* Maria Lennon 12/18/2024 08:5 3:06 AM EDT > pending clinical review in insurance 2.?Leg pain, left?Imaging: venous doppler ultrasound leg, lower left* Maria Lennon 12/18/2024 08:5 1:23 AM EDT > no auth required; CPT code 45146; faxed to [facility] Scheduling 3.?History of DVT (deep vein thrombosis)?Imaging: venous doppler ultrasound leg, lower left* Maria Lennon 12/18/2024 08:5 1:23 AM EDT > no auth required; CPT code 52792; faxed to [facility] Scheduling ?Imaging: CT scan : Chest with PE Protocol* Maria Lennon 12/18/2024 08:5 3:06 AM EDT > pending clinical review in insurance * Procedure Codes: 8 5025 CBC WITH AUTO DIFF, 63781 VENIPUNCT, ROUTINE* * Follow Up: M on * Billing Information: * Visit Code: 20879 Office Visit, Est Pt., Level 4. * Procedure Codes: 05312 CBC WITH AUTO DIFF. 44141 VENIPUNCT, ROUTINE*. * Electronic signature of Antony Alfonso MD on 12/21/2024 at 01:42 PM EDT Sign off status: Pending * Provider: Antony Alfonso M.D. Date: 0 12/17/2024 Generated for Pavani gonzalo/Chris/eTransmitting on: 0 12/21/2024 01:42 PM EDT History and Physical Notes * HPI (History of Present Illness) Category Sub-Category Detail Notes Category Not es Cardiology Short of Breath Chest Pain Dizziness Examination Category Sub-Category Detail Notes Category Not es General Examination HEENT: Sclera and c onjunctiva clear, PERRLA, periorbital area WNL Heart: RSR, no ectopics, ao rtic murmur Lungs: clear to auscultatio n Extremities: no leg edema, some f ullness of the left calf General Appearance: NAD, weight noted Skin: normal, no rash Neurologic Exam: Intact, gait normal Neck: supple, no lymphaden opathy Oral cavity: no lesions, mucosa m oist and WNL, no erythema Peripheral pulses: normal Back: mild dorsal kyphosis Chest: normal shape and exp ansion
--- NOTE | 2024-12-21 | CA_ITS ---
FINAL REPORT TECHNIQUE: Multiple transverse and longitudinal scans were performed of the femoropopliteal deep venous system, with augmentation and compression maneuvers. CLINICAL HISTORY: LEFT LEG PAIN X SEVERAL DAYS,NKI,HX DVT,PT ON XARELTO FINDINGS: Proper flow is seen throughout the deep venous system. There is no evidence of deep venous thrombosis. IMPRESSION: No evidence of deep venous thrombosis in the left lower extremity. Reviewed, Interpreted and Dictated by Guillermo Chau MD Transcribed by Shea Bond Authenticated and . [facility]
--- OUTSIDE RECORDS SUMMARY | 2024-12-21 13:43 | XMS_ITS | Clinical Summary ---
Author Organization [facility] Address [address] [place] [address] Care Team Providers Care Fashion Coordinator Name Role Phone Vinh Chen MD Primary Care Provider [phone] Social History Tobacco Use Types Packs/Day Years Used Date Smoking Tobacco: Passive Smo ke Exposure - Never Smoker Comments Unknown Sex and Gender Information Value Date Recorded Sex Assigned at Not on file Legal Sex Female 7:37 PM EDT Gender Identity Not on file Sexual Orientation Not on file Plan of Treatment Health Maintenance Due Date Last Done Comments [facility]-Bone Density Scan 1940 [facility]-Depression Screening 1940 [facility]-Medicare Annual Wellness (AWV) 1940 [facility]-Infant/Child/Adol SDOH Screenings 1940 [facility]- SDOH Screenings 1956 [facility]-Adult SDOH Screenings 1956 [facility]-DTaP,Tdap,and Td Vaccines (1 - Tdap) 1957 [facility]-Zoster Vaccines (1 of 2) 1988 [facility]-RSV Vaccine: 60+ Years or (1 - 1-dose 75+ series) 2013 [facility]-[id number]-07 Vaccine ( - 2023- season) 2024 [facility]-Influenza Vaccine (Season Ended) 2025 [facility]-Pneumococcal Vaccine: 50+ Years Completed 11/12/2017, 10/26/2016 HPV Vaccines Aged Out No longer eligi ble based on patient's age to complete this topic [facility]-HIB Vaccines Aged Out No longer e ligible based on patient's age to complete this topic [facility]-Hepatitis A Vaccines Aged Out No longer eligible based on patient's age to complete this topic [facility]-IPV Vaccines Aged Out No longer e ligible based on patient's age to complete this topic [facility]-Rotavirus Vaccines Aged Out No lo nger eligible based on patient's age to complete this topic Insurance [employer] Care Teams Fashion Coordinator Relationship Specialty Start Date End Date Vinh Chen MD [address] [place] [address] [place] [phone] PCP - General 11/18/20
--- OUTSIDE RECORDS SUMMARY | 2024-12-21 13:43 | XMS_ITS | Patient Health Record ---
[facility] [address] [facility] [address] [place] [id number] Care Team Providers Care Clinical Lab Technologist Name Role Phone Antony Alfonso Primary Care Provider Renata Mcfarlane Unavailable [phone] Allergies Allergen (clinical drug ingredient) Drug/Non Drug Allergy documented on EMR Reaction Allergy Type Onset Date Status Penicillin rash Drug Allergy Active Results Component Value Reference Range Notes P-Culture, Urine Reviewed date:05/18/2024 03:34:11 PM Interpretation:Nitrofurantoin intermediate Performing Lab: Notes/Report: Test performed by [facility], [address] , [address], [place] [address] Saúl Araiza MD, Tin Dipper CLIA: [id number] Specimen Source Urine - Void Culture, Urine See Below See Microbiol ogy Report Klebsiella pneumoniae 50,000-100,000 CFU /ml Klebsiella pneumoniae Sensitivity Panel See Below Organism K.pneum Antibiotic INTERP Amikacin S Ampicillin R Aztreonam S Cefepime S Cefoxitin S Ceftazidime S Ceftriaxone S Cefuroxime S Ciprofloxacin S Ertapenem S Gentamicin S Imipenem S Levofloxacin S Meropenem S Nitrofurantoin I Piperacillin/Tazo S Tetracycline S Tobramycin S Trimeth/Sulfa S S=SUSCEPTIBLE I=INTERMEDIATE R=RESISTANT P-Basic Metabolic Panel (BMP ) (Not yet reviewed by provider) Interpretation: Performing Lab: Notes/Report: Test performed by [facility] [address] [place] [address] , [address], [place] [address] Saúl Araiza MD, Tin Dipper CLIA: [id number] Sodium 140 135-145 mmol/L Potassium 4.5 3.5-5.3 [...] - 38 platlet 305 100 - 400 Urinalysis - Inhouse Reviewed date:05/13/2024 12:56:11 PM Interpretation: Performing Lab: Notes/Report: Color/Clarity yellow/cloudy Leuk 2+ Nitrite Neg Urobili 3.2 Protein Neg pH 5.5 Blood Neg Sp. Gr. 1.015 Ketone Neg Bili Neg Gluc Neg Glycohemoglobin A1c (in hous e) Reviewed date:01/21/2024 08:32:27 AM Interpretation:7.5% Performing Lab: Notes/Report: 7.5% glycohemoglobin 7.5% 5 - 6.5 % P-Comprehensive Metabolic Pa keiry (CMP) Reviewed date:01/22/2024 12:09:39 PM Interpretation:gluc 193, gfr 55 Performing Lab: Notes/Report: Test performed by [facility] [address] [place] [address] , [place] [address] Saúl Araiza MD, Tin Dipper CLIA: [id number] Sodium 143 135-145 mmol/L Potassium 4.7 3.5-5.3 mmol/L Chloride 104 97-108 mmol/L CO2 26 22-32 mmol/L Glucose 193 65-99 mg/dL BUN 17 8-23 mg/dL Creatinine 1.00 0.50-1.00 mg/dL Calcium 9.9 8.6-10.4 mg/dL eGFR by Creatinine 55 >59 mL/min/1.73m2 Protein 7.3 6.0-8.3 g/dL Albumin 4.6 3.5-5.3 g/dL Alkaline Phosphatase 113 35-121 IU/L ALT (SGPT) 17 <5-47 IU/L AST (SGOT) 19 <5-40 IU/L Bilirubin, Total 0.4 <0.2-1.2 mg/dL A/G Ratio 1.7 1.1-2.5 mg/dL CXR Reviewed date:2024 03:36:06 PM Interpretation:nothing acute Performing Lab: Notes/Report: nothing acute Glycohemoglobin A1c (in hous e) Reviewed date:04/27/2024 09:59:09 AM Interpretation:7.6% Performing Lab: Notes/Report: 7.6% glycohemoglobin 7.6% 5 - 6.5 % P-Basic Metabolic Panel (BMP ) Reviewed date:04/27/2024 09:59:09 AM Interpretation:gluc 134, Cr 1.09, gfr 50 Performing Lab: Notes/Report: Test performed by [facility] [address] [place] [address] , [address], [place] [address] Saúl Araiza MD, Tin Dipper CLIA: [id number] Sodium 145 135-145 mmol/L Potassium 3.8 3.5-5.3 mmol/L Chloride 104 97-108 mmol/L CO2 28 22-32 mmol/L Glucose 134 65-99 mg/dL BUN 14 8-23 mg/dL Creatinine 1.09 0.50-1.00 mg/dL Calcium 9.6 8.6-10.4 mg/dL eGFR by Creatinine 50 >59 mL/min/1.73m2 Urinalysis - Inhouse Reviewed date:10/30/2024 08:38:41 AM Interpretation: Performing Lab: Notes/Report: Color/Clarity yellow/cloudy Leuk 2+ Nitrite Neg Urobili 16 Protein Neg pH 6.5 Blood Neg Sp. Gr. 1.015 Ketone Neg Bili Neg Gluc Neg CBC Venipuncture (in house) Reviewed date:10/30/2024 08:38:54 AM Interpretation: Performing Lab: Notes/Report: wbc 11.3 3.5 - 10 lymph 25.5% 15 - 50 mid 6.3% 2 - 15 gran 68.2% 35 - 80 rbc 4.23 3.5 - 5.5 hgb 13.4 11.5 - 16.5 hct 40.0 35 - 55 mcv 94.6 75 - 100 mch 31.6 25 - 35 mchc 33.4 31 - 38 platlet 243 100 - 400 P-Comprehensive Metabolic Pa keiry ([facility]) Reviewed date:11/20/2024 01:13:55 PM Interpretation:CR 1.21, gfr 44, alk phos 127 Performing Lab: Notes/Report: Test performed by [facility], [facility] [address] [place] [address] , [address], [place] [address] Saúl Araiza MD, Tin Dipper CLIA: [id number] Sodium 136 135-145 mmol/L Potassium 4.9 3.5-5.3 mmol/L Chloride 99 97-108 mmol/L CO2 24 22-32 mmol/L Glucose 99 65-99 mg/dL BUN 14 8-23 mg/dL Creatinine 1.21 0.50-1.00 mg/dL Calcium 9.3 8.6-10.4 mg/dL eGFR by Creatinine 44 >59 mL/min/1.73m2 Protein 6.7 6.0-8.3 g/dL Albumin 4.1 3.5-5.3 g/dL Alkaline Phosphatase 127 35-121 IU/L ALT (SGPT) 9 <5-47 IU/L AST (SGOT) 13 <5-40 IU/L Bilirubin, Total 0.5 <0.2-1.2 mg/dL A/G Ratio 1.6 1.1-2.5 P-Culture, Urine Reviewed date:11/04/2024 12:09:08 PM Interpretation:sensitive Performing Lab: Notes/Report: Test performed by [facility], [address] , [address], [place] [address] Saúl Araiza MD, Tin Dipper CLIA: [id number] Specimen Source Urine - Void Culture, Urine See Below See Microbiol ogy Report Escherichia coli >100,000 CFU/ml Escherichia coli Klebsiella pneumoniae >100,000 CFU/ml Klebsiella pneumoniae Sensitivity Panel See Below Organism E. coli K.pneum Antibiotic INTERP INTERP Amikacin S S Ampicillin S R Aztreonam S S Cefepime S S Cefoxitin S S Ceftazidime S S Ceftriaxone S S Cefuroxime S S Ciprofloxacin S S Ertapenem S S Gentamicin S S Imipenem S S Levofloxacin S S Meropenem S S Nitrofurantoin S S Piperacillin/Tazo S S Tetracycline R S Tobramycin S S Trimeth/Sulfa S S S=SUSCEPTIBLE I=INTERMEDIATE R=RESISTANT P-TSH Reviewed date:11/20/2024 01:13:55 PM Interpretation:Normal Performing Lab: Notes/Report: Test performed by [facility] , [address], [place] [address] Saúl Araiza MD, Tin Dipper CLIA: [id number] TSH 1.14 0.43-5.25 mU/L Reason For Referral Reason Is scheduled for Aug, but needs to be seen sooner due to c/o indigestion The appt has been changed to 07/21/24 @9:30 with Waldemar at the Cardiology office. ([facility]) Diagnosis 1 Other chest pain (R0 7.89) Referral Organization [facility] Referring Provider First Name Antony Jimenez Referring Provider Last Name Kaden Referring Provider Speciality [facility] ctice Referred Provider Specialty Cardiovascul ar Disease General Notes Laura Moore 4:28:40 PM > The appt has been changed to 07/21/24 @9:30 with Waldemar at the Cardiology office. ([facility]) Cassi notified patient rep Referral Priority Routine Medications Medication SIG (Take, Route, Frequency, Duration) Notes Start Date End Date Status Spironolactone 25 MG 1 tablet Orally Active Medrol 4 MG as directed Orally f or 6 days 12/17/2024 Active Centrum Silver - 1 tab(s) orally once a day for 30 day(s) Active Clotrimazole-Betamethasone 1-0.05 % 1 application Externally Twice a day 10/29/2024 Active Metoprolol Tartrate 100 MG 1 tab(s) orally bid Active Glimepiride 4 MG TAKE 1 TABLET EVERY DAY for 90 Active Allopurinol 100 MG TAKE 1 TABLET EVERY DAY for 90 Active Furosemide 40 MG 1 tablet orally Once a day for 90 days Active Loratadine 10 MG 1 tab(s) orally once a day Active Alendronate Sodium 35 MG TAKE 1 TABLET O NE TIME WEEKLY for 84 Active Calcium 500 MG 1 TAB ORALLY ONCE DAILY 07/19/2016 Active Xarelto 20 MG 1 tab(s) orally once a day (in the evening) for 30 days Active Aspirin 81 MG 1 tab(s) orally once a day Active Isosorbide Dinitrate 30 MG TAKE 1 TABLET ONE TIME DAILY for 90 Active Vitamin D3 1000 IU 2 P.O. Q DAY 07/19/2016 Active Voltaren 1 % as directed External ly four times a day as needed 11/19/2024 Active metFORMIN HCl 500 MG TAKE 1 TABLET TWICE DAILY for 90 Active Levothyroxine Sodium 25 MCG 1 tab(s) Ora lly once a day for 90 days Active Simvastatin 40 MG TAKE 1 TABLET AT BED TIME for 90 Active Famotidine 40 MG TAKE 1 TABLET EVERY DAY for 90 days Active Nystatin-Triamcinolone 770771-5.1 UNIT/GM 1 application Externally Twice a day 01/31/2023 Active Immunizations Vaccine Route Administration Date Status Comme nts Fluzone High Dose (65yr and older) IM Intramuscular 04/26/2015 Administered Fluzone High Dose (65yr and older) IM Intramuscular 04/19/2016 Administered Fluzone High Dose (65yr and older) IM Intramuscular 05/09/2017 Administered Fluzone High Dose (65yr and older) IM Intramuscular 04/23/2024 Administered PNEUMOVAX 23 VACCINE IM Intramuscular 11/12/2017 Administered Prevnar (PCV13) Unknown 07/12/2014 Administered 10/11/14- Patient in office and states that Prevnar given with Flu shot in 07/12/[address] Alfonso recalls ordering vaccine. Order not placed in chart and injection not documented/charged. Documentation provided today per patient recall and nurse administering flu shot noted. Prevnar (PCV13) IM Intramuscular 10/26/2016 Administered Tetanus Tdap-Adacel (over 7yrs) IM Intramuscular 12/24/2013 Administered xFluzone-trivale nt-medicare pts. IM Intramuscular 07/12/2014 Administered Problems Problem Type SNOMED Code ICD Code Onset Dates Problem Status W/U Status Risk Notes Problem 908924742 Hypothyroidism (acquired) (E03.9) Active confirmed Problem 00278423 Essential hypertension (I10) Active confirmed Problem 060119625 Diverticulitis (K57.92) Active confirmed Problem Environmental allergy (576952908) Environmental allergies (Z91.048) Active confirmed Problem 302003065 Paroxysmal atria l fibrillation (I48.0) Active confirmed Problem 292828830 Angina pectoris (I20.9) Active confirmed Problem 38896987 Pelvic mass (R19.00) Active confirmed Problem Recurrent falls (376773811) Falls frequently (R29.6) Active confirmed Problem 101307436 Mixed hyperlipidemia (E78.2) Active confirmed Problem 531013948 Primary osteoarthritis, right hand (M19.041) Active confirmed Problem Midline cystocele (979349617) Cystocele, midline (N81.11) Active confirmed Problem 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) Rectocele (N81.6) Active confirmed Problem 419491823 Personal history of other benign neoplasm (Z86.018) Active confirmed Problem 3720717 Goiter (E04.9) Active confirmed Problem 40725224 Type 2 diabetes mellitus without complication (E11.9) Active confirmed Problem 524232922 Gastroesophageal reflux disease without esophagitis (K21.9) Active confirmed Problem 6896448913262 Tinnitus of both ears (H93.13) Active confirmed Problem 64934732 Osteoporosis (M81.0) Active confirmed Problem 379576938 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) Active confirmed Problem 486991354 Imbalance (R26.89) Active confirmed Problem 45684298 Chest pain, unspecified type (R07.9) Active confirmed Problem 16533549 Seasonal allergi c rhinitis due to pollen (J30.1) Active confirmed Problem 354190611 Contusion of fac e, subsequent encounter (S00.83XD) Active confirmed Problem 036472122 Cardiac dysrhythmia, unspecified (I49.9) Active confirmed Problem 97807840 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) Active confirmed Problem 164621872 Anxiety about health (F41.8) Active confirmed Problem 694783177514792690 History of COVID-19 (Z86.16) Active confirmed Problem 946364031 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 Problem 686230761941230 Acute deep vein thrombosis (DVT) of tibial vein of left lower extremity (I82.442) Active confirmed Problem 896601134 Atrial ectopy (I49.1) Active confirmed Problem 461810198 Basal cell carcinoma (BCC) of skin of face, unspecified part of face (C44.310) Active confirmed Problem 41826675 Closed fracture of orbit with routine healing, subsequent encounter (S02.85XD) Active confirmed Problem 490919615 Symptomatic cholelithiasis (K80.20) Active confirmed Vital Signs Heart Rate 62 /min 12/17/2024 Blood pressure diastolic 62 mm Hg 12/17/2024 Height 62 in 12/17/2024 Blood pressure systolic 120 mm Hg 12/17/2024 Weight 129.4 lbs 12/17/2024 BMI 23.66 kg/m2 12/17/2024 Encounters Encounter Location Date Provider Diagnosis [facility] [address] [place], [place] [id number] 01/20/2024 Antony Alfonso Type 2 diabetes beata itus without complication E11.9 ; Hypothyroidism (acquired) E03.9 and Essential hypertension I10 [facility] [address] [place], [place] [id number] 04/23/2024 Antony Alfonso Essential hypertensi on I10 ; Type 2 diabetes mellitus without complication E11.9 ; Hypothyroidism (acquired) E03.9 and Encounter for immunization Z23 [facility] [address] [place], [place] [id number] 05/13/2024 Renata Mcfarlane Dysuria R30.0 [facility] [address] [place], [place] [id number] 06/22/2024 Antony Alfonso Contusion of face, subsequent encounter S00.83XD ; Closed fracture of orbit with routine healing, subsequent encounter S02.85XD ; Type 2 diabetes mellitus without complication E11.9 and Rib pain on right side R07.81 [facility] [address] [place], [place] [id number] 07/16/2024 Antony Alfonso Gastroesophageal ref lux disease without esophagitis K21.9 ; Symptomatic cholelithiasis K80.20 and Other chest pain R07.89 [facility] [address] [place], [place] [id number] 07/24/2024 Antony Alfonso Chest pain, unspecif ied type R07.9 ; Angina pectoris I20.9 and Type 2 diabetes mellitus without complication E11.9 [facility] [address] [place], [place] [id number] 11/19/2024 Renata Mcfarlane De Quervain's tenosynovitis M65.4 [facility] [address] [facility] [place], [place] [id number] 12/17/2024 Antony Alfonso Shortness of breath R06.02 ; Leg pain, left M79.605 and History of DVT (deep vein thrombosis) Z86.718 [facility] [address] [facility] [place], [place] [id number] 10/29/2024 Antony Alfonso Essential hypertensi on I10 ; Type 2 diabetes mellitus without complication E11.9 ; Hypothyroidism (acquired) E03.9 ; Dysuria R30.0 ; Diabetic peripheral vascular disease E11.51 ; Paroxysmal atrial fibrillation I48.0 and BMI 24.0-24.9, adult Z68.24 [facility] [address] [facility] [place], [place] [id number] 01/22/2024 Antony Alfonso [facility] [address] [facility] [place], [place] [id number] 03/06/2024 Antony Alfonso [facility] [address] [facility] [place] [id number] 04/27/2024 nAtony Alfonso [facility] [address] [facility] [place], [place] [id number] 05/18/2024 Renata Crowdy Dysuria R30.0 [facility] [address] [facility] [place] [id number] 08/28/2024 Antony Alfonso Other chest pain R07 .89 [facility] [address] [place], [place] [id number] 11/20/2024 Antony Alfonso Assessments Encounter Date Diagnosis (ICD Code) Assessment Notes Treatment Notes Treatment Clinical Notes Section Notes 01/20/2024 Hypothyroidism (acquired) (ICD-10 - E03.9) 01/20/2024 Type 2 diabetes mellitus without complication (ICD-10 - E11.9) 04/23/2024 Type 2 diabetes mellitus without complication (ICD-10 - E11.9) 05/13/2024 Dysuria (ICD-10 - R30.0) 05/18/2024 Dysuria (ICD-10 - R30.0) 04/23/2024 Essential hypertension (ICD-10 - I10) 06/22/2024 Contusion of face, subsequent encounter (ICD-10 - S00.83XD) 06/22/2024 Closed fracture of orbit with routine healing, subsequent encounter (ICD-10 - S02.85XD) 07/16/2024 Gastroesophageal reflux disease without esophagitis (ICD-10 - K21.9) 07/16/2024 Symptomatic cholelithiasis (ICD-10 - K80.20) 07/24/2024 Angina pectoris (ICD-10 - I20.9) 07/24/2024 Chest pain, unspecified type (ICD-10 - R07.9) 08/28/2024 Other chest pain (ICD-10 - R07.89) 10/29/2024 Essential hypertension (ICD-10 - I10) 10/29/2024 Type 2 diabetes mellitus without complication (ICD-10 - E11.9) 11/19/2024 De Quervain's tenosynovitis (ICD-10 - M65.4) Will get a thumb spika. 12/17/2024 Shortness of breath (ICD-10 - R06.02) 12/17/2024 Leg pain, left (ICD-10 - M79.605) 12/17/2024 History of DVT (deep vein thrombosis) (ICD-10 - Z86.718) 06/22/2024 Type 2 diabetes mellitus without complication (ICD-10 - E11.9) 10/29/2024 Hypothyroidism (acquired) (ICD-10 - E03.9) 07/24/2024 Type 2 diabetes mellitus without complication (ICD-10 - E11.9) 07/16/2024 Other chest pain (ICD-10 - R07.89) 04/23/2024 Hypothyroidism (acquired) (ICD-10 - E03.9) 01/20/2024 Essential hypertension (ICD-10 - I10) 06/22/2024 Rib pain on right side (ICD-10 - R07.81) 04/23/2024 Encounter for immunization (ICD-10 - Z23) 10/29/2024 Dysuria (ICD-10 - R30.0) 10/29/2024 Diabetic peripheral vascular disease (ICD-10 - E11.51) 10/29/2024 Paroxysmal atrial fibrillation (ICD-10 - I48.0) 10/29/2024 BMI 24.0-24.9, adult (ICD-10 - Z68.24) Plan Of Treatment Pending Test Test Name Order Date X ray : ribs right 06/22/2024 venous doppler ultrasound leg, lower lef t 12/17/2024 CT scan : Chest with PE Protocol 025 P-Basic Metabolic Panel (BMP) 12/17/2024 Next Appt Details Provider Name:Antony Jimenez [facility] er, 12/21/2024 04:15:00 PM, [address] [place] [address] [address] [facility], [address], [place], [place], [id number], Provider Name:Antony Jimenez [facility] er, 01/25/2025 10:45:00 AM, [address] [place] [address] [address] [facility], [address], [place], [place], [id number], Insurance Providers Payer Name Payer Address Payer Phone Subscriber Number Group Number Insured Name Patient Relationship to Insured Coverage Start Date Coverage End Date [employer] (MEDICAR E) [address] [address] [place] [phone] [id number] Geetha Zafar Self - patient is the insured Medical (General) History Medical History History ICD Code Hypertension Hyperlipidemia Prolapsed Bladder Hypothyroidism Multinodular goiter Covid Type 2 Diabetes Fx rt arm 12/05/2020 Surgical History Surgery Date(Month/Year) Appendectomy, as a child tubal ligation 1971 [address] - [facility] 03/13/2018 [place] Dermoid Cyst Removal- Dr. Yovany ROMERO er 07/11/2019 Hospitalization History Reason Date(Month/Year) [facility] ER- for a fall and hurt her right wr ist Fever 09/03/[address] [facility] 03/13/[address] [facility] 01/2015
== END 2024-12-21 23:59 | disposition home or self-care (01) ==
LOC: RT 13:36
PROVIDERS: PCP Family Medicine; Visit Provider Family Medicine
DX: M79.605 Pain in left leg (principal); Z86.718 Personal history of other venous thrombosis and embolism
CPT/HCPCS: 93971

== ENCOUNTER 2024-12-21 17:50 | Outpatient (CLI) | payer MEDICARE, SELFPAY ==
--- NOTE | 2024-12-21 | XR_ITS ---
PROCEDURE INFORMATION: Exam: XR Chest Exam date and time: 12/21/2024 5:57 PM Age: 84 years old Clinical indication: Shortness of breath; Additional info: SOA x few days TECHNIQUE: Imaging protocol: Radiologic exam of the chest. Views: 2 views. COMPARISON: CR XR CHEST 2V 06/22/2024 4:11 PM FINDINGS: Lungs: Unremarkable. No consolidation. Pleural spaces: Unremarkable. No pleural effusion. No pneumothorax. Heart/Mediastinum: Unremarkable. No cardiomegaly. Bones/joints: Unremarkable. IMPRESSION: No acute findings.
--- OUTSIDE RECORDS SUMMARY | 2024-12-21 17:54 | XMS_ITS | Clinical Summary ---
Author Organization [facility] Address [address] [place] [address] Care Team Providers Care Parent Coach Name Role Phone Vinh Chen MD Primary Care Provider [phone] Social History Tobacco Use Types Packs/Day Years [...] or (1 - 1-dose 75+ series) 2013 NYG-NFIVN-21 Vaccine ( - 2023- season) 2024 [facility]-Influenza [...] this topic Insurance [employer] Care Teams Parent Coach Relationship Specialty Start Date End Date Vinh Chen MD [address] [place] [place] [phone] PCP - General 11/18/20
== END 2024-12-21 23:59 | disposition home or self-care (01) ==
LOC: RAD 17:52
PROVIDERS: PCP Family Medicine; Visit Provider Family Medicine
DX: R06.02 Shortness of breath (principal)
CPT/HCPCS: 71046

== ENCOUNTER 2025-02-20 11:50 | Outpatient (CLI) | payer MEDICARE, SELFPAY ==
--- OUTSIDE RECORDS SUMMARY | 2024-12-21 12:15 | XMS_ITS ---
[facility] [address] [facility] [address] [id number] Care Team Providers Care Stock Turner Name Role Phone Antony Alfonso Primary Care Provider Allergies Allergen (clinical drug ingredient) Drug/Non Drug Allergy documented on EMR Reaction Allergy Type Onset Date Status Penicillin rash Drug Allergy Active Results Component Value Reference Range Notes CXR Reviewed date:12/23/2024 12:20:11 PM Interpretation:Normal Performing Lab: Notes/Report: Normal Medications Medication SIG (Take, Route, Frequency, Duration) Notes Start Date End Date Status Clotrimazole-Betamethasone 1-0.05 % 1 application Externally Twice a day 10/29/2024 Active Medrol 4 MG as directed Orally; Duration: 6 days 12/17/2024 Active Voltaren 1 % as directed External ly four times a day as needed 11/19/2024 Active Isosorbide Dinitrate 30 MG TAKE 1 TABLET ONE TIME DAILY; Duration: 90 Active Glimepiride 4 MG TAKE 1 TABLET EVERY DAY; Duration: 90 Active Famotidine 40 MG TAKE 1 TABLET EVERY DAY; Duration: 90 days Active Levothyroxine Sodium 25 MCG 1 tab(s) Ora lly once a day; Duration: 90 days Active Nystatin-Triamcinolone 645554-3.1 UNIT/GM 1 application Externally Twice a day 01/31/2023 Active Alendronate Sodium 35 MG TAKE 1 TABLET O NE TIME WEEKLY; Duration: 84 Active Furosemide 40 MG 1 tablet orally Once a day; Duration: 90 days Active Xarelto 20 MG 1 tab(s) orally once a day (in the evening); Duration: 30 days Active Metoprolol Tartrate 100 MG 1 tab(s) orally bid Active Calcium 500 MG 1 TAB ORALLY ONCE DAILY 07/19/2016 Active Vitamin D3 1000 IU 2 P.O. Q DAY 07/19/2016 Active Aspirin 81 MG 1 tab(s) orally once a day Active Simvastatin 40 MG TAKE 1 TABLET AT BEDTIME; Duration: 90 Active metFORMIN HCl 500 MG TAKE 1 TABLET TWICE DAILY; Duration: 90 Active Centrum Silver - 1 tab(s) orally once a day; Duration: 30 day(s) Active Loratadine 10 MG 1 tab(s) orally once a day Active Allopurinol 100 MG TAKE 1 TABLET EVERY DAY; Duration: 90 Active Spironolactone 25 MG 1 tablet Orally Active Vital Signs Blood pressure systolic 114 mm Hg 12/22/19 25 Blood pressure diastolic 58 mm Hg 025 Heart Rate 59 /min 12/21/2024 Height 62 in 12/21/2024 Weight 127.8 lbs 12/21/2024 BMI 23.37 kg/m2 12/21/2024 Encounters Encounter Location Date Provider Diagnosis [facility] [address] [facility] [address] [place], [place] [id number] 12/21/2024 Antony Alfonso Acute cough R05.1 ; Shortness of breath R06.02 ; History of DVT (deep vein thrombosis) Z86.718 and BMI 23.0-23.9, adult Z68.23 Assessments Encounter Date Diagnosis (ICD Code) Assessment Notes Treatment Notes Treatment Clinical Notes Section Notes 12/21/2024 Acute cough (ICD-10 - R05.1) 12/21/2024 Shortness of breath (ICD-10 - R06.02) 12/21/2024 History of DVT (deep vein thrombosis) (ICD-10 - Z86.718) 12/21/2024 BMI 23.0-23.9, adult (ICD-10 - Z68.23) Plan Of Treatment Next Appt Details Follow Up: 3 M, Reason: Provider Name:Osman Rios ry, 02/20/2025 11:00:00 AM, [address] [facility] [address], [address], [place], [place], [id number], Provider Name:Antony Sanchez er, 03/01/2025 10:15:00 AM, [address], [place], [place], [id number], Progress Notes * Zora ZAFARaDOB:1940 (84 yo F)Acc No.[id number]:12/21/2024 Progress Notes Patient: Geetha JOHN Provider: Antony Alfonso M.D. :1940 A ge:84 Y S ex:Female Date:12/21/2024 Address:[address] [place] [address], [place]ina [place], [id number] Subjective: * Chief Complaints: * * HPI: C ardiology: Pt presents today for a follow-up. Pt has a couple of days left of steroids and sts that she is feeling better. Pt just had the venous doppler performed today at 1:30. Pt has not got the CT scheduled yet. Report shows no evidence of DVT. * ROS: D ERMATOLOGY: no R anni. [...] child , tubal ligation 1970, Thyroidectomy - [facility] 03/13/2018, Ovary Dermoid Cyst Removal- , Dr. Hernadez 07/11/2019. * Hospitalization/Major Diagno stic Procedure: D iarrhea at [facility] 01/2015, Overnight at [facility] 03/13/2018, Fever 09/03/2020, [facility] ER- for a fall and hurt her right wrist . * Family History: F ather: 84 yrs. M other: 89 yrs. 2 sister(s) . 1 son(s) , 3 daughter(s) . . 1 brother , 1 sister . * Social History: C URRENT TOBACCO USE S moking Status: Nadege [place] does NOT smoke. C affeine: yes, frequency:coffee, [...] day (in the evening) , Taking Nystatin-Triamcinolone 580097-4.1 UNIT/GM Cream 1 application Externally Twice a [...] four times a day as needed , Taking Medrol 4 MG Tablet Therapy Pack as directed Orally , Medication List reviewed and reconciled with the patient * Allergies: P enicillin: rash - Allergy. Objective: * Vitals: W t: 127.8, Temp: 97.9, BP: 114/58, HR: 59, O2 Sat: 98% on RA, Nurse: MYKE, Ht: 62, BMI:23.37. * Examination: G eneral Examination: General Appearance: N AD, weight noted. H EENT: S clera and conjunctiva clear, PERRLA, periorbital area WNL. O ral cavity: n o lesions, mucosa moist and WNL, no erythema. N alissa: s upple, no lymphadenopathy. C hest: n ormal shape and expansion. H eart: R SR, no ectopics, aortic murmur. L ungs: c lear to auscultation. N eurologic Exam: I ntact, gait normal. S kin: n ormal, no rash. P eripheral pulses: n ormal . B ack: mild dorsal kyphosis. E xtremities: n o leg edema, some fullness of the left calf. Assessment: * Assessment: 1. A cute cough - R05.1 (Primary) 2 . S hortness of breath - R06.02 ? 3 . H istory of DVT (deep vein thrombosis) - Z86.718 4 . B MO 23.0-23.9, adult - Z68.23 Plan: * Treatment: * Procedure Codes: G 2211 Complex e/m visit add on, 1036F TOBACCO NON-USER, G8783 BP SCR PRFRM RCMDD DEFIND SCR INTVL, G8752 MOST RECENT SYSTOLIC BP < 140MM HG, G8754 MOST RECENT DIASTOLIC BP < 90MM HG, G8420 BMI<30 AND >=22 CALC & DOCU * Follow Up: 3 M * Images: Billing Information: * Visit Code: 38464 Office Visit, Est Pt., Level 3. * Procedure Codes: G2211 Complex e/m visit add on. 1036F TOBACCO NON-USER. G8783 BP SCR PRFRM RCMDD DEFIND SCR INTVL. G8752 MOST RECENT SYSTOLIC BP < 140MM HG. G8754 MOST RECENT DIASTOLIC BP < 90MM HG. G8420 BMI<30 AND >=22 CALC & DOCU. * Electronic signature of Antony Alfonso MD on 02/20/2025 at 11:53 AM EDT Sign off status: Pending * Provider: Antony Alfonso M.D. Date: 12/21/2024 Generated for Laura sánchez/Chris/Keshawnitting on: 02/20/2025 11:53 AM EDT History and Physical Notes * Examination Category Sub-Category Detail Notes Category Not [...]
--- OUTSIDE RECORDS SUMMARY | 2025-01-25 06:45 | XMS_ITS ---
Author Organization [facility] Address [address] [place], [place] [id number] Care Team Providers Care Web Master Name Role Phone Antony Alfonso Primary Care Provider [phone] REASON FOR VISIT 3 months Encounters Encounter Location Date Provider Diagnosis [facility] [address] [place], [place] [id number] 01/25/2025 Antony Alfonso Plan Of Treatment Next Appt Details Provider Name:Osman Rios ry, 02/20/2025 11:00:00 AM, [address], [address], [place], [place], [id number], Provider Name:Antony Sanchez er, 03/01/2025 10:15:00 AM, [address], [address], [place], [place], [id number], Progress Notes * Zora ZAFARaDOB:1940 (84 yo F)Acc No.[id number]:01/25/2025 Progress Notes Patient: Geetha JOHN Provider: Antony Alfonso M.D. :1940 A ge:84 Y S ex:Female Date:01/25/2025 Address:[address], [id number] Subjective: * Chief Complaints: * 1 . 3 months. * Medical History: Objective: * Vitals: Assessment: Plan: * Treatment: * Images: Billing Information: * Visit Code: * Procedure Codes: * Electronic signature of Antony Alfonso MD on 02/20/2025 at 11:53 AM EDT Sign off status: Pending * Provider: Antony Alfonso M.D. Date: 0 01/25/2025 Generated for Laura sánchez/Chris/Mike on: 0 02/20/2025 11:53 AM EDT
--- NOTE | 2025-02-20 | XR_ITS ---
PROCEDURE INFORMATION: Exam: XR Left Foot Exam date and time: 02/20/2025 11:48 AM Age: 84 years old Clinical indication: Pain; Foot; Left; Additional info: Pain in left foot, no known trauma TECHNIQUE: Imaging protocol: Radiologic exam of the left foot. Views: 3 or more views. COMPARISON: DX XR FOOT LT MIN 3V 03/29/2020 3:47 PM FINDINGS: Bones/joints: The bones are diffusely demineralized. No acute fracture or dislocation. No bony erosion or destruction. Distal aspect of the tibia and fibula are intact. Tarsal bones appear intact and normally aligned. Degenerative change and bony spurring is present at the tarsometatarsal junction. Moderate plantar calcaneal spur is present. There is ossification or calcification along the proximal aspect of the plantar fascia. Enthesophyte is present at the distal insertion of the Achilles tendon. Scattered linear calcifications are present within the distal Achilles tendon. Soft tissues: No opaque foreign body. Vasculature: Arterial vascular calcifications are present. Please correlate with any history of diabetes. IMPRESSION: 1. No acute findings. 2. No fracture or malalignment. No bony erosion or destruction. No suspicious bone lesion. No opaque foreign body. Arthritic changes are present within the midfoot and involving the toes. Plantar calcaneal spur is present. Calcifications or ossification involving the proximal aspect of the plantar fascia. Arterial vascular calcifications are present.
--- OUTSIDE RECORDS SUMMARY | 2025-02-20 11:53 | XMS_ITS | Patient Health Record ---
[facility] Address [address] [facility] [address] [place] [phone] Care Team Providers Care Group Exercise Manager Name Role Phone Antony Alfonso Primary Care Provider [phone] Osman Gonzales Unavailable [phone] Renata Mcfarlane Unavailable [phone] Allergies Allergen (clinical drug ingredient) Drug/Non Drug Allergy documented on EMR Reaction Allergy Type Onset Date Status Penicillin rash Drug Allergy Active Results Component Value Reference Range Notes CBC Venipuncture (in house) Reviewed date:12/17/2024 05:27:47 [...] - 38 platlet 305 100 - 400 P-Basic Metabolic Panel (BMP ) Reviewed date:02/05/2025 09:50:13 AM Interpretation:gluc 103, Cr 1.3, gfr 40 Performing Lab: Notes/Report: Test performed by [facility], [facility] [facility] , [address], [place] [address] Saúl Araiza MD, Lump Maker CLIA: [id number] Sodium 140 135-145 mmol/L Potassium 4.5 3.5-5.3 mmol/L Chloride 102 97-108 mmol/L CO2 24 22-32 mmol/L Glucose 103 65-99 mg/dL BUN 19 8-23 mg/dL Creatinine 1.30 0.50-1.00 mg/dL Calcium 9.9 8.6-10.4 mg/dL eGFR by Creatinine 40 >59 mL/min/1.73m2 venous doppler ultrasound le g, lower left Reviewed date:12/23/2024 12:20:42 PM Interpretation:Normal Performing Lab: Notes/Report: Normal venous doppler ultrasound le g, lower left Reviewed date:12/23/2024 12:20:42 PM Interpretation:Normal Performing Lab: Notes/Report: Normal CT scan : Chest with PE Prot ocol Reviewed date:12/23/2024 12:21:10 PM Interpretation:cancelled Performing Lab: Notes/Report: cancelled CXR Reviewed date:12/23/2024 12:20:11 PM Interpretation:Normal Performing Lab: Notes/Report: Normal Urinalysis - Inhouse Reviewed date:10/30/2024 08:38:41 AM [...] 100 - 400 P-Comprehensive Metabolic Pa keiry (CMP) Reviewed date:11/20/2024 01:13:55 PM Interpretation:CR 1.21, gfr 44, alk phos 127 Performing Lab: Notes/Report: Test performed by [facility] [address] [place] [address] , [address], [place] [address] Saúl Araiza MD, Lump Maker CLIA: [id number] Sodium 136 135-145 mmol/L Potassium 4.9 3.5-5.3 [...] Interpretation:sensitive Performing Lab: Notes/Report: Test performed by [facility], [address] , [place] [address] Saúl Araiza MD, Lump Maker CLIA: [id number] Specimen Source Urine - Void Culture, Urine [...] Interpretation:Normal Performing Lab: Notes/Report: Test performed by [facility] [address] [place] [address] , [address], [place] [address] Saúl Araiza MD, Lump Maker CLIA: [id number] TSH 1.14 0.43-5.25 mU/L Glycohemoglobin A1c (in hous e) Reviewed date:04/27/2024 09:59:09 AM Interpretation:7.6% Performing Lab: Notes/Report: 7.6% glycohemoglobin 7.6% 5 - 6.5 % P-Basic Metabolic Panel (BMP ) Reviewed date:04/27/2024 09:59:09 AM Interpretation:gluc 134, Cr 1.09, gfr 50 Performing Lab: Notes/Report: Test performed by [facility] [address] [place] [address] , [address], [place] [id number] Saúl Araiza MD, Lump Maker CLIA: [id number] Sodium 145 135-145 mmol/L Potassium 3.8 3.5-5.3 mmol/L Chloride 104 97-108 mmol/L CO2 28 22-32 mmol/L Glucose 134 65-99 mg/dL BUN 14 8-23 mg/dL Creatinine 1.09 0.50-1.00 mg/dL Calcium 9.6 8.6-10.4 mg/dL eGFR by Creatinine 50 >59 mL/min/1.73m2 Urinalysis - Inhouse Reviewed date:05/13/2024 12:56:11 PM Interpretation: Performing Lab: Notes/Report: Color/Clarity yellow/cloudy Leuk 2+ Nitrite Neg Urobili 3.2 Protein Neg pH 5.5 Blood Neg Sp. Gr. 1.015 Ketone Neg Bili Neg Gluc Neg P-Culture, Urine Reviewed date:05/18/2024 03:34:11 PM Interpretation:Nitrofurantoin intermediate Performing Lab: Notes/Report: Test performed by [facility], [place] [id number] [facility] , [address], [place] [address] Saúl Araiza MD, Lump Maker CARLOS: [id number] Specimen Source Urine - Void Culture, Urine [...] Tobramycin S Trimeth/Sulfa S S=SUSCEPTIBLE I=INTERMEDIATE R=RESISTANT CXR Reviewed date:2024 03:36:06 PM Interpretation:nothing acute Performing Lab: Notes/Report: nothing acute Reason For Referral Reason Is scheduled for Aug, but needs to be seen sooner due to c/o indigestion The appt has been changed to 07/21/24 @9:30 with Waldemar at the Cardiology office. ([facility]) Diagnosis 1 Other chest pain (R0 7.89) Referral Organization [facility] Referring Provider First Name Antony Jimenez Referring Provider Last Name Kaden Referring Provider Speciality Family Best ctice Referred Provider Specialty Cardiovascul ar Disease General Notes Laura Moore 4:28:40 PM > The appt has been changed to 07/21/24 @9:30 with Waldemar at the Cardiology office. ([facility]) Cassi notified patient rep Referral Priority Routine Medications Medication SIG (Take, Route, Frequency, Duration) Notes Start Date End Date Status Centrum Silver - 1 tab(s) orally once a day; Duration: 30 day(s) Active Voltaren 1 % as directed External ly four times a day as needed 11/19/2024 Active Simvastatin 40 MG 1 tablet in the even ing Orally Once a day; Duration: 90 days Active Allopurinol 100 MG 1 tablet Orally Once a day; Duration: 90 days Active Famotidine 40 MG TAKE 1 TABLET EVERY DAY; Duration: 90 days Active Alendronate Sodium 35 MG TAKE 1 TABLET O NE TIME WEEKLY; Duration: 84 Active Spironolactone 25 MG 1 tablet Orally Active Clotrimazole-Betamethasone 1-0.05 % 1 application Externally Twice a day 10/29/2024 Active Loratadine 10 MG 1 tab(s) orally once a day Active Isosorbide Dinitrate 30 MG TAKE 1 TABLET ONE TIME DAILY; Duration: 90 Active metFORMIN HCl 500 MG 1 tablet with a toño l Orally twice a day; Duration: 90 days Active Furosemide 40 MG 1 tablet orally Once a day; Duration: 90 days Active Levothyroxine Sodium 25 MCG 1 tab(s) Ora lly once a day; Duration: 90 days Active Glimepiride 4 MG 1 tablet with breakf ast or the first main meal of the day Orally Once a day; Duration: 90 days Active Vitamin D3 1000 IU 2 P.O. Q DAY 07/19/2016 Active Calcium 500 MG 1 TAB ORALLY ONCE DAILY 07/19/2016 Active Xarelto 20 MG 1 tab(s) orally once a day (in the evening); Duration: 30 days Active Nystatin-Triamcinolone 793718-4.1 UNIT/GM 1 application Externally Twice a day 01/31/2023 Active Metoprolol Tartrate 100 MG 1 tab(s) orally bid Active Aspirin 81 MG 1 tab(s) orally once a day Active Immunizations Vaccine Route Administration Date Status [...] Problem Status W/U Status Risk Notes Problem Hypothyroidism (51429545) Hypothyroidism (acquired) (E03.9) Active confirmed Problem Essential hypertension (51076967) Essential hypertension (I10) Active confirmed Problem Diverticulitis (27021117) Diverticulitis (K57.92) Active confirmed Problem Environmental allergy (729834580) Environmental allergies (Z91.048) Active confirmed Problem Paroxysmal atrial fibrillation (669364546) Paroxysmal atrial fibrillation (I48.0) Active confirmed Problem Angina pectoris (050667909) Angina pectoris (I20.9) Active confirmed Problem Pelvic mass (50852368) Pelvic mass (R19.00) Active confirmed Problem Recurrent falls (036236210) Falls frequently (R29.6) Active confirmed Problem Mixed hyperlipidemia (181898154) Mixed hyperlipidemia (E78.2) Active confirmed Problem Localized, primary osteoarthritis of the hand (719740812) Primary osteoarthritis, right hand (M19.041) Active confirmed Problem Midline cystocele (059308422) Cystocele, midline (N81.11) Active confirmed Problem Herniation of rectum into vagina (568033267) Rectocele (N81.6) Active confirmed Problem History of neoplasm (560616768) Personal history of other benign neoplasm (Z86.018) Active confirmed Problem Goiter (6316141) Goiter (E04.9) Active confirme d Problem Type II diabetes mellitus without complication (738497896) Type 2 diabetes mellitus without complication (E11.9) Active confirmed Problem Gastroesophageal reflux disease without esophagitis (731520009) Gastroesophageal reflux disease without esophagitis (K21.9) Active confirmed Problem Bilateral tinnitus (0800057398782) Tinnitus of both ears (H93.13) Active confirmed Problem Osteoporosis (02050462) Osteoporosis (M81.0) Active confirmed Problem Multinodular goiter (373437074) 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) Active confirmed Problem Abnormal gait (53656987) Imbalance (R26.89) Active confirmed Problem Chest pain (10291842) Chest pain, unspecified type (R07.9) Active confirmed Problem Allergic rhinitis caused by pollen (04985481) Seasonal allergic rhinitis due to pollen (J30.1) Active confirmed Problem Contusion of face (928628861) Contusion of face, subsequent encounter (S00.83XD) Active confirmed Problem Cardiac dysrhythmia (540201596) Cardiac dysrhythmia, unspecified (I49.9) Active confirmed Problem Localized, primary osteoarthritis of the hand (004400801) 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) Active confirmed Problem Anxiety about health (460466609) Anxiety about health (F41.8) Active confirmed Problem History of COVID-19 (073949749450228770 ) History of COVID-19 (Z86.16) Active confirmed Problem 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) Active confirmed Problem Deep venous thrombosis of peroneal vein (250341763) Acute deep vein thrombosis (DVT) of tibial vein of left lower extremity (I82.442) Active confirmed Problem Supraventricular premature beats (11022225) Atrial ectopy (I49.1) Active confirmed Problem Basal cell carcinoma of face (disorder) (126025833) Basal cell carcinoma (BCC) of skin of face, unspecified part of face (C44.310) Active confirmed Problem Closed fracture of orbit with routine healing, subsequent encounter (S02.85XD) Active confirmed Problem Cholelithiasis without obstruction (23288713) Symptomatic cholelithiasis (K80.20) Active confirmed Vital Signs Heart Rate 88 /min 02/20/2025 Blood pressure diastolic 68 mm Hg 02/20/2025 Height 62 in 02/20/2025 Blood pressure systolic 122 mm Hg 02/20/2025 Weight 130.0 lbs 02/20/2025 BMI 23.77 kg/m2 02/20/2025 Encounters Encounter [facility] Date [facility] [address] [place] [id number] 04/23/2024 Antony Alfonso Essential hypertensi on I10 ; Type 2 diabetes mellitus without complication E11.9 ; Hypothyroidism (acquired) E03.9 and Encounter for immunization Z23 [facility] [address] [place] [id number] 05/13/2024 Renata Mcfarlane Dysuria R30.0 [facility] [address] [place] [id number] 06/22/2024 Antony Alfonso Contusion of face, subsequent encounter S00.83XD ; Closed fracture of orbit with routine healing, subsequent encounter S02.85XD ; Type 2 diabetes mellitus without complication E11.9 and Rib pain on right side R07.81 [facility] [address] [place] [id number] 07/16/2024 Antony Alfonso Gastroesophageal ref lux disease without esophagitis K21.9 ; Symptomatic cholelithiasis K80.20 and Other chest pain R07.89 [facility] [address] [place] [id number] 07/24/2024 Antony Alfonso Chest pain, unspecif ied type R07.9 ; Angina pectoris I20.9 and Type 2 diabetes mellitus without complication E11.9 [facility] [address] [place] [id number] 11/19/2024 Renata Mcfarlane De Quervain's tenosynovitis M65.4 [facility] [address] [place] [id number] 12/17/2024 Antony Alfonso Shortness of breath R06.02 ; Leg pain, left M79.605 ; History of DVT (deep vein thrombosis) Z86.718 and BMI 23.0-23.9, adult Z68.23 [facility] [address] [place], [place] [id number] 12/21/2024 Antony Alfonso Acute cough R05.1 ; Shortness of breath R06.02 ; History of DVT (deep vein thrombosis) Z86.718 and BMI 23.0-23.9, adult Z68.23 [facility] [address] [place], [place] [id number] 02/20/2025 Osman Spruce Pain in left foot M7 9.672 [facility] [address] [place], [place] [id number] 10/29/2024 Antony Alfonso Essential hypertensi on I10 ; Type 2 diabetes mellitus without complication E11.9 ; Hypothyroidism (acquired) E03.9 ; Dysuria R30.0 ; Diabetic peripheral vascular disease E11.51 ; Paroxysmal atrial fibrillation I48.0 and BMI 24.0-24.9, adult Z68.24 [facility] [address] [place], [place] [id number] 03/06/2024 Antony Alfonso [facility] [address] [facility] [address] [place], [place] [id number] 04/27/2024 Antony Alfonso [facility] [address] [place], [place] [id number] 05/18/2024 Renata Crowdy Dysuria R30.0 [facility] [address] [place], [place] [id number] 08/28/2024 Antony Alfonso Other chest pain R07 .89 [facility] [address] [place], [place] [id number] 11/20/2024 Antony Alfonso [facility] [address] [place], [place] [id number] 12/23/2024 Antony Alfonso [facility] [address] [place], [place] [id number] 02/05/2025 Antony Alfonso Assessments Encounter Date Diagnosis (ICD Code) Assessment Notes Treatment Notes Treatment Clinical Notes Section Notes 04/23/2024 Type 2 diabetes mellitus without complication [...] 12/17/2024 Leg pain, left (ICD-10 - M79.605) 12/21/2024 Shortness of breath (ICD-10 - R06.02) 12/21/2024 Acute cough (ICD-10 - R05.1) 02/20/2025 Pain in left foot (ICD-10 - M79.672) 12/17/2024 History of DVT (deep vein thrombosis) (ICD-10 - Z86.718) 06/22/2024 Type 2 diabetes mellitus without complication (ICD-10 - E11.9) 10/29/2024 Hypothyroidism (acquired) (ICD-10 - E03.9) 12/21/2024 History of DVT (deep vein thrombosis) (ICD-10 - Z86.718) 07/24/2024 Type 2 diabetes mellitus without complication (ICD-10 - E11.9) 07/16/2024 Other chest pain (ICD-10 - R07.89) 04/23/2024 Hypothyroidism (acquired) (ICD-10 - E03.9) 06/22/2024 Rib pain on right side (ICD-10 - R07.81) 04/23/2024 Encounter for immunization (ICD-10 - Z23) 10/29/2024 Dysuria (ICD-10 - R30.0) 12/17/2024 BMI 23.0-23.9, adult (ICD-10 - Z68.23) 12/21/2024 BMI 23.0-23.9, adult (ICD-10 - Z68.23) 10/29/2024 Diabetic peripheral vascular disease (ICD-10 - E11.51) 10/29/2024 Paroxysmal atrial fibrillation (ICD-10 - I48.0) 10/29/2024 BMI 24.0-24.9, adult (ICD-10 - Z68.24) Plan Of Treatment Pending Test Test Name Order Date X ray : Foot, left 02/20/2025 X ray : ribs right 06/22/2024 Next Appt Details Provider Name:Osman Rios , 02/20/2025 11:00:00 AM, [address] [facility] 36 [facility], [address], [place], [place], [id number], Provider Name:Antony Sanchez er, 03/01/2025 10:15:00 AM, [address] [facility] 36 [facility], [address], [place], [place], [id number], Insurance Providers Payer Name Payer Address Payer Phone Subscriber Number Group Number Insured Name Patient Relationship to Insured Coverage Start Date Coverage End Date [employer] (MEDICAR E) [address] [address] [place] [address] [id number] Geetha Zafar Self - patient is the insured Medical (General) History Medical History History ICD Code Hypertension Hyperlipidemia Prolapsed Bladder Hypothyroidism Multinodular goiter Covid Type 2 Diabetes Fx rt arm 12/05/2020 Surgical History Surgery Date(Month/Year) Appendectomy, as a child tubal ligation 1971 Thyroidectomy - [facility] 03/13/2018 Ovary Dermoid Cyst Removal- , Dr. Pedroza er 07/11/2019 Hospitalization History Reason Date(Month/Year) Overnight at [facility] 03/13/2018 Diarrhea at [facility] 01/2015 [facility] ER- for a fall and hurt her right wr ist Fever 09/03/2020
--- OUTSIDE RECORDS SUMMARY | 2025-02-20 11:54 | XMS_ITS | Clinical Summary ---
Author Organization [facility] Address [address] [place] [address] Care Team Providers Care Deputy Sheriff Custody Name Role Phone Vinh Chen MD Primary Care Provider [phone] Social History Tobacco Use Types Packs/Day Years [...] or (1 - 1-dose 75+ series) 2013 [id number] Vaccine (1 - 2023- season) 2024 [facility]-Influenza Vaccine (#1) 2025 [facility]-Pneumococcal Vaccine: 50+ Years Completed 11/12/2017, [...] this topic Insurance [employer] Care Teams Deputy Sheriff Custody Relationship Specialty Start Date End Date Vinh Chen MD [address] [place] [id number] PCP - General 11/18/20
--- OUTSIDE RECORDS SUMMARY | 2025-02-20 11:54 | XMS_ITS ---
Author Organization Unknown Medications Date Medication Dosage DosageUnit StartDate StopDate StopReason Active DoseQuantity DoseUnit Dispense DispenseUnit Refills NdcCode DrugCode PharmacyId IsPrescription MappedMedication Srcstatus Custom 12/21 00:00 :00 Alendronate Sodium 35 MG Tablet 1 12 Tablet 1 64 999306 114 Taking 12/17 00:00 :00 Alendronate Sodium 35 MG Tablet 1 12 Tablet 1 64 803308 114 Taking 11/19 00:00 :00 Alendronate Sodium 35 MG Tablet 1 12 Tablet 1 64 615961 114 Taking 10/29 00:00 :00 Alendronate Sodium 35 MG Tablet 1 12 Tablet 1 64 133542 114 Taking 10/19 00:00 :00 Alendronate Sodium 35 MG Tablet 1 12 Tablet 1 64 098030 114 Start 10/19 00:00 :00 Alendronate Sodium 35 MG Tablet 0 12 Tablet 2 64 726126 114 Stop 07/24 00:00 :00 Alendronate Sodium 35 MG Tablet 1 12 Tablet 2 64 860791 114 Taking 07/16 00:00 :00 Alendronate Sodium 35 MG Tablet 1 12 Tablet 2 64 185836 114 Taking 06/22 00:00 :00 Alendronate Sodium 35 MG Tablet 1 12 Tablet 2 64 824071 114 Taking 05/13 00:00 :00 Alendronate Sodium 35 MG Tablet 1 12 Tablet 2 64 444044 114 Taking 04/23 00:00 :00 Alendronate Sodium 35 MG Tablet 1 12 Tablet 2 64 276374 114 Taking 03/24 00:00 :00 Alendronate Sodium 35 MG Tablet 1 12 Tablet 2 64 237750 114 Start 03/24 00:00 :00 Alendronate Sodium 35 MG Tablet 0 12 Tablet 3 64 101118 114 Stop 04/23 00:00 :00 Align Extra Strength - Capsule 0 370 83307 505 Discontinu ed 12/23 00:00 :00 Allopurinol 100 MG Tablet 1 90 Tablet 1 07029967 905 Start 12/23 00:00 :00 Allopurinol 100 MG Tablet 0 90 Tablet 1 66799926 905 Stop 12/21 00:00 :00 Allopurinol 100 MG Tablet 1 90 Tablet 1 94442312 905 Taking 12/17 00:00 :00 Allopurinol 100 MG Tablet 1 90 Tablet 1 23499120 905 Taking 11/19 00:00 :00 Allopurinol 100 MG Tablet 1 90 Tablet 1 94437089 905 Taking 10/29 00:00 :00 Allopurinol 100 MG Tablet 1 90 Tablet 1 86547341 905 Taking 07/29 00:00 :00 Allopurinol 100 MG Tablet 1 90 Tablet 1 31120030 905 Start 07/29 00:00 :00 Allopurinol 100 MG Tablet 0 90 Tablet 1 05185150 905 Stop 07/24 00:00 :00 Allopurinol 100 MG Tablet 1 90 Tablet 1 79464712 905 Taking 07/16 00:00 :00 Allopurinol 100 MG Tablet 1 90 Tablet 1 31274367 905 Taking 06/22 00:00 :00 Allopurinol 100 MG Tablet 1 90 Tablet 1 25546406 905 Taking 05/13 00:00 :00 Allopurinol 100 MG Tablet 1 90 Tablet 1 03836887 905 Taking 04/23 00:00 :00 Allopurinol 100 MG Tablet 1 90 Tablet 1 83949946 905 Taking 03/11 00:00 :00 Allopurinol 100 MG Tablet 1 90 Tablet 1 38672458 905 Start 03/11 00:00 :00 Allopurinol 100 MG Tablet 0 90 Tablet 1 09818250 905 Stop 12/21 00:00 :00 Aspirin 81 MG Tablet Delayed Release 1 38937647 474 Taking 12/17 00:00 :00 Aspirin 81 MG Tablet Delayed Release 1 08416822 474 Taking 11/19 00:00 :00 Aspirin 81 MG Tablet Delayed Release 1 34701036 474 Taking 10/29 00:00 :00 Aspirin 81 MG Tablet Delayed Release 1 55894996 474 Taking 07/24 00:00 :00 Aspirin 81 MG Tablet Delayed Release 1 81427330 474 Taking 07/16 00:00 :00 Aspirin 81 MG Tablet Delayed Release 1 27726697 474 Taking 06/22 00:00 :00 Aspirin 81 MG Tablet Delayed Release 1 35508944 474 Taking 05/13 00:00 :00 Aspirin 81 MG Tablet Delayed Release 1 00684908 474 Taking 04/23 00:00 :00 Aspirin 81 MG Tablet Delayed Release 1 82832913 474 Taking 12/21 00:00 :00 Calcium 500 MG 07/19/2016 00:00:00 1 P Taking 12/17 00:00 :00 Calcium 500 MG 07/19/2016 00:00:00 1 P Taking 11/19 00:00 :00 Calcium 500 MG 07/19/2016 00:00:00 1 P Taking 10/29 00:00 :00 Calcium 500 MG 07/19/2016 00:00:00 1 P Taking 07/24 00:00 :00 Calcium 500 MG 07/19/2016 00:00:00 1 P Taking 07/16 00:00 :00 Calcium 500 MG 07/19/2016 00:00:00 1 P Taking 06/22 00:00 :00 Calcium 500 MG 07/19/2016 00:00:00 1 P Taking 05/13 00:00 :00 Calcium 500 MG 07/19/2016 00:00:00 1 P Taking 04/23 00:00 :00 Calcium 500 MG 07/19/2016 00:00:00 1 P Taking 07/16 00:00 :00 Cefdinir 300 MG Capsule 05/18/2024 00:00:00 0 14 Capsule 0 87892138 006 P Discontinu ed 06/22 00:00 :00 Cefdinir 300 MG Capsule 05/18/2024 00:00:00 1 14 Capsule 0 68195298 006 P Taking 05/18 00:00 :00 Cefdinir 300 MG Capsule 05/18/2024 00:00:00 1 14 Capsule 0 99914297 006 P Start 12/21 00:00 :00 Centrum Silver - Tablet 1 30 215313 17 758 Taking 12/17 00:00 :00 Centrum Silver - Tablet 1 30 003474 17 758 Taking 11/19 00:00 :00 Centrum Silver - Tablet 1 30 243113 17 758 Taking 10/29 00:00 :00 Centrum Silver - Tablet 1 30 208101 17 758 Taking 07/24 00:00 :00 Centrum Silver - Tablet 1 30 365841 17 758 Taking 07/16 00:00 :00 Centrum Silver - Tablet 1 30 634844 17 758 Taking 06/22 00:00 :00 Centrum Silver - Tablet 1 30 606614 17 758 Taking 05/13 00:00 :00 Centrum Silver - Tablet 1 30 977667 17 758 Taking 04/23 00:00 :00 Centrum Silver - Tablet 1 30 539489 17 758 Taking 12/17 00:00 :00 Cipro 500 MG Tablet 10/29/2024 00:00:00 0 6 Tablet 1 461319 75 401 P Discontinu ed 11/19 00:00 :00 Cipro 500 MG Tablet 10/29/2024 00:00:00 1 6 Tablet 1 244903 75 401 P Taking 10/29 00:00 :00 Cipro 500 MG Tablet 10/29/2024 00:00:00 1 6 Tablet 1 709882 75 401 P Start 12/21 00:00 :00 Clotrimazol e-Betametha sone 1-0.05 % Cream 10/29/2024 00:00:00 1 45 Gram 1 8797540 5 815 P Taking 12/17 00:00 :00 Clotrimazol e-Betametha sone 1-0.05 % Cream 10/29/2024 00:00:00 1 45 Gram 1 7226937 5 815 P Taking 11/19 00:00 :00 Clotrimazol e-Betametha sone 1-0.05 % Cream 10/29/2024 00:00:00 1 45 Gram 1 5377738 5 815 P Taking 10/29 00:00 :00 Clotrimazol e-Betametha sone 1-0.05 % Cream 10/29/2024 00:00:00 1 45 Gram 1 7501987 5 815 P Start 12/21 00:00 :00 Famotidine 40 MG Tablet 1 90 Tablet 1 7 3837613 400 P Taking 12/17 00:00 :00 Famotidine 40 MG Tablet 1 90 Tablet 1 7 0278799 400 P Taking 11/19 00:00 :00 Famotidine 40 MG Tablet 1 90 Tablet 1 7 1544832 400 P Taking 10/29 00:00 :00 Famotidine 40 MG Tablet 1 90 Tablet 1 7 3306438 400 P Taking 07/24 00:00 :00 Famotidine 40 MG Tablet 1 90 Tablet 1 7 5696036 400 P Taking 07/16 00:00 :00 Famotidine 40 MG Tablet 1 90 Tablet 1 7 9290467 400 P Taking 06/22 00:00 :00 Famotidine 40 MG Tablet 1 90 Tablet 1 7 1051847 400 P Taking 05/13 00:00 :00 Famotidine 40 MG Tablet 1 90 Tablet 1 7 9701258 400 P Taking 04/23 00:00 :00 Famotidine 40 MG Tablet 1 90 Tablet 1 7 7831475 400 P Taking 03/06 00:00 :00 Famotidine 40 MG Tablet 1 90 Tablet 1 7 8856388 400 P Unknown Status 12/28 00:00 :00 Furosemide 40 MG Tablet 1 90 Tablet 1 6 5723849 310 Start 12/28 00:00 :00 Furosemide 40 MG Tablet 0 90 Tablet 1 6 4980289 310 Stop 12/21 00:00 :00 Furosemide 40 MG Tablet 1 90 Tablet 1 6 2805794 310 Taking 12/17 00:00 :00 Furosemide 40 MG Tablet 1 90 Tablet 1 6 0056648 310 Taking 11/19 00:00 :00 Furosemide 40 MG Tablet 1 90 Tablet 1 6 9105936 310 Taking 10/29 00:00 :00 Furosemide 40 MG Tablet 1 90 Tablet 1 6 9475130 310 Taking 08/10 00:00 :00 Furosemide 40 MG Tablet 1 23 Tablet 1 6 7645770 310 Start 08/10 00:00 :00 Furosemide 40 MG Tablet 0 45 1 559285 29 925 Stop 07/24 00:00 :00 Furosemide 40 MG Tablet 1 45 1 314791 29 925 Taking 07/16 00:00 :00 Furosemide 40 MG Tablet 1 45 1 039725 29 925 Taking 06/22 00:00 :00 Furosemide 40 MG Tablet 1 45 1 814218 29 925 Taking 05/13 00:00 :00 Furosemide 40 MG Tablet 1 45 1 883824 29 925 Taking 04/23 00:00 :00 Furosemide 40 MG Tablet 1 45 1 402651 29 925 Taking 01/14 00:00 :00 Glimepiride 4 MG Tablet 1 90 Tablet 0 1 2597389 550 Start 01/14 00:00 :00 Glimepiride 4 MG Tablet 0 90 Tablet 0 1 8918069 550 Stop 12/21 00:00 :00 Glimepiride 4 MG Tablet 1 90 Tablet 0 1 0558142 550 Taking 12/17 00:00 :00 Glimepiride 4 MG Tablet 1 90 Tablet 0 1 6679140 550 Taking 11/19 00:00 :00 Glimepiride 4 MG Tablet 1 90 Tablet 0 1 2041382 550 Taking 11/02 00:00 :00 Glimepiride 4 MG Tablet 1 90 Tablet 0 1 0524912 550 Start 11/02 00:00 :00 Glimepiride 4 MG Tablet 0 90 Tablet 0 1 2992491 550 Stop 10/29 00:00 :00 Glimepiride 4 MG Tablet 1 90 Tablet 0 1 4635708 550 Taking 08/24 00:00 :00 Glimepiride 4 MG Tablet 1 90 Tablet 0 1 2953096 550 Start 08/24 00:00 :00 Glimepiride 4 MG Tablet 0 90 Tablet 1 1 9720128 550 Stop 07/24 00:00 :00 Glimepiride 4 MG Tablet 1 90 Tablet 1 1 1548657 550 Taking 07/16 00:00 :00 Glimepiride 4 MG Tablet 1 90 Tablet 1 1 8149232 550 Taking 06/22 00:00 :00 Glimepiride 4 MG Tablet 1 90 Tablet 1 1 0388178 550 Taking 05/13 00:00 :00 Glimepiride 4 MG Tablet 1 90 Tablet 1 1 0050235 550 Taking 04/23 00:00 :00 Glimepiride 4 MG Tablet 1 90 Tablet 1 1 0967700 550 Taking 04/08 00:00 :00 Glimepiride 4 MG Tablet 1 90 Tablet 1 1 9712856 550 Start 04/08 00:00 :00 Glimepiride 4 MG Tablet 0 90 Tablet 1 1 4612966 550 Stop 12/21 00:00 :00 Isosorbide Dinitrate 30 MG Tablet 1 90 Tablet 1 26148215 910 Taking 12/17 00:00 :00 Isosorbide Dinitrate 30 MG Tablet 1 90 Tablet 1 81334924 910 Taking 11/19 00:00 :00 Isosorbide Dinitrate 30 MG Tablet 1 90 Tablet 1 86556423 910 Taking 11/05 00:00 :00 Isosorbide Dinitrate 30 MG Tablet 1 90 Tablet 1 34559238 910 Start 11/05 00:00 :00 Isosorbide Dinitrate 30 MG Tablet 0 30 2 167 03712 001 Stop 10/29 00:00 :00 Isosorbide Dinitrate 30 MG Tablet 07/16/2024 00:00:00 1 30 2 6450237 1 001 P Taking 08/28 00:00 :00 Isosorbide Dinitrate 30 MG Tablet 07/16/2024 00:00:00 1 30 2 6720432 1 001 P Unknown Status 07/24 00:00 :00 Isosorbide Dinitrate 30 MG Tablet 07/16/2024 00:00:00 1 30 2 4915862 1 001 P Taking 07/16 00:00 :00 Isosorbide Dinitrate 30 MG Tablet 07/16/2024 00:00:00 1 30 2 6875031 1 001 P Start 01/05 00:00 :00 Levothyroxi ne Sodium 25 MCG Tablet 1 90 Tablet 1 16214507 010 Start 01/05 00:00 :00 Levothyroxi ne Sodium 25 MCG Tablet 0 90 Tablet 1 30602968 010 Stop 12/21 00:00 :00 Levothyroxi ne Sodium 25 MCG Tablet 1 90 Tablet 1 55711413 010 Taking 12/17 00:00 :00 Levothyroxi ne Sodium 25 MCG Tablet 1 90 Tablet 1 24214922 010 Taking 11/19 00:00 :00 Levothyroxi ne Sodium 25 MCG Tablet 1 90 Tablet 1 29013587 010 Taking 10/29 00:00 :00 Levothyroxi ne Sodium 25 MCG Tablet 1 90 Tablet 1 24398786 010 Taking 07/24 00:00 :00 Levothyroxi ne Sodium 25 MCG Tablet 1 90 Tablet 1 27429329 010 Taking 07/16 00:00 :00 Levothyroxi ne Sodium 25 MCG Tablet 1 90 Tablet 1 89365717 010 Taking 06/22 00:00 :00 Levothyroxi ne Sodium 25 MCG Tablet 1 90 Tablet 1 00393613 010 Taking 05/13 00:00 :00 Levothyroxi ne Sodium 25 MCG Tablet 1 90 Tablet 1 24142691 010 Taking 04/23 00:00 :00 Levothyroxi ne Sodium 25 MCG Tablet 1 90 Tablet 1 32958595 010 Taking 12/21 00:00 :00 Loratadine 10 MG Tablet 1 568869 67 430 Taking 12/17 00:00 :00 Loratadine 10 MG Tablet 1 036178 67 430 Taking 11/19 00:00 :00 Loratadine 10 MG Tablet 1 424207 67 430 Taking 10/29 00:00 :00 Loratadine 10 MG Tablet 1 067436 67 430 Taking 07/24 00:00 :00 Loratadine 10 MG Tablet 1 135030 67 430 Taking 07/16 00:00 :00 Loratadine 10 MG Tablet 1 979395 67 430 Taking 06/22 00:00 :00 Loratadine 10 MG Tablet 1 969517 67 430 Taking 05/13 00:00 :00 Loratadine 10 MG Tablet 1 644178 67 430 Taking 04/23 00:00 :00 Loratadine 10 MG Tablet 1 373920 67 430 Taking 05/18 00:00 :00 Macrobid 100 MG Capsule 08/06/2023 00:00:00 0 5194201 8 501 P Stop 05/13 00:00 :00 Macrobid 100 MG Capsule 08/06/2023 00:00:00 1 14 Capsule 0 64672103 501 P Start 12/21 00:00 :00 Medrol 4 MG Tablet Therapy Pack 12/17/2024 00:00:00 1 1 0 4952465 5 604 P Taking 12/17 00:00 :00 Medrol 4 MG Tablet Therapy Pack 12/17/2024 00:00:00 1 1 0 0202157 5 604 P Start 12/23 00:00 :00 metFORMIN HCl 500 MG Tablet 1 180 Tablet 1 64165510 310 Start 12/23 00:00 :00 metFORMIN HCl 500 MG Tablet 0 180 Tablet 1 15455434 310 Stop 12/21 00:00 :00 metFORMIN HCl 500 MG Tablet 1 180 Tablet 1 50633764 310 Taking 12/17 00:00 :00 metFORMIN HCl 500 MG Tablet 1 180 Tablet 1 30749653 310 Taking 11/19 00:00 :00 metFORMIN HCl 500 MG Tablet 1 180 Tablet 1 54029226 310 Taking 10/29 00:00 :00 metFORMIN HCl 500 MG Tablet 1 180 Tablet 1 11204213 310 Taking 07/29 00:00 :00 metFORMIN HCl 500 MG Tablet 1 180 Tablet 1 66368101 310 Start 07/29 00:00 :00 metFORMIN HCl 500 MG Tablet 0 180 Tablet 1 74066301 310 Stop 07/24 00:00 :00 metFORMIN HCl 500 MG Tablet 1 180 Tablet 1 41454757 310 Taking 07/16 00:00 :00 metFORMIN HCl 500 MG Tablet 1 180 Tablet 1 05359119 310 Taking 06/22 00:00 :00 metFORMIN HCl 500 MG Tablet 1 180 Tablet 1 11509521 310 Taking 05/13 00:00 :00 metFORMIN HCl 500 MG Tablet 1 180 Tablet 1 48298427 310 Taking 04/23 00:00 :00 metFORMIN HCl 500 MG Tablet 1 180 Tablet 1 16570352 310 Taking 03/11 00:00 :00 metFORMIN HCl 500 MG Tablet 1 180 Tablet 1 44834748 310 Start 03/11 00:00 :00 metFORMIN HCl 500 MG Tablet 0 180 Tablet 1 23089512 310 Stop 12/21 00:00 :00 Metoprolol Tartrate 100 MG Tablet 1 003 39062 701 Taking 12/17 00:00 :00 Metoprolol Tartrate 100 MG Tablet 1 003 85448 701 Taking 11/19 00:00 :00 Metoprolol Tartrate 100 MG Tablet 1 003 14076 701 Taking 10/29 00:00 :00 Metoprolol Tartrate 100 MG Tablet 1 003 13125 701 Taking 07/24 00:00 :00 Metoprolol Tartrate 100 MG Tablet 1 003 82866 701 Taking 07/16 00:00 :00 Metoprolol Tartrate 100 MG Tablet 1 003 44138 701 Taking 06/22 00:00 :00 Metoprolol Tartrate 100 MG Tablet 1 003 57080 701 Taking 05/13 00:00 :00 Metoprolol Tartrate 100 MG Tablet 1 003 43689 701 Taking 04/23 00:00 :00 Metoprolol Tartrate 100 MG Tablet 1 003 41834 701 Taking 12/21 00:00 :00 Nystatin-Tr iamcinolone 574062- 0.1 UNIT/GM Cream 01/31/2023 00:00:00 1 60 Gram 0 5659165 0 615 P Taking 12/17 00:00 :00 Nystatin-Tr iamcinolone 561376- 0.1 UNIT/GM Cream 01/31/2023 00:00:00 1 60 Gram 0 1688709 0 615 P Taking 11/19 00:00 :00 Nystatin-Tr iamcinolone 942612- 0.1 UNIT/GM Cream 01/31/2023 00:00:00 1 60 Gram 0 7501086 0 615 P Taking 10/29 00:00 :00 Nystatin-Tr iamcinolone 399807- 0.1 UNIT/GM Cream 01/31/2023 00:00:00 1 60 Gram 0 9770518 0 615 P Taking 07/24 00:00 :00 Nystatin-Tr iamcinolone 866498- 0.1 UNIT/GM Cream 01/31/2023 00:00:00 1 60 Gram 0 0797672 0 615 P Taking 07/16 00:00 :00 Nystatin-Tr iamcinolone 602043- 0.1 UNIT/GM Cream 01/31/2023 00:00:00 1 60 Gram 0 7824625 0 615 P Taking 06/22 00:00 :00 Nystatin-Tr iamcinolone 873935- 0.1 UNIT/GM Cream 01/31/2023 00:00:00 1 60 Gram 0 8360255 0 615 P Taking 05/13 00:00 :00 Nystatin-Tr iamcinolone 328596- 0.1 UNIT/GM Cream 01/31/2023 00:00:00 1 60 Gram 0 0847531 0 615 P Taking 04/23 00:00 :00 Nystatin-Tr iamcinolone 532322- 0.1 UNIT/GM Cream 01/31/2023 00:00:00 1 60 Gram 0 1111048 0 615 P Taking 12/23 00:00 :00 Simvastatin 40 MG Tablet 1 90 Tablet 1 59592922 415 Start 12/23 00:00 :00 Simvastatin 40 MG Tablet 0 90 Tablet 1 24770583 415 Stop 12/21 00:00 :00 Simvastatin 40 MG Tablet 1 90 Tablet 1 92031911 415 Taking 12/17 00:00 :00 Simvastatin 40 MG Tablet 1 90 Tablet 1 98015743 415 Taking 11/19 00:00 :00 Simvastatin 40 MG Tablet 1 90 Tablet 1 87345730 415 Taking 10/29 00:00 :00 Simvastatin 40 MG Tablet 1 90 Tablet 1 02595072 415 Taking 07/29 00:00 :00 Simvastatin 40 MG Tablet 1 90 Tablet 1 71458226 415 Start 07/29 00:00 :00 Simvastatin 40 MG Tablet 0 90 Tablet 1 11636891 415 Stop 07/24 00:00 :00 Simvastatin 40 MG Tablet 1 90 Tablet 1 56461733 415 Taking 07/16 00:00 :00 Simvastatin 40 MG Tablet 1 90 Tablet 1 68806222 415 Taking 06/22 00:00 :00 Simvastatin 40 MG Tablet 1 90 Tablet 1 23529047 415 Taking 05/13 00:00 :00 Simvastatin 40 MG Tablet 1 90 Tablet 1 09232123 415 Taking 04/23 00:00 :00 Simvastatin 40 MG Tablet 1 90 Tablet 1 64266463 415 Taking 03/11 00:00 :00 Simvastatin 40 MG Tablet 1 90 Tablet 1 06949936 415 Start 03/11 00:00 :00 Simvastatin 40 MG Tablet 0 90 Tablet 1 25667671 415 Stop 12/21 00:00 :00 Spironolact one 25 MG Tablet 1 8962866 4 601 Taking 12/17 00:00 :00 Spironolact one 25 MG Tablet 1 8729038 4 601 Taking 11/19 00:00 :00 Spironolact one 25 MG Tablet 1 8053830 4 601 Taking 10/29 00:00 :00 Spironolact one 25 MG Tablet 1 5862968 4 601 Taking 07/24 00:00 :00 True Metrix Blood Glucose Test - Strip 1 100 Strip 3 5615 1146 001 Taking 07/16 00:00 :00 True Metrix Blood Glucose Test - Strip 1 100 Strip 3 5615 1146 001 Taking 06/22 00:00 :00 True Metrix Blood Glucose Test - Strip 1 100 Strip 3 5615 1146 001 Taking 06/15 00:00 :00 True Metrix Blood Glucose Test - Strip 1 100 Strip 3 5615 1146 001 Start 06/15 00:00 :00 True Metrix Blood Glucose Test - Strip 0 100 3 93368986 001 Stop 05/13 00:00 :00 True Metrix Blood Glucose Test - Strip 03/06/2024 00:00:00 1 100 3 3478915 6 001 P Taking 04/23 00:00 :00 True Metrix Blood Glucose Test - Strip 03/06/2024 00:00:00 1 100 3 7163665 6 001 P Taking 03/06 00:00 :00 True Metrix Blood Glucose Test - Strip 03/06/2024 00:00:00 1 100 3 4355759 6 001 P Start 07/24 00:00 :00 True Metrix Meter w/Devic e Kit 03/06/2024 00:00:00 1 1 0 2358918 7 002 P Taking 07/16 00:00 :00 True Metrix Meter w/Devic e Kit 03/06/2024 00:00:00 1 1 0 7038456 7 002 P Taking 06/22 00:00 :00 True Metrix Meter w/Devic e Kit 03/06/2024 00:00:00 1 1 0 3727926 7 002 P Taking 05/13 00:00 :00 True Metrix Meter w/Devic e Kit 03/06/2024 00:00:00 1 1 0 9419960 7 002 P Taking 04/23 00:00 :00 True Metrix Meter w/Devic e Kit 03/06/2024 00:00:00 1 1 0 3227166 7 002 P Taking 03/06 00:00 :00 True Metrix Meter w/Devic e Kit 03/06/2024 00:00:00 1 1 0 2530423 7 002 P Start 07/29 00:00 :00 TRUEplus Lancets 28G - Miscellaneo us 1 100 Each 2 70266087 260 Start 07/29 00:00 :00 TRUEplus Lancets 28G - Miscellaneo us 0 100 Each 2 30281156 260 Stop 07/24 00:00 :00 TRUEplus Lancets 28G - Miscellaneo us 1 100 Each 2 16043724 260 Taking 07/16 00:00 :00 TRUEplus Lancets 28G - Miscellaneo us 1 100 Each 2 77445520 260 Taking 06/22 00:00 :00 TRUEplus Lancets 28G - Miscellaneo us 1 100 Each 2 15885712 260 Taking 05/13 00:00 :00 TRUEplus Lancets 28G - Miscellaneo us 1 100 Each 2 59820154 260 Taking 04/23 00:00 :00 TRUEplus Lancets 28G - Miscellaneo us 1 100 Each 2 21936287 260 Taking 12/21 00:00 :00 Vitamin D3 1000 IU 07/19/2016 00:00:00 1 OTC P Taking 12/17 00:00 :00 Vitamin D3 1000 IU 07/19/2016 00:00:00 1 OTC P Taking 11/19 00:00 :00 Vitamin D3 1000 IU 07/19/2016 00:00:00 1 OTC P Taking 10/29 00:00 :00 Vitamin D3 1000 IU 07/19/2016 00:00:00 1 OTC P Taking 07/24 00:00 :00 Vitamin D3 1000 IU 07/19/2016 00:00:00 1 OTC P Taking 07/16 00:00 :00 Vitamin D3 1000 IU 07/19/2016 00:00:00 1 OTC P Taking 06/22 00:00 :00 Vitamin D3 1000 IU 07/19/2016 00:00:00 1 OTC P Taking 05/13 00:00 :00 Vitamin D3 1000 IU 07/19/2016 00:00:00 1 OTC P Taking 04/23 00:00 :00 Vitamin D3 1000 IU 07/19/2016 00:00:00 1 OTC P Taking 12/21 00:00 :00 Voltaren 1 % Gel 11/19/2024 00:00:00 1 1 1 6279845 2 101 P Taking 12/17 00:00 :00 Voltaren 1 % Gel 11/19/2024 00:00:00 1 1 1 5640948 2 101 P Taking 11/19 00:00 :00 Voltaren 1 % Gel 11/19/2024 00:00:00 1 1 1 7117583 2 101 P Start 12/21 00:00 :00 Xarelto 20 MG Tablet 1 30 2 54426984 900 Taking 12/17 00:00 :00 Xarelto 20 MG Tablet 1 30 2 38095702 900 Taking 11/19 00:00 :00 Xarelto 20 MG Tablet 1 30 2 91775704 900 Taking 10/29 00:00 :00 Xarelto 20 MG Tablet 1 30 2 58005948 900 Taking 07/24 00:00 :00 Xarelto 20 MG Tablet 1 30 2 64959788 900 Taking 07/16 00:00 :00 Xarelto 20 MG Tablet 1 30 2 29372253 900 Taking 06/22 00:00 :00 Xarelto 20 MG Tablet 1 30 2 91572806 900 Taking 05/13 00:00 :00 Xarelto 20 MG Tablet 1 30 2 30391998 900 Taking 04/23 00:00 :00 Xarelto 20 MG Tablet 1 30 2 52733109 900 Taking
== END 2025-02-20 23:59 | disposition home or self-care (01) ==
LOC: RAD 11:52
PROVIDERS: PCP Family Medicine; Visit Provider Family Medicine
DX: M19.072 Primary osteoarthritis, left ankle and foot (principal); M77.32 Calcaneal spur, left foot; I70.202 Unspecified atherosclerosis of native arteries of extremities, left leg; R93.6 Abnormal findings on diagnostic imaging of limbs
CPT/HCPCS: 73630

== ENCOUNTER 2025-05-20 11:08 | Outpatient (CLI) | payer MEDICARE, SELFPAY ==
--- OUTSIDE RECORDS SUMMARY | 2025-05-20 11:27 | XMS_ITS | Clinical Summary ---
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 Name Role Phone Vinh Chen MD Primary Care Provider [phone] Social History Tobacco Use Types Packs/Day Years [...] Screening 1938 [facility]-Medicare Annual Wellness (AWV) 1938 [facility]-/Child/Adol SDOH Screenings 1938 [facility]- SDOH Screenings 1956 [facility]-Adult SDOH Screenings 1956 [facility]-DTaP,Tdap,and Td Vaccines (1 - Tdap) 1957 [facility]-Zoster Vaccines (1 of 2) 1988 [facility]-RSV Vaccine: 60+ Years or (1 - 1-dose 75+ series) 2013 [id number] Vaccine (1 - season) 2025 [facility]-Influenza Vaccine (#1) 2025 [facility]-Pneumococcal Vaccine: 50+ [...] this topic Insurance [employer] Care Teams [employer] Relationship Specialty Start Date End Date Vinh Chen MD [address] [place] [address] [place] [phone] PCP - General 11/18/20
[2025-05-20 11:44] LABS: Hematocrit 39.5 % (37.0-47.0); Hemoglobin 13.3 g/dL (12.2-16.2); Immature Granulocytes % 0.5 %; Mean Corpuscular HGB Conc 33.7 g/dL (31.8-35.4); Mean Corpuscular Hemoglobin 32.3 pg (27.0-31.2); Mean Corpuscular Volume 95.9 fl (81-99); Nucleated Red Blood Cells % 0 %; Platelet Count 276 K/mm3 (142-424); Red Blood Count 4.12 M/mm3 (4.20-5.40); Red Cell Distribution Width-SD 47.6 fL; White Blood Count 13.2 K/mm3 (4.8-10.8)
[2025-05-20 12:28] LABS: Anion Gap 13.1 mEq/L (5-15); Blood Urea Nitrogen 18 mg/dl (7-17); Calcium 9.4 mg/dl (8.4-10.2); Carbon Dioxide 28 mmol/L (22.0-30.0); Chloride 98 mmol/L (98-107); Creatinine,Serum 1.20 mg/dl (0.52-1.04); Estimated Glomerular Filt Rate 43 ml/min (>60); GFR (African American) 52 ML/MIN (>60); Glucose 154 mg/dl (74-100); Potassium 4.1 mmoL/L (3.5-5.1); Sodium 135 mmol/L (136-145)
[2025-05-20 12:38] LABS: NT Pro Brain Natriuretic Pep. 410 pg/mL (0-450)
[2025-05-20 12:45] LABS: Free T4 (Free Thyroxine) 1.30 ng/dl (0.78-2.19)
[2025-05-20 12:59] LABS: Thyroid Stimulating Hormone 2.03 uIU/mL (0.465-4.68)
== END 2025-05-20 23:59 | disposition home or self-care (01) ==
LOC: LAB 11:09
PROVIDERS: Nurse Practitioner; PCP Family Medicine; Visit Provider Physician Assistant
DX: I25.110 Atherosclerotic heart disease of native coronary artery with unstable angina pectoris (principal); E04.1 Nontoxic single thyroid nodule; I10 Essential (primary) hypertension; E78.5 Hyperlipidemia, unspecified; I48.19 Other persistent atrial fibrillation; E89.0 Postprocedural hypothyroidism
CPT/HCPCS: 36415; 80048; 83880; 84439; 84443; 85025

== ENCOUNTER 2025-05-21 13:58 | Outpatient (CLI) | payer MEDICARE, SELFPAY ==
--- NOTE | 2025-05-21 14:01 | XR_ITS ---
FINAL REPORT CLINICAL HISTORY: leukocytosis and dyspnea FINDINGS: There are underlying emphysematous changes. No acute pulmonary density is present. No significant pleural effusion. There is no pneumothorax. The heart is normal in size. The mediastinum is unremarkable. Old healed right humeral shaft fracture is noted. IMPRESSION: Emphysema without acute process. Authenticated and ERN
== END 2025-05-21 23:59 | disposition home or self-care (01) ==
LOC: RAD 13:59
PROVIDERS: PCP Family Medicine; Visit Provider Physician Assistant
DX: J43.9 Emphysema, unspecified (principal); D72.829 Elevated white blood cell count, unspecified
CPT/HCPCS: 71046

== ENCOUNTER 2025-05-24 13:50 | Outpatient (CLI) | payer MEDICARE, SELFPAY ==
--- NOTE | 2025-05-24 14:00 | US_ITS ---
FINAL REPORT TECHNIQUE: Real-time grayscale and color ultrasound of the thyroid was performed. CLINICAL HISTORY: monitor left thyroid nodule FINDINGS: The right thyroid lobe is absent. The left thyroid lobe measures 60 x 30 x 33 mm. Again noted is a large nodule occupying the majority of the left lobe of the thyroid measuring 40 x 20 mm. It is heterogeneous in consistent with a TR 3 nodule. 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 Biopsy recommended if not already performed. Reviewed, Interpreted and Dictated by Guillermo Chau MD Transcribed by Shirley Humphrey Authenticated and [facility]
== END 2025-05-24 23:59 | disposition home or self-care (01) ==
LOC: RAD 13:51
PROVIDERS: PCP Family Medicine; Visit Provider Nurse Practitioner
DX: E04.1 Nontoxic single thyroid nodule (principal); E89.0 Postprocedural hypothyroidism
CPT/HCPCS: 76536